=== PATIENT | female | born 1960 | race Caucasian/White ===

== ENCOUNTER → 2020-03-15 12:02 | Outpatient (BNVA) | payer OTHER, SELFPAY | PROVIDERS: PCP Internal Medicine Sports Medicine; Referring Provider Internal Medicine Sports Medicine; Visit Provider Internal Medicine | DX: I48.0 Paroxysmal atrial fibrillation (principal); E11.9 Type 2 diabetes mellitus without complications; I10 Essential (primary) hypertension; E78.5 Hyperlipidemia, unspecified; G47.33 Obstructive sleep apnea (adult) (pediatric); Z79.01 Long term (current) use of anticoagulants; Z79.4 Long term (current) use of insulin; Z79.899 Other long term (current) drug therapy; Z99.89 Dependence on other enabling machines and devices | CPT/HCPCS: 99214 ==

== ENCOUNTER 2020-04-27 08:06 | Outpatient (REF) | payer OTHER, SELFPAY ==
[2020-04-27 09:38] LABS: Alanine Aminotransferase 49 U/L (0-31); Albumin Level 4.2 g/dL (3.5-5.0); Alkaline Phosphatase 124 U/L (39-117); Anion Gap 13 (12-20); Aspartate Amino Transferase 45 U/L (5-31); Bilirubin Total 0.3 mg/dL (0.0-1.0); Blood Urea Nitrogen 20 mg/dL (9-16); Calcium 9.4 mg/dL (8.4-10.2); Carbon Dioxide 29 mmol/L (22-29); Chloride 101 mmol/L (96-108); Estimated Glomerular Filt Rate > 60; Glucose Random 233 mg/dL (60-115); Potassium 4.3 mmol/l (3.3-5.1); Sodium 139 mmol/L (135-145); Total Protein 7.4 g/dL (6.5-8.0)
[2020-04-27 09:41] LABS: Estimated Average Glucose 283 mg/dL; Hemoglobin A1c % 11.5 %
[2020-04-27 09:48] LABS: Vitamin D 25-OH Total 49.6 ng/mL (>30)
[2020-04-30 13:12] LABS: Calcium (PTHI) 10.1 mg/dL (8.6-10.4); PTHI 18 pg/mL (14-64)
== END 2020-04-27 08:07 | disposition home or self-care (01) ==
LOC: HO.LAB 08:06
PROVIDERS: PCP Internal Medicine Sports Medicine; Visit Provider Internal Medicine
DX: E78.5 Hyperlipidemia, unspecified (principal); E11.65 Type 2 diabetes mellitus with hyperglycemia; I10 Essential (primary) hypertension; E04.2 Nontoxic multinodular goiter; M89.9 Disorder of bone, unspecified; E83.52 Hypercalcemia; E55.9 Vitamin D deficiency, unspecified
CPT/HCPCS: 80053; 82306; 83036; 83970

== ENCOUNTER → 2020-05-07 14:46 | Outpatient (BNVA) | payer OTHER, SELFPAY | PROVIDERS: PCP Internal Medicine Sports Medicine; Referring Provider Internal Medicine Sports Medicine; Visit Provider Internal Medicine | DX: E11.65 Type 2 diabetes mellitus with hyperglycemia (principal); Z79.4 Long term (current) use of insulin; E78.5 Hyperlipidemia, unspecified; I10 Essential (primary) hypertension; E04.2 Nontoxic multinodular goiter; M89.9 Disorder of bone, unspecified; E83.52 Hypercalcemia; E55.9 Vitamin D deficiency, unspecified | CPT/HCPCS: 82947; 99212 ==

== ENCOUNTER 2020-06-12 09:15 | Outpatient (REF) | payer OTHER, SELFPAY ==
--- NOTE | 2020-06-12 09:20 | MM_ITS ---
EXAMINATION: BONE DENSITOMETRY CLINICAL INDICATION: Disorder of bone. COMPARISON: Baseline BD dated 04/05/2019. TECHNIQUE: Using a [employer] DXA System (software version: 13.1) manufactured by [employer], dual-energy x-ray absorptiometry was performed of the lumbar spine and left hip. The images are of good technical quality. Summary results are attached. FINDINGS: AP SPINE L1-L4: Current: BMD 1.349 g/cm2, Z-score 1.3, T-score 1.4, normal, 8.7% decrease from baseline (<5% change is not significant). Baseline: BMD 1.477 g/cm2. LEFT FEMUR, NECK: Current: BMD 1.050 g/cm2, Z-score 0.5, T-score 0.1, normal. Baseline: BMD 1.044 g/cm2. LEFT FEMUR, TOTAL: Current: BMD 1.075 g/cm2, Z-score 0.5, T-score 0.5, normal, 6.0% decrease from baseline (<5% change is not significant). Baseline: BMD 1.144 g/cm2. IDENTIFIED RISK FACTORS: Rheumatoid arthritis. Early menopause, secondary osteoporosis. HISTORY OF FRACTURE: None listed. MEDICATIONS: Vitamin D. MM/XR DEXA axial skeleton IMPRESSION: 1. DIAGNOSIS: Normal bone density based on the lowest T-score value of 0.1 in the femoral neck applying World Health Organization criteria. 2. 10-YEAR FRACTURE RISK PREDICTION, FRAX: Major osteoporotic fracture (clinical spine, forearm, hip or shoulder) 3.5%. Hip fracture 0.1%. 3. Treatment Recommendations: NOF guidelines recommend consideration for treatment in postmenopausal women and men age 50 and older presenting with the following: -A hip or vertebral (clinical or morphometric) fracture. -T-score less than or equal to -2.5 at the femoral neck or spine after appropriate evaluation to exclude secondary causes. -Low bone mass at the hip or spine and a 10-year fracture probability by FRAX of greater than or equal to 3% for hip fracture or greater than or equal to 20% for major osteoporotic fracture based on the [place] adapted WHO algorithm. 4. Other Recommendations: All treatment decisions require clinical judgment and consideration of individual patient factors, including patient preferences, comorbidities, previous drug use, risk factors not captured in the FRAX model (e.g. frailty, falls, vitamin D deficiency, increased bone turnover, interval significant decline in bone density) and possible under or overestimation of fracture risk by FRAX. FUTURE SCAN RECOMMENDATION: People with diagnosed cases of osteoporosis or at high risk for fracture should have regular bone mineral density tests. For patients eligible for Medicare, routine testing is allowed once every 2 years. The testing frequency can be increased to one year for patients who have rapidly progressing disease, those who are receiving or discontinuing medical therapy to restore bone mass, or have additional risk factors.
--- NOTE | 2020-06-12 10:01 | US_ITS ---
EXAMINATION: US THYROID CLINICAL INFORMATION: Nontoxic multinodular goiter. COMPARISON: Ultrasound-guided thyroid biopsy 05/19/2019. Thyroid ultrasound 09/02/2018. TECHNIQUE: Linear transducer teague-scale and color Doppler examination with attention to the region of the thyroid. FINDINGS: SIZE: Measurements of the thyroid lobes and nodules are given in sagittal, anteroposterior and transverse dimensions respectively. Right Thyroid Lobe: 6.1 x 2.3 x 2.5 cm, volume 18.3 mL. Previously 5.5 x 2.3 x 2.1 cm, volume 13.9 mL. Parenchyma: The gland echotexture is homogeneous. Thyroid vascularity is normal. Left Thyroid Lobe: 5.9 x 2.2 x 2.2 cm, volume 14.9 mL. Previously 5.6 x 2.1 x 2.2 cm, volume 13.5 mL. Parenchyma: The gland echotexture is homogeneous. Thyroid vascularity is normal. Isthmus: 0.8 cm in maximum AP dimension. Previously 0.6 cm. RIGHT THYROID LOBE: There are 4 nodules seen. 1. Location: Upper pole. Size: 0.8 x 0.9 x 0.7 cm. Previous: 0.4 x 0.2 x 0.4 cm. Nodule characteristics: Hypoechoic, smoothly marginated with intranodular flow. 2. Location: Lower pole. Size: 2.2 x 1.5 x 1.6 cm. Previous: 1.8 x 1.3 x 1.6 cm. Nodule characteristics: Hypoechoic, smoothly marginated with intranodular flow. 3. Location: Lower pole. Size: 1.8 x 1.2 x 1.3 cm. Previous: 1.6 x 1.3 x 1.1 cm. Nodule characteristics: Hypoechoic. 4. Location: Lower pole. Size: 0.9 x 0.6 x 0.7 cm. Previous: Not seen. Nodule characteristics: Hypoechoic, smoothly marginated with intranodular flow. ISTHMUS: There is 1 nodule seen. 1. Location: Isthmus. Size: 1.3 x 0.5 x 1.2 cm. Previous: Not seen. Nodule characteristics: Hypoechoic, smoothly marginated with no intranodular flow. LEFT THYROID LOBE: There are 4 nodules seen. 1. Location: Mid pole. Size: 1.0 x 0.6 x 1.0 cm. Previous: 1.2 x 0.8 x 0.9 cm. Nodule characteristics: Hypoechoic smoothly marginated and no intranodular flow. 2. Location: Mid pole. Size: 1.2 x 0.9 x 1.2 cm. Previous: 2.8 x 2.0 x 2.2 cm. Nodule characteristics: Hypoechoic, smoothly marginated and no intranodular flow. 3. Location: Lower pole. Size: 0.9 x 0.6 x 0.8 cm. Previous: Not seen. Nodule characteristics: Hypoechoic, smoothly marginated with no intranodular flow. 4. Location: Lower pole. Size: 1.1 x 0.8 x 1.0 cm. Previous: Not seen. Nodule characteristics: Hypoechoic, smoothly marginated with no intranodular flow. NODES: No lymphadenopathy is seen in the tissue surrounding the thyroid gland. US/US thyroid IMPRESSION: Multinodular goiter. No major change in most of the large or the small nodules and new nodules seen in the lower pole left lobe and isthmus. Recommend continued followup.
== END 2020-06-12 09:16 | disposition home or self-care (01) ==
LOC: HO.MAMMO 09:15
PROVIDERS: PCP Internal Medicine Sports Medicine; Visit Provider Internal Medicine
DX: Z13.820 Encounter for screening for osteoporosis (principal); M89.9 Disorder of bone, unspecified; Z78.0 Asymptomatic menopausal state; M06.9 Rheumatoid arthritis, unspecified; E04.2 Nontoxic multinodular goiter
CPT/HCPCS: 76536; 77080

== ENCOUNTER → 2020-06-27 10:20 | Outpatient (BNVA) | payer OTHER, SELFPAY | PROVIDERS: PCP Internal Medicine Sports Medicine; Visit Provider Internal Medicine | CPT/HCPCS: Q3014 ==

== ENCOUNTER → 2020-08-06 10:57 | Outpatient (BNV) | payer OTHER, SELFPAY | PROVIDERS: PCP Internal Medicine Sports Medicine; Visit Provider Internal Medicine | DX: D05.11 Intraductal carcinoma in situ of right breast (principal); Z79.811 Long term (current) use of aromatase inhibitors | CPT/HCPCS: 99213; 99214 ==

== ENCOUNTER → 2020-09-06 12:59 | Outpatient (BNVA) | payer OTHER, SELFPAY | PROVIDERS: PCP Internal Medicine Sports Medicine; Visit Provider Internal Medicine | DX: E11.65 Type 2 diabetes mellitus with hyperglycemia (principal); Z79.4 Long term (current) use of insulin; E78.5 Hyperlipidemia, unspecified; E04.2 Nontoxic multinodular goiter; E83.52 Hypercalcemia; E55.9 Vitamin D deficiency, unspecified; I10 Essential (primary) hypertension; M89.9 Disorder of bone, unspecified | CPT/HCPCS: 82947; 99212 ==

== ENCOUNTER 2020-09-13 08:52 | Outpatient (REF) | payer OTHER, SELFPAY | END 2020-09-13 08:53 | disposition home or self-care (01) | LOC: HO.LAB 08:52 | PROVIDERS: PCP Internal Medicine Sports Medicine; Visit Provider Internal Medicine | DX: Z13.89 Encounter for screening for other disorder (principal) ==

== ENCOUNTER 2020-10-12 09:43 | Outpatient (REF) | payer OTHER, SELFPAY ==
--- NOTE | ~2020-10-12 | XR_ITS ---
EXAMINATION: XR LUMBOSACRAL SPINE CLINICAL INFORMATION: Chronic right-sided low back pain COMPARISON: None TECHNIQUE: Three views of the lumbosacral spine. FINDINGS: There is normal lumbar lordosis. The vertebral heights and alignment is normal. There is loss of T12-L1, L1-L2, L2-L3 and L5-S1 disc heights with moderate ventral and lateral spondylosis. No lytic or sclerotic process seen. The SI joints are symmetrical and normal. The paravertebral soft tissues are normal. XR/XR lumbar spine 2-3V IMPRESSION: Degenerative disc changes with moderate ventral spondylosis. No visible acute fracture or lytic process.
== END 2020-10-12 09:44 | disposition home or self-care (01) ==
LOC: HO.XRAY 09:43
PROVIDERS: PCP Internal Medicine Sports Medicine; Visit Provider Internal Medicine Sports Medicine
DX: M54.5 Low back pain (principal); G89.29 Other chronic pain
CPT/HCPCS: 72100

== ENCOUNTER 2020-12-13 10:56 | Outpatient (REF) | payer OTHER, SELFPAY ==
[2020-12-13 11:53] LABS: Estimated Average Glucose 183 mg/dL
[2020-12-13 12:01] LABS: Alanine Aminotransferase 23 U/L (0-31); Albumin Level 4.2 g/dL (3.5-5.0); Alkaline Phosphatase 79 U/L (39-117); Anion Gap 14 (12-20); Aspartate Amino Transferase 21 U/L (5-31); Bilirubin Total 0.4 mg/dL (0.0-1.0); Blood Urea Nitrogen 26 mg/dL (9-16); Calcium 10.1 mg/dL (8.4-10.2); Carbon Dioxide 27 mmol/L (22-29); Chloride 103 mmol/L (96-108); Cholesterol 133 mg/dL; Estimated Glomerular Filt Rate > 60; Glucose Random 259 mg/dL (60-115); HDL Cholesterol 37 mg/dL; LDL Cholesterol Calculated 68 mg/dl; Potassium 4.7 mmol/L (3.3-5.1); Sodium 139 mmol/L (135-145); Total Protein 7.2 g/dL (6.5-8.0); Triglycerides 144 mg/dL
[2020-12-13 12:24] LABS: Vitamin D 25-OH Total 34.5 ng/mL (>30)
[2020-12-13 13:38] LABS: Microalbum/Creatinine Ratio Ur 24.4 ug/mg cr
[2020-12-14 07:32] LABS: LDL Cholesterol Direct 78 mg/dL (<100)
== END 2020-12-13 10:57 | disposition home or self-care (01) ==
LOC: HO.LAB 10:56
PROVIDERS: Visit Provider Internal Medicine
DX: E11.65 Type 2 diabetes mellitus with hyperglycemia (principal); E55.9 Vitamin D deficiency, unspecified; Z79.4 Long term (current) use of insulin
CPT/HCPCS: 36415; 80053; 80061; 82043; 82306; 83036; 83721

== ENCOUNTER 2020-12-20 10:00 | Outpatient (RCR) | payer OTHER, SELFPAY | END 2020-12-20 11:47 | disposition other institution (70) | LOC: HO.OT 10:00 | PROVIDERS: Visit Provider Internal Medicine Sports Medicine | DX: M65.4 Radial styloid tenosynovitis [de Quervain] (principal) | CPT/HCPCS: 29125; 97035; 97110; 97140; 97167; 97760 ==

== ENCOUNTER 2021-01-24 10:37 | Outpatient (REF) | payer OTHER, SELFPAY | END 2021-01-24 10:38 | disposition home or self-care (01) | LOC: HO.US 10:37 | PROVIDERS: Visit Provider Internal Medicine | DX: E04.2 Nontoxic multinodular goiter (principal) | CPT/HCPCS: 76536 ==

== ENCOUNTER 2021-02-04 11:42 | Emergency (ER) | payer OTHER, SELFPAY ==
[2021-02-04 11:50] VITALS: BP 147/65; PULSE 88; RESP 16; TEMP 36.7; O2SAT 96; BMI 42.0
--- NOTE | 2021-02-04 12:56 | ED.BACK ---
HPI - Back Pain/Injury General Chief Complaint: Back Pain/Injury Stated Complaint: back pain Time Seen by Provider: 02/04/21 12:56 Source: patient Mode of arrival: ambulatory Limitations: no limitations History of Present Illness HPI Narrative: 60 y/o female with history of DM2 on insulin, HTN, HLD, BRIAN, afib who presents to the ER with acute on chronic back pain. She reports for the last 3 days she has had lower back pain on the right side as well as in her middle back. Described as spasms that take her breath away and stop her in her tracks when she is walking with her rollator. She denies any known injury. She states pain is worse with any movement and she is having a hard time finding a comfortable position at night. No weakness, numbness, tingling, chest pain, SOB. MD elicited complaint: back pain Pertinent past history: prior back pain Onset (ago): day(s) (3) Timing: constant Severity: moderate Pain scale (0-10): 7 Similar Symptoms Previously: Yes Quality: aching and spasming Location: right lower back and right upper back Radiation: none Exacerbating factors: movement, walking and coughing/sneezing Relieving factors: supine Context: unknown Associated symptoms: denies other symptoms Treatments prior to arrival: acetaminophen Work related injury: No Related Data Home Medications Medication Instructions Recorded Confirmed allopurinol 300 mg tablet 300 mg PO DAILY 03/15/20 09/06/20 diltiazem HCl 120 mg capsule,24 120 mg PO DAILY 03/15/20 09/06/20 hr,extended release fenofibrate nanocrystallized 145 145 mg PO DAILY 03/15/20 09/06/20 mg tablet metoprolol succinate 50 mg 50 mg PO DAILY 03/15/20 09/06/20 tablet,extended release 24 hr olmesartan 40 mg tablet 40 mg PO DAILY 03/15/20 09/06/20 rivaroxaban 20 mg tablet 20 mg PO DAILY 03/15/20 09/06/20 rosuvastatin 20 mg tablet 20 mg PO BEDTIME 03/15/20 09/06/20 blood-glucose meter #1 ea 05/07/20 09/06/20 lancets 30 gauge #100 ea 05/07/20 09/06/20 omeprazole 20 mg capsule,delayed 20 mg PO DAILY PRN 05/07/20 09/06/20 release pen needle, diabetic 32 gauge x #50 ea 05/07/20 09/06/2006/11 pen needle, diabetic 32 gauge x #50 ea 05/07/20 09/06/20 triamcinolone acetonide 0.1 % 1 appl TOPICAL BID-TID 05/07/20 09/06/20 topical cream Previous Rx's Medication Instructions Recorded cholecalciferol (vitamin D3) 50 50 mcg PO DAILY 30 Days #30 cap 04/23/20 mcg (2,000 unit) capsule blood sugar diagnostic (FreeStyle #100 ea 05/07/20 Lite Strips) insulin aspart U-100 100 unit/mL 45 unit SUBCUT TID 30 Days #40.5 ml 05/07/20 (3 mL) subcutaneous pen insulin degludec 200 unit/mL (3 135 unit SUBCUT QAM 30 Days #20.25 05/07/20 mL) subcutaneous pen ml lancets 28 gauge (FreeStyle See Rx Instructions TOPICAL QID 06/18/20 Lancets) #100 cap letrozole 2.5 mg tablet 2.5 mg PO DAILY #90 tab 08/22/20 alendronate 70 mg tablet (Fosamax) 70 mg PO QWEEK 30 Days #5 tab 09/06/20 cyclobenzaprine 10 mg tablet 10 mg PO TID PRN #10 tab 02/04/21 diclofenac sodium 3 % topical gel 1 appl TOPICAL BID #100 g 02/04/21 hydrocodone 5 mg-acetaminophen 325 1 tab PO Q8H PRN #5 tab 02/04/21 mg tablet lidocaine 5 % topical patch 1 patch TOPICAL DAILY #15 ea 02/04/21 (Lidoderm) Allergies Allergy/AdvReac Type Severity Reaction Status Date / Time Penicillins [PENICILLINS] Allergy Unknown RASH Verified 09/06/20 13:21 canagliflozin AdvReac Yeast Verified 09/06/20 13:21 [From Invokamet] infection metformin [From Invokamet] AdvReac Yeast Verified 09/06/20 13:21 infection Review of Systems Review of Systems: Constitutional: No Fever, No Chills ENT/Mouth: No sore throat, No Rhinorrhea, No Swallowing Difficulty Cardiovascular: No Chest Pain, No SOB Respiratory: No Cough, No Sputum Gastrointestinal: No Nausea, No Vomiting, No abdominal Pain Genitourinary: No Dysuria, No Urinary Frequency, No Hematuria Musculoskeletal: No joint pain, + Myalgias Skin: No Skin Lesions, No rash Neuro: No Weakness, No Numbness, No Dizziness, No Headache Psych: No Anxiety/Panic, No Depression Heme/Lymph: No Bruising, No Lymphadenopathy PMFSH Past Medical History Medical History Disorder of bone, unspecified Essential hypertension HLD (hyperlipidemia) HTN (hypertension) Hypercalcemia longterm (current) use of insulin Multinodular thyroid Obstructive sleep apnea (adult) (pediatric) PAF (paroxysmal atrial fibrillation) T2DM (type 2 diabetes mellitus) Type 2 diabetes mellitus without complications Vitamin D deficiency Surgical History Hx of colonoscopy Family History Family History Father Cardiovascular disease Mother Uterine cancer Social History Social History Alcohol intake: former Advance Directives: No Advance Directives Information Provided: No Patient : No Physical Exam Vital Signs: Vital Signs: Last Vital Signs Temp 98.0 F 02/04/21 11:50 Pulse 88 02/04/21 11:50 Resp 16 02/04/21 11:50 BP 147/65 H 02/04/21 11:50 Pulse Ox 96 02/04/21 11:50 Body Mass Index 42.0 Appearance: Alert. Oriented X3. No acute distress. Eyes: Pupils equal, round and reactive to light. ENT: Pharynx normal. Neck: Normal inspection. Neck supple. CVS: Normal heart rate and rhythm. Pulses normal. Respiratory: No respiratory distress. Breath sounds normal. Abdomen: Obese, Soft and nontender. +BS x4 Back: right middle and right lower back with soft tissue tenderness and palpable spasm. pain with bending forward and rotation to the left. no spinal tenderness. Skin: Skin warm and dry. Normal skin color. Normal skin turgor. No rashes. Extremities: No lower extremity edema. Neuro: Oriented X 3. No motor deficit. No sensory deficit. Ambulates with slow but steady gait. Course Course Course Narrative: 60 yo female presenting with acute on chronic back pain, worse with movement and palpation. Spasm on exam with tenderness. No red flag symptoms of LBP. She has an appointment in a couple of weeks with her PCP. Will give trial of muscle relaxer, topical NSAID (on xarelto), and lidoderm. 5 PRN vicoden given as well for severe pain if she cannot sleep. She agrees with plan and will f/u with her PCP CRISTIANO. Discharge Plan Discharge Clinical Impression: Thoracic back pain Qualifiers: Chronicity: acute Back pain laterality: right Qualified Code(s): M54.6 - Pain in thoracic spine Strain of lumbar region Qualifiers: Encounter type: initial encounter Qualified Code(s): S39.012A - Strain of muscle, fascia and tendon of lower back, initial encounter Patient Disposition: Home, Self-Care Instructions: Back Pain (ED), Lower Back Exercises (ED) Additional Instructions: Your pain is most likely muscular in nature. No bending, lifting or twisting. Use ice several times per day for 20 minutes at a time for the next 48 hours and then change to heat. Take medications as prescribed to help with pain and discomfort. Follow up with your Primary Care Doctor this week. If your pain worsens, if you develop new numbness, tingling, weakness, loss of function or incontinence call 911 or come back to the ER right away for evaluation. Prescriptions: New cyclobenzaprine 10 mg tablet 10 mg PO TID PRN (Reason: muscle spasm) Qty: 10 RF: 0 lidocaine [Lidoderm] 5 % adhesive patch,medicated 1 patch topical DAILY Qty: 15 RF: 0 diclofenac sodium 3 % gel 1 appl topical BID Qty: 100 RF: 0 hydrocodone-acetaminophen 5-325 mg tablet 1 tab PO Q8H PRN (Reason: pain) Qty: 5 RF: 0 No Action cholecalciferol (vitamin D3) 50 mcg (2,000 unit) capsule 50 mcg PO DAILY 30 Days Qty: 30 RF: 11 (DME) FreeStyle Lite Strips Strip See Rx Instructions .ROUTE .MEDSUPPLY Qty: 100 RF: 12 lancets [FreeStyle Lancets] 28 gauge misc See Rx Instructions topical QID Qty: 100 RF: 11 letrozole 2.5 mg tablet 2.5 mg PO DAILY Qty: 90 RF: 2 (DME) pen needle, diabetic 32 gauge x /32 needle See Rx Instructions ea subcut QID Qty: 50 RF: 0 (DME) pen needle, diabetic 32 gauge x 1/4 needle See Rx Instructions ea subcut QID Qty: 50 RF: 0 (DME) blood-glucose meter Kit See Rx Instructions ea .ROUTE DIRECTED Qty: 1 RF: 0 triamcinolone acetonide 0.1 % cream 1 appl topical BID-TID RF: 0 (DME) lancets 30 gauge misc See Rx Instructions ea .ROUTE TID Qty: 100 RF: 0 omeprazole 20 mg capsule,delayed release(DR/EC) 20 mg PO DAILY PRN (Reason: heartburn) RF: 0 insulin aspart U-100 100 unit/mL (3 mL) insulin pen 45 unit subcut TID 30 Days Qty: 40.5 RF: 11 insulin degludec 200 unit/mL (3 mL) insulin pen 135 unit subcut QAM 30 Days Qty: 20.25 RF: 11 fenofibrate nanocrystallized 145 mg tablet 145 mg PO DAILY RF: 0 Xarelto 20 mg tablet 20 mg PO DAILY RF: 0 olmesartan 40 mg tablet 40 mg PO DAILY RF: 0 allopurinol 300 mg tablet 300 mg PO DAILY RF: 0 rosuvastatin 20 mg tablet 20 mg PO BEDTIME RF: 0 metoprolol succinate 50 mg tablet extended release 24 hr 50 mg PO DAILY RF: 0 diltiazem HCl 120 mg capsule,extended release 24 hr 120 mg PO DAILY RF: 0 alendronate [Fosamax] 70 mg tablet 70 mg PO QWEEK 30 Days Qty: 5 RF: 6
--- NOTE | 2021-02-04 13:29 | PC.NURSE ---
1ST ENCOUNTER WITH PATIENT FOR DC PURPOSES. PT AWAKE, ALERT AND ORIENTED X 3. PT DRESSED, SITTING IN CHAIR. NO ACUTE DISTRESS NOTED. NEUROS INTACT. AMBULATORY, GAIT STEADY. PLAN IS FOR DC HOME. PT AGREEABLE TO PLAN. STATES NO QUESTIONS.
== END 2021-02-04 13:35 | disposition home or self-care (01) ==
PROVIDERS: Emergency Provider Emergency Medicine
DX: S39.012A Strain of muscle, fascia and tendon of lower back, initial encounter (principal); M54.6 Pain in thoracic spine; E11.9 Type 2 diabetes mellitus without complications; X58.XXXA Exposure to other specified factors, initial encounter; Y93.9 Activity, unspecified; Y92.9 Unspecified place or not applicable; Y99.9 Unspecified external cause status; Z87.891 Personal history of nicotine dependence; Z79.899 Other long term (current) drug therapy; Z79.4 Long term (current) use of insulin
CPT/HCPCS: 99283

== ENCOUNTER 2021-02-19 12:39 | Outpatient (REF) | payer OTHER, SELFPAY ==
--- NOTE | ~2021-02-19 | MM_ITS ---
EXAMINATION: MM DIAGNOSTIC DIGITAL BREAST TOMOSYNTHESIS, BILATERAL CLINICAL INFORMATION: Right breast cancer, DCIS 2018. Due for yearly exam. COMPARISON: Mammography: 02/16/2020, 09/10/2018; and outside imaging from [facility] dated 07/02/2017, 03/06/2017, 02/17/2017, 07/29/2016, 05/21/2016. TECHNIQUE: Digital breast tomosynthesis is performed in both the craniocaudal and mediolateral oblique views along with computer-aided detection (CAD). Synthesized 2D images are generated from the tomosynthesis. Additional views are obtained: Bilateral MLO, magnification right CC x3, magnification right LM. FINDINGS: There are scattered areas of fibroglandular density (ACR BI-RADS breast composition Category b). There are post therapy changes in the right breast again seen with minor scarring and surgical clips. Biopsy clip marker is again noted right inner quadrant. There are low axillary tail nodes which are stable. Neither breast shows interval mass or architectural abnormality or abnormal calcifications. There are no significant changes. Results are provided to the patient at time of visit by the technologist. MM/MM tomosynthesis diagnostic BI IMPRESSION: No mammographic evidence of malignancy. Post therapy changes right breast, stable. ASSESSMENT: BI-RADS 2: Benign RECOMMENDATION: Routine annual mammography screening. This patient's information was entered into a reminder system with a target due date for their next mammogram.
== END 2021-02-19 12:40 | disposition home or self-care (01) ==
LOC: HO.MAMMO 12:39
PROVIDERS: Visit Provider Obstetrics & Gynecology
DX: Z85.3 Personal history of malignant neoplasm of breast (principal); Z86.000 Personal history of in-situ neoplasm of breast
CPT/HCPCS: 77062; 77066

== ENCOUNTER → 2021-03-05 09:42 | Outpatient (BNVA) | payer OTHER, SELFPAY | PROVIDERS: PCP Internal Medicine Sports Medicine; Visit Provider Obstetrics & Gynecology ==

== ENCOUNTER → 2021-04-02 10:12 | Outpatient (BNVA) | payer OTHER, SELFPAY | PROVIDERS: PCP Internal Medicine Sports Medicine; Referring Provider Internal Medicine Sports Medicine; Visit Provider Internal Medicine | DX: I48.0 Paroxysmal atrial fibrillation (principal); I10 Essential (primary) hypertension; G47.33 Obstructive sleep apnea (adult) (pediatric); E11.9 Type 2 diabetes mellitus without complications; Z79.4 Long term (current) use of insulin | CPT/HCPCS: 93005; 99212 ==

== ENCOUNTER 2021-07-29 08:19 | Outpatient (REF) | payer OTHER, SELFPAY ==
[2021-07-29 09:15] LABS: Estimated Average Glucose 226 mg/dL; Hemoglobin A1c % 9.5 %
[2021-07-29 09:31] LABS: Microalbum/Creatinine Ratio Ur 99.4 ug/mg cr
[2021-07-29 09:37] LABS: Alanine Aminotransferase 41 U/L (0-31); Alkaline Phosphatase 68 U/L (39-117); Anion Gap 13 (12-20); Aspartate Amino Transferase 38 U/L (5-31); Bilirubin Total 0.6 mg/dL (0.0-1.0); Blood Urea Nitrogen 17 mg/dL (9-16); Calcium 9.4 mg/dL (8.4-10.2); Carbon Dioxide 28 mmol/L (22-29); Chloride 102 mmol/L (96-108); Cholesterol 194 mg/dL; Estimated Glomerular Filt Rate > 60; Glucose Random 197 mg/dL (60-115); HDL Cholesterol 38 mg/dL; LDL Cholesterol Calculated 103 mg/dl; Phosphorus 4.2 mg/dL (2.7-4.5); Potassium 3.9 mmol/L (3.3-5.1); Sodium 139 mmol/L (135-145); Total Protein 7.1 g/dL (6.5-8.0); Triglycerides 269 mg/dL
[2021-07-29 09:58] LABS: Free T4 (Free Thyroxine) 0.86 ng/dL (0.71-1.85); Thyroid Stimulating Hormone 1.74 uIU/mL (0.32-4.0); Vitamin D 25-OH Total 42.9 ng/mL (>30)
[2021-07-30 08:06] LABS: LDL Cholesterol Direct 120 mg/dL (<100)
[2021-07-30 13:02] LABS: Calcium (PTHI) 9.2 mg/dL (8.6-10.4); PTHI 47 pg/mL (14-64)
== END 2021-07-29 08:20 | disposition home or self-care (01) ==
LOC: HO.LAB 08:19
PROVIDERS: Visit Provider Internal Medicine
DX: E11.65 Type 2 diabetes mellitus with hyperglycemia (principal); E83.52 Hypercalcemia; E04.2 Nontoxic multinodular goiter; Z79.4 Long term (current) use of insulin
CPT/HCPCS: 36415; 80053; 80061; 82043; 82306; 83036; 83721; 83970; 84100; 84439; 84443

== ENCOUNTER → 2021-07-31 13:17 | Outpatient (BNVA) | payer OTHER, SELFPAY | PROVIDERS: PCP Internal Medicine Sports Medicine; Visit Provider Internal Medicine | DX: E11.65 Type 2 diabetes mellitus with hyperglycemia (principal); E78.5 Hyperlipidemia, unspecified; E04.2 Nontoxic multinodular goiter; E83.52 Hypercalcemia; E55.9 Vitamin D deficiency, unspecified; M89.9 Disorder of bone, unspecified; I10 Essential (primary) hypertension; Z79.4 Long term (current) use of insulin | CPT/HCPCS: 82947; 99212 ==

== ENCOUNTER → 2021-08-09 11:22 | Outpatient (BNVA) | payer OTHER, SELFPAY | PROVIDERS: PCP Internal Medicine Sports Medicine; Visit Provider Registered Nurse Diabetes Educator | DX: E11.65 Type 2 diabetes mellitus with hyperglycemia (principal); Z79.4 Long term (current) use of insulin | CPT/HCPCS: 99211 ==

== ENCOUNTER → 2021-08-23 08:48 | Outpatient (BNVA) | payer OTHER, SELFPAY | PROVIDERS: PCP Internal Medicine Sports Medicine; Visit Provider Registered Nurse Diabetes Educator | DX: E11.9 Type 2 diabetes mellitus without complications (principal) | CPT/HCPCS: 99211 ==

== ENCOUNTER → 2021-09-26 08:40 | Outpatient (BNVA) | payer OTHER, SELFPAY | PROVIDERS: PCP Internal Medicine Sports Medicine; Visit Provider Registered Nurse Diabetes Educator | DX: E11.65 Type 2 diabetes mellitus with hyperglycemia (principal); Z79.4 Long term (current) use of insulin | CPT/HCPCS: 99211 ==

== ENCOUNTER → 2021-10-25 10:21 | Outpatient (BNVA) | payer OTHER, SELFPAY | PROVIDERS: PCP Internal Medicine Sports Medicine; Visit Provider Registered Nurse Diabetes Educator | DX: E11.65 Type 2 diabetes mellitus with hyperglycemia (principal); Z79.4 Long term (current) use of insulin | CPT/HCPCS: 99211 ==

== ENCOUNTER 2021-11-11 09:29 | Outpatient (REF) | payer OTHER, SELFPAY ==
[2021-11-11 10:58] LABS: Estimated Average Glucose 194 mg/dL; Hemoglobin A1c % 8.4 %
[2021-11-11 11:04] LABS: Alanine Aminotransferase 32 U/L (0-31); Albumin Level 4.1 g/dL (3.5-5.0); Alkaline Phosphatase 60 U/L (39-117); Anion Gap 16 (12-20); Aspartate Amino Transferase 27 U/L (5-31); Bilirubin Total 0.7 mg/dL (0.0-1.0); Blood Urea Nitrogen 19 mg/dL (9-16); Calcium 9.1 mg/dL (8.4-10.2); Carbon Dioxide 25 mmol/L (22-29); Chloride 104 mmol/L (96-108); Cholesterol 133 mg/dL; Estimated Glomerular Filt Rate > 60; Glucose Random 135 mg/dL (60-115); HDL Cholesterol 35 mg/dL; LDL Cholesterol Calculated 65 mg/dl; Phosphorus 4.7 mg/dL (2.7-4.5); Potassium 4.2 mmol/L (3.3-5.1); Sodium 141 mmol/L (135-145); Triglycerides 169 mg/dL
[2021-11-11 11:05] LABS: Free T4 (Free Thyroxine) 0.89 ng/dL (0.71-1.85); Thyroid Stimulating Hormone 1.27 uIU/mL (0.32-4.0); Vitamin D 25-OH Total 42.1 ng/mL (>30)
[2021-11-11 11:12] LABS: Creatinine Urine 145.68 mg/dL; Microalbum/Creatinine Ratio Ur 43.2 ug/mg cr
[2021-11-12 14:47] LABS: Calcium (PTHI) 9.2 mg/dL (8.6-10.4); PTHI 56 pg/mL (16-77)
[2021-11-15 14:10] LABS: N-Telopeptide 34 (see note); NTXCreaRU 144 mg/dL (20-275)
== END 2021-11-11 09:30 | disposition home or self-care (01) ==
LOC: HO.LAB 09:29
PROVIDERS: Visit Provider Internal Medicine
DX: M89.9 Disorder of bone, unspecified (principal); E11.65 Type 2 diabetes mellitus with hyperglycemia; E55.9 Vitamin D deficiency, unspecified; E04.2 Nontoxic multinodular goiter; Z79.4 Long term (current) use of insulin
CPT/HCPCS: 36415; 80053; 80061; 82043; 82306; 82523; 83036; 83970; 84100; 84439; 84443

== ENCOUNTER → 2021-11-13 08:38 | Outpatient (BNVA) | payer OTHER, SELFPAY | PROVIDERS: PCP Internal Medicine Sports Medicine; Visit Provider Internal Medicine | DX: E11.65 Type 2 diabetes mellitus with hyperglycemia (principal); E78.5 Hyperlipidemia, unspecified; I10 Essential (primary) hypertension; E04.2 Nontoxic multinodular goiter; M89.9 Disorder of bone, unspecified; E83.52 Hypercalcemia; E55.9 Vitamin D deficiency, unspecified | CPT/HCPCS: 95249; Q3014 ==

== ENCOUNTER → 2021-11-28 09:53 | Outpatient (BNVA) | payer OTHER, SELFPAY | PROVIDERS: PCP Internal Medicine Sports Medicine; Visit Provider Registered Nurse Diabetes Educator | DX: E11.65 Type 2 diabetes mellitus with hyperglycemia (principal); Z79.4 Long term (current) use of insulin | CPT/HCPCS: 99211 ==

== ENCOUNTER → 2021-12-11 13:00 | Outpatient (BNVA) | payer OTHER, SELFPAY | PROVIDERS: PCP Internal Medicine Sports Medicine; Visit Provider Nurse Practitioner Family | DX: R06.02 Shortness of breath (principal); I10 Essential (primary) hypertension; E78.5 Hyperlipidemia, unspecified; E11.9 Type 2 diabetes mellitus without complications; I48.0 Paroxysmal atrial fibrillation; Z79.01 Long term (current) use of anticoagulants; Z79.4 Long term (current) use of insulin; Z79.899 Other long term (current) drug therapy | CPT/HCPCS: 93005; 99212 ==

== ENCOUNTER → 2021-12-23 08:56 | Outpatient (REF) | payer OTHER, SELFPAY ==
--- NOTE | 2021-12-23 08:58 | CA_ITS ---
Acquisition Time: 2021-12-23 09:14:47 Total Exercise Time: 00:04:43 Test Indications: Dyspnea HTN Medications: SEE H Protocol: ROJAS Max HR: 148 BPM 91% of Pred: 161 BPM Max BP: 168/070 mmHG Max Work Load: 2.7 METS Exercise stress test with exercise 4 min 43 sec of modified rojas protocol, ( 2 min at 1 MPH 0% incline, then increase to 1.7 MPH, last minute incline up to 2%) achieving over 85% MPHR, 2.7 METs, with mild sob, no chest discomfort, with back discomfort limiting her mobility and requested to stop, without arrythmia, with normotensive response to exercise, without EKG changes meeting criteria for ischemia at achieved workload. Reduced exercise capacity noted making test overall suboptimal. Test reviewed with Dr Cornelius. Referred By: Francoise Lomeli Overread By: FRANCOISE LOMELI
== END ==
LOC: HO.CARD 08:56
PROVIDERS: Visit Provider Internal Medicine
DX: I48.0 Paroxysmal atrial fibrillation (principal); R06.02 Shortness of breath; G47.33 Obstructive sleep apnea (adult) (pediatric)
CPT/HCPCS: 93017

== ENCOUNTER 2022-01-03 08:42 | Outpatient (REF) | payer OTHER, SELFPAY ==
[2022-01-03 09:56] LABS: Albumin Level 4.4 g/dL (3.5-5.0); Calcium 8.6 mg/dL (8.4-10.2); Phosphorus 3.5 mg/dL (2.7-4.5)
[2022-01-03 10:19] LABS: Free T4 (Free Thyroxine) 1.58 ng/dL (0.71-1.85); Thyroid Stimulating Hormone 1.04 uIU/mL (0.32-4.0); Vitamin D 25-OH Total 41.8 ng/mL (>30)
[2022-01-05 13:06] LABS: Calcium (PTHI) 8.7 mg/dL (8.6-10.4); PTHI 48 pg/mL (16-77)
== END 2022-01-03 08:43 | disposition home or self-care (01) ==
LOC: HO.LAB 08:42
PROVIDERS: Visit Provider Internal Medicine
DX: E04.2 Nontoxic multinodular goiter (principal); E55.9 Vitamin D deficiency, unspecified
CPT/HCPCS: 36415; 82040; 82306; 82310; 83970; 84100; 84439; 84443

== ENCOUNTER → 2022-01-08 07:22 | Outpatient (BNVA) | payer OTHER, SELFPAY | PROVIDERS: PCP Internal Medicine Sports Medicine; Visit Provider Internal Medicine | DX: E11.65 Type 2 diabetes mellitus with hyperglycemia (principal); E78.5 Hyperlipidemia, unspecified; E89.0 Postprocedural hypothyroidism; E55.9 Vitamin D deficiency, unspecified; M89.9 Disorder of bone, unspecified; I10 Essential (primary) hypertension; Z79.4 Long term (current) use of insulin | CPT/HCPCS: 82947; 99212 ==

== ENCOUNTER → 2022-02-20 12:55 | Outpatient (BNVA) | payer OTHER, SELFPAY | PROVIDERS: PCP Internal Medicine Sports Medicine; Visit Provider Nurse Practitioner Family | DX: R06.02 Shortness of breath (principal); I10 Essential (primary) hypertension; E78.5 Hyperlipidemia, unspecified; E11.65 Type 2 diabetes mellitus with hyperglycemia; I48.0 Paroxysmal atrial fibrillation; Z79.01 Long term (current) use of anticoagulants; Z79.4 Long term (current) use of insulin; Z79.899 Other long term (current) drug therapy | CPT/HCPCS: 99212 ==

== ENCOUNTER 2022-02-21 09:41 | Outpatient (REF) | payer OTHER, SELFPAY ==
--- NOTE | ~2022-02-21 | MM_ITS ---
EXAMINATION: MM SCREENING DIGITAL BREAST TOMOSYNTHESIS, BILATERAL CLINICAL INFORMATION: Screening. Asymptomatic. Right DCIS status post lumpectomy 2018. COMPARISON: Mammography: 02/19/2021, 02/16/2020, 09/10/2018 TECHNIQUE: Digital breast tomosynthesis is performed in both the craniocaudal and mediolateral oblique views along with computer-aided detection (CAD). Synthesized 2D images are generated from the tomosynthesis. FINDINGS: There are scattered areas of fibroglandular density (ACR BI-RADS breast composition Category b). Parenchymal pattern is similar to prior exams. There is no developing density or interval mass or architectural abnormality or abnormal calcifications. There are minor post therapy changes right breast with scarring and surgical clips similar to prior exams. The axilla are unremarkable. There are no significant changes. MM/MM tomosynthesis screening BI IMPRESSION: No mammographic evidence of malignancy. ASSESSMENT: BI-RADS 2: Benign RECOMMENDATION: Routine annual mammography screening. This patient's information was entered into a reminder system with a target due date for their next mammogram.
== END 2022-02-21 09:42 | disposition home or self-care (01) ==
LOC: HO.MAMMO 09:41
PROVIDERS: Visit Provider Obstetrics & Gynecology
DX: Z12.31 Encounter for screening mammogram for malignant neoplasm of breast (principal)
CPT/HCPCS: 77063; 77067

== ENCOUNTER → 2022-03-18 10:28 | Outpatient (BNVA) | payer OTHER, SELFPAY | PROVIDERS: PCP Internal Medicine Sports Medicine; Visit Provider Registered Nurse Diabetes Educator | DX: E11.9 Type 2 diabetes mellitus without complications (principal) | CPT/HCPCS: 99211 ==

== ENCOUNTER 2022-04-04 10:21 | Outpatient (REF) | payer OTHER, SELFPAY ==
[2022-04-04 11:20] LABS: Estimated Average Glucose 183 mg/dL
== END 2022-04-04 10:22 | disposition home or self-care (01) ==
LOC: HO.LAB 10:21
PROVIDERS: PCP Internal Medicine Sports Medicine; Visit Provider Internal Medicine
DX: E11.65 Type 2 diabetes mellitus with hyperglycemia (principal); Z79.4 Long term (current) use of insulin
CPT/HCPCS: 36415; 83036

== ENCOUNTER → 2022-04-16 10:25 | Outpatient (BNVA) | payer OTHER, SELFPAY | PROVIDERS: PCP Internal Medicine Sports Medicine; Visit Provider Registered Nurse Diabetes Educator | DX: E11.9 Type 2 diabetes mellitus without complications (principal) | CPT/HCPCS: 99211 ==

== ENCOUNTER 2022-06-17 10:21 | Outpatient (REF) | payer OTHER, SELFPAY ==
--- NOTE | ~2022-06-17 | MM_ITS ---
EXAMINATION: BONE DENSITOMETRY CLINICAL INDICATION: Disordered bone, unspecified. COMPARISON: Previous BD dated 06/12/2020 and baseline BD dated 04/05/2019 of the lumbar spine and left hip. This is the baseline BD of the left forearm radius 33%. TECHNIQUE: Using a [employer] DXA System (software version: 13.1) manufactured by [employer], dual-energy x-ray absorptiometry was performed of the lumbar spine, left hip and left forearm radius 33%. The images are of good technical quality. Summary results are attached. FINDINGS: AP SPINE L1-L4: Current: BMD 1.436 g/cm2, Z-score 2.2, T-score 2.1, normal, 6.4% increase from previous, 2.8% decrease from baseline (<5% change is not significant). Prior: BMD 1.349 g/cm2. Baseline: BMD 1.477 g/cm2. LEFT FEMUR, NECK: Current: BMD 0.999 g/cm2, Z-score 0.2, T-score -0.3, normal. Prior: BMD 1.050 g/cm2. Baseline: BMD 1.044 g/cm2. LEFT FEMUR, TOTAL: Current: BMD 1.026 g/cm2, Z-score 0.2, T-score 0.1, normal, 4.6% decrease from previous, 10.3% decrease from baseline (<5% change is not significant). Prior: BMD 1.075 g/cm2. Baseline: BMD 1.144 g/cm2. LEFT FOREARM RADIUS 33%: BMD 0.693 g/cm2, Z-score -1.2, T-score -2.1, osteopenia. Prior: Not previously measured. IDENTIFIED RISK FACTORS: Rheumatoid arthritis. Secondary osteoporosis (early menopause, type 1 diabetes). HISTORY OF FRACTURE: None listed. MEDICATIONS: Calcium supplement or multivitamin. Vitamin D. ERT/SERMS. MM/XR DEXA appendicular skeleton IMPRESSION: 1. DIAGNOSIS: Osteopenia based on the lowest T-score value of -2.1 in the left forearm radius 33% applying World Health Organization criteria. 2. 10-YEAR FRACTURE RISK PREDICTION, FRAX: Major osteoporotic fracture (clinical spine, forearm, hip or shoulder) 3.8%. Hip fracture 0.1%. 3. Treatment Recommendations: NOF guidelines recommend consideration for treatment in postmenopausal women and men age 50 and older presenting with the following: -A hip or vertebral (clinical or morphometric) fracture. -T-score less than or equal to -2.5 at the femoral neck or spine after appropriate evaluation to exclude secondary causes. -Low bone mass at the hip or spine and a 10-year fracture probability by FRAX of greater than or equal to 3% for hip fracture or greater than or equal to 20% for major osteoporotic fracture based on the [place] adapted WHO algorithm. 4. Other Recommendations: All treatment decisions require clinical judgment and consideration of individual patient factors, including patient preferences, comorbidities, previous drug use, risk factors not captured in the FRAX model (e.g. frailty, falls, vitamin D deficiency, increased bone turnover, interval significant decline in bone density) and possible under or overestimation of fracture risk by FRAX. Additional medical evaluation for secondary cause of low bone mineral density may be appropriate. FUTURE SCAN RECOMMENDATION: People with diagnosed cases of osteoporosis or at high risk for fracture should have regular bone mineral density tests. For patients eligible for Medicare, routine testing is allowed once every 2 years. The testing frequency can be increased to one year for patients who have rapidly progressing disease, those who are receiving or discontinuing medical therapy to restore bone mass, or have additional risk factors.
== END 2022-06-17 10:22 | disposition home or self-care (01) ==
LOC: HO.MAMMO 10:21
PROVIDERS: Visit Provider Internal Medicine
DX: Z13.820 Encounter for screening for osteoporosis (principal); M89.9 Disorder of bone, unspecified; Z78.0 Asymptomatic menopausal state
CPT/HCPCS: 77081

== ENCOUNTER 2022-07-04 08:43 | Outpatient (REF) | payer OTHER, SELFPAY ==
[2022-07-04 10:00] LABS: Alanine Aminotransferase 42 U/L (0-31); Albumin Level 4.2 g/dL (3.5-5.0); Alkaline Phosphatase 63 U/L (39-117); Anion Gap 15 (12-20); Aspartate Amino Transferase 43 U/L (5-31); Bilirubin Total 0.5 mg/dL (0.0-1.0); Blood Urea Nitrogen 21 mg/dL (9-16); Calcium 9.3 mg/dL (8.4-10.2); Carbon Dioxide 26 mmol/L (22-29); Chloride 103 mmol/L (96-108); Cholesterol 116 mg/dL; Estimated Glomerular Filt Rate > 60; Glucose Random 171 mg/dL (60-115); HDL Cholesterol 32 mg/dL; LDL Cholesterol Calculated 59 mg/dl; Potassium 4.6 mmol/L (3.3-5.1); Sodium 139 mmol/L (135-145); Total Protein 7.1 g/dL (6.5-8.0); Triglycerides 127 mg/dL
[2022-07-04 10:19] LABS: Free T4 (Free Thyroxine) 1.35 ng/dL (0.71-1.85); Thyroid Stimulating Hormone 1.98 uIU/mL (0.32-4.0); Vitamin D 25-OH Total 43.5 ng/mL (>30)
[2022-07-04 11:41] LABS: Creatinine Urine 152.89 mg/dL; Microalbum/Creatinine Ratio Ur 31.3 ug/mg cr
[2022-07-06 07:54] LABS: LDL Cholesterol Direct 64 mg/dL (<100)
[2022-07-07 10:29] LABS: Calcium (PTHI) 9.3 mg/dL (8.6-10.4); PTHI 23 pg/mL (16-77)
== END 2022-07-04 08:44 | disposition home or self-care (01) ==
LOC: HO.LAB 08:43
PROVIDERS: PCP Internal Medicine Sports Medicine; Visit Provider Internal Medicine
DX: E11.65 Type 2 diabetes mellitus with hyperglycemia (principal); E04.2 Nontoxic multinodular goiter; E89.0 Postprocedural hypothyroidism; E55.9 Vitamin D deficiency, unspecified; M89.9 Disorder of bone, unspecified; Z79.4 Long term (current) use of insulin
CPT/HCPCS: 36415; 80053; 80061; 82043; 82306; 83721; 83970; 84100; 84439; 84443

== ENCOUNTER → 2022-07-07 10:10 | Outpatient (BNVA) | payer OTHER, SELFPAY | PROVIDERS: PCP Internal Medicine Sports Medicine; Visit Provider Internal Medicine | DX: E11.65 Type 2 diabetes mellitus with hyperglycemia (principal); E78.5 Hyperlipidemia, unspecified; I10 Essential (primary) hypertension; E89.0 Postprocedural hypothyroidism; M89.9 Disorder of bone, unspecified; Z79.4 Long term (current) use of insulin; Z79.899 Other long term (current) drug therapy | CPT/HCPCS: 82947; 83036; 99212 ==

== ENCOUNTER → 2022-10-06 09:45 | Outpatient (BNVA) | payer OTHER, SELFPAY | PROVIDERS: PCP Internal Medicine Sports Medicine; Visit Provider Internal Medicine | DX: I48.0 Paroxysmal atrial fibrillation (principal); I10 Essential (primary) hypertension; E11.65 Type 2 diabetes mellitus with hyperglycemia; Z79.4 Long term (current) use of insulin | CPT/HCPCS: 99212 ==

== ENCOUNTER 2022-10-10 08:01 | Outpatient (REF) | payer OTHER, SELFPAY ==
[2022-10-10 08:45] LABS: Estimated Average Glucose 180 mg/dL; Hemoglobin A1c % 7.9 %
[2022-10-10 09:11] LABS: Alanine Aminotransferase 33 U/L (0-31); Albumin Level 4.2 g/dL (3.5-5.0); Alkaline Phosphatase 55 U/L (39-117); Anion Gap 13 (12-20); Aspartate Amino Transferase 29 U/L (5-31); Bilirubin Total 0.4 mg/dL (0.0-1.0); Blood Urea Nitrogen 25 mg/dL (9-16); Calcium 9.2 mg/dL (8.4-10.2); Carbon Dioxide 27 mmol/L (22-29); Chloride 106 mmol/L (96-108); Estimated Glomerular Filt Rate > 60; Glucose Random 175 mg/dL (60-115); Potassium 3.9 mmol/L (3.3-5.1); Sodium 142 mmol/L (135-145); Total Protein 6.9 g/dL (6.5-8.0)
[2022-10-10 09:20] LABS: Free T4 (Free Thyroxine) 1.14 ng/dL (0.71-1.85); Thyroid Stimulating Hormone 1.76 uIU/mL (0.32-4.0)
== END 2022-10-10 08:02 | disposition home or self-care (01) ==
LOC: HO.LAB 08:01
PROVIDERS: PCP Internal Medicine Sports Medicine; Visit Provider Internal Medicine
DX: E11.65 Type 2 diabetes mellitus with hyperglycemia (principal); E04.2 Nontoxic multinodular goiter; Z79.4 Long term (current) use of insulin
CPT/HCPCS: 36415; 80053; 83036; 84439; 84443

== ENCOUNTER → 2022-10-14 10:17 | Outpatient (BNVA) | payer OTHER, SELFPAY | PROVIDERS: PCP Internal Medicine Sports Medicine; Visit Provider Registered Nurse Diabetes Educator | DX: E11.9 Type 2 diabetes mellitus without complications (principal) | CPT/HCPCS: 99211 ==

== ENCOUNTER → 2022-10-15 10:04 | Outpatient (BNVA) | payer OTHER, SELFPAY | PROVIDERS: PCP Internal Medicine Sports Medicine; Visit Provider Internal Medicine | DX: E11.65 Type 2 diabetes mellitus with hyperglycemia (principal); E78.5 Hyperlipidemia, unspecified; E89.0 Postprocedural hypothyroidism; E55.9 Vitamin D deficiency, unspecified; E66.9 Obesity, unspecified; M89.9 Disorder of bone, unspecified; I10 Essential (primary) hypertension; Z79.4 Long term (current) use of insulin; Z68.41 Body mass index [BMI] 40.0-44.9, adult | CPT/HCPCS: 82947; 99212 ==

== ENCOUNTER → 2022-11-27 12:14 | Outpatient (BNVA) | payer OTHER, SELFPAY | PROVIDERS: PCP Internal Medicine Sports Medicine; Visit Provider Registered Nurse Diabetes Educator | DX: E11.9 Type 2 diabetes mellitus without complications (principal); Z79.4 Long term (current) use of insulin | CPT/HCPCS: 99211 ==

== ENCOUNTER 2022-12-18 11:31 | Emergency (ER) | payer OTHER, SELFPAY ==
[2022-12-18 12:11] VITALS: BP 181/74; PULSE 83; RESP 16; TEMP 36.6; O2SAT 97; BMI 43.7
--- NOTE | 2022-12-18 12:11 | ED_ITS ---
HPI - General Adult General Chief complaint: Back Pain/Injury Stated complaint: lower back pain Time Seen by Provider: 12/18/22 14:42 Source: patient, RN notes reviewed and old records reviewed Mode of arrival: ambulatory History of Present Illness HPI narrative: 62 yo female with a PMHx of chronic back pain, DM, HTN, Peripheral neuropathy, BRIAN, Afib controlled on Xarelto presents to the ED for evaluation of atraumatic right upper back pain x1 day. Reports she went to [facility] yesterday evening to get sleep study where she had to lay on a really flat bed when her pain became worse with radiation to her right flank area. Pain is worse with movement, and improves with immobility. She is taking Tylenol without any relief. Denies rece nt trauma or mechanical injury. Denies fever, chills, numbness, paresthesias, abdominal pain, dysuria, urinary or bowel incontinence. Onset (ago): day(s) Related Data Home Medications Medication Instructions Recorded Confirmed allopurinol 300 mg tablet 300 mg PO DAILY 03/15/20 10/15/22 diltiazem HCl 120 mg capsule,24 120 mg PO DAILY 03/15/20 10/15/22 hr,extended release fenofibrate nanocrystallized 145 145 mg PO DAILY 03/15/20 10/15/22 mg tablet metoprolol succinate 50 mg 50 mg PO DAILY 03/15/20 10/15/22 tablet,extended release 24 hr olmesartan 40 mg tablet 40 mg PO DAILY 03/15/20 10/15/22 rivaroxaban 20 mg tablet (Xarelto) 20 mg PO DAILY 03/15/20 10/15/22 blood-glucose meter #1 ea 05/07/20 10/15/22 famotidine 20 mg tablet (Pepcid) 20 mg PO DAILY 12/11/21 10/15/22 omeprazole 20 mg capsule,delayed 20 mg PO DAILY PRN heartburn 12/11/21 10/15/22 release alclometasone 0.05 % topical topical 10/15/22 10/15/22 ointment ammonium lactate 12 % topical cream 1 appl topical BID 10/15/22 10/15/22 triamcinolone acetonide 0.1 % appl topical BID PRN 10/15/22 10/15/22 topical cream Previous Rx's Medication Instructions Recorded lancets 28 gauge (FreeStyle See Rx Instructions topical QID 06/14/21 Lancets) #100 caps flash glucose scanning reader #1 ea 07/31/21 (FreeStyle Elizabeth 2 Donaldson) flash glucose sensor (FreeStyle #2 ea 07/31/21 Elizabeth 2 Sensor kit) alendronate 70 mg tablet (Fosamax) 70 mg PO QWEEK 30 days #12 tabs 01/08/22 calcium 325 mg-vit D3 12.5 1 tab PO DAILY 30 days #30 tabs 01/08/22 mcg-zinc 2.75 [id number]-xnodpnkvc tablet (Citracal-D3 Maximum Plus) levothyroxine 150 mcg tablet 150 mcg PO DAILY 30 days #30 tabs 01/08/22 cholecalciferol (vitamin D3) 50 50 mcg PO DAILY 30 days #30 caps 01/14/22 mcg (2,000 unit) capsule blood sugar diagnostic (FreeStyle #120 ea 03/26/22 Lite Strips) rosuvastatin 40 mg tablet 40 mg PO DAILY 30 days #30 tabs 07/07/22 insulin aspart U-100 100 unit/mL 60 unit (0.6 mL) subcut TID 30 07/17/22 (3 mL) subcutaneous pen (Novolog days #54 mL FlexPen U-100 Insulin aspart) pen needle, diabetic 32 gauge x #150 ea 07/17/22 (BD Ultra-Fine Selena Pen Needle) insulin glargine U-300 conc 300 80 unit (0.2667 mL) subcut BID 30 10/15/22 unit/mL (3 mL) subcutaneous pen days #16.002 mL (Toujeo Max U-300 SoloStar) acetaminophen 500 mg tablet 500 mg PO Q6H PRN fever or pain 12/18/22 (Tylenol Extra Strength) #14 tabs cyclobenzaprine 5 mg tablet 5 mg PO Q8H PRN pain (scale score 12/18/22 7-10) 5 days #14 tabs lidocaine 5 % topical patch 1 patch topical DAILY PRN pain #30 12/18/22 (Lidoderm) ea Allergies Allergy/AdvReac Type Severity Reaction Status Date / Time Penicillins [PENICILLINS] Allergy Unknown RASH Verified 10/15/22 10:17 canagliflozin AdvReac Yeast Verified 10/15/22 10:17 [From Invokamet] infection metformin [From Invokamet] AdvReac Yeast Verified 10/15/22 10:17 infection Review of Systems Review of Systems: Constitutional: No Fever, No Chills ENT/Mouth: No Ear Pain, No Nasal Congestion, No sore throat, No Rhinorrhea, No Swallowing Difficulty Cardiovascular: No Chest Pain, No SOB Respiratory: No Cough, No Sputum, No Wheezing Gastrointestinal: No Nausea, No Vomiting, No Abdominal pain Genitourinary: No Dysuria, No Urinary Frequency, No Hematuria, No Urinary Incontinence/retention, No Urgency, No Flank Pain Musculoskeletal: + RT lower back pain, No joint pain, No Myalgias, No Joint Swelling Skin: No Skin Lesions, No rash Neuro: No Weakness, No Numbness, No Paresthesias Yes all other systems are reviewed and are negative Constitutional: Constitutional: Reports as per HPI Neurologic: Denies Sensory deficit (Neuro) [facility] Past Medical History Attestation statement: The following information was validated with the patient. Source: old records reviewed Medical History Disorder of bone, unspecified Essential hypertension HLD (hyperlipidemia) HTN (hypertension) Hypercalcemia intermediate (current) use of insulin Multinodular thyroid Obesity Obstructive sleep apnea (adult) (pediatric) PAF (paroxysmal atrial fibrillation) Postoperative hypothyroidism T2DM (type 2 diabetes mellitus) Type 2 diabetes mellitus without complications Vitamin D deficiency Surgical History Hx of colonoscopy Hx of partial thyroidectomy S/P lumpectomy, right breast Family History Family History Father Cardiovascular disease Mother Uterine cancer Social History Social History Household Members: None Housing: Apartment Are you a primary childcare aide to a significant other at home: No Do you presently have visiting nurse or other home services: Yes ([employer]) Alcohol intake: former Patient Tobacco Use Status: Never used Tobacco Advance Directives: No service: No Current occupational status: disabled Physical Exam ED Vital Signs: Vital Signs - 24 hr 12/18/22 12:11 Temperature 97.8 F Pulse Rate 83 Respiratory Rate 16 Blood Pressure 181/74 H Pulse Oximetry 97 Oxygen Delivery Method Room Air BMI result Body Mass Index 43.7 Const General: cooperative, no acute distress, alert and awake Nutritional Appearance: obese Orientation/consciousness: patient oriented x3 Limitations: no limitations HENMT Head: Yes normal to inspection Ears: hearing grossly normal bilaterally General nose exam: Normal external nose present Face and sinus: Yes normal facial exam Eyes General: appearance normal, both eyes and all related structures EOM: EOMs intact bilaterally Neck Neck: Yes normal visual inspection and Yes no meningeal signs Resp Effort & Inspection: normal respiratory effort, able to speak in complete sentences and not labored Cardio Rate: regular rate Rhythm: regular rhythm Heart sounds: S1 normal heart sound present and S2 normal heart sound present GI Inspection: Yes normal to inspection Palpation (GI): Soft to palpation, nontender and no guarding Back/Spine/Pelvis Other: No midline cervical/thoracic/lumbar spinous tenderness/step-off or deformity. +right upper thoracic/scapular tenderness to palpation without erythema or edema. No rash. Pain elicited with movement Back: No erythema, No warmth, No ecchymosis and back tenderness Thoracic/Lumbar Spine: pain with thoraco-lumbar ROM Skin General skin exam: no rashes or lesions noted, no ecchymosis and no erythema Rashes: no rashes Wounds: no wounds Neuro Other: Strength intact throughout. No saddle anesthesia. Sensation intact to light touch. Neurovascular intact distally. Ambulating with antalgic gait General: patient oriented x3, tone normal, moves all extremities and no meningeal signs Gait exam (Neuro): Normal gait present Motor exam (neuro): 5/5 motor strength present throughout Sensory Exam: No Sensory deficit (Neuro) Extrem General: Yes no clubbing, cyanosis or edema and Yes no pedal edema Course Course Course Narrative: This is a rapid medical exam: Additional HPI, ROS, PE not included below will be deferred to primary provider. Patient is a 62-year-old female with history of T2DM, afib, HLD, HTN, BRIAN, and chronic back pain presenting to the emergency department with complaint of low back pain after sleeping on a mattress that was too soft during a sleep study the night before last. Has used Tylenol for her pain. States pain radiates to right flank area and up to mid back. + right CVA tenderness, lungs CTA, no midline tenderness. Denies fever or cough. Denies urinary symptoms. Denies saddle anesthesia or bowel or bladder incontinence. Plan: UA, basic labs -labs unremarkable Results discussed with patient including worrisome signs and symptoms and strict return precautions, and when to return to the emergency department. They verbalized understanding and feel safe for discharge at this time. Medications Administered Discontinued Medications Generic Name Dose Route Start Last Admin Trade Name Lucina PRN Reason Stop Dose Admin Cyclobenzaprine HCl 10 mg 12/18/22 16:13 12/18/22 16:18 Cyclobenzaprine Hcl 10 Mg Tablet PO 12/18/22 16:14 10 mg ONCE ONE Administration Medical Decision Making Medical Decision Making [facility] Narrative: 62 yo female with a PMHx of chronic back pain, DM, HTN, Peripheral neuropathy, BRIAN, Afib controlled on Xarelto presents to the ED for evaluation of atraumatic right upper back pain x1 day. On exam mildly hypertensive likely from pain, nontoxic appearing and NAD. No erythema, ecchymosis, or edema visualized. + right upper thoracic MSK/scapular tenderness elicited. No focal neuro deficits or red flag symptoms. No CVAT. Concern for acute on chronic exacerbation of back pain, MSK spasming/strain. Low suspicion for fracture, pneumonia, PE, cauda equina/cord compression, renal stone/pyelo Labs & UA ordered in triage Differential Diagnosis Differential Diagnoses: The differential diagnosis associated with the presentation includes Lumbar radiculopathy Disc herniation Sacroilitis Disc degeneration Chronic back pain Lab Data [facility] Lab Attestation statement: I reviewed the patient's lab results. 12/18/22 12:24 12/18/22 12:24 Labs: Lab Results 12/18/22 12/18/22 Range/Units 12:24 12:24 WBC 10.1 (4.8-10.8) X10*3/uL RBC 4.25 (4.20-5.50) X10*6/uL Hgb 13.3 (12.0-16.0) g/dl Hct 40.4 (37.0-47.0) % MCV 95.1 (80.0-98.0) fL MCH 31.3 (27.0-33.0) pg MCHC 32.9 (31.0-35.0) g/dl RDW 13.2 (11.0-16.0) % Plt Count 223 (160-400) X10*3/uL MPV 10.6 (9.4-12.3) fL Immature Gran % (Auto) 0.3 (0.0-0.4) % Neut % (Auto) 52.8 (45-73) % Lymph % (Auto) 38.0 (20-40) % [place] % (Auto) 7.3 (2-11) % Eos % (Auto) 0.9 (0-4) % Baso % (Auto) 0.7 (0-2) % Lymph # (Auto) 3.9 (1.2-4.9) X10*3/uL [place] # (Auto) 0.7 (0.1-1.2) X10*3/uL Eos # (Auto) 0.1 (0.0-0.4) X10*3/uL Baso # (Auto) 0.1 (0.0-0.2) X10*3/uL Abs Immat Gran (auto) 0.03 (0.00-0.03) X10*3/uL Absolute Neuts (auto) 5.4 (2.0-8.3) x10*3/uL Absolute Nucleated RBC 0.000 (0.0-0.012) X10*3/uL Nucleated RBC % (auto) 0.0 (0.0-0.2) /100WBC Sodium 144 (135-145) mmol/L Potassium 4.3 (3.3-5.1) mmol/L Chloride 106 (96-108) mmol/L Carbon Dioxide 27 (22-29) mmol/L Anion Gap 15 (12-20) BUN 20 H (9-16) mg/dL Creatinine 0.74 (0.5-1.4) mg/dL Estim Creat Clear Calc 97.2 Estimated GFR > 60 Random Glucose 114 (60-115) mg/dL Calcium 9.8 D (8.4-10.2) mg/dL External Record Review External record reviewed: Inpatient record, Office record, Outpatient record, Prior outpatient labs, Prior outpatient radiology, Primary care record and Outside ED record Tests considered The following testing was considered but not selected: As above Prescription Management I considered prescription management with: Pain Medication Chronic Conditions Patient?s care impacted by: Diabetes and Hypertension Discharge Plan Discharge Clinical Impression: Acute exacerbation of chronic low back pain Patient Disposition: Home, Self-Care Instructions: Chronic Pain (ED) Additional Instructions: Your pain is likely musculoskeletal Flexeril is a muscle relaxer, take at night as it makes you drowsy, do not drive, drink alcohol, or operate machinery while taking it Lidoderm patches are numbing patches, apply to painful area In addition take Tylenol at home If symptoms persist or worsen, pain becomes unbearable, you developed urinary retention or incontinence, or weakness return to the ED Prescriptions: New acetaminophen [Tylenol Extra Strength] 500 mg tablet 500 mg PO Q6H PRN (Reason: fever or pain) Qty: 14 0RF lidocaine [Lidoderm] 5 % adhesive patch,medicated 1 patch topical DAILY MDD remove after 12 hours PRN (Reason: pain) Qty: 30 0RF Rx Instructions: leave on most painful area for up to 12 hrs cyclobenzaprine 5 mg tablet 5 mg PO Q8H PRN (Reason: pain (scale score 7-10)) 5 Days Qty: 14 0RF No Action lancets [FreeStyle Lancets] 28 gauge misc See Rx Instructions topical QID Qty: 100 11RF Rx Instructions: One Lancet topical 4 times a day; cholecalciferol (vitamin D3) 50 mcg (2,000 unit) capsule 50 mcg PO DAILY 30 Days Qty: 30 11RF (DME) FreeStyle Lite Strips Strip See Rx Instructions .ROUTE .MEDSUPPLY Qty: 120 12RF Rx Instructions: 4x daily rosuvastatin 40 mg tablet 40 mg PO DAILY 30 Days Qty: 30 11RF (DME) pen needle, diabetic [BD Ultra-Fine Selena Pen Needle] 32 gauge x 5/32 needle See Rx Instructions .Route Qty: 150 11RF Rx Instructions: As directed up to 4 times a day insulin aspart U-100 [Novolog FlexPen U-100 Insulin] 100 unit/mL (3 mL) insulin pen 60 unit subcut TID 30 Days Qty: 54 11RF (DME) blood-glucose meter Kit See Rx Instructions .ROUTE DIRECTED Qty: 1 Rx Instructions: As directed omeprazole 20 mg capsule,delayed release(DR/EC) 20 mg PO DAILY PRN (Reason: heartburn) (DME) FreeStyle Elizabeth 2 Donaldson Misc See Rx Instructions .ROUTE .MEDSUPPLY Qty: 1 0RF Rx Instructions: As directed (DME) FreeStyle Elizabeth 2 Sensor Kit See Rx Instructions .ROUTE .MEDSUPPLY Qty: 2 11RF Rx Instructions: Once every 14 days famotidine [Pepcid] 20 mg tablet 20 mg PO DAILY fenofibrate nanocrystallized 145 mg tablet 145 mg PO DAILY Xarelto 20 mg tablet 20 mg PO DAILY olmesartan 40 mg tablet 40 mg PO DAILY allopurinol 300 mg tablet 300 mg PO DAILY metoprolol succinate 50 mg tablet extended release 24 hr 50 mg PO DAILY diltiazem HCl 120 mg capsule,extended release 24 hr 120 mg PO DAILY alendronate [Fosamax] 70 mg tablet 70 mg PO QWEEK 30 Days Qty: 12 11RF levothyroxine 150 mcg tablet 150 mcg PO DAILY 30 Days Qty: 30 11RF bnuwavg-E1-weng-copper-pauline [Citracal-D3 Maximum Plus] 325 mg-12.5 mcg -2.75 mg tablet 1 tab PO DAILY 30 Days Qty: 30 11RF triamcinolone acetonide 0.1 % cream topical BID PRN alclometasone 0.05 % ointment topical ammonium lactate 12 % cream 1 appl topical BID Toujeo Max U-300 SoloStar 300 unit/mL (3 mL) insulin pen 80 unit subcut BID 30 Days Qty: 16.002 11RF Referrals: Derrick Cain MD [Primary Care Provider] - 5 days
[2022-12-18 12:32] LABS: Basophils Absolute Auto 0.1 X10*3/uL (0.0-0.2); Basophils Percent Auto 0.7 % (0-2); Eosinophils Absolute Auto 0.1 X10*3/uL (0.0-0.4); Eosinophils Percent Auto 0.9 % (0-4); Hematocrit 40.4 % (37.0-47.0); Hemoglobin 13.3 g/dl (12.0-16.0); Imm Gran Abs Auto 0.03 X10*3/uL (0.00-0.03); Imm Gran Pct Auto 0.3 % (0.0-0.4); Lymphocytes Absolute Auto 3.9 X10*3/uL (1.2-4.9); MANUAL DIFF FLAG NO; Mean Corpuscular HGB Conc 32.9 g/dl (31.0-35.0); Mean Corpuscular Hemoglobin 31.3 pg (27.0-33.0); Mean Corpuscular Volume 95.1 fL (80.0-98.0); Mean Platelet Volume 10.6 fL (9.4-12.3); Monocytes Absolute Auto 0.7 X10*3/uL (0.1-1.2); Monocytes Percent Auto 7.3 % (2-11); Neutrophils Absolute Auto 5.4 x10*3/uL (2.0-8.3); Neutrophils Percent Auto 52.8 % (45-73); Platelet Count 223 X10*3/uL (160-400); Red Blood Count 4.25 X10*6/uL (4.20-5.50); Red Cell Distribution Width 13.2 % (11.0-16.0); White Blood Count 10.1 X10*3/uL (4.8-10.8)
[2022-12-18 12:49] LABS: Anion Gap 15 (12-20); Blood Urea Nitrogen 20 mg/dL (9-16); Calcium 9.8 mg/dL (8.4-10.2); Carbon Dioxide 27 mmol/L (22-29); Chloride 106 mmol/L (96-108); Creatinine Clr Calc Pharmacy 97.2; Estimated Glomerular Filt Rate > 60; Glucose Random 114 mg/dL (60-115); Potassium 4.3 mmol/L (3.3-5.1); Sodium 144 mmol/L (135-145)
[2022-12-18] MEDS: Cyclobenzaprine HCl 10 MG TABLET PO (16:18)
== END 2022-12-18 17:14 | disposition home or self-care (01) ==
PROVIDERS: Registered Nurse Emergency; Emergency Provider Emergency Medicine Emergency Medical Services; PCP Internal Medicine Sports Medicine
DX: M54.50 Low back pain, unspecified (principal); E11.9 Type 2 diabetes mellitus without complications; I10 Essential (primary) hypertension; I48.91 Unspecified atrial fibrillation; Z79.01 Long term (current) use of anticoagulants; Z79.899 Other long term (current) drug therapy
CPT/HCPCS: 36415; 80048; 85025; 99283; 99284

== ENCOUNTER 2023-02-27 09:44 | Outpatient (REF) | payer OTHER, SELFPAY ==
--- NOTE | ~2023-02-27 | MM_ITS ---
EXAMINATION: MM SCREENING DIGITAL BREAST TOMOSYNTHESIS, BILATERAL CLINICAL INFORMATION: Screening. Asymptomatic. The patient is status post right breast surgery for DCIS in 2018. COMPARISON: Mammography: This study is compared with prior exams dating back to 2019. TECHNIQUE: Digital breast tomosynthesis is performed in both the craniocaudal and mediolateral oblique views along with computer-aided detection (CAD). Synthesized 2D images are generated from the tomosynthesis. FINDINGS: There are scattered areas of fibroglandular density (ACR BI-RADS breast composition Category b). There are no significant masses, abnormal calcifications, or other abnormalities. There is a tissue biopsy tissue markers in the right breast. MM/MM tomosynthesis screening BI IMPRESSION: No mammographic evidence of malignancy. ASSESSMENT: BI-RADS BI-RADS 1 - Negative RECOMMENDATION: Routine annual mammography screening. 1 year F/U This examination should not preclude the clinical evaluation of a suspicious palpable abnormality. This patient's information was entered into a reminder system with a target due date for their next mammogram.
== END 2023-02-27 09:45 | disposition home or self-care (01) ==
LOC: HO.MAMMO 09:44
PROVIDERS: PCP Internal Medicine Sports Medicine; Visit Provider Obstetrics & Gynecology
DX: Z12.31 Encounter for screening mammogram for malignant neoplasm of breast (principal)
CPT/HCPCS: 77063; 77067

== ENCOUNTER → 2023-02-27 10:00 | Outpatient (BNV) | payer OTHER, SELFPAY | PROVIDERS: PCP Internal Medicine Sports Medicine; Visit Provider Radiology Diagnostic Radiology | DX: Z12.31 Encounter for screening mammogram for malignant neoplasm of breast (principal) | CPT/HCPCS: 77063; 77067 ==

== ENCOUNTER → 2023-03-17 09:43 | Outpatient (BNVA) | payer OTHER, SELFPAY | PROVIDERS: PCP Internal Medicine Sports Medicine; Visit Provider Physician Assistant ==

== ENCOUNTER 2023-03-19 08:04 | Outpatient (AMB) | payer OTHER, SELFPAY ==
--- NOTE | 2023-03-19 09:13 | MHC.OFFVISWM ---
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 44.2 Allergies Penicillins [PENICILLINS] Allergy (Unknown, Verified 03/19/23 09:14) RASH canagliflozin [From Invokamet] Adverse Reaction (Verified 03/19/23 09:14) Yeast infection metformin [From Invokamet] Adverse Reaction (Verified 03/19/23 09:14) Yeast infection Medication List - Last Reconciled 03/19/23 by Chidi Maza MD acetaminophen (Tylenol Extra Strength) 500 mg PO Q6H PRN alclometasone 0.05% topical alendronate (Fosamax) 70 mg PO QWEEK 30 days allopurinol 300 mg PO DAILY ammonium lactate 12% 1 appl topical BID blood sugar diagnostic (FreeStyle Lite Strips) USE DIRECTED 4 TIMES A DAY blood-glucose meter As directed [id number]-copper-pauline 325 mg-12.5 mcg -2.75 mg (Citracal-D3 Maximum Plus) 1 tab PO DAILY 30 days diltiazem HCl ER 120 mg PO DAILY famotidine (Pepcid) 20 mg PO DAILY fenofibrate nanocrystallized 145 mg PO DAILY flash glucose scanning reader (WAFUStyle Elizabeth 2 [place]) As directed flash glucose sensor (FreeStyle Elizabeth 2 Sensor kit) Once every 14 days insulin aspart U-100 (Novolog FlexPen U-100 Insulin aspart) 60 units (0.6 mL) subcut TID 30 days insulin glargine U-300 conc (Toujeo Max U-300 SoloStar) 80 units (0.2667 mL) subcut BID 30 days lancets (FreeStyle Lancets) One Lancet topical 4 times a day; levothyroxine 150 mcg PO DAILY lidocaine 5% (Lidoderm) 1 patch topical DAILY PRN MDD remove after 12 hours metoprolol succinate ER 50 mg PO DAILY olmesartan 40 mg PO DAILY omeprazole 20 mg PO DAILY PRN pen needle, diabetic (BD Ultra-Fine Selena Pen Needle) As directed up to 4 times a day rivaroxaban (Xarelto) 20 mg PO DAILY rosuvastatin 40 mg PO DAILY 30 days triamcinolone acetonide 0.1% appl topical BID PRN HPI 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 BMI 44.2 HPI Details Start time: 9.00am, End time: 10.02am ?I spent 57 minutes speaking with the patient on the phone plus an additional 5 minutes reviewing and updating records for a total of 62 minutes HPI Comments History of Present Illness Details Previous weight loss efforts: self diets Wakes up: 6am, Sleeps: 2am Breakfast: 9am (eggs) Lunch: 1pm (sandwich) Dinner: 6pm (rice and beans) Snacks: 11am (cottage cheese or yogurt), 4pm (cracker and peanut butter), 8pm (cottage cheese) Exercise: none Fluids: Coffee 1cup/day (almond milk), tea: none, soda: none, juice: none, ETOH: none PFSH Medical History (Updated 03/19/23 @ 09:25 by Chidi Maza MD) GERD (gastroesophageal reflux disease) Osteoporosis DJD (degenerative joint disease) Anxiety Depression Insulin dependent type 2 diabetes mellitus Morbid obesity Obesity Postoperative hypothyroidism Disorder of bone, unspecified Vitamin D deficiency Hypercalcemia Multinodular thyroid HLD (hyperlipidemia) HTN (hypertension) T2DM (type 2 diabetes mellitus) Essential hypertension correction (current) use of insulin Type 2 diabetes mellitus without complications Obstructive sleep apnea (adult) (pediatric) PAF (paroxysmal atrial fibrillation) Surgical History Hx of partial thyroidectomy S/P lumpectomy, right breast Hx of colonoscopy Family History Father Cardiovascular disease Mother Uterine cancer Social History Household Members: None Housing: Apartment Are you a primary transitional care manager to a significant other at home: No Do you presently have visiting nurse or other home services: Yes ([employer]) Alcohol intake: former Patient Tobacco Use Status: Never used Tobacco service: No Current occupational status: disabled Female Reproductive History Menstrual Age of Menarche: 15 Assessment & Plan Assessment & Plan (1) Morbid obesity: Code(s): E66.01 - Morbid (severe) obesity due to excess calories Plan: 1.? Plan for lap sleeve gastrectomy. If diaphragmatic or ventral hernias are present at time of surgery, these will be repaired laparoscopically as well. Risks and complications were discussed in detail including possible conversion to an open procedure, anastomotic leak, bleeding requiring transfusion, small bowel obstruction, , DVT and pulmonary embolism, cardiac, or pulmonary complications, as fdc complications such as anastomotic ulcer, insufficient weight loss and vitamin deficiencies. I emphasized the importance of close follow-up, adherence to instructions and good communication. 2. Nutritional counseling. Start with 2 CELEBRATE REBUILD protein (buy at [facility] [employer] shop) shakes (ONE scoop EACH in 8oz low fat unsweetened almond milk each) at 7am-9am and 10am-12pm, 2 protein bars (CELEBRATE protein bars, buy at [facility] [employer] [facility]) at 1pm-3pm and 4pm-6pm, dinner at 7pm (10 forks of protein and 10 forks of salad/vegetables) AND one more protein bar after dinner at 9pm-11pm. So you do 2 protein shakes, 3 protein bars and one meal per day. Meal to include lean meat (beef, fish, pork, turkey, chicken), or canadian yogurt, or egg whites, or beans with a salad with olive oil and fruits (berries, pears, apples, kiwi). Avoid salt, breads, potatoes, rice, pasta, desserts. 3. Each shake would be drunk slowly, like coffee in a period of 2 hours. 4. Cut each bar in 4 pieces and eat each piece in 30min ?to make each bar last 2 hours. 5. I emphasized the importance of measuring accurately the food portion and measure it when serving the food in plate 6. The meal portions include 10 full-size forks of meat and 10 full-size forks of salad. You always eat the meat portion but you can replace up to 5 forks for salad/vegetables with rice, potatoes or pasta, or a fruit ?if you like. The less you do it the better weight loss will be. 7. One full-size fork is what it can be scooped on the fork without falling aside and not what can be bit with the fork. Use regular forks like those you find in a typical restaurant. 8.? Please buy the body composition scale as soon as possible and send me weight measurements as soon as possible and then once a week. Always include your diet and exercise plan. 9. Emphasized the importance of monitoring the blood pressure daily in am when wakes up and two more times throughout the day. If systolic blood pressure is 120 mmHg, or less I explained to the patient that needs to notify us. Also I explained the symptoms of orthostatic hypotension (dizziness and lightheadedness) for which the patient also needs to notify me. 10. Please purchase a stationary bike, elliptical or treadmill at home that can track calories. Let me know if you do so I can give you an exercise plan. 11.?I emphasized the importance of checking his blood glucose levels frequently and daily and to report to our office and blood glucose below 100, so we can adjust his insulin and prevent hypoglycemic episodes 12. Goal is to lose at least 1.5-2lbs per week 13. Goal to lose 10% of your weight before surgery, which is about 25lbs. Ultimate weight goal: 225lbs before surgery 14. Please follow the diet plan exactly without any change. If you don't like something about the plan or you feel hungry you need to communicate with me so I can help you revise the plan. You should not change the plan yourself. (2) Essential hypertension: Code(s): I10 - Essential (primary) hypertension (3) Obstructive sleep apnea (adult) (pediatric): Code(s): G47.33 - Obstructive sleep apnea (adult) (pediatric) (4) PAF (paroxysmal atrial fibrillation): Code(s): I48.0 - Paroxysmal atrial fibrillation (5) correction (current) use of insulin: Code(s): Z79.4 - correction (current) use of insulin (6) Postoperative hypothyroidism: Code(s): E89.0 - Postprocedural hypothyroidism (7) GERD (gastroesophageal reflux disease): Code(s): K21.9 - Gastro-esophageal reflux disease without esophagitis (8) Type 2 diabetes mellitus without complications: Code(s): E11.9 - Type 2 diabetes mellitus without complications (9) Insulin dependent type 2 diabetes mellitus: Code(s): E11.9 - Type 2 diabetes mellitus without complications; Z79.4 - correction (current) use of insulin Orders: Orders Zinc Today E11.9 - Type 2 diabetes mellitus without complications, E66.01 - Morbid (severe) obesity due to excess calories, E89.0 - Postprocedural hypothyroidism, G47.33 - Obstructive sleep apnea (adult) (pediatric), I10 - Essential (primary) hypertension, I48.0 - Paroxysmal atrial fibrillation, K21.9 - Gastro-esophageal reflux disease without esophagitis, Z79.4 - long term care phlebotomist (current) use of insulin Vitamin B1 Today E11.9 - Type 2 diabetes mellitus without complications, E66.01 - Morbid (severe) obesity due to excess calories, E89.0 - Postprocedural hypothyroidism, G47.33 - Obstructive sleep apnea (adult) (pediatric), I10 - Essential (primary) hypertension, I48.0 - Paroxysmal atrial fibrillation, K21.9 - Gastro-esophageal reflux disease without esophagitis, Z79.4 - correction (current) use of insulin C Reactive Protein Today E11.9 - Type 2 diabetes mellitus without complications, E66.01 - Morbid (severe) obesity due to excess calories, E89.0 - Postprocedural hypothyroidism, G47.33 - Obstructive sleep apnea (adult) (pediatric), I10 - Essential (primary) hypertension, I48.0 - Paroxysmal atrial fibrillation, K21.9 - Gastro-esophageal reflux disease without esophagitis, Z79.4 - correction (current) use of insulin PTHI Today E11.9 - Type 2 diabetes mellitus without complications, E66.01 - Morbid (severe) obesity due to excess calories, E89.0 - Postprocedural hypothyroidism, G47.33 - Obstructive sleep apnea (adult) (pediatric), I10 - Essential (primary) hypertension, I48.0 - Paroxysmal atrial fibrillation, K21.9 - Gastro-esophageal reflux disease without esophagitis, Z79.4 - long term care phlebotomist (current) use of insulin Vitamin D 25-OH Total Today E11.9 - Type 2 diabetes mellitus without complications, E66.01 - Morbid (severe) obesity due to excess calories, E89.0 - Postprocedural hypothyroidism, G47.33 - Obstructive sleep apnea (adult) (pediatric), I10 - Essential (primary) hypertension, I48.0 - Paroxysmal atrial fibrillation, K21.9 - Gastro-esophageal reflux disease without esophagitis, Z79.4 - correction (current) use of insulin US abdomen comp w elastography Today E11.9 - Type 2 diabetes mellitus without complications, E66.01 - Morbid (severe) obesity due to excess calories, E89.0 - Postprocedural hypothyroidism, G47.33 - Obstructive sleep apnea (adult) (pediatric), I10 - Essential (primary) hypertension, I48.0 - Paroxysmal atrial fibrillation, K21.9 - Gastro-esophageal reflux disease without esophagitis, Z79.4 - long term care phlebotomist (current) use of insulin XR chest 2V Today E11.9 - Type 2 diabetes mellitus without complications, E66.01 - Morbid (severe) obesity due to excess calories, E89.0 - Postprocedural hypothyroidism, G47.33 - Obstructive sleep apnea (adult) (pediatric), I10 - Essential (primary) hypertension, I48.0 - Paroxysmal atrial fibrillation, K21.9 - Gastro-esophageal reflux disease without esophagitis, Z79.4 - correction (current) use of insulin ECG 12 lead EKG Today E11.9 - Type 2 diabetes mellitus without complications, E66.01 - Morbid (severe) obesity due to excess calories, E89.0 - Postprocedural hypothyroidism, G47.33 - Obstructive sleep apnea (adult) (pediatric), I10 - Essential (primary) hypertension, I48.0 - Paroxysmal atrial fibrillation, K21.9 - Gastro-esophageal reflux disease without esophagitis, Z79.4 - long term care phlebotomist (current) use of insulin FL upper GI w air Today E11.9 - Type 2 diabetes mellitus without complications, E66.01 - Morbid (severe) obesity due to excess calories, E89.0 - Postprocedural hypothyroidism, G47.33 - Obstructive sleep apnea (adult) (pediatric), I10 - Essential (primary) hypertension, I48.0 - Paroxysmal atrial fibrillation, K21.9 - Gastro-esophageal reflux disease without esophagitis, Z79.4 - long term care phlebotomist (current) use of insulin Insulin Today E11.9 - Type 2 diabetes mellitus without complications, E66.01 - Morbid (severe) obesity due to excess calories, E89.0 - Postprocedural hypothyroidism, G47.33 - Obstructive sleep apnea (adult) (pediatric), I10 - Essential (primary) hypertension, I48.0 - Paroxysmal atrial fibrillation, K21.9 - Gastro-esophageal reflux disease without esophagitis, Z79.4 - long term care phlebotomist (current) use of insulin Lipid Panel Today E11.9 - Type 2 diabetes mellitus without complications, E66.01 - Morbid (severe) obesity due to excess calories, E89.0 - Postprocedural hypothyroidism, G47.33 - Obstructive sleep apnea (adult) (pediatric), I10 - Essential (primary) hypertension, I48.0 - Paroxysmal atrial fibrillation, K21.9 - Gastro-esophageal reflux disease without esophagitis, Z79.4 - correction (current) use of insulin IRON PROFILE Today E11.9 - Type 2 diabetes mellitus without complications, E66.01 - Morbid (severe) obesity due to excess calories, E89.0 - Postprocedural hypothyroidism, G47.33 - Obstructive sleep apnea (adult) (pediatric), I10 - Essential (primary) hypertension, I48.0 - Paroxysmal atrial fibrillation, K21.9 - Gastro-esophageal reflux disease without esophagitis, Z79.4 - correction (current) use of insulin Complete Blood Count Auto Diff Today E11.9 - Type 2 diabetes mellitus without complications, E66.01 - Morbid (severe) obesity due to excess calories, E89.0 - Postprocedural hypothyroidism, G47.33 - Obstructive sleep apnea (adult) (pediatric), I10 - Essential (primary) hypertension, I48.0 - Paroxysmal atrial fibrillation, K21.9 - Gastro-esophageal reflux disease without esophagitis, Z79.4 - long term care phlebotomist (current) use of insulin Vitamin B12 and Folate Today E11.9 - Type 2 diabetes mellitus without complications, E66.01 - Morbid (severe) obesity due to excess calories, E89.0 - Postprocedural hypothyroidism, G47.33 - Obstructive sleep apnea (adult) (pediatric), I10 - Essential (primary) hypertension, I48.0 - Paroxysmal atrial fibrillation, K21.9 - Gastro-esophageal reflux disease without esophagitis, Z79.4 - correction (current) use of insulin Comprehensive Met. Panel Today E11.9 - Type 2 diabetes mellitus without complications, E66.01 - Morbid (severe) obesity due to excess calories, E89.0 - Postprocedural hypothyroidism, G47.33 - Obstructive sleep apnea (adult) (pediatric), I10 - Essential (primary) hypertension, I48.0 - Paroxysmal atrial fibrillation, K21.9 - Gastro-esophageal reflux disease without esophagitis, Z79.4 - correction (current) use of insulin Vitamin A Today E11.9 - Type 2 diabetes mellitus without complications, E66.01 - Morbid (severe) obesity due to excess calories, E89.0 - Postprocedural hypothyroidism, G47.33 - Obstructive sleep apnea (adult) (pediatric), I10 - Essential (primary) hypertension, I48.0 - Paroxysmal atrial fibrillation, K21.9 - Gastro-esophageal reflux disease without esophagitis, Z79.4 - long term care phlebotomist (current) use of insulin Ferritin Today E11.9 - Type 2 diabetes mellitus without complications, E66.01 - Morbid (severe) obesity due to excess calories, E89.0 - Postprocedural hypothyroidism, G47.33 - Obstructive sleep apnea (adult) (pediatric), I10 - Essential (primary) hypertension, I48.0 - Paroxysmal atrial fibrillation, K21.9 - Gastro-esophageal reflux disease without esophagitis, Z79.4 - long term care phlebotomist (current) use of insulin TSH reflex Free T4 Today E11.9 - Type 2 diabetes mellitus without complications, E66.01 - Morbid (severe) obesity due to excess calories, E89.0 - Postprocedural hypothyroidism, G47.33 - Obstructive sleep apnea (adult) (pediatric), I10 - Essential (primary) hypertension, I48.0 - Paroxysmal atrial fibrillation, K21.9 - Gastro-esophageal reflux disease without esophagitis, Z79.4 - long term care phlebotomist (current) use of insulin H Pylori Breath Test Today E11.9 - Type 2 diabetes mellitus without complications, E66.01 - Morbid (severe) obesity due to excess calories, E89.0 - Postprocedural hypothyroidism, G47.33 - Obstructive sleep apnea (adult) (pediatric), I10 - Essential (primary) hypertension, I48.0 - Paroxysmal atrial fibrillation, K21.9 - Gastro-esophageal reflux disease without esophagitis, Z79.4 - correction (current) use of insulin Hemoglobin A1c Today E11.9 - Type 2 diabetes mellitus without complications, E66.01 - Morbid (severe) obesity due to excess calories, E89.0 - Postprocedural hypothyroidism, G47.33 - Obstructive sleep apnea (adult) (pediatric), I10 - Essential (primary) hypertension, I48.0 - Paroxysmal atrial fibrillation, K21.9 - Gastro-esophageal reflux disease without esophagitis, Z79.4 - long term care phlebotomist (current) use of insulin Referrals Nutrition/Dietitian Referral E11.9 - Type 2 diabetes mellitus without complications, E66.01 - Morbid (severe) obesity due to excess calories, E89.0 - Postprocedural hypothyroidism, G47.33 - Obstructive sleep apnea (adult) (pediatric), I10 - Essential (primary) hypertension, I48.0 - Paroxysmal atrial fibrillation, K21.9 - Gastro-esophageal reflux disease without esophagitis, Z79.4 - correction (current) use of insulin Behavioral Health Referral E11.9 - Type 2 diabetes mellitus without complications, E66.01 - Morbid (severe) obesity due to excess calories, E89.0 - Postprocedural hypothyroidism, G47.33 - Obstructive sleep apnea (adult) (pediatric), I10 - Essential (primary) hypertension, I48.0 - Paroxysmal atrial fibrillation, K21.9 - Gastro-esophageal reflux disease without esophagitis, Z79.4 - long term care phlebotomist (current) use of insulin Telehealth Telehealth Location of provider rendering services: practice address Location of patient: address on file Patient Identification confirmed using: Name, : Yes Telehealth method: voice only Patient verbally consented to treatment: Yes Patient verbally consented to billing insurance company: Yes Patient informed of any privacy concerns related to visit: Yes Minutes spent on Phone/Video with Pt.: 62 Coding Level of Care Code Tele New Pt Level 5 (63875) Diagnoses Morbid obesity E66.01 Essential hypertension I10 Obstructive sleep apnea (adult) (pediatric) G47.33 PAF (paroxysmal atrial fibrillation) I48.0 long term care phlebotomist (current) use of insulin Z79.4 Postoperative hypothyroidism E89.0 GERD (gastroesophageal reflux disease) K21.9 Type 2 diabetes mellitus without complications E11.9 Insulin dependent type 2 diabetes mellitus E11.9; Z79.4 Time Spent (min) 62
[2023-03-19 09:32] VITALS: BMI 44.2
== END 2023-03-19 10:04 | disposition home or self-care (01) ==
LOC: HO.HBS 08:04
PROVIDERS: PCP Internal Medicine Sports Medicine; Visit Provider Surgery
DX: E66.01 Morbid (severe) obesity due to excess calories (principal); Z68.41 Body mass index [BMI] 40.0-44.9, adult
CPT/HCPCS: 99443

== ENCOUNTER → 2023-03-19 08:04 | Outpatient (BNVA) | payer OTHER, SELFPAY | PROVIDERS: PCP Internal Medicine Sports Medicine; Visit Provider Surgery ==

== ENCOUNTER 2023-03-23 08:44 | Outpatient (REF) | payer OTHER, SELFPAY ==
--- NOTE | ~2023-03-23 | XR_ITS ---
EXAMINATION: XR CHEST CLINICAL INFORMATION: Morbid (severe) obesity due to excess calories COMPARISON: None available. TECHNIQUE: 2 views of the chest were obtained. 9:42 AM FINDINGS: There is mild enlargement of the cardiac silhouette. No significant abnormality is noted involving the lungs are mediastinum. There are mild degenerative changes of the thoracic spine. Calcification of the abdominal aorta is seen consistent with atherosclerotic disease. XR/XR chest 2V IMPRESSION: No acute cardiopulmonary disease. Mild cardiomegaly
[2023-03-23 09:16] LABS: MANUAL DIFF FLAG NO
--- NOTE | 2023-03-23 09:20 | ECG_ITS ---
Test Reason : e66.01 Blood Pressure : / mmHG Vent. Rate : 076 BPM Atrial Rate : 076 BPM P-R Int : 180 ms QRS Dur : 098 ms QT Int : 438 ms P-R-T Axes : 058 -80 024 degrees QTc Int : 492 ms Normal sinus rhythm Left anterior fascicular block RSR' or QR pattern in V1 suggests right ventricular conduction delay Possible Anterior infarct (cited on or before 09-DEC-2014) Abnormal ECG When compared with ECG of 09-DEC-2014 07:29, Significant changes have occurred Referred By: Chidi Maza Electronically Signed By:OCTAVIANO MONTEJO MD
[2023-03-23 10:21] LABS: Basophils Absolute Auto 0.1 X10*3/uL (0.0-0.2); Basophils Percent Auto 0.8 % (0-2); Eosinophils Absolute Auto 0.1 X10*3/uL (0.0-0.4); Eosinophils Percent Auto 1.3 % (0-4); Hematocrit 42.3 % (37.0-47.0); Hemoglobin 13.6 g/dl (12.0-16.0); Imm Gran Abs Auto 0.03 X10*3/uL (0.00-0.03); Imm Gran Pct Auto 0.3 % (0.0-0.4); Lymphocytes Absolute Auto 3.9 X10*3/uL (1.2-4.9); Mean Corpuscular HGB Conc 32.2 g/dl (31.0-35.0); Mean Corpuscular Hemoglobin 30.8 pg (27.0-33.0); Mean Corpuscular Volume 95.7 fL (80.0-98.0); Mean Platelet Volume 11.6 fL (9.4-12.3); Monocytes Absolute Auto 0.5 X10*3/uL (0.1-1.2); Monocytes Percent Auto 5.9 % (2-11); Neutrophils Absolute Auto 4.4 x10*3/uL (2.0-8.3); Neutrophils Percent Auto 48.7 % (45-73); Platelet Count 213 X10*3/uL (160-400); Red Blood Count 4.42 X10*6/uL (4.20-5.50); Red Cell Distribution Width 12.9 % (11.0-16.0)
[2023-03-23 10:31] LABS: Estimated Average Glucose 189 mg/dL; Hemoglobin A1c % 8.2 % (<6.0)
[2023-03-23 12:48] LABS: Folate 8.7 ng/mL (> or = 4.0); Vitamin B12 494 pg/mL (200-900)
[2023-03-23 13:28] LABS: Alanine Aminotransferase 37 U/L (0-31); Albumin Level 4.1 g/dL (3.5-5.0); Alkaline Phosphatase 60 U/L (39-117); Anion Gap 16 (12-20); Aspartate Amino Transferase 39 U/L (5-31); Bilirubin Total 0.4 mg/dL (0.0-1.0); Blood Urea Nitrogen 14 mg/dL (9-16); C Reactive Protein 0.35 mg/dL (< or = 0.50); Calcium 9.6 mg/dL (8.4-10.2); Carbon Dioxide 25 mmol/L (22-29); Chloride 105 mmol/L (96-108); Cholesterol 121 mg/dL (<200); Estimated Glomerular Filt Rate > 60; Ferritin 246 ng/mL (10-250); Glucose Random 108 mg/dL (60-115); HDL Cholesterol 35 mg/dL (>40); Insulin > 600 uU/mL (2-29); Iron 89 mcg/dL (30-160); LDL Cholesterol Calculated 65 mg/dL (<100); Percent Iron Saturation 30 % (15-50); Potassium 3.6 mmol/L (3.3-5.1); Sodium 142 mmol/L (135-145); TSH reflex Free T4 3.61 uIU/mL (0.32-4.0); Total Iron Binding Capacity 299 mcg/dL (228-428); Total Protein 7.4 g/dL (6.5-8.0); Triglycerides 105 mg/dL (<150); Unsaturated Iron Binding 210 ug/dL; Vitamin D 25-OH Total 40.4 ng/mL (>30)
[2023-03-24 15:48] LABS: Calcium (PTHI) 9.2 mg/dL (8.6-10.4); PTHI 24 pg/mL (16-77)
[2023-03-25 16:29] LABS: Zinc 66 mcg/dL (60-130)
[2023-03-26 09:13] LABS: Vitamin A 45 mcg/dL (38-98)
[2023-03-26 23:04] LABS: Vitamin B1 <6 nmol/L (8-30)
== END 2023-03-23 08:45 | disposition home or self-care (01) ==
LOC: HO.XRAY 08:44
PROVIDERS: Visit Provider Surgery
DX: E66.01 Morbid (severe) obesity due to excess calories (principal); E89.0 Postprocedural hypothyroidism; K21.9 Gastro-esophageal reflux disease without esophagitis; G47.33 Obstructive sleep apnea (adult) (pediatric); I48.0 Paroxysmal atrial fibrillation; I10 Essential (primary) hypertension; E11.9 Type 2 diabetes mellitus without complications; Z79.4 Long term (current) use of insulin
CPT/HCPCS: 36415; 71046; 80053; 80061; 82306; 82607; 82728; 82746; 83036; 83525; 83540; 83970; 84425; 84443; 84590; 84630; 85025; 86140; 93005

== ENCOUNTER 2023-04-17 08:21 | Outpatient (AMB) | payer OTHER, SELFPAY ==
--- NOTE | 2023-04-17 09:10 | MHC.OFFVISWM ---
Intake VS Expanded 04/17/23 09:24 Height 5 ft 3 in Weight 243 lb 2 oz BMI 43.1 Body Fat % 61.1 Body Fat Mass 148.5 Fat Free Mass 94.2 Visceral Fat Rating 26 Body Water % 26.7 Body Water Mass 64.9 Basal Metabolic Rate/Score 1,280 Intake Visit Reasons: TV Follow Up SWL - 1ST Allergies Penicillins [PENICILLINS] Allergy (Unknown, Verified 03/19/23 09:14) RASH canagliflozin [From Invokamet] Adverse Reaction (Verified 03/19/23 09:14) Yeast infection metformin [From Invokamet] Adverse Reaction (Verified 03/19/23 09:14) Yeast infection HPI TV Follow Up SWL - 1ST HPI Details Start time: 9.03am, End time: 9.33am ?I spent 25 minutes speaking with the patient on the phone plus an additional 5 minutes reviewing and updating records for a total of 30 minutes HPI Comments History of Present Illness Details Overall weight loss: 6.3lbs, or 2.52% TBWL Is doing 2 Celebrate Rebuild protein shakes (2 scoops in almond milk or water), 1-1.5 Celebrate protein bars and one meal (10 forks of protein and 10 forks of salad or vegetables) Exercise: Just got a stationary bike [facility] Medical History (Updated 04/02/23 @ 23:44 by Chidi Maza MD) GERD (gastroesophageal reflux disease) Osteoporosis DJD (degenerative joint disease) Anxiety Depression Insulin dependent type 2 diabetes mellitus Morbid obesity Obesity Postoperative hypothyroidism Disorder of bone, unspecified Vitamin D deficiency Hypercalcemia Multinodular thyroid HLD (hyperlipidemia) HTN (hypertension) T2DM (type 2 diabetes mellitus) Essential hypertension terminologist (current) use of insulin Type 2 diabetes mellitus without complications Obstructive sleep apnea (adult) (pediatric) PAF (paroxysmal atrial fibrillation) Surgical History Hx of partial thyroidectomy S/P lumpectomy, right breast Hx of colonoscopy Family History Father Cardiovascular disease Mother Uterine cancer Social History Household Members: None Housing: Apartment Are you a primary care program director to a significant other at home: No Do you presently have visiting nurse or other home services: Yes (DIRECTOR SOCIAL) Alcohol intake: former Patient Tobacco Use Status: Never used Tobacco service: No Current occupational status: disabled Female Reproductive History Menstrual Age of Menarche: 15 Assessment & Plan Assessment & Plan (1) Morbid obesity: Code(s): E66.01 - Morbid (severe) obesity due to excess calories Plan: 1. Change nutritional plan to 2 Celebrate Rebuild protein shakes (ONE scoop EACH in 8oz almond milk or water), 1-1.5 Celebrate protein bars and one meal (10 forks of protein and 10 forks of salad or vegetables) 2. Please use the entire second bad if you feel hungrier ar dinner time and you feel that 10 forks each are not enough 3. Exercise: Start using the stationary bike at resistance 1 for 20 minutes only at a time, three times per day, daily. Please let me know how your back feels when you do, this, how difficult it is for you to do it and how many calories you burn for every 20-min session. 4. Continue to send me weight measurements weekly on 5. Continue to monitor your blood sugars daily and update me if they are below 100 Telehealth Telehealth Location of provider rendering services: practice address Location of patient: address on file Patient Identification confirmed using: Name, : Yes Telehealth method: voice only Patient verbally consented to treatment: Yes Patient verbally consented to billing insurance company: Yes Patient informed of any privacy concerns related to visit: Yes Minutes spent on Phone/Video with Pt.: 30 Coding Level of Care Code Tele Est Pt Level 4 (40227) Diagnoses Morbid obesity E66.01 Time Spent (min) 30
[2023-04-17 09:24] VITALS: BMI 43.1
== END 2023-04-17 09:34 | disposition home or self-care (01) ==
LOC: HO.HBS 08:21
PROVIDERS: PCP Internal Medicine Sports Medicine; Visit Provider Surgery
DX: E66.01 Morbid (severe) obesity due to excess calories (principal); Z68.41 Body mass index [BMI] 40.0-44.9, adult
CPT/HCPCS: 99443

== ENCOUNTER → 2023-04-17 08:21 | Outpatient (BNVA) | payer OTHER, SELFPAY | PROVIDERS: PCP Internal Medicine Sports Medicine; Visit Provider Surgery ==

== ENCOUNTER 2023-04-24 08:50 | Outpatient (REF) | payer OTHER, SELFPAY ==
--- NOTE | ~2023-04-24 | US_ITS ---
EXAMINATION: US COMPLETE ABDOMEN WITH LIVER ELASTOGRAPHY CLINICAL INFORMATION: Obesity. COMPARISON: None available. TECHNIQUE: Real-time imaging of the abdominal viscera. Noninvasive ultrasound liver fibrosis assessment is performed using Geraldine ElastPQ point quantification shear wave elastography (2D-SWE) with a C5-2 MHz transducer. Multiple elastography samples are obtained. FINDINGS: PANCREAS: Normal. The visualized pancreatic head and body are normal in appearance. The remainder of the pancreas is obscured from visualization by the overlying bowel gas. ABDOMINAL AORTA: The proximal and mid aortic segments are normal in caliber. The distal segment is obscured by overlapping bowel gas. INFERIOR VENA CAVA: Visualized portions are normal. LIVER: The liver demonstrates normal size, contour and increased echogenicity. No focal lesion or intrahepatic biliary duct dilatation. The right lobe measures 1.84 cm in length. The left lobe measures 0.10 cm in length. Portal flow is towards the liver (hepatopetal). Shear wave liver elastography median stiffness is 16.1 m/s (reference: normal median stiffness is 1.3 m/s or less). IQR/median stiffness to assess sampling precision is 14.0 (reference: good quality data set is IQR/median stiffness of 0.15 or less). GALLBLADDER: Normal. The gallbladder is physiologically distended without evidence of stones, sludge, polyps, wall thickening or pericholecystic fluid. COMMON BILE DUCT: Upper normal in caliber measuring 0.76 cm in diameter. RIGHT KIDNEY: Normal. No hydronephrosis. No renal calculi or focal parenchymal lesions. The kidney measures 11.4 cm in maximum dimension. LEFT KIDNEY: Normal. No hydronephrosis. No renal calculi or focal parenchymal lesions. The kidney measures 13.0 cm in maximum dimension. SPLEEN: Normal. The spleen measures 9.9 cm in maximum dimension. FREE FLUID: None. US/US abdomen comp w elastography IMPRESSION: 1. There is generalized increase in hepatic echotexture, consistent with fatty infiltration or hepatocellular disease. Please correlate clinically. No focal hepatic mass or intrahepatic biliary dilatation is seen. 2. Liver elastography: Measurements are suggestive of compensated advanced chronic liver disease but need further test for confirmation. 3. Common bile duct caliber is top normal. No focal choledocholith is seen. REFERENCE: Society of Radiologists in Ultrasound Liver Stiffness Thresholds (2020): LIVER STIFFNESS THRESHOLDS: *Liver Stiffness equal or less than 1.3 m/s: High probability of being normal. *Liver Stiffness less than 1.7 m/s: In the absence of other known clinical signs, rules out compensated advanced chronic liver disease. *Liver Stiffness 1.7-2.1 m/s: Suggestive of compensated advanced chronic liver disease but need further test for confirmation. *Liver Stiffness over 2.1 m/s: Rules in compensated advanced chronic liver disease. *Liver Stiffness over 2.4 m/s: Suggestive of clinically significant portal hypertension. QUALITY OF DATA SET: *IQR/Median value equal or less than 0.15 implies a quality data set. *IQR/Median value over 0.15 implies a poor quality data set. SIGNIFICANT CHANGE FROM PRIOR EXAM: Significant change if liver stiffness measurement is 10% or greater from prior exam. OTHER CONSIDERATIONS: The stage of liver fibrosis may be overestimated in the setting of acute hepatitis, liver inflammation, elevated liver function tests, hepatic vascular congestion, obstructive cholestasis, non-fasting state, and infiltrative diseases such as amyloidosis and lymphoma. In some patients with NAFLD, the liver stiffness thresholds for compensated advanced chronic liver disease may be lower. In causes other than viral hepatitis and NAFLD, liver stiffness thresholds are not well established.
[2023-04-25 09:08] LABS: H Pylori Breath Test Negative (Negative)
== END 2023-04-24 08:51 | disposition home or self-care (01) ==
LOC: HO.US 08:50
PROVIDERS: PCP Internal Medicine Sports Medicine; Visit Provider Surgery
DX: E66.01 Morbid (severe) obesity due to excess calories (principal); E89.0 Postprocedural hypothyroidism; K21.9 Gastro-esophageal reflux disease without esophagitis; G47.33 Obstructive sleep apnea (adult) (pediatric); I48.0 Paroxysmal atrial fibrillation; I10 Essential (primary) hypertension; E11.9 Type 2 diabetes mellitus without complications; Z79.4 Long term (current) use of insulin
CPT/HCPCS: 76705; 76981; 83013; 99211

== ENCOUNTER → 2023-05-04 10:00 | Outpatient (BNVA) | payer OTHER, SELFPAY | PROVIDERS: PCP Internal Medicine Sports Medicine; Visit Provider Dietitian, Registered | DX: E66.9 Obesity, unspecified (principal) | CPT/HCPCS: 97802 ==

== ENCOUNTER 2023-05-06 10:37 | Outpatient (AMB) | payer OTHER, SELFPAY ==
[2023-05-06 10:39] VITALS: BP 142/80; PULSE 74; BMI 41.5
--- NOTE | 2023-05-06 10:39 | MHC.OFFVIS ---
Intake Vital Signs 05/06/23 10:39 Height 5 ft 3 in Weight 234 lb 5.622 oz BMI 41.5 BP 142/80 H Blood Pressure Location Lt brachial Position Sitting Pulse 74 Pulse Source Pulse Oximeter Intake Visit Reasons: F/U T2DM and Osteo needs 40 min-CONFIRMED Intake Note: Patient presents today to follow up on T2DM and Osteo. Last Diabetic Eye exam:04/22/23 Last Podiatry Visit: 02/2023 Random Glucose: 137 mg/dl HgA1C:8.2% 03/23/23 Cribbing Setter Required: No Accompanied by: Other Relationship Allergies Penicillins [PENICILLINS] Allergy (Unknown, Verified 05/06/23 10:45) RASH canagliflozin [From Invokamet] Adverse Reaction (Verified 05/06/23 10:45) Yeast infection metformin [From Invokamet] Adverse Reaction (Verified 05/06/23 10:45) Yeast infection Medication List - Last Reconciled 05/06/23 by Mikel Mccoy MD acetaminophen (Tylenol Extra Strength) 500 mg PO Q6H PRN alclometasone 0.05% topical alendronate 70 mg PO QWEEK allopurinol 300 mg PO DAILY ammonium lactate 12% 1 appl topical BID blood sugar diagnostic (FreeStyle Lite Strips) USE DIRECTED 4 TIMES A DAY blood-glucose meter As directed calcium carb-D3-mag [id number] 1 tab PO DAILY diltiazem HCl ER 120 mg PO DAILY famotidine (Pepcid) 20 mg PO DAILY fenofibrate nanocrystallized 145 mg PO DAILY flash glucose scanning reader (FreeStyle Elizabeth 2 [place]) As directed flash glucose sensor (FreeStyle Elizabeth 2 Sensor kit) Once every 14 days insulin aspart U-100 (Novolog FlexPen U-100 Insulin aspart) 60 units (0.6 mL) subcut TID 30 days insulin glargine U-300 conc (Toujeo Max U-300 SoloStar) 80 units (0.2667 mL) subcut BID 30 days lancets (FreeStyle Lancets) One Lancet topical 4 times a day; levothyroxine 150 mcg PO DAILY lidocaine 5% (Lidoderm) 1 patch topical DAILY PRN MDD remove after 12 hours metoprolol succinate ER 50 mg PO DAILY olmesartan 40 mg PO DAILY omeprazole 20 mg PO DAILY PRN pen needle, diabetic (BD Ultra-Fine Selena Pen Needle) As directed up to 4 times a day rivaroxaban (Xarelto) 20 mg PO DAILY rosuvastatin 40 mg PO DAILY 30 days thiamine HCl (vitamin B1) 100 mg PO DAILY triamcinolone acetonide 0.1% appl topical BID PRN HPI HPI Comments History of Present Illness Details 62 YO F with PMHx T2DM, NTMNG, breast cancer s/p lumpectomy now on Letrozole who is seen in F/U for T2DM and postsurgical hypothyroidism after a recent total thyroidectomy and Osteopenia. The patient last saw Dr. Garcia. On 10/15/2022 1) T2DM: Initially diagnosed with T2DM in 2005 during a routine physical exam. Was initially started on treatment with Metformin, but was intolerant to this due to GI distress. She also trialed Glyburide and Glipizide in the past but experienced recurrent hypoglycemia. She required insulin beginning in 2013. She also tried Trulicity in the past but was unable to tolerate this due to GI side effects. Current regimen Toujeo 60 units BID, Novolog 60 units ACnot taking . Uses CGM H-care Elizabeth. 14 days of data was downloaded from 04/23/2023 through 05/06/2023. This reveals an average sugar of 89, with CV of 19.1%. Her Sugars are at goal 93% of the time, below goal 7% of the time. Frequent hypoglycemia since her last visit. Has hypoglycemic awareness. Treats according to the rule of 15's. Treats lows with glucose tablets. She does check her sugar after to ensure it is rising. Family history of T2DM in her Mother, Brother, and Sister. Has eyes checked yearly. Last eye exam 2 wks ago . Has retinopathy. Has Neuropathy, sees podiatry regularly. No Nephropathy, on Olmesartan 40 mg PO daily. UAC 31.3 07/04/2022. Has HLD, on Rosuvastatin 40 mg PO daily and Fenofibrate 145 mg PO daily. LDL 59 07/04/2022. Denies CAD. Has AFib on Xarelto. Diet: Does not watch her diet. Eats a carb heavy diet. She admits to frequently snacking on saltines and bread and not using insulin at those times. Weight: Stable. Currently attending CDE. 2) NTMNG with postoperative hypothyroidism. Patient has a longstanding history of NTMNG. She was followed closely by an Online Journalist in [place], [place] Dr. Matty Root. Records were received from his office and reviewed today. Per his reports she had FNA biopsy on 03/16/16 of a L mid pole 2.3 cm nodule. Cytology was benign. No additional FNA was completed per the records received. She underwent FNA biopsy by ri 05/19/19 of a LLP 2.8 cm nodule and a RLP 3.3 cm nodule. Cytology was benign for both of these nodules. Her additional nodules were visualized and felt to be spongiform at that time. None measuring greater than 2.0 cm so no further FNA was indicated. She was complaining of significant compressive symptoms. She underwent a total thyroidectomy with Dr. Quintanilla 11/19/2021. Official surgical path was benign. She was started on levothyroxine 150 mcg PO daily postoperatively and TSH remains at goal. She did have removal of her L inferior parathyroid, but this was subsequently reimplanted. Calcium remains low normal, and she does complain of occasional paresthesias. She denies any symptoms of hyper or hypothyroidism. Denies any history of head or neck irradiation. Denies any family history of thyroid cancer. Does have a history of breast cancer, but did not receive radiation therapy for this. 3) Bone Health: She reports she had a screening BMD completed prior to initiating Letrozole therapy, but this was not received from her prior Online Journalist. She had a repeat BMD completed 04/05/19 which was completely WNL with no evidence of Osteopenia or Osteoporosis. She did have NTX which was elevated to >90. She has never had a fracture. She does continue on Letrozole therapy daily. This is set to continue until 2022. She was started on Fosamax and continues on this once a week. This was started in 2020.Off Letrazole 4) Hypercalcemia: While undergoing a workup for secondary causes of Osteoporosis she was noted to have elevated calcium. Levels checked 01/03/19 revealed Calcium 10.6 with albumin 4.7, iCal 5.4, Vitamin D 39.8. PTH was suppressed to 13. 24 hour urine Calcium was elevated to 458. This was a good collection with a volume of 2.2 L and a Creatinine of 1.2. Labs were repeated 02/01/19 with Calcium of 10.2, Albumin 4.2, Vitamin D 30.4, PTH 13, PTHRP low at 12, Vitamin D 1,25 normal at 42, and ABEBA mildly elevated at 69 (upper limit normal 67). She was asked to stop her Calcium supplement and levels improved to WNL with a Calcium of 9.7. She did undergo a bone scan, which revealed increased activity within the skull. I do suspect this is related to increased bone remodeling from Letrozole therapy. Now calcium is low normal following thyroidectomy. DEXA: 06/17/2022 FINDINGS: AP SPINE L1-L4: Current: BMD 1.436 g/cm2, Z-score 2.2, T-score 2.1, normal, 6.4% increase from previous, 2.8% decrease from baseline (<5% change is not significant). Prior: BMD 1.349 g/cm2. Baseline: BMD 1.477 g/cm2. LEFT FEMUR, NECK: Current: BMD 0.999 g/cm2, Z-score 0.2, T-score -0.3, normal. Prior: BMD 1.050 g/cm2. Baseline: BMD 1.044 g/cm2. LEFT FEMUR, TOTAL: Current: BMD 1.026 g/cm2, Z-score 0.2, T-score 0.1, normal, 4.6% decrease from previous, 10.3% decrease from baseline (<5% change is not significant). Prior: BMD 1.075 g/cm2. Baseline: BMD 1.144 g/cm2. LEFT FOREARM RADIUS 33%: BMD 0.693 g/cm2, Z-score -1.2, T-score -2.1, osteopenia. Prior:? Not previously measured. Labs: Laboratory Tests 07/04/22 07/04/22 10/10/22 08:59 09:00 08:12 Sodium 142 Potassium 3.9 Creatinine 0.83 Estimated GFR > 60 Hemoglobin A1c % LDL Cholesterol, C alc 59 25-OH Vitamin D To keegan 43.5 TSH 1.76 Free T4 1.14 Microalb/Creat Rat io 31.3 10/10/22 08:12 Sodium Potassium Creatinine Estimated GFR Hemoglobin A1c % 7.9 LDL Cholesterol, C alc 25-OH Vitamin D To keegan TSH Free T4 Microalb/Creat Rat io [facility] Medical History (Updated 04/02/23 @ 23:44 by Chidi Maza MD) GERD (gastroesophageal reflux disease) Osteoporosis DJD (degenerative joint disease) Anxiety Depression Insulin dependent type 2 diabetes mellitus Morbid obesity Obesity Postoperative hypothyroidism Disorder of bone, unspecified Vitamin D deficiency Hypercalcemia Multinodular thyroid HLD (hyperlipidemia) HTN (hypertension) T2DM (type 2 diabetes mellitus) Essential hypertension penitentiary (current) use of insulin Type 2 diabetes mellitus without complications Obstructive sleep apnea (adult) (pediatric) PAF (paroxysmal atrial fibrillation) Surgical History Hx of partial thyroidectomy S/P lumpectomy, right breast Hx of colonoscopy Family History Father Cardiovascular disease Mother Uterine cancer Social History Household Members: None Housing: Apartment Are you a primary career consultant to a significant other at home: No Do you presently have visiting nurse or other home services: Yes ([employer]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 Absence of acromegalic features. Neck exam reveals Healed scar S/P thyroidectomy . No carotid bruits present. Lungs CTA. Heart S1 S2, Reg R/R. No M/R/ G. Skin exam reveals absence of vitiligo or acanthosis nigricans. Abdominal exam reveals Soft NT/ND with NA BS. No organomegaly present. Neck Other: . Extrem Other: Visual exam of foot performed. No ulcerations or open lesions. No onchomycosis, no callouses.Pulses 2 + distally Sensation intact to monofilament exam. Vibratory sensation sensed is intact with 128 Hz tuning fork Assessment & Plan Assessment & Plan (1) Type 2 diabetes mellitus without complications: Code(s): E11.9 - Type 2 diabetes mellitus without complications Plan: This 63-year-old female with history of type 2 diabetes being treated with basal-bolus insulin with excellent glycemic control but persistent hypoglycemia and known microvascular complications namely neuropathy. The plan is to start an alternative G LP 1 like Ozempic at not tolerated then Mounjaro . Went over side effects of Ozempic and Mounjaro including but not limited to nausea, vomiting risk of pancreatitis. Patient was instructed if she tolerates the G LP 1 to discontinue the Toujeo. Mounjaro 2,5 mg samples given the patient lot number [id number] expiration date 10/12/2024 (2) Postoperative hypothyroidism: Code(s): E89.0 - Postprocedural hypothyroidism Plan: Currently on levothyroxine 150 mcg. Clinically and biochemically euthyroid (3) Osteoporosis: Code(s): M81.0 - Age-related osteoporosis without current pathological fracture Plan: Currently on alendronate. Was on letrozole breast cancer treatment Medications: New semaglutide (Ozempic) for 4 weeks 0.25 mg (0.368 mL) subcut QWEEK 3 mL 4RF Discontinued alendronate Discontinued Reason: Doctor's Order 70 mg PO QWEEK 12 tabs 11RF Coding Level of Care Code Est Pt Level 4 (29969) Diagnoses Type 2 diabetes mellitus without complications E11.9 Postoperative hypothyroidism E89.0 Osteoporosis M81.0
[2023-05-06 10:52] LABS: Glucose, Whole Blood 137 mg/dL (60-115)
== END 2023-05-06 11:38 | disposition home or self-care (01) ==
PROVIDERS: PCP Internal Medicine Sports Medicine; Visit Provider Internal Medicine Endocrinology, Diabetes & Metabolism
DX: E11.9 Type 2 diabetes mellitus without complications (principal); E89.0 Postprocedural hypothyroidism; M81.0 Age-related osteoporosis without current pathological fracture
CPT/HCPCS: 99214

== ENCOUNTER → 2023-05-06 10:37 | Outpatient (BNVA) | payer OTHER, SELFPAY | PROVIDERS: Visit Provider Internal Medicine Endocrinology, Diabetes & Metabolism | DX: E11.9 Type 2 diabetes mellitus without complications (principal); M81.0 Age-related osteoporosis without current pathological fracture; E89.0 Postprocedural hypothyroidism | CPT/HCPCS: 82947; 99212 ==

== ENCOUNTER 2023-05-07 11:00 | Outpatient (AMB) | payer OTHER, SELFPAY ==
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
== END 2023-05-07 12:00 | disposition home or self-care (01) ==
LOC: HO.HBST 11:09
PROVIDERS: PCP Internal Medicine Sports Medicine; Visit Provider Counselor Mental Health
DX: F41.9 Anxiety disorder, unspecified (principal); F32.A Depression, unspecified
CPT/HCPCS: 90791

== ENCOUNTER → 2023-05-07 11:00 | Outpatient (BNVA) | payer OTHER, SELFPAY | PROVIDERS: PCP Internal Medicine Sports Medicine; Visit Provider Counselor Mental Health ==

== ENCOUNTER 2023-05-08 08:15 | Outpatient (AMB) | payer OTHER, SELFPAY ==
--- NOTE | 2023-05-08 09:05 | MHC.OFFVISWM ---
Intake VS Expanded 05/08/23 09:12 Height 5 ft 3 in Weight 232 lb 8 oz BMI 41.2 Body Fat % 58.4 Body Fat Mass 135.9 Fat Free Mass 96.8 Visceral Fat Rating 24 Body Water % 28.5 Body Water Mass 66.3 Basal Metabolic Rate/Score 1,320 Intake Visit Reasons: TV Follow Up SWL Allergies Penicillins [PENICILLINS] Allergy (Unknown, Verified 05/06/23 10:45) RASH canagliflozin [From Invokamet] Adverse Reaction (Verified 05/06/23 10:45) Yeast infection metformin [From Invokamet] Adverse Reaction (Verified 05/06/23 10:45) Yeast infection HPI TV Follow Up SWL HPI Details Start time: 9.00am, End time: 9.16am ?I spent 11 minutes speaking with the patient on the phone plus an additional 5 minutes reviewing and updating records for a total of 16 minutes HPI Comments History of Present Illness Details Overall weight loss: 16.8lbs, or 6.73% TBWL Is doing 2 Celebrate Rebuild protein shakes (1 scoop each in 8oz almond milk), 2 Celebrate protein bars and one meal (10 forks of meat and 10 forks of salad or vegetables) Exercise: stationary bike daily, 3 times per day for 180 calories PFSH Medical History (Updated 04/02/23 @ 23:44 by Chidi Maza MD) GERD (gastroesophageal reflux disease) Osteoporosis DJD (degenerative joint disease) Anxiety Depression Insulin dependent type 2 diabetes mellitus Morbid obesity Obesity Postoperative hypothyroidism Disorder of bone, unspecified Vitamin D deficiency Hypercalcemia Multinodular thyroid HLD (hyperlipidemia) HTN (hypertension) T2DM (type 2 diabetes mellitus) Essential hypertension pipe buffer (current) use of insulin Type 2 diabetes mellitus without complications Obstructive sleep apnea (adult) (pediatric) PAF (paroxysmal atrial fibrillation) Surgical History Hx of partial thyroidectomy S/P lumpectomy, right breast Hx of colonoscopy Family History Father Cardiovascular disease Mother Uterine cancer Social History Household Members: None Housing: Apartment Are you a primary child caregiver private home to a significant other at home: No Do you presently have visiting nurse or other home services: Yes (TOOL LIAISON) Alcohol intake: former Patient Tobacco Use Status: Never used Tobacco service: No Current occupational status: disabled Female Reproductive History Menstrual Age of Menarche: 15 Assessment & Plan Assessment & Plan (1) Morbid obesity: Code(s): E66.01 - Morbid (severe) obesity due to excess calories Plan: 1. Continue present nutritional plan of 2 Celebrate Rebuild protein shakes (1 scoop each in 8oz almond milk), 2 Celebrate protein bars and one meal (10 forks of meat and 10 forks of salad or vegetables) 2. Exercise: continue stationary bike daily, 3 times per day for 180 calories per work-out for a total of 540 calories per day 3. Continue to send me weight measurements weekly on Telehealth Telehealth Location of provider rendering services: practice address Location of patient: address on file Patient Identification confirmed using: Name, : Yes Telehealth method: voice only Patient verbally consented to treatment: Yes Patient verbally consented to billing insurance company: Yes Patient informed of any privacy concerns related to visit: Yes Minutes spent on Phone/Video with Pt.: 16 Coding Level of Care Code Tele Est Pt Level 2 (47911) Diagnoses Morbid obesity E66.01 Time Spent (min) 16
[2023-05-08 09:12] VITALS: BMI 41.2
== END 2023-05-08 09:16 | disposition home or self-care (01) ==
LOC: HO.HBS 08:15
PROVIDERS: PCP Internal Medicine Sports Medicine; Visit Provider Surgery
DX: E66.01 Morbid (severe) obesity due to excess calories (principal); Z68.42 Body mass index [BMI] 45.0-49.9, adult
CPT/HCPCS: 99442

== ENCOUNTER → 2023-05-08 08:15 | Outpatient (BNVA) | payer OTHER, SELFPAY | PROVIDERS: PCP Internal Medicine Sports Medicine; Visit Provider Surgery ==

== ENCOUNTER 2023-05-11 09:53 | Outpatient (AMB) | payer OTHER, SELFPAY ==
--- NOTE | 2023-05-11 10:16 | A.OFFVIS_ITS ---
Intake Intake Visit Reasons: DM/CONFIRMED Service Bar Cashier Required: No Accompanied by: Self / Same As Patient Allergies Penicillins [PENICILLINS] Allergy (Unknown, Verified 05/06/23 10:45) RASH canagliflozin [From Invokamet] Adverse Reaction (Verified 05/06/23 10:45) Yeast infection metformin [From Invokamet] Adverse Reaction (Verified 05/06/23 10:45) Yeast infection HPI Comprehensive Diabetes Asmnt Most Recent Diabetes Results: No Data to Display [facility] Medical History (Updated 04/02/23 @ 23:44 by Chidi Maza MD) GERD (gastroesophageal reflux disease) Osteoporosis DJD (degenerative joint disease) Anxiety Depression Insulin dependent type 2 diabetes mellitus Morbid obesity Obesity Postoperative hypothyroidism Disorder of bone, unspecified Vitamin D deficiency Hypercalcemia Multinodular thyroid HLD (hyperlipidemia) HTN (hypertension) T2DM (type 2 diabetes mellitus) Essential hypertension watermelon inspector (current) use of insulin Type 2 diabetes mellitus without complications Obstructive sleep apnea (adult) (pediatric) PAF (paroxysmal atrial fibrillation) Surgical History Hx of partial thyroidectomy S/P lumpectomy, right breast Hx of colonoscopy Family History Father Cardiovascular disease Mother Uterine cancer Social History Household Members: None Housing: Apartment Are you a primary small animal caretaker to a significant other at home: No Do you presently have visiting nurse or other home services: 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 0% Time in Range:? 86% Average glucose for the last 2 weeks? 87 mg/dL patient has stopped all diabetes medications the exception Mounjaro 2.5 mg. patient is still experiencing significant percentage of hypoglycemia. she is currently preparing for bariatric surgery, in taking nutrition shake for breakfast and lunch, 2 nutrition bars for snack and sensible dinner. reviewed with patient to treat hypoglycemia with rule of 15s handout given. Patient does carry glucose tabs with her message sent to Dr. Mccoy regarding whether not patient should be taking Mounjaro 2.5 mg on May 14, date patient's next scheduled dose. patient's glucose at time of visit 121 mg/dL Reminded patient that to check finger sticks if symptoms do not match sensor reading. Discussed lag time between finger stick and sensor data.? Patient able to insert sensor independently at home without issue.? Patient Instructions: Pt will wait to take next dose of Mounjaro 2.5mg, until Diabetes Education nurse discusses low glucose with Dr. Mccoy. Follow up with Diabetes Education Nurse Coding Level of Care Code Est Pt Level 1 (20907) Diagnoses Insulin dependent type 2 diabetes mellitus E11.9; Z79.4
== END 2023-05-11 10:29 | disposition home or self-care (01) ==
PROVIDERS: PCP Internal Medicine Sports Medicine; Visit Provider Registered Nurse Diabetes Educator
DX: E11.9 Type 2 diabetes mellitus without complications (principal); Z79.4 Long term (current) use of insulin

== ENCOUNTER → 2023-05-11 09:53 | Outpatient (BNVA) | payer OTHER, SELFPAY | PROVIDERS: PCP Internal Medicine Sports Medicine; Visit Provider Registered Nurse Diabetes Educator | DX: E11.9 Type 2 diabetes mellitus without complications (principal); Z79.4 Long term (current) use of insulin | CPT/HCPCS: 99211 ==

== ENCOUNTER 2023-05-25 08:06 | Outpatient (AMB) | payer OTHER, SELFPAY ==
--- NOTE | 2023-05-25 08:19 | MHC.OFFVIS ---
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: No Allergies Penicillins [PENICILLINS] Allergy (Unknown, Verified 05/25/23 08:23) RASH canagliflozin [From Invokamet] Adverse Reaction (Verified 05/25/23 08:23) Yeast infection metformin [From Invokamet] Adverse Reaction (Verified 05/25/23 08:23) Yeast infection Medication List - Last Reconciled 05/25/23 by GUZMAN Wolf acetaminophen (Tylenol Extra Strength) 500 mg PO Q6H PRN alclometasone 0.05% topical allopurinol 300 mg PO DAILY blood sugar diagnostic (FreeStyle Lite Strips) USE DIRECTED 4 TIMES A DAY blood-glucose meter As directed blood-glucose meter (FreeStyle Lite Meter kit) As directed calcium carb-D3-mag [id number] [phone] mb-[id number]-mg 1 tab PO DAILY diltiazem HCl ER 120 mg PO DAILY famotidine (Pepcid) 20 mg PO DAILY fenofibrate nanocrystallized 145 mg PO DAILY flash glucose scanning reader ([employer] [place] 2 [place]) As directed flash glucose sensor (FreeStyle Elizabeth 2 Sensor kit) Once every 14 days lancets (FreeStyle Lancets) One Lancet topical 4 times a day; lancets (FreeStyle Lancets) As directed checks 4 times a day levothyroxine 150 mcg PO DAILY lidocaine 5% (Lidoderm) 1 patch topical DAILY PRN MDD remove after 12 hours metoprolol succinate ER 50 mg PO DAILY olmesartan 40 mg PO DAILY omeprazole 20 mg PO DAILY PRN pen needle, diabetic (BD Ultra-Fine Selena Pen Needle) As directed up to 4 times a day rivaroxaban (Xarelto) 20 mg PO DAILY rosuvastatin 40 mg PO DAILY 30 days thiamine HCl (vitamin B1) 100 mg PO DAILY tirzepatide (Mounjaro) 2.5 mg (0.5 mL) subcut QWEEK 4 weeks triamcinolone acetonide 0.1% appl topical BID PRN HPI pre op HPI Details Maisha is a 63-year-old female with past medical history of morbid obesity, hypertension, hyperlipidemia, diabetes, paroxysmal atrial fibrillation who presents for preop clearance for bariatric surgery. Today she reports that she has been feeling well since her last visit in October. She has not noticed any heart palpitations or concerns about atrial fibrillation. She is taking her meds as directed. She has no bleeding issues with Xarelto. She denies chest discomfort at rest or with activity. No shortness of breath at rest, dizziness, presyncope, syncope, PND, orthopnea. She does have mild shortness of breath with activity and mild swelling in her ankles at times. She does wear compression stockings intermittently. She has difficulty climbing stairs due to prior Achilles injury. She does use a stationary bike at home for 20 minutes 3 times daily which she tolerates without symptoms. [facility] Medical History GERD (gastroesophageal reflux disease) Osteoporosis DJD (degenerative joint disease) Anxiety Depression Insulin dependent type 2 diabetes mellitus Morbid obesity Obesity Postoperative hypothyroidism Disorder of bone, unspecified Vitamin D deficiency Hypercalcemia Multinodular thyroid HLD (hyperlipidemia) HTN (hypertension) T2DM (type 2 diabetes mellitus) Essential hypertension assisted (current) use of insulin Type 2 diabetes mellitus without complications Obstructive sleep apnea (adult) (pediatric) PAF (paroxysmal atrial fibrillation) Surgical History Hx of partial thyroidectomy S/P lumpectomy, right breast Hx of colonoscopy Family History Father Cardiovascular disease Mother Uterine cancer Social History Household Members: None Housing: Apartment Are you a primary reproductive healthcare assistant to a significant other at home: No Do you presently have visiting nurse or other home services: Yes ([employer] ATT[employer]) Alcohol intake: former Patient Tobacco Use Status: Never used Tobacco service: No Current occupational status: disabled Female Reproductive History Menstrual Age of Menarche: 15 Review of Systems ENT Denies dizziness Card Denies chest pain, Denies chest pain at rest, Denies chest pain with activity, Denies rapid heart rate, Denies pedal edema, Denies edema, Denies leg edema, Denies lightheadedness, Denies palpitations, Denies dyspnea, Denies dyspnea on exertion and Denies orthopnea Resp Denies cough, Denies dyspnea and Denies dyspnea on exertion GI Denies hematochezia and Denies change in stool character Musc Denies abnormal gait, Denies limited range of motion, Denies muscle cramps, Denies muscle weakness, Denies numbness, Denies radiating pain into limb, Denies stiffness and Denies tingling Neuro Denies abnormal gait, Denies dizziness, Denies numbness and Denies tingling Endo Denies palpitations Physical Exam Vital Signs: Last Vital Signs Pulse 82 05/25/23 08:20 BP 130/72 05/25/23 08:20 BMI result Body Mass Index 40.3 Const General: cooperative, healthy appearing, comfortable and no acute distress Orientation/consciousness: patient oriented x3 Neck Neck: Yes normal visual inspection Resp Effort & Inspection: normal respiratory effort Auscultation: clear to auscultation bilaterally, no crackles, no rales, no rhonchi and no wheezes Cardio Jugular venous distension: no JVD Rate: regular rate Rhythm: regular rhythm Heart sounds: S1 normal heart sound present, S2 normal heart sound present, no murmurs and no rubs Neuro General: patient oriented x3 Extrem Other: Venous stasis changes to the skin of her lower legs, positive tenderness to palpation of her ankles. No edema Psych Appearance: grossly normal Mental Status: mental status grossly normal Speech and movement: Normal speech and movement present Office Procedures EKG Details: Today, read by me, normal sinus rhythm, left axis deviation, incomplete right bundle branch block, can not exclude anterior infarct verses poor R-wave progression related to body habitus in lead placement, rate 78, QTC 483, no significant change from prior EKG [id number], Complete Assessment & Plan Assessment & Plan (1) PAF (paroxysmal atrial fibrillation): Code(s): I48.0 - Paroxysmal atrial fibrillation Plan: History of paroxysmal atrial fibrillation. Currently suppressed with use of metoprolol and diltiazem. Pulse is regular on examination today. EKG shows. She is on Xarelto for anticoagulation. No bleeding issues reported. Labs done 03/23/2023 shows creatinine 0.73, hematocrit 42.3. No med changes made. Cardiology follow-up 6 months, sooner if needed (2) Essential hypertension: Code(s): I10 - Essential (primary) hypertension Plan: Well controlled at this time. No medication changes made. (3) HLD (hyperlipidemia): Code(s): E78.5 - Hyperlipidemia, unspecified Qualifiers: Hyperlipidemia type: unspecified Qualified Code(s): E78.5 - Hyperlipidemia, unspecified Plan: [place] LDL goal less than 70 in patient with diabetes. Labs done 03/23/2023 shows LDL 65. She continues on rosuvastatin. (4) Morbid obesity: Code(s): E66.01 - Morbid (severe) obesity due to excess calories Plan: She is undergoing treatment through the bariatric program. She is scheduled to undergo gastric sleeve. She tells me she is not sure if she is going to proceed. (5) Preop cardiovascular exam: Code(s): Z01.810 - Encounter for preprocedural cardiovascular examination Plan: Preop for bariatric surgery, with Dr. Maza. No date yet. No known history of CAD. Does have multiple cardiac risk factors but no anginal symptoms. Exercise stress test 12/23/2021 with exercise 2.7 Mets workload, no angina or EKG changes. Activity limited by old Achilles injury and back discomfort. She declined nuclear testing. At this point she uses stationary bike 20 minutes at a time 3 times daily with no anginal symptoms. EKG done today showing sinus rhythm, incomplete right bundle branch block, no acute ST or T-wave abnormalities, rate 78. Last echocardiogram normal in 2019. Will update echocardiogram then finalize her preop clearance. Xarelto can be held for 48 hours prior to her procedure and restart as soon as cleared by surgeon to do so. Continue metoprolol and diltiazem without change. Plan Time spent with chart review, documentation, interview assessment Orders: Orders CA echo transthoracic complete Today E66.01 - Morbid (severe) obesity due to excess calories, I10 - Essential (primary) hypertension, R06.02 - Shortness of breath Coding Level of Care Code Est Pt Level 4 (42095) Diagnoses PAF (paroxysmal atrial fibrillation) I48.0 Essential hypertension I10 Hyperlipidemia, unspecified hyperlipidemia type E78.5 Hyperlipidemia type: unspecified Morbid obesity E66.01 Preop cardiovascular exam Z01.810 CPT Codes EKG - CPT: 31290-[id number], Complete ([id number]) Time Spent (min) 28
[2023-05-25 08:20] VITALS: BP 130/72; PULSE 82; BMI 40.3
== END 2023-05-25 09:00 | disposition home or self-care (01) ==
PROVIDERS: PCP Internal Medicine Sports Medicine; Visit Provider Nurse Practitioner Family
DX: I48.0 Paroxysmal atrial fibrillation (principal); I10 Essential (primary) hypertension; E78.5 Hyperlipidemia, unspecified; E66.01 Morbid (severe) obesity due to excess calories; Z01.810 Encounter for preprocedural cardiovascular examination
CPT/HCPCS: 93010; 99214

== ENCOUNTER → 2023-05-25 08:06 | Outpatient (BNVA) | payer OTHER, SELFPAY | PROVIDERS: PCP Internal Medicine Sports Medicine; Visit Provider Nurse Practitioner Family | DX: Z01.810 Encounter for preprocedural cardiovascular examination (principal); I48.0 Paroxysmal atrial fibrillation; I10 Essential (primary) hypertension; E78.5 Hyperlipidemia, unspecified; E66.01 Morbid (severe) obesity due to excess calories; Z68.41 Body mass index [BMI] 40.0-44.9, adult | CPT/HCPCS: 93005; 99212 ==

== ENCOUNTER 2023-05-27 09:45 | Outpatient (AMB) | payer OTHER, SELFPAY ==
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
== END 2023-05-27 10:30 | disposition home or self-care (01) ==
LOC: HO.HBST 10:05
PROVIDERS: PCP Internal Medicine Sports Medicine; Visit Provider Counselor Mental Health
DX: F41.9 Anxiety disorder, unspecified (principal); F32.A Depression, unspecified
CPT/HCPCS: 90834

== ENCOUNTER → 2023-05-27 09:45 | Outpatient (BNVA) | payer OTHER, SELFPAY | PROVIDERS: PCP Internal Medicine Sports Medicine; Visit Provider Counselor Mental Health ==

== ENCOUNTER 2023-06-02 09:51 | Outpatient (REF) | payer OTHER, SELFPAY | END 2023-06-02 09:52 | disposition home or self-care (01) | LOC: HO.XRAY 09:51 | PROVIDERS: PCP Internal Medicine Sports Medicine; Visit Provider Surgery | DX: Z13.89 Encounter for screening for other disorder (principal) ==

== ENCOUNTER 2023-06-05 08:09 | Outpatient (AMB) | payer OTHER, SELFPAY ==
[2023-06-05 10:28] VITALS: BMI 39.7
--- NOTE | 2023-06-05 10:28 | MHC.OFFVISWM ---
Intake VS Expanded 06/05/23 10:28 Height 5 ft 3 in Weight 224 lb 4 oz BMI 39.7 Body Fat % 56 Body Fat Mass 125.6 Fat Free Mass 98.8 Visceral Fat Rating 22 Body Water % 30.2 Body Water Mass 67.7 Basal Metabolic Rate/Score 1,320 Intake Visit Reasons: TV Follow Up SWL Allergies Penicillins [PENICILLINS] Allergy (Unknown, Verified 05/25/23 08:23) RASH canagliflozin [From Invokamet] Adverse Reaction (Verified 05/25/23 08:23) Yeast infection metformin [From Invokamet] Adverse Reaction (Verified 05/25/23 08:23) Yeast infection HPI TV Follow Up SWL HPI Details Start time: 10.12am, End time: 10.32am ?I spent 15 minutes speaking with the patient on the phone plus an additional 5 minutes reviewing and updating records for a total of 20 minutes HPI Comments History of Present Illness Details Overall weight loss: 25.2lbs, or 10.1% TBWL Is doing 2 Celebrate Rebuild shakes (1 scoop in almond milk), 2 Celebrate protein bars and one meal (10 forks of protein and 10 forks of salad or vegetables) PFSH Medical History GERD (gastroesophageal reflux disease) Osteoporosis DJD (degenerative joint disease) Anxiety Depression Insulin dependent type 2 diabetes mellitus Morbid obesity Obesity Postoperative hypothyroidism Disorder of bone, unspecified Vitamin D deficiency Hypercalcemia Multinodular thyroid HLD (hyperlipidemia) HTN (hypertension) T2DM (type 2 diabetes mellitus) Essential hypertension [facility] (current) use of insulin Type 2 diabetes mellitus without complications Obstructive sleep apnea (adult) (pediatric) PAF (paroxysmal atrial fibrillation) Surgical History Hx of partial thyroidectomy S/P lumpectomy, right breast Hx of colonoscopy Family History Father Cardiovascular disease Mother Uterine cancer Social History Household Members: None Housing: Apartment Are you a primary intensive care nurse to a significant other at home: No Do you presently have visiting nurse or other home services: Yes ([employer] INTERPRETIVE SPECIALIST) Alcohol intake: former Patient Tobacco Use Status: Never used Tobacco service: No Current occupational status: disabled Female Reproductive History Menstrual Age of Menarche: 15 Assessment & Plan Assessment & Plan (1) Obesity: Code(s): E66.9 - Obesity, unspecified Qualifiers: Obesity type: due to excess calories Obesity classification: adult class 2 (BMI 35 - 39.9) Serious obesity comorbidity presence: with serious comorbidity Body mass index: BMI 39.0-39.9 Qualified Code(s): E66.01 - Morbid (severe) obesity due to excess calories; Z68.39 - Body mass index [BMI] 39.0-39.9, adult Plan: Patient decided to continue with MWL. Will be referred to our MWL program Telehealth Telehealth Location of provider rendering services: practice address Location of patient: address on file Patient Identification confirmed using: Name, : Yes Telehealth method: voice only Patient verbally consented to treatment: Yes Patient verbally consented to billing insurance company: Yes Patient informed of any privacy concerns related to visit: Yes Minutes spent on Phone/Video with Pt.: 20 Coding Level of Care Code Tele Est Pt Level 3 (92995) Diagnoses Class 2 severe obesity due to excess calories with serious comorbidity and body mass index (BMI) of 39.0 to 39.9 in adult E66.01; Z68.39 Obesity type: due to excess calories Obesity classification: adult class 2 (BMI 35 - 39.9) Serious obesity comorbidity presence: with serious comorbidity Body mass index: BMI 39.0-39.9 Time Spent (min) 20
== END 2023-06-05 10:33 | disposition home or self-care (01) ==
LOC: HO.HBS 08:09
PROVIDERS: PCP Internal Medicine Sports Medicine; Visit Provider Surgery
DX: E66.01 Morbid (severe) obesity due to excess calories (principal); Z68.39 Body mass index [BMI] 39.0-39.9, adult
CPT/HCPCS: 99442

== ENCOUNTER → 2023-06-05 08:09 | Outpatient (BNVA) | payer OTHER, SELFPAY | PROVIDERS: PCP Internal Medicine Sports Medicine; Visit Provider Surgery ==

== ENCOUNTER 2023-06-11 08:52 | Outpatient (AMB) | payer OTHER, SELFPAY ==
[2023-06-11 09:02] VITALS: BP 118/70; BMI 39.4
--- NOTE | 2023-06-11 09:02 | MHC.OFFVIS ---
Intake Vital Signs 06/11/23 09:02 Height 5 ft 3 in Weight 222 lb 10.67 oz BMI 39.4 BP 118/70 Intake Visit Reasons: INTAKE COUNSELOR annual exam Food Service Driver Required: No Information Interpreted: non-clinical & clinical 2Nd Pressman: 2Nd Pressman Present (Niki HUMPHRIES) Accompanied by: Self / Same As Patient Allergies Penicillins [PENICILLINS] Allergy (Unknown, Verified 06/11/23 09:10) RASH canagliflozin [From Invokamet] Adverse Reaction (Verified 06/11/23 09:10) Yeast infection metformin [From Invokamet] Adverse Reaction (Verified 06/11/23 09:10) Yeast infection Post menopausal: Yes HPI HPI Comments History of Present Illness Details Presenting for annual exam. No complaints. Last Pap/HPV was negative in 02/25 Last Mammogram was BI-RADS 2 in 02/28 Last Colonoscopy was 11 years ago, the patient is scheduled with GI for an appointment for screening colonoscopy [facility] Medical History (Updated 06/11/23 @ 09:14 by Niki Barraza CMA) Hx of breast cancer GERD (gastroesophageal reflux disease) Osteoporosis DJD (degenerative joint disease) Anxiety Depression Insulin dependent type 2 diabetes mellitus Morbid obesity Obesity Postoperative hypothyroidism Disorder of bone, unspecified Vitamin D deficiency Hypercalcemia Multinodular thyroid HLD (hyperlipidemia) HTN (hypertension) T2DM (type 2 diabetes mellitus) Essential hypertension prison (current) use of insulin Type 2 diabetes mellitus without complications Obstructive sleep apnea (adult) (pediatric) PAF (paroxysmal atrial fibrillation) Surgical History Hx of partial thyroidectomy S/P lumpectomy, right breast Hx of colonoscopy Family History Father Cardiovascular disease Mother Uterine cancer Social History Household Members: None Housing: Apartment Are you a primary lawn care worker to a significant other at home: No Do you presently have visiting nurse or other home services: Yes (CHIMNEY REPAIRER) Alcohol intake: former Patient Tobacco Use Status: Never used Tobacco service: No Current occupational status: disabled Female Reproductive History Menstrual Age of Menarche: 15 Total pregnancies: 2 Full term: 2 Number of Living Children: 2 Date of last pap smear: 03/02/20 Date of Mammogram: 02/27/23 Review of Systems Const All systems reviewed & are unremarkable except as noted in HPI and below Card Reports as per HPI Resp Reports as per HPI GI Reports as per HPI and Reports no additional complaints Reports as per HPI Physical Exam Vital Signs: Last Vital Signs BP 118/70 06/11/23 09:02 BMI result Body Mass Index 39.4 Const General: cooperative, healthy appearing and comfortable Chest Chest palpation & inspection: normal inspection of the chest and normal palpation of entire chest wall Breast/axilla inspection: normal inspection of the breasts and normal inspection of the axillae Breast/axilla palpation: normal palpation of the breasts, normal palpation of the axillae and no axillary lymphadenopathy Resp Effort & Inspection: normal respiratory effort Auscultation: clear to auscultation bilaterally Percussion: percussion normal Cardio Palpation: normal PMI Rate: regular rate Rhythm: regular rhythm Heart sounds: no murmurs and no rubs Peripheral pulses: Peripheral pulses 2+ throughout GI Inspection: Yes normal to inspection Palpation (GI): Soft to palpation, nontender, no guarding, not rigid and No hepatosplenomegaly present Percussion: Yes normal to percussion Auscultation: normal bowel sounds Rectal Exam - Female: deferred General: Yes bladder normal to palpation External Female Exam: No lesion Speculum Exam - Vagina: normal appearance of the vagina, normal palpation, normal vaginal discharge and not erythematous Speculum Exam - Cervix: normal appearance of the cervix and normal palpation Bimanual exam- vagina & uterus: normal bimanual exam, normal palpation, uterine size normal, bladder normal to palpation, consistency normal and normal palpation Bimanual Exam- Adnexa, other: normal adnexae, no masses and no tenderness Assessment & Plan Assessment & Plan (1) Well woman exam: Code(s): Z01.419 - Encounter for gynecological examination (general) (routine) without abnormal findings Plan: Co testing not indicated this. Counseled the patient about the recommended dietary allowance of 1200 mg of Calcium & 600 IU of vitamin D. Instructions given the patient to schedule next screening Mammogram in 03/01. The patient has schedule appointment with GI for screening colonoscopy . The patient was instructed to perform monthly self-breast exams and schedule annual exam in a year. All questions answered and the patient verbalized understanding. Coding Level of Care Code Est Pt Prev Care 40-64y(17320) Diagnoses Well woman exam Z01.419
== END 2023-06-11 09:31 | disposition home or self-care (01) ==
LOC: HO.HWS 08:52
PROVIDERS: PCP Internal Medicine Sports Medicine; Visit Provider Obstetrics & Gynecology
DX: Z01.419 Encounter for gynecological examination (general) (routine) without abnormal findings (principal)
CPT/HCPCS: 99396

== ENCOUNTER → 2023-06-11 08:52 | Outpatient (BNVA) | payer OTHER, SELFPAY | PROVIDERS: PCP Internal Medicine Sports Medicine; Visit Provider Obstetrics & Gynecology ==

== ENCOUNTER 2023-09-03 10:47 | Outpatient (REF) | payer OTHER, SELFPAY ==
[2023-09-03 13:12] LABS: Free T4 (Free Thyroxine) 0.97 ng/dL (0.71-1.85); Thyroid Stimulating Hormone 5.71 uIU/mL (0.32-4.0)
== END 2023-09-03 10:48 | disposition home or self-care (01) ==
LOC: HO.LAB 10:47
PROVIDERS: PCP Internal Medicine Sports Medicine; Visit Provider Internal Medicine Endocrinology, Diabetes & Metabolism
DX: E04.2 Nontoxic multinodular goiter (principal); E11.9 Type 2 diabetes mellitus without complications; E89.0 Postprocedural hypothyroidism; M81.0 Age-related osteoporosis without current pathological fracture
CPT/HCPCS: 36415; 82947; 83036; 84439; 84443; 99212

== ENCOUNTER 2023-09-03 10:47 | Outpatient (AMB) | payer OTHER, SELFPAY ==
--- NOTE | 2023-09-03 11:05 | MHC.OFFVIS ---
Intake Vital Signs 09/03/23 11:08 Height 5 ft 3 in Weight 218 lb 4.122 oz BMI 38.7 BP 120/70 Blood Pressure Location Lt brachial Position Sitting Pulse 86 Pulse Source Pulse Oximeter Intake Visit Reasons: Type2 DM,post-operative hypothyroidism,osteopenia Intake Note: Patient presents today to follow up on D2MT, post operative hypothyroidism and osteopenia. Last Diabetic Eye exam: 02/2023 Last Podiatry Visit: 06/2023 Random Glucose: 187mg/dl HgA1c: 7.7% Clinical Medical Assistant Required: No Accompanied by: INSPECTION MACHINE TENDER Allergies Penicillins [PENICILLINS] Allergy (Unknown, Verified 09/03/23 11:10) RASH canagliflozin [From Invokamet] Adverse Reaction (Verified 09/03/23 11:10) Yeast infection metformin [From Invokamet] Adverse Reaction (Verified 09/03/23 11:10) Yeast infection HPI HPI Comments History of Present Illness Details 63 YO F with PMHx T2DM, NTMNG, breast cancer s/p lumpectomy now on Letrozole who is seen in F/U for T2DM and postsurgical hypothyroidism after a recent total thyroidectomy and Osteopenia. 1) T2DM: Initially diagnosed with T2DM in 2005 during a routine physical exam. Was initially started on treatment with Metformin, but was intolerant to this due to GI distress. She also trialed Glyburide and Glipizide in the past but experienced recurrent hypoglycemia. She required insulin beginning in 2013. She also tried Trulicity in the past but was unable to tolerate this due to GI side effects. Current regimen . Mounjaro 5 mg Qwkly Uses CGM Scaleogyyle Elizabeth. 14 days of data was downloaded from 08/20/23 through 09/02/2023. This reveals an average sugar of 164, with CV of 17.3%. Her Sugars are at goal 763% of the time, below goal 0% of the time. No . Treats lows with glucose tablets. She does check her sugar after to ensure it is rising. Family history of T2DM in her Mother, Brother, and Sister. Has eyes checked yearly. Last eye exam 2 wks ago . Has retinopathy. Has Neuropathy, sees podiatry regularly. No Nephropathy, on Olmesartan 40 mg PO daily. UAC 31.3 07/04/2022. Has HLD, on Rosuvastatin 40 mg PO daily and Fenofibrate 145 mg PO daily. LDL 59 07/04/2022. Denies CAD. Has AFib on Xarelto. Diet: Does not watch her diet. Eats a carb heavy diet. She admits to frequently snacking on saltines and bread and not using insulin at those times. Weight: Stable. Currently attending CDE. 2) NTMNG with postoperative hypothyroidism. Patient has a longstanding history of NTMNG. She was followed closely by an Technical Training Manager in [place], [place] Dr. Matty Root. Records were received from his office and reviewed today. Per his reports she had FNA biopsy on 03/16/16 of a L mid pole 2.3 cm nodule. Cytology was benign. No additional FNA was completed per the records received. She underwent FNA biopsy by ct 05/19/19 of a LLP 2.8 cm nodule and a RLP 3.3 cm nodule. Cytology was benign for both of these nodules. Her additional nodules were visualized and felt to be spongiform at that time. None measuring greater than 2.0 cm so no further FNA was indicated. She was complaining of significant compressive symptoms. She underwent a total thyroidectomy with Dr. Quintanilla 11/19/2021. Official surgical path was benign. She was started on levothyroxine 150 mcg PO daily postoperatively and TSH remains at goal. She did have removal of her L inferior parathyroid, but this was subsequently reimplanted. Calcium remains low normal, and she does complain of occasional paresthesias. She denies any symptoms of hyper or hypothyroidism. Denies any history of head or neck irradiation. Denies any family history of thyroid cancer. Does have a history of breast cancer, but did not receive radiation therapy for this. She underwent a total thyroidectomy and is currently being treated with 150 mcg levothyroxine for post-surgical hypothyroidism 3) Bone Health: She reports she had a screening BMD completed prior to initiating Letrozole therapy, but this was not received from her prior Technical Training Manager. She had a repeat BMD completed 04/05/19 which was completely WNL with no evidence of Osteopenia or Osteoporosis. She did have NTX which was elevated to >90. She has never had a fracture. She does continue on Letrozole therapy daily. This is set to continue until 2022. She was started on Fosamax and continues on this once a week. This was started in 2020.Off Letrazole 4) Hypercalcemia: While undergoing a workup for secondary causes of Osteoporosis she was noted to have elevated calcium. Levels checked 01/03/19 revealed Calcium 10.6 with albumin 4.7, iCal 5.4, Vitamin D 39.8. PTH was suppressed to 13. 24 hour urine Calcium was elevated to 458. This was a good collection with a volume of 2.2 L and a Creatinine of 1.2. Labs were repeated 02/01/19 with Calcium of 10.2, Albumin 4.2, Vitamin D 30.4, PTH 13, PTHRP low at 12, Vitamin D 1,25 normal at 42, and ABEBA mildly elevated at 69 (upper limit normal 67). She was asked to stop her Calcium supplement and levels improved to WNL with a Calcium of 9.7. She did undergo a bone scan, which revealed increased activity within the skull. I do suspect this is related to increased bone remodeling from Letrozole therapy. Now calcium is low normal following thyroidectomy. DEXA: 06/17/2022 FINDINGS: AP SPINE L1-L4: Current: BMD 1.436 g/cm2, Z-score 2.2, T-score 2.1, normal, 6.4% increase from previous, 2.8% decrease from baseline (<5% change is not significant). Prior: BMD 1.349 g/cm2. Baseline: BMD 1.477 g/cm2. LEFT FEMUR, NECK: Current: BMD 0.999 g/cm2, Z-score 0.2, T-score -0.3, normal. Prior: BMD 1.050 g/cm2. Baseline: BMD 1.044 g/cm2. LEFT FEMUR, TOTAL: Current: BMD 1.026 g/cm2, Z-score 0.2, T-score 0.1, normal, 4.6% decrease from previous, 10.3% decrease from baseline (<5% change is not significant). Prior: BMD 1.075 g/cm2. Baseline: BMD 1.144 g/cm2. LEFT FOREARM RADIUS 33%: BMD 0.693 g/cm2, Z-score -1.2, T-score -2.1, osteopenia. Prior:? Not previously measured. Labs: Laboratory Tests 07/04/22 07/04/22 10/10/22 08:59 09:00 08:12 Sodium 142 Potassium 3.9 Creatinine 0.83 Estimated GFR > 60 Hemoglobin A1c % LDL Cholesterol, C alc 59 25-OH Vitamin D To keegan 43.5 TSH 1.76 Free T4 1.14 Microalb/Creat Rat io 31.3 10/10/22 08:12 Sodium Potassium Creatinine Estimated GFR Hemoglobin A1c % 7.9 LDL Cholesterol, C alc 25-OH Vitamin D To keegan TSH Free T4 Microalb/Creat Rat io PFSH Medical History (Updated 08/10/23 @ 11:09 by Mely Gonzalez MD) Hx of breast cancer GERD (gastroesophageal reflux disease) Osteoporosis DJD (degenerative joint disease) Anxiety Depression Insulin dependent type 2 diabetes mellitus Morbid obesity Obesity Postoperative hypothyroidism Disorder of bone, unspecified Vitamin D deficiency Hypercalcemia Multinodular thyroid HLD (hyperlipidemia) HTN (hypertension) T2DM (type 2 diabetes mellitus) Essential hypertension 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 Type 2 diabetes mellitus without complications Obstructive sleep apnea (adult) (pediatric) PAF (paroxysmal atrial fibrillation) Surgical History Hx of partial thyroidectomy S/P lumpectomy, right breast Hx of colonoscopy Family History Father Cardiovascular disease Mother Uterine cancer Social History Household Members: None Housing: Apartment Are you a primary career services director to a significant other at home: No Do you presently have visiting nurse or other home services: Yes (INSPECTION MACHINE TENDER) Alcohol intake: former Patient Tobacco Use Status: Never used Tobacco service: No Current occupational status: disabled Female Reproductive History Menstrual Age of Menarche: 15 Physical Exam Vital Signs: Last Vital Signs Pulse 86 09/03/23 11:08 BP 120/70 09/03/23 11:08 BMI result Body Mass Index 38.7 Absence of Cushingoid features. Absence of acromegalic features. Neck exam reveals Healed scar S/P thyroidectomy . No carotid bruits present. Lungs CTA. Heart S1 S2, Reg R/R. No M/R/ G. Skin exam reveals absence of vitiligo or acanthosis nigricans. Abdominal exam reveals Soft NT/ND with NA BS. No organomegaly present. A small palpable nodule present in the left anterior neck Neck Other: . Extrem Other: Visual exam of foot performed. No ulcerations or open lesions. No onchomycosis, no callouses.Pulses 2 + distally Sensation intact to monofilament exam. Vibratory sensation sensed is intact with 128 Hz tuning fork Results AMB Hemoglobin A1c AMB Hemoglobin A1c 7.7 % Last Edit by YANDEL Lazo on 09/03/23 11:22 Assessment & Plan Assessment & Plan (1) Type 2 diabetes mellitus without complications: Code(s): E11.9 - Type 2 diabetes mellitus without complications Plan: This 63-year-old female with history of type 2 diabetes being treated withMounjaro with good glycemic control but persistent hypoglycemia and known microvascular complications namely neuropathy. The plan is to continue the current regimen. At this point, patient returned to the care of her primary care provider and returned back to endocrinology should HbA1c deteriorate (2) Postoperative hypothyroidism: Code(s): E89.0 - Postprocedural hypothyroidism Plan: Currently on levothyroxine 150 mcg. Clinically euthyroid Would check TSH and free T4 and adjust levothyroxine. Assuming above is normal, patient returned to the care of her primary care provider and returned back to endocrinology as needed. I did suggest to the patient and her daughter that her primary care provider refer her to ENT to evaluate the small palpable area in the left anterior neck which I think is unrelated to thyroid (3) Osteoporosis: Code(s): M81.0 - Age-related osteoporosis without current pathological fracture Plan: Currently off alendronateand letrozole . Would continue calcium and vitamin-D supplementation. She can return back to the care of her primary care provider who could order a bone density 2024. Orders: Orders Thyroid Stimulating Hormone Today E04.2 - Nontoxic multinodular goiter AMB Hemoglobin A1c Today E11.9 - Type 2 diabetes mellitus without complications, Z13.9 - Encounter for screening, unspecified, Z79.4 - custodial (current) use of insulin Free T4 (Free Thyroxine) Today E04.2 - Nontoxic multinodular goiter Coding Level of Care Code Est Pt Level 4 (02198) Diagnoses Type 2 diabetes mellitus without complications E11.9 Postoperative hypothyroidism E89.0 Osteoporosis M81.0
[2023-09-03 11:08] VITALS: BP 120/70; PULSE 86; BMI 38.7
[2023-09-03 11:36] LABS: Glucose, Whole Blood 187 mg/dL (60-115)
== END 2023-09-03 11:36 | disposition home or self-care (01) ==
PROVIDERS: PCP Internal Medicine Sports Medicine; Visit Provider Internal Medicine Endocrinology, Diabetes & Metabolism
DX: E11.9 Type 2 diabetes mellitus without complications (principal); E89.0 Postprocedural hypothyroidism; M81.0 Age-related osteoporosis without current pathological fracture; Z13.9 Encounter for screening, unspecified; Z79.4 Long term (current) use of insulin
CPT/HCPCS: 99214

== ENCOUNTER 2023-10-08 09:52 | Outpatient (AMB) | payer OTHER, SELFPAY ==
--- NOTE | 2023-10-08 10:02 | A.OFFVIS_ITS ---
Intake Intake Visit Reasons: DM/CONFIRMED Insole And Heel Stiffener Required: No Accompanied by: Other Relationship Allergies Penicillins [PENICILLINS] Allergy (Unknown, Verified 09/03/23 11:10) RASH canagliflozin [From Invokamet] Adverse Reaction (Verified 09/03/23 11:10) Yeast infection metformin [From Invokamet] Adverse Reaction (Verified 09/03/23 11:10) Yeast infection HPI Comprehensive Diabetes Asmnt Most Recent Diabetes Results: Microalb/Creat Ratio 31.3 ug/mg cr 07/04/22 Cholesterol 121 mg/dL (<200) 03/23/23 HDL Cholesterol 35 mg/dL (>40) L 03/23/23 Triglycerides 105 mg/dL (<150) 03/23/23 Creatinine 0.73 mg/dL (0.5-1.4) 08/10/23 Blood Urea Nitrogen 20 mg/dL (9-16) H 08/10/23 Sodium 143 mmol/L (135-145) 08/10/23 Potassium 3.8 mmol/L (3.3-5.1) 08/10/23 Chloride 102 mmol/L (96-108) 08/10/23 Carbon Dioxide 31 mmol/L (22-29) H 08/10/23 Calcium 9.9 mg/dL (8.4-10.2) 08/10/23 AST 19 U/L (5-31) 08/10/23 ALT 17 U/L (0-31) 08/10/23 Total Protein 7.7 g/dL (6.5-8.0) 08/10/23 Albumin 4.3 g/dL (3.5-5.0) 08/10/23 [facility] Medical History (Updated 08/10/23 @ 11:09 by Mely Gonzalez MD) Hx of breast cancer GERD (gastroesophageal reflux disease) Osteoporosis DJD (degenerative joint disease) Anxiety Depression Insulin dependent type 2 diabetes mellitus Morbid obesity Obesity Postoperative hypothyroidism Disorder of bone, unspecified Vitamin D deficiency Hypercalcemia Multinodular thyroid HLD (hyperlipidemia) HTN (hypertension) T2DM (type 2 diabetes mellitus) Essential hypertension 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 Type 2 diabetes mellitus without complications Obstructive sleep apnea (adult) (pediatric) PAF (paroxysmal atrial fibrillation) Surgical History Hx of partial thyroidectomy S/P lumpectomy, right breast Hx of colonoscopy Family History Father Cardiovascular disease Mother Uterine cancer Social History Household Members: None Housing: Apartment Are you a primary health care sanitary technician to a significant other at home: No Do you presently have visiting nurse or other home services: Yes (SCRAP KETTLE TENDER) Alcohol intake: former Patient Tobacco Use Status: Never used Tobacco service: No Current occupational status: disabled Female Reproductive History Menstrual Age of Menarche: 15 Assessment & Plan Assessment & Plan (1) Insulin dependent type 2 diabetes mellitus: Code(s): E11.9 - Type 2 diabetes mellitus without complications; Z79.4 - [facility] (current) use of insulin Plan: Personal Continuous Glucose Monitor: Patients CGM information reviewed Reviewed patient's sensor data: Hypoglycemia: ? 0% Hyperglycemia:? 56% Time in Range:? 44% Average glucose for the last 2 weeks? 186 mg/dL Patient's glucose was under better control at features visit because she was on Mounjaro 5 mg weekly, she has been unable to obtain Mounjaro Dr. Mccoy has started her on Ozempic 0.25 mg, instructed patient to take Ozempic 0.25 mg for the next 3 weeks. In them increase Ozempic to 0.5 mg weekly. After 4 weeks of Ozempic 0.5 mg, patient can contact provider for increase in dose. Patient reports after coming up Mounjaro her appetite has increased, discussed with patient Ozempic can also help with increased appetite, once she increases to higher dose Reviewed how to interpret trend arrows Reminded patient that to check finger sticks if symptoms do not match sensor reading. Discussed lag time between finger stick and sensor data.? Encourage patient to stay in contact with pharmacy, if she finds pharmacy with a consistent supply of Mounjaro call to switch Ozempic prescription back to Mounjaro Patient will follow-up with clinical informatics educator in 3 months Patient Instructions: Patient instruction: CGM provides information on blood glucose control throughout the day, including hyperglycemia and hypoglycemia. ? Continue to monitor blood glucose as instructed. Follow nutrition guidelines provided. Report any discomfort promptly to health care provider. ?Stay well-hydrated. You can bathe ,shower, swim and exerce while wearing the glucose sensor. Do not submerge glucose sensor in water for more than 30 minutes. Remove sensor for MRI or CAT scan. Avoid Xray machine in airports - remove sensor or request wand Coding Level of Care Code Est Pt Level 1 (30881) Diagnoses Insulin dependent type 2 diabetes mellitus E11.9; Z79.4
== END 2023-10-08 10:24 | disposition home or self-care (01) ==
PROVIDERS: PCP Internal Medicine Sports Medicine; Visit Provider Registered Nurse Diabetes Educator
DX: E11.9 Type 2 diabetes mellitus without complications (principal); Z79.4 Long term (current) use of insulin

== ENCOUNTER → 2023-10-08 09:52 | Outpatient (BNVA) | payer OTHER, SELFPAY | PROVIDERS: PCP Internal Medicine Sports Medicine; Visit Provider Registered Nurse Diabetes Educator | DX: E11.9 Type 2 diabetes mellitus without complications (principal); Z79.4 Long term (current) use of insulin | CPT/HCPCS: 99211 ==

== ENCOUNTER 2023-10-12 09:54 | Outpatient (AMB) | payer OTHER, SELFPAY ==
[2023-10-12 09:57] VITALS: BP 112/60; PULSE 87; O2SAT 98; BMI 38.3
--- NOTE | 2023-10-12 09:57 | MHC.OFFVIS ---
Vital Signs 10/12/23 09:57 Height 5 ft 3 in Weight 216 lb BMI 38.3 BP 112/60 Blood Pressure Location Lt brachial Position Sitting Pulse 87 Pulse Source Pulse Oximeter Pulse Oximetry (%) 98 Oxygen Delivery Method Room Air Intake Visit Reasons: 1 year follow up Allergies Penicillins [PENICILLINS] Allergy (Unknown, Verified 09/03/23 11:10) RASH canagliflozin [From Invokamet] Adverse Reaction (Verified 09/03/23 11:10) Yeast infection metformin [From Invokamet] Adverse Reaction (Verified 09/03/23 11:10) Yeast infection Medication List - Last Reconciled 10/12/23 by Dakotah Dunlap MD acetaminophen (Tylenol Extra Strength) 500 mg PO Q6H PRN alclometasone 0.05% topical allopurinol 300 mg PO DAILY blood sugar diagnostic (FreeStyle Lite Strips) USE DIRECTED 4 TIMES A DAY blood-glucose meter As directed blood-glucose meter (FreeStyle [place] Lite kit) DIRECTED calcium carb-D3-mag [id number] jz-xwsc-rz-mg 1 tab PO DAILY diltiazem HCl ER 120 mg PO DAILY famotidine (Pepcid) 20 mg PO DAILY fenofibrate nanocrystallized 145 mg PO DAILY flash glucose scanning reader (FreeStyle Elizabeth 2 [place]) As directed flash glucose sensor (FreeStyle Elizabeth 2 Sensor kit) Once every 14 days lancets (FreeStyle Lancets) One Lancet topical 4 times a day; lancets (FreeStyle Lancets) As directed checks 4 times a day levothyroxine 175 mcg PO DAILY lidocaine 5% (Lidoderm) 1 patch topical DAILY PRN MDD remove after 12 hours metoprolol succinate ER 50 mg PO DAILY olmesartan 40 mg PO DAILY omeprazole 20 mg PO DAILY PRN pen needle, diabetic (BD Selena 2nd Gen Pen Needle) USE DIRECTED UP TO 4 TIMES A DAY rivaroxaban (Xarelto) 20 mg PO DAILY rosuvastatin 40 mg PO DAILY semaglutide (Ozempic) 0.25 mg (0.368 mL) subcut QWEEK thiamine HCl (vitamin B1) 100 mg PO DAILY triamcinolone acetonide 0.1% appl topical BID PRN vibegron (Gemtesa) mg PO HPI Comments Details: Maisha returns for follow-up regarding atrial fibrillation. She carries a diagnosis of paroxysmal atrial fibrillation. Overall, she has not having any symptoms and no palpitations or in fact anything cardiac sounding. She remains on metoprolol, diltiazem and Xarelto. No other issues like coronary disease or myocardial infarction or cardiomyopathy. [facility] Medical History (Updated 08/10/23 @ 11:09 by Mely Gonzalez MD) Hx of breast cancer GERD (gastroesophageal reflux disease) Osteoporosis DJD (degenerative joint disease) Anxiety Depression Insulin dependent type 2 diabetes mellitus Morbid obesity Obesity Postoperative hypothyroidism Disorder of bone, unspecified Vitamin D deficiency Hypercalcemia Multinodular thyroid HLD (hyperlipidemia) HTN (hypertension) T2DM (type 2 diabetes mellitus) Essential hypertension rn long term care (current) use of insulin Type 2 diabetes mellitus without complications Obstructive sleep apnea (adult) (pediatric) PAF (paroxysmal atrial fibrillation) Surgical History Hx of partial thyroidectomy S/P lumpectomy, right breast Hx of colonoscopy Family History Father Cardiovascular disease Mother Uterine cancer Social History Household Members: None Housing: Apartment Are you a primary home care manager to a significant other at home: No Do you presently have visiting nurse or other home services: Yes (COAGULATION OPERATOR) Alcohol intake: former Patient Tobacco Use Status: Never used Tobacco service: No Current occupational status: disabled Female Reproductive History Menstrual Age of Menarche: 15 Review of Systems Const Denies weakness ENT Denies dizziness Card Denies chest pain, Denies chest pain with activity, Denies syncope, Denies rapid heart rate, Denies pedal edema, Denies edema, Denies leg edema, Denies lightheadedness, Denies palpitations, Denies dyspnea, Denies dyspnea on exertion and Denies orthopnea Resp Denies cough, Denies dyspnea and Denies dyspnea on exertion GI Denies hematochezia and Denies change in stool character Musc Denies abnormal gait, Denies muscle cramps, Denies muscle weakness, Denies numbness, Denies radiating pain into limb and Denies tingling Neuro Denies abnormal gait, Denies dizziness, Denies syncope, Denies numbness, Denies tingling and Denies weakness Endo Denies palpitations Physical Exam Vital Signs: Last Vital Signs Pulse 87 10/12/23 09:57 BP 112/60 10/12/23 09:57 Pulse Ox 98 10/12/23 09:57 Oxygen Delivery Method Room Air 10/12/23 09:57 BMI result Body Mass Index 38.3 Const General: comfortable and no acute distress Orientation/consciousness: patient oriented x3 HEENT Other: Unremarkable Head: Yes normal to inspection Neck Neck: Yes normal visual inspection Chest Chest palpation & inspection: normal inspection of the chest Resp Auscultation: clear to auscultation bilaterally Cardio Palpation: normal PMI Heart sounds: S1 normal heart sound present, S2 normal heart sound present, no gallops, no murmurs and no rubs GI Palpation (GI): Soft to palpation Back/Spine/Pelvis Other: unremarkable Skin General skin exam: no rashes or lesions noted Neuro General: patient oriented x3 Extrem General: Yes normal to inspection Psych Mental Status: mental status grossly normal Assessment & Plan Assessment & Plan (1) PAF (paroxysmal atrial fibrillation): Code(s): I48.0 - Paroxysmal atrial fibrillation Category: Medical Plan: On diltiazem, metoprolol, Xarelto. Echocardiogram with normal LVEF and otherwise unremarkable. In the stress test, she was able to exercise for only 2.7 Mets. No angina or EKG evidence of ischemia in this workload. Refused pharmacological stress test. If necessary, we will do coronary CTA. Clinically, no angina or any other complaints. (2) Essential hypertension: Code(s): I10 - Essential (primary) hypertension Category: Medical Plan: On Olmesartan. Stable. (3) T2DM (type 2 diabetes mellitus): Code(s): E11.9 - Type 2 diabetes mellitus without complications Category: Medical Qualifiers: Diabetes mellitus complication status: with hyperglycemia Diabetes mellitus [facility] insulin use: with [facility] use Qualified Code(s): E11.65 - Type 2 diabetes mellitus with hyperglycemia; Z79.4 - rn long term care (current) use of insulin Plan: Hemoglobin A1c 7.7%. Less than optimally controlled. Plan Total time spent including review of data, counseling, documentation, coordination of care-31 minutes. Coding Level of Care Code Est Pt Level 4 (55561) Diagnoses PAF (paroxysmal atrial fibrillation) I48.0 Essential hypertension I10 Type 2 diabetes mellitus with hyperglycemia, with long-term current use of insulin E11.65; Z79.4 Diabetes mellitus complication status: with hyperglycemia Diabetes mellitus terminal makeup operator insulin use: with [facility] use
== END 2023-10-12 10:20 | disposition home or self-care (01) ==
PROVIDERS: Visit Provider Internal Medicine
DX: I48.0 Paroxysmal atrial fibrillation (principal); I10 Essential (primary) hypertension; E11.65 Type 2 diabetes mellitus with hyperglycemia; Z79.4 Long term (current) use of insulin
CPT/HCPCS: 99214

== ENCOUNTER → 2023-10-12 09:54 | Outpatient (BNVA) | payer OTHER, SELFPAY | PROVIDERS: Visit Provider Internal Medicine | DX: I48.0 Paroxysmal atrial fibrillation (principal); I10 Essential (primary) hypertension; E11.65 Type 2 diabetes mellitus with hyperglycemia; Z79.4 Long term (current) use of insulin | CPT/HCPCS: 99212 ==

== ENCOUNTER 2023-11-06 09:12 | Outpatient (REF) | payer OTHER, SELFPAY ==
[2023-11-06 11:44] LABS: Free T4 (Free Thyroxine) 1.01 ng/dL (0.71-1.85); Thyroid Stimulating Hormone 1.25 uIU/mL (0.32-4.0)
== END 2023-11-06 09:13 | disposition home or self-care (01) ==
LOC: HO.LAB 09:12
PROVIDERS: PCP Internal Medicine Sports Medicine; Visit Provider Internal Medicine Endocrinology, Diabetes & Metabolism
DX: E89.0 Postprocedural hypothyroidism (principal)
CPT/HCPCS: 36415; 84439; 84443

== ENCOUNTER 2023-11-09 09:54 | Outpatient (AMB) | payer OTHER, SELFPAY ==
--- NOTE | 2023-11-09 09:56 | A.OFFVIS_ITS ---
Vital Signs 11/09/23 10:00 Height 5 ft 3 in Weight 217 lb 6.012 oz BMI 38.5 BP 112/76 Blood Pressure Location Lt brachial Position Sitting Pulse 75 Pulse Source Pulse Oximeter Intake Visit Reasons: DM Intake Note: Patient present today to follow up on Type 2 Diabetes Mellitus. Last seen by Dr. Mccoy on 09/03/2023. Patient receives DME supplies through: [employer] Last Diabetic Eye exam: November 04, 2023 [facility] Last Podiatry Visit: Has an appointment November 10, 2023. Random Glucose: 196 mg/dl HgA1C: 7.7% 09/03/2023 Appliance Adjuster Required: No Accompanied by: BOX ANNEALER Allergies Penicillins [PENICILLINS] Allergy (Unknown, Verified 11/09/23 10:04) RASH canagliflozin [From Invokamet] Adverse Reaction (Verified 11/09/23 10:04) Yeast infection metformin [From Invokamet] Adverse Reaction (Verified 11/09/23 10:04) Yeast infection Medication List - Last Reconciled 11/09/23 by Debby Pringle PA-C acetaminophen (Tylenol Extra Strength) 500 mg PO Q6H PRN alclometasone 0.05% topical allopurinol 300 mg PO DAILY blood sugar diagnostic (FreeStyle Lite Strips) USE DIRECTED 4 TIMES A DAY blood-glucose meter As directed blood-glucose meter (FreeStyle [place] Lite kit) DIRECTED calcium carb-D3-mag [id number] [id number] px-bdhr-gq-mg 1 tab PO DAILY cholecalciferol (vitamin D3) 50 mcg PO DAILY diltiazem HCl ER 120 mg PO DAILY famotidine (Pepcid) 20 mg PO DAILY fenofibrate nanocrystallized 145 mg PO DAILY flash glucose scanning reader (FreeStyle Elizabeth 2 [place]) As directed flash glucose sensor (FreeStyle Elizabeth 2 Sensor kit) Once every 14 days lancets (FreeStyle Lancets) One Lancet topical 4 times a day; lancets (FreeStyle Lancets) DIRECTED CHECKS 4 TIMES A DAY levothyroxine 175 mcg PO DAILY lidocaine 5% (Lidoderm) 1 patch topical DAILY PRN MDD remove after 12 hours metoprolol succinate ER 50 mg PO DAILY olmesartan 40 mg PO DAILY omeprazole 20 mg PO DAILY PRN pen needle, diabetic (BD Selena 2nd Gen Pen Needle) USE DIRECTED UP TO 4 TIMES A DAY rivaroxaban (Xarelto) 20 mg PO DAILY rosuvastatin 40 mg PO DAILY thiamine HCl (vitamin B1) 100 mg PO DAILY tirzepatide (Mounjaro) mg subcut triamcinolone acetonide 0.1% appl topical BID PRN vibegron (Gemtesa) mg PO HPI HPI DM: Details: Patient is a 63-year-old female with a significant past medical history of type 2 diabetes, insulin dependent, BRIAN, paroxysmal AFib, hypertension, hyperlipidemia, postoperative hypothyroidism, osteoporosis, anxiety depression presenting today for a follow-up regarding diabetes. Endo: DM-her last A1c was 7.7. She is currently on mounjaro 5 mg. States that she restarted it this past week. States that her blood sugars. She was off of it for about a month. She states that she could not find this in stock anywhere. She is working hard on her diet and has noticed that while she is on this medication her appetite is suppressed. She has a much easier time controlling her blood sugars. She did bring in her freestyle Elizabeth device today and she is using it 80%. She had 39% very high readings, 46% high readings and 15% that within range. She states that it is elevated like this because she did not have the medication for about a month. Denies any hypoglycemic events. Does not want to go up on the dosage of the medication because she felt that while she was taking this she tolerated it very well and she noticed her weight and numbers coming down. Hypothyroid-last TSH WNL. Continues on levothyroxine [address] Mccoy. Osteoporosis- Managed by Dr. Mccoy. CV: Blood pressure today in the office is 112/76. She is on olmesartan 40 mg, metoprolol 50 mg ER, diltiazem 120 mg a. She has been on long-term anticoagulation and tolerates Xarelto. Her cholesterol is managed with Crestor 40 mg and fenofibrate 145 mg. No chest pain, shortness of breath or palpitations. 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 Type 2 diabetes mellitus without complications Obstructive sleep apnea (adult) (pediatric) PAF (paroxysmal atrial fibrillation) Surgical History Hx of partial thyroidectomy S/P lumpectomy, right breast Hx of colonoscopy Family History Father Cardiovascular disease Mother Uterine cancer Social History Household Members: None Housing: Apartment Are you a primary child caregiver to a significant other at home: No Do you presently have visiting nurse or other home services: Yes (BOX ANNEALER) Alcohol intake: former Patient Tobacco Use Status: Never used Tobacco service: No Current occupational status: disabled Female Reproductive History Menstrual Age of Menarche: 15 Physical Exam Vital Signs: Last Vital Signs Pulse 75 11/09/23 10:00 BP 112/76 11/09/23 10:00 BMI result Body Mass Index 38.5 Const Orientation/consciousness: patient oriented x3 HEENT Ears: hearing grossly normal bilaterally Neck Thyroid: Thyroid normal Lymphatic: no lymphadenopathy noted Resp Auscultation: clear to auscultation bilaterally Cardio Rate: regular rate Rhythm: regular rhythm Heart sounds: S1 normal heart sound present and S2 normal heart sound present Skin General skin exam: no rashes or lesions noted Neuro General: patient oriented x3, gait normal and no focal motor deficits Extrem Other: DP pulses 2+ bilaterally. Monofilament sensation intact bilaterally. Reduced vibratory sensation noted in left foot. Intact in the right foot. Skin intact. Results Reviewed Results Reviewed: Laboratory Last Values Glucose (Clinic) 196 mg/dL (60-115) H 11/09/23 10:13 Laboratory Tests Laboratory Tests 03/23/23 09:15 Triglycerides 105 Cholesterol 121 LDL Cholesterol, Calc 65 HDL Cholesterol 35 L 08/10/23 09/03/23 09/03/23 10:56 11:13 11:16 Sodium 143 Potassium 3.8 Chloride 102 Carbon Dioxide 31 H Anion Gap 14 BUN 20 H Creatinine 0.73 Estimated GFR > 60 Glucose (Clinic) 187 H Hgb A1c (Clinic) 7.7 H AST 19 ALT 17 TSH Free T4 11/06/23 09:26 Sodium Potassium Chloride Carbon Dioxide Anion Gap BUN Creatinine Estimated GFR Glucose (Clinic) Hgb A1c (Clinic) AST ALT TSH 1.25 Free T4 1.01 Assessment & Plan Assessment & Plan (1) Uncontrolled type 2 diabetes mellitus with hyperglycemia: Code(s): E11.65 - Type 2 diabetes mellitus with hyperglycemia Category: Medical Plan: Continue on Mounjaro. Has had recent blood sugars that have been better since restarting this. Advised three-month follow-up. Labs prior to appointment. Follow up sooner if needed. (2) Essential hypertension: Code(s): I10 - Essential (primary) hypertension Category: Medical Plan: Well-controlled. Continue diltiazem 120 mg , metoprolol 50 mg and olmesartan 40 mg. (3) HLD (hyperlipidemia): Code(s): E78.5 - Hyperlipidemia, unspecified Category: Medical Qualifiers: Hyperlipidemia type: unspecified Qualified Code(s): E78.5 - Hyperlipidemia, unspecified Plan: Continue on Crestor 40 mg and fenofibrate 145 mg. Last lipids and LFTs reviewed. No adverse effects reported. Encouraged her to continue with diet as well. Orders: Orders Hemoglobin A1c Today E11.65 - Type 2 diabetes mellitus with hyperglycemia, E78.5 - Hyperlipidemia, unspecified Lipid Panel Today E11.65 - Type 2 diabetes mellitus with hyperglycemia, E78.5 - Hyperlipidemia, unspecified Microalbumin, Random (w Creat) Today E11.65 - Type 2 diabetes mellitus with hyperglycemia, E78.5 - Hyperlipidemia, unspecified Comprehensive [place]. Panel Fast Today E11.65 - Type 2 diabetes mellitus with hyperglycemia, E78.5 - Hyperlipidemia, unspecified Coding Level of Care Code Est Pt Level 4 (41744) Complex EM visit Add On G2211 Diagnoses Uncontrolled type 2 diabetes mellitus with hyperglycemia E11.65 Essential hypertension I10 Hyperlipidemia, unspecified hyperlipidemia type E78.5 Hyperlipidemia type: unspecified
[2023-11-09 10:00] VITALS: BP 112/76; PULSE 75; BMI 38.5
[2023-11-09 10:17] LABS: Glucose, Whole Blood 196 mg/dL (60-115)
== END 2023-11-09 10:41 | disposition home or self-care (01) ==
PROVIDERS: PCP Internal Medicine Sports Medicine; Visit Provider Physician Assistant
DX: E11.65 Type 2 diabetes mellitus with hyperglycemia (principal); I10 Essential (primary) hypertension; E78.5 Hyperlipidemia, unspecified
CPT/HCPCS: 99214; G2211

== ENCOUNTER → 2023-11-09 09:54 | Outpatient (BNVA) | payer OTHER, SELFPAY | PROVIDERS: PCP Internal Medicine Sports Medicine; Visit Provider Physician Assistant | DX: E11.65 Type 2 diabetes mellitus with hyperglycemia (principal); I10 Essential (primary) hypertension; E78.5 Hyperlipidemia, unspecified; Z79.4 Long term (current) use of insulin | CPT/HCPCS: 82947; 99212 ==

== ENCOUNTER 2024-01-07 09:48 | Outpatient (AMB) | payer OTHER, SELFPAY ==
--- NOTE | 2024-01-07 10:19 | MHC.AMDMED ---
Intake Intake Visit Reasons: Elizabeth 2 Allergies Penicillins [PENICILLINS] Allergy (Unknown, Verified 11/09/23 10:04) RASH canagliflozin [From Invokamet] Adverse Reaction (Verified 11/09/23 10:04) Yeast infection metformin [From Invokamet] Adverse Reaction (Verified 11/09/23 10:04) Yeast infection HPI Comprehensive Diabetes Asmnt Most Recent Diabetes Results: Creatinine 0.73 mg/dL (0.5-1.4) 08/10/23 Blood Urea Nitrogen 20 mg/dL (9-16) H 08/10/23 Sodium 143 mmol/L (135-145) 08/10/23 Potassium 3.8 mmol/L (3.3-5.1) 08/10/23 Chloride 102 mmol/L (96-108) 08/10/23 Carbon Dioxide 31 mmol/L (22-29) H 08/10/23 Calcium 9.9 mg/dL (8.4-10.2) 08/10/23 AST 19 U/L (5-31) 08/10/23 ALT 17 U/L (0-31) 08/10/23 Total Protein 7.7 g/dL (6.5-8.0) 08/10/23 Albumin 4.3 g/dL (3.5-5.0) 08/10/23 [facility] Medical History (Updated 11/09/23 @ 10:22 by Debby Pringle PA-C) Uncontrolled type 2 diabetes mellitus with hyperglycemia Hx of breast cancer GERD (gastroesophageal reflux disease) Osteoporosis DJD (degenerative joint disease) Anxiety Depression Insulin dependent type 2 diabetes mellitus Morbid obesity Obesity Postoperative hypothyroidism Disorder of bone, unspecified Vitamin D deficiency Hypercalcemia Multinodular thyroid HLD (hyperlipidemia) HTN (hypertension) T2DM (type 2 diabetes mellitus) Essential hypertension intermediate (current) use of insulin Type 2 diabetes mellitus without complications Obstructive sleep apnea (adult) (pediatric) PAF (paroxysmal atrial fibrillation) Surgical History Hx of partial thyroidectomy S/P lumpectomy, right breast Hx of colonoscopy Family History Father Cardiovascular disease Mother Uterine cancer Social History Household Members: None Housing: Apartment Are you a primary patient care director to a significant other at home: No Do you presently have visiting nurse or other home services: Yes (HEEL LAYER) Alcohol intake: former Patient Tobacco Use Status: Never used Tobacco service: No Current occupational status: disabled Female Reproductive History Menstrual Age of Menarche: 15 Assessment & Plan Assessment & Plan (1) Type 2 diabetes mellitus without complications: Code(s): E11.9 - Type 2 diabetes mellitus without complications Plan: Personal Continuous Glucose Monitor: Patients CGM information reviewed Reviewed patient's sensor data: Hypoglycemia: ? 0% Hyperglycemia:72%? Time in Range:?28% Average glucose for the last 2 weeks? 204 mg/dL Patient is currently taking Mounjaro 7.5 mg, average glucose has increased. Patient denies changes in her meals. Patient had enrolled in the bariatric program, but decided against bariatric surgery She did buy an exercise bike to increase physical activity which she states she is still using Patient has upcoming appointment with Endocrine PA in February 2024, recommended she discuss medication options at that visit with PA Reviewed how to interpret trend arrows Reminded patient that to check finger sticks if symptoms do not match sensor reading. Discussed lag time between finger stick and sensor data.? Patient's HEEL LAYER able to insert sensor independently at home without issue.? Portions of this note were created using voice recognition software, please excuse any words or phrases that may have been misinterpreted. Patient Instructions: Patient will follow-up with educator senior clinical in 3 months Coding Level of Care Code Est Pt Level 1 (02108) Diagnoses Type 2 diabetes mellitus without complications E11.9
== END 2024-01-07 10:33 | disposition home or self-care (01) ==
PROVIDERS: PCP Internal Medicine Sports Medicine; Visit Provider Registered Nurse Diabetes Educator
DX: E11.9 Type 2 diabetes mellitus without complications (principal)

== ENCOUNTER → 2024-01-07 09:48 | Outpatient (BNVA) | payer OTHER, SELFPAY | PROVIDERS: PCP Internal Medicine Sports Medicine; Visit Provider Registered Nurse Diabetes Educator | DX: E11.65 Type 2 diabetes mellitus with hyperglycemia (principal); Z79.4 Long term (current) use of insulin | CPT/HCPCS: 99211 ==

== ENCOUNTER 2024-02-02 08:39 | Outpatient (REF) | payer OTHER, SELFPAY ==
[2024-02-02 10:14] LABS: Free T4 (Free Thyroxine) 1.01 ng/dL (0.71-1.85); Thyroid Stimulating Hormone 0.61 uIU/mL (0.32-4.0)
== END 2024-02-02 08:40 | disposition home or self-care (01) ==
LOC: HO.LAB 08:39
PROVIDERS: PCP Internal Medicine Sports Medicine; Visit Provider Internal Medicine Endocrinology, Diabetes & Metabolism
DX: E89.0 Postprocedural hypothyroidism (principal)
CPT/HCPCS: 36415; 84439; 84443

== ENCOUNTER 2024-02-04 10:05 | Outpatient (AMB) | payer OTHER, SELFPAY ==
--- NOTE | 2024-02-04 10:06 | A.OFFVIS_ITS ---
Vital Signs 02/04/24 10:08 Height 5 ft 3 in Weight 222 lb 10.67 oz BMI 39.4 BP 122/74 Blood Pressure Location Rt brachial Position Sitting Pulse 72 Pulse Source Pulse Oximeter Intake Visit Reasons: hypothyroidism/CONFIRMED Intake Note: Patient present today for Hypothyroidism follow up. Station Baggage Agent Required: No Accompanied by: Other Relationship Allergies Penicillins [PENICILLINS] Allergy (Unknown, Verified 02/04/24 10:10) RASH canagliflozin [From Invokamet] Adverse Reaction (Verified 02/04/24 10:10) Yeast infection metformin [From Invokamet] Adverse Reaction (Verified 02/04/24 10:10) Yeast infection Medication List - Last Reconciled 02/04/24 by Mikel Mccoy MD acetaminophen (Tylenol Extra Strength) 500 mg PO Q6H PRN alclometasone 0.05% topical allopurinol 300 mg PO DAILY blood sugar diagnostic (FreeStyle [place] strips) USE DIRECTED 4 TIMES A DAY blood-glucose meter As directed blood-glucose meter (FreeStyle [place] Lite kit) DIRECTED calcium carb-D3-mag [id number] [phone] nf-pcoc-my-mg 1 tab PO DAILY cholecalciferol (vitamin D3) TAKE 1 SOFTGEL ORALLY DAILY diltiazem HCl ER 120 mg PO DAILY famotidine (Pepcid) 20 mg PO DAILY fenofibrate nanocrystallized 145 mg PO DAILY flash glucose scanning reader (FreeStyle Elizabeth 2 [place]) As directed flash glucose sensor (FreeStyle Elizabeth 2 Sensor kit) Once every 14 days lancets (FreeStyle Lancets) One Lancet topical 4 times a day; lancets (FreeStyle Lancets) DIRECTED CHECKS 4 TIMES A DAY levothyroxine 175 mcg PO DAILY lidocaine 5% (Lidoderm) 1 patch topical DAILY PRN MDD remove after 12 hours metoprolol succinate ER 50 mg PO DAILY olmesartan 40 mg PO DAILY omeprazole 20 mg PO DAILY PRN pen needle, diabetic (BD Selena 2nd Gen Pen Needle) USE DIRECTED UP TO 4 TIMES A DAY rivaroxaban (Xarelto) 20 mg PO DAILY rosuvastatin 40 mg PO DAILY thiamine HCl (vitamin B1) 100 mg PO DAILY tirzepatide (Mounjaro) 7.5 mg (0.5 mL) subcut QWEEK 28 days triamcinolone acetonide 0.1% appl topical BID PRN vibegron (Gemtesa) mg PO HPI Comments Details: 63 YO F with . She underwent a total thyroidectomy and is currently being treated with 150 mcg levothyroxine for post-surgical hypothyroidism. Currently on 175 mcg levothyroxine 07/04/22 07/04/22 10/10/22 08:59 09:00 08:12 Sodium 142 Potassium 3.9 Creatinine 0.83 Estimated GFR > 60 Hemoglobin A1c % LDL Cholesterol, Calc 59 25-OH Vitamin D Total 43.5 TSH 1.76 Free T4 1.14 Microalb/Creat Ratio 31.3 10/10/22 08:12 Sodium Potassium Creatinine Estimated GFR Hemoglobin A1c % 7.9 LDL Cholesterol, Calc 25-OH Vitamin D Total TSH Free T4 Microalb/Creat Ratio PFSH Medical History Uncontrolled type 2 diabetes mellitus with hyperglycemia Hx of breast cancer GERD (gastroesophageal reflux disease) Osteoporosis DJD (degenerative joint disease) Anxiety Depression Insulin dependent type 2 diabetes mellitus Morbid obesity Obesity Postoperative hypothyroidism Disorder of bone, unspecified Vitamin D deficiency Hypercalcemia Multinodular thyroid HLD (hyperlipidemia) HTN (hypertension) T2DM (type 2 diabetes mellitus) 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 Type 2 diabetes mellitus without complications Obstructive sleep apnea (adult) (pediatric) PAF (paroxysmal atrial fibrillation) Surgical History Hx of partial thyroidectomy S/P lumpectomy, right breast Hx of colonoscopy Family History Father Cardiovascular disease Mother Uterine cancer Social History Household Members: None Housing: Apartment Are you a primary post anesthesia care unit nurse to a significant other at home: No Do you presently have visiting nurse or 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 home services: 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) Alcohol intake: former Patient Tobacco Use Status: Never used Tobacco service: No Current occupational status: disabled Female Reproductive History Menstrual Age of Menarche: 15 Physical Exam Vital Signs: Last Vital Signs Pulse 72 02/04/24 10:08 BP 122/74 02/04/24 10:08 BMI result Body Mass Index 39.4 Const Other: Healed scar status post thyroidectomy Assessment & Plan Assessment & Plan (1) Postoperative hypothyroidism: Code(s): E89.0 - Postprocedural hypothyroidism Category: Medical Plan: This is a 63-year-old female with a history of post-operative hypothyroidism currently being treated 175 mcg levothyroxine. She appears to be clinically and biochemically euthyroid Plan is to continue the current therapy. At this point, terms of the hypothyroidism, the patient returned to the care of her primary care provider returned back to endocrinology as needed Coding Level of Care Code Est Pt Level 3 (00052) Diagnoses Postoperative hypothyroidism E89.0
[2024-02-04 10:08] VITALS: BP 122/74; PULSE 72; BMI 39.4
== END 2024-02-04 10:25 | disposition home or self-care (01) ==
PROVIDERS: PCP Internal Medicine Sports Medicine; Visit Provider Internal Medicine Endocrinology, Diabetes & Metabolism
DX: E89.0 Postprocedural hypothyroidism (principal)
CPT/HCPCS: 99213

== ENCOUNTER → 2024-02-04 10:05 | Outpatient (BNVA) | payer OTHER, SELFPAY | PROVIDERS: PCP Internal Medicine Sports Medicine; Visit Provider Internal Medicine Endocrinology, Diabetes & Metabolism | DX: E89.0 Postprocedural hypothyroidism (principal) | CPT/HCPCS: 99212 ==

== ENCOUNTER 2024-02-11 08:46 | Outpatient (REF) | payer OTHER, SELFPAY ==
[2024-02-11 09:40] LABS: Estimated Average Glucose 192 mg/dL; Hemoglobin A1c % 8.3 % (<6.0)
[2024-02-11 10:22] LABS: Alanine Aminotransferase 46 U/L (0-31); Albumin Level 4.4 g/dL (3.5-5.0); Alkaline Phosphatase 75 U/L (39-117); Anion Gap 16 (12-20); Aspartate Amino Transferase 40 U/L (5-31); Bilirubin Total 0.6 mg/dL (0.0-1.0); Blood Urea Nitrogen 19 mg/dL (9-16); Calcium 9.7 mg/dL (8.4-10.2); Carbon Dioxide 26 mmol/L (22-29); Chloride 104 mmol/L (96-108); Cholesterol 118 mg/dL (<200); Estimated Glomerular Filt Rate > 60; Glucose Fasting 196 mg/dL (60-99); HDL Cholesterol 44 mg/dL (>40); LDL Cholesterol Calculated 50 mg/dL (<100); Potassium 3.7 mmol/L (3.3-5.1); Sodium 142 mmol/L (135-145); Total Protein 7.8 g/dL (6.5-8.0); Triglycerides 122 mg/dL (<150)
[2024-02-11 11:07] LABS: Microalbum/Creatinine Ratio Ur 80.9 ug/mg cr (<30)
== END 2024-02-11 08:47 | disposition home or self-care (01) ==
LOC: HO.LAB 08:46
PROVIDERS: PCP Internal Medicine Sports Medicine; Visit Provider Physician Assistant
DX: E11.65 Type 2 diabetes mellitus with hyperglycemia (principal); E78.5 Hyperlipidemia, unspecified
CPT/HCPCS: 36415; 80053; 80061; 82043; 82570; 83036

== ENCOUNTER 2024-02-12 09:54 | Outpatient (AMB) | payer OTHER, SELFPAY ==
[2024-02-12 09:56] VITALS: BP 118/62; PULSE 81; BMI 39.3
--- NOTE | 2024-02-12 09:56 | A.OFFVIS_ITS ---
Vital Signs 02/12/24 09:56 Height 5 ft 3 in Weight 222 lb 0.088 oz BMI 39.3 BP 118/62 Blood Pressure Location Lt brachial Position Sitting Pulse 81 Pulse Source Pulse Oximeter Intake Visit Reasons: DM/CONFIRMED Intake Note: Patient presents today for D2MT follow up visit. Last Diabetic Eye exam: 10/2023 Last Podiatry Visit: 01/2024 Random Glucose: 182 mg/dl HgA1c: 8.3% 02/11/24 Transmission Engineer Required: No Accompanied by: PEELED POTATO INSPECTOR Allergies Penicillins [PENICILLINS] Allergy (Unknown, Verified 02/12/24 10:03) RASH canagliflozin [From Invokamet] Adverse Reaction (Verified 02/12/24 10:03) Yeast infection metformin [From Invokamet] Adverse Reaction (Verified 02/12/24 10:03) Yeast infection Medication List - Last Reconciled 02/12/24 by Debby Pringle PA-C acetaminophen (Tylenol Extra Strength) 500 mg PO Q6H PRN alclometasone 0.05% topical allopurinol 300 mg PO DAILY blood sugar diagnostic (FreeStyle Test strips) USE DIRECTED 4 TIMES A DAY blood-glucose meter As directed blood-glucose meter (FreeStyle [place] Lite kit) DIRECTED calcium carb-D3-mag [id number] [phone] gu-sidp-kx-mg 1 tab PO DAILY cholecalciferol (vitamin D3) TAKE 1 SOFTGEL ORALLY DAILY diltiazem HCl ER 120 mg PO DAILY famotidine (Pepcid) 20 mg PO DAILY fenofibrate nanocrystallized 145 mg PO DAILY flash glucose scanning reader (FreeStyle Elizabeth 2 [place]) As directed flash glucose sensor (FreeStyle Elizabeth 2 Sensor kit) Once every 14 days lancets (FreeStyle Lancets) One Lancet topical 4 times a day; lancets (FreeStyle Lancets) DIRECTED CHECKS 4 TIMES A DAY levothyroxine 175 mcg PO DAILY lidocaine 5% (Lidoderm) 1 patch topical DAILY PRN MDD remove after 12 hours metoprolol succinate ER 50 mg PO DAILY olmesartan 40 mg PO DAILY omeprazole 20 mg PO DAILY PRN pen needle, diabetic (BD Selena 2nd Gen Pen Needle) USE DIRECTED UP TO 4 TIMES A DAY rivaroxaban (Xarelto) 20 mg PO DAILY rosuvastatin 40 mg PO DAILY thiamine HCl (vitamin B1) 100 mg PO DAILY tirzepatide (Mounjaro) 7.5 mg (0.5 mL) subcut QWEEK 28 days triamcinolone acetonide 0.1% appl topical BID PRN vibegron (Gemtesa) mg PO HPI HPI DM/CONFIRMED: Details: Patient is a 63-year-old female who presents today for a follow up regarding her diabetes. DM: dx with t2dm about 5 years ago. Her last A1c was 8.3. She is currently on Mounjaro 7.5 mg weekly. She states that the increased dose of the Mounjaro makes her feel very full but her blood sugars are still elevated. -she states everyone in her family has type 1 diabetes including her mother, maternal grandmother and a sibling. Her son has type 2 diabetes. -has not tolerated Invokana (had 1 yeast infection), metformin (diarrhea), glipizide caused shakiness cgm-usage 64%, average glucose 230, GMI 8.8%. Very high 30%, high 55%, in range 15%, 0% hypoglycemia Last labs showed microalbuminuria Recently followed with Stephani and reviewed how to monitor sensor and diet. CV: Blood pressure today in the office is 118/62. She is currently on metoprolol 50 mg, diltiazem 120 mg. She is on Crestor 40 mg and fenofibrate to control her cholesterol. 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 Type 2 diabetes mellitus without complications Obstructive sleep apnea (adult) (pediatric) PAF (paroxysmal atrial fibrillation) Surgical History Hx of partial thyroidectomy S/P lumpectomy, right breast Hx of colonoscopy Family History Father Cardiovascular disease Mother Uterine cancer Social History Household Members: None Housing: Apartment Are you a primary post anesthesia care unit nurse to a significant other at home: No Do you presently have visiting nurse or other home services: Yes (PEELED POTATO INSPECTOR) Alcohol intake: former Patient Tobacco Use Status: Never used Tobacco service: No Current occupational status: disabled Female Reproductive History Menstrual Age of Menarche: 15 Physical Exam Const Orientation/consciousness: patient oriented x3 HEENT Ears: hearing grossly normal bilaterally Neck Thyroid: Thyroid normal Lymphatic: no lymphadenopathy noted Resp Auscultation: clear to auscultation bilaterally Cardio Rate: regular rate Rhythm: regular rhythm Heart sounds: S1 normal heart sound present and S2 normal heart sound present Skin General skin exam: no rashes or lesions noted Neuro General: patient oriented x3, gait normal and no focal motor deficits Extrem Other: DP pulses 2+ bilaterally. Monofilament sensation intact bilaterally. Reduced vibratory sensation noted in left foot. Intact in the right foot. Skin intact. Results Reviewed Results Reviewed: Laboratory Tests 02/11/24 02/11/24 08:59 09:09 Sodium 142 Potassium 3.7 Chloride 104 Carbon Dioxide 26 Anion Gap 16 Creatinine 0.79 Estimated GFR > 60 Fasting Glucose 196 H Hemoglobin A1c % 8.3 H Triglycerides 122 Cholesterol 118 LDL Cholesterol, Calc 50 HDL Cholesterol 44 Urine Creatinine 275.36 Urine Microalbumin 223.0 Microalb/Creat Ratio 80.9 H Assessment & Plan Assessment & Plan (1) Uncontrolled type 2 diabetes mellitus with hyperglycemia: Code(s): E11.65 - Type 2 diabetes mellitus with hyperglycemia Category: Medical Plan: We will start on Jardiance. Discussed risks and benefits and adverse effects of this medication including yeast infections. She will let me know if she develops this. She is very resistant to starting insulin. She says that she would rather try glipizide if she does not tolerate the Jardiance. Continue with the [place]. Follow up in 1 month. Advised to check labs in a couple weeks or sooner if needed. Patient understands and agrees with this plan. (2) Family history of type 1 diabetes mellitus: Code(s): Z83.3 - Family history of diabetes mellitus Category: Medical Plan: We will check antibodies although suspect that she has type 2 diabetes. Orders: Orders C Peptide Today E11.65 - Type 2 diabetes mellitus with hyperglycemia, Z83.3 - Family history of diabetes mellitus Islet Cell Antibody Scrn/Titer Today E11.65 - Type 2 diabetes mellitus with hyperglycemia, Z83.3 - Family history of diabetes mellitus Glutamic acid decarboxylase Ab Today E11.65 - Type 2 diabetes mellitus with hyperglycemia, Z83.3 - Family history of diabetes mellitus Basic Metabolic Panel 2 Weeks E11.65 - Type 2 diabetes mellitus with hyperglycemia, Z83.3 - Family history of diabetes mellitus Medications: New empagliflozin (Jardiance) 10 mg PO QAM 90 tabs 0RF Coding Level of Care Code Est Pt Level 4 (86723) Complex EM visit Add On G2211 Diagnoses Uncontrolled type 2 diabetes mellitus with hyperglycemia E11.65 Family history of type 1 diabetes mellitus Z83.3
[2024-02-12 10:09] LABS: Glucose, Whole Blood 182 mg/dL (60-115)
== END 2024-02-12 10:40 | disposition home or self-care (01) ==
PROVIDERS: PCP Internal Medicine Sports Medicine; Visit Provider Physician Assistant
DX: E11.65 Type 2 diabetes mellitus with hyperglycemia (principal); Z83.3 Family history of diabetes mellitus
CPT/HCPCS: 99214; G2211

== ENCOUNTER → 2024-02-12 09:54 | Outpatient (BNVA) | payer OTHER, SELFPAY | PROVIDERS: PCP Internal Medicine Sports Medicine; Visit Provider Physician Assistant | DX: E11.65 Type 2 diabetes mellitus with hyperglycemia (principal); Z83.3 Family history of diabetes mellitus | CPT/HCPCS: 82947; 99212 ==

== ENCOUNTER 2024-02-13 08:39 | Outpatient (REF) | payer OTHER, SELFPAY ==
[2024-02-13 09:42] LABS: Anion Gap 13 (12-20); Blood Urea Nitrogen 20 mg/dL (9-16); Carbon Dioxide 25 mmol/L (22-29); Chloride 106 mmol/L (96-108); Estimated Glomerular Filt Rate > 60; Glucose Random 243 mg/dL (60-115); Potassium 3.7 mmol/L (3.3-5.1); Sodium 140 mmol/L (135-145)
[2024-02-15 10:34] LABS: C Peptide 4.47 ng/mL (0.80-3.85)
[2024-02-17 23:28] LABS: Glutamic acid decarboxylase Ab 38 IU/mL (<5)
[2024-02-21 23:39] LABS: Islet Cell Antibody Screen NEGATIVE (NEGATIVE)
== END 2024-02-13 08:40 | disposition home or self-care (01) ==
LOC: HO.LAB 08:39
PROVIDERS: PCP Internal Medicine Sports Medicine; Visit Provider Physician Assistant
DX: E11.65 Type 2 diabetes mellitus with hyperglycemia (principal); Z83.3 Family history of diabetes mellitus
CPT/HCPCS: 36415; 80048; 84681; 86341

== ENCOUNTER 2024-03-11 09:56 | Outpatient (AMB) | payer OTHER, SELFPAY ==
[2024-03-11 10:00] VITALS: BP 140/78; PULSE 77; BMI 39.0
--- NOTE | 2024-03-11 10:00 | MHC.OFFVIS ---
Vital Signs 03/11/24 10:00 Height 5 ft 3 in Weight 220 lb 0.341 oz BMI 39.0 BP 140/78 H Blood Pressure Location Lt brachial Position Sitting Pulse 77 Pulse Source Pulse Oximeter Intake Visit Reasons: DM/CONFIRMED Intake Note: Patient presents today for D2MT follow up visit. Last Diabetic Eye exam: October 2023 Last Podiatry Visit: Doesn't have one Random Glucose: 189 mg/dl HgA1c: 8.3% 02/11/24 Corporate Counselor Required: No Accompanied by: DIRECTOR FOOD AND BEVERAGE Allergies Penicillins [PENICILLINS] Allergy (Unknown, Verified 03/11/24 10:09) RASH canagliflozin [From Invokamet] Adverse Reaction (Verified 03/11/24 10:09) Yeast infection metformin [From Invokamet] Adverse Reaction (Verified 03/11/24 10:09) Yeast infection Medication List - Last Reconciled 03/11/24 by Debby Pringle PA-C acetaminophen (Tylenol Extra Strength) 500 mg PO Q6H PRN alclometasone 0.05% topical allopurinol 300 mg PO DAILY blood sugar diagnostic (FreeStyle Test strips) USE DIRECTED 4 TIMES A DAY blood-glucose meter As directed blood-glucose meter (FreeStyle [place] Lite kit) DIRECTED calcium carb-D3-mag [id number] [phone] ef-[id number]-[id number]-mg 1 tab PO DAILY cholecalciferol (vitamin D3) TAKE 1 SOFTGEL ORALLY DAILY diltiazem HCl ER 120 mg PO DAILY empagliflozin (Jardiance) 10 mg PO QAM famotidine (Pepcid) 20 mg PO DAILY fenofibrate nanocrystallized 145 mg PO DAILY flash glucose scanning reader (FreeStyle Elizabeth 2 [place]) As directed flash glucose sensor (FreeStyle Elizabeth 2 Sensor kit) Once every 14 days lancets (FreeStyle Lancets) One Lancet topical 4 times a day; lancets (FreeStyle Lancets) DIRECTED CHECKS 4 TIMES A DAY levothyroxine 175 mcg PO DAILY lidocaine 5% (Lidoderm) 1 patch topical DAILY PRN MDD remove after 12 hours metoprolol succinate ER 50 mg PO DAILY olmesartan 40 mg PO DAILY omeprazole 20 mg PO DAILY PRN pen needle, diabetic (BD Selena 2nd Gen Pen Needle) USE DIRECTED UP TO 4 TIMES A DAY rivaroxaban (Xarelto) 20 mg PO DAILY rosuvastatin 40 mg PO DAILY thiamine HCl (vitamin B1) 100 mg PO DAILY tirzepatide (Mounjaro) 7.5 mg (0.5 mL) subcut QWEEK 28 days triamcinolone acetonide 0.1% appl topical BID PRN vibegron (Gemtesa) mg PO HPI HPI DM/CONFIRMED: Details: Patient is a 63-year-old female who presents today for a follow up regarding her diabetes. At our last visit we did check antibodies and C-peptide given her strong family history of type 1 diabetes. She does have JESUS antibodies but elevated cpeptide. DM: dx with t2dm about 5 years ago. Her last A1c was 8.3. She is currently on Mounjaro 7.5 mg weekly and Jardiance 10 mg. She states that she is tolerating this regimen very well. She states her blood sugars have significantly improved with the addition of the Jardiance. -she states everyone in her family has type 1 diabetes including her mother, maternal grandmother and a sibling. Her son has type 2 diabetes. -has not tolerated Invokana (had 1 yeast infection), metformin (diarrhea), glipizide caused shakiness cgm-usage 83%, average glucose 158, GMI 7.1%. Very high 3%, high 21%, in range 76%, 0% hypoglycemia Last labs showed microalbuminuria Overdue to see Podiatry. States that she needs a referral. Recently followed with Stephani and reviewed how to monitor sensor and diet. CV: Blood pressure today in the office is 118/62. She is currently on metoprolol 50 mg, diltiazem 120 mg, olmesartan 40 mg. She is on Crestor 40 mg and fenofibrate to control her cholesterol. Her last LDL was 60. [facility] Medical History Uncontrolled type 2 diabetes mellitus with hyperglycemia Hx of breast cancer GERD (gastroesophageal reflux disease) Osteoporosis DJD (degenerative joint disease) Anxiety Depression Insulin dependent type 2 diabetes mellitus Morbid obesity Obesity Postoperative hypothyroidism Disorder of bone, unspecified Vitamin D deficiency Hypercalcemia Multinodular thyroid HLD (hyperlipidemia) HTN (hypertension) T2DM (type 2 diabetes mellitus) Essential hypertension half-way (current) use of insulin Type 2 diabetes mellitus without complications Obstructive sleep apnea (adult) (pediatric) PAF (paroxysmal atrial fibrillation) Surgical History Hx of partial thyroidectomy S/P lumpectomy, right breast Hx of colonoscopy Family History Father Cardiovascular disease Mother Uterine cancer Social History Household Members: None Housing: Apartment Are you a primary care transition mgr to a significant other at home: No Do you presently have visiting nurse or other home services: Yes (DIRECTOR FOOD AND BEVERAGE) Alcohol intake: former Patient Tobacco Use Status: Never used Tobacco service: No Current occupational status: disabled Female Reproductive History Menstrual Age of Menarche: 15 Physical Exam Vital Signs: Last Vital Signs Pulse 77 03/11/24 10:00 BP 140/78 H 03/11/24 10:00 BMI result Body Mass Index 39.0 Const Orientation/consciousness: patient oriented x3 Neck Neck: Yes no lymphadenopathy Thyroid: Thyroid normal Carotids: no bruits Resp Auscultation: clear to auscultation bilaterally Cardio Rate: regular rate Rhythm: regular rhythm Heart sounds: S1 normal heart sound present and S2 normal heart sound present Peripheral pulses: dorsalis pedis present Neuro General: patient oriented x3, gait normal and no focal motor deficits Extrem Other: Monofilament sensation intact bilaterally. Vibratory sensation intact bilaterally. Skin intact. Thickened, yellow toenails noted of the great toenails. General: Yes normal to inspection Results Reviewed Results Reviewed: Laboratory Tests 02/11/24 02/13/24 09:09 08:55 Sodium 140 Potassium 3.7 Chloride 106 Carbon Dioxide 25 Anion Gap 13 BUN 20 H Creatinine 0.73 Estimated GFR > 60 Random Glucose 243 H Hemoglobin A1c % 8.3 H C-Peptide 4.47 H Islet Cell Ab Screen NEGATIVE JESUS Antibody 38 H Laboratory Tests 02/11/24 09:09 Triglycerides 122 Cholesterol 118 LDL Cholesterol, Calc 50 HDL Cholesterol 44 Assessment & Plan Assessment & Plan (1) Type 1.5 diabetes, managed as type 2: Code(s): E13.9 - Other specified diabetes mellitus without complications Category: Medical Plan: We will increase Mounjaro. Continue Jardiance. ? False-positive GERD antibodies. Diagnosed with diabetes around 5 years ago. We will continue to monitor closely. Follow up in a couple of months. Sooner if needed. Patient understands and agrees with this plan. (2) HTN (hypertension): Code(s): I10 - Essential (primary) hypertension Category: Medical Qualifiers: Hypertension type: unspecified Qualified Code(s): I10 - Essential (primary) hypertension Plan: WNL. Continue current regimen (3) HLD (hyperlipidemia): Code(s): E78.5 - Hyperlipidemia, unspecified Category: Medical Qualifiers: Hyperlipidemia type: unspecified Qualified Code(s): E78.5 - Hyperlipidemia, unspecified Plan: WNL. Continue current regimen. Orders: Orders Basic Metabolic Panel Today E13.9 - Other specified diabetes mellitus without complications, I10 - Essential (primary) hypertension Referrals Podiatry Referral B35.1 - Tinea unguium, E13.9 - Other specified diabetes mellitus without complications Medications: New tirzepatide (Mounjaro) 10 mg (0.5 mL) subcut QWEEK 2 mL 5RF Discontinued tirzepatide (Mounjaro) Discontinued Reason: Doctor's Order 7.5 mg (0.5 mL) subcut QWEEK 28 days 2 mL 6RF diabetes E11.65 - Type 2 diabetes mellitus with hyperglycemia Coding Level of Care Code Est Pt Level 4 (33769) Complex EM visit Add On G2211 Diagnoses Type 1.5 diabetes, managed as type 2 E13.9 Hypertension, unspecified type I10 Hypertension type: unspecified Hyperlipidemia, unspecified hyperlipidemia type E78.5 Hyperlipidemia type: unspecified
[2024-03-15 15:48] LABS: Glucose, Whole Blood 189 mg/dL (60-115)
== END 2024-03-11 10:47 | disposition home or self-care (01) ==
PROVIDERS: PCP Internal Medicine Sports Medicine; Visit Provider Physician Assistant
DX: E13.9 Other specified diabetes mellitus without complications (principal); I10 Essential (primary) hypertension; E78.5 Hyperlipidemia, unspecified

== ENCOUNTER → 2024-03-11 09:56 | Outpatient (BNVA) | payer OTHER, SELFPAY | PROVIDERS: PCP Internal Medicine Sports Medicine; Visit Provider Physician Assistant | DX: E13.9 Other specified diabetes mellitus without complications (principal); E78.5 Hyperlipidemia, unspecified; I10 Essential (primary) hypertension; Z79.85 Long-term (current) use of injectable non-insulin antidiabetic drugs; Z71.3 Dietary counseling and surveillance | CPT/HCPCS: 82947; 99212 ==

== ENCOUNTER 2024-03-24 13:48 | Outpatient (REF) | payer OTHER, SELFPAY ==
--- NOTE | ~2024-03-24 | MM_ITS ---
EXAMINATION: MM SCREENING DIGITAL BREAST TOMOSYNTHESIS, BILATERAL CLINICAL INFORMATION: Screening. Asymptomatic. COMPARISON: Mammography: Comparison is made with available priors TECHNIQUE: Digital breast mammography with tomosynthesis is performed in both the craniocaudal and mediolateral oblique views along with computer-aided detection (CAD). FINDINGS: There are scattered areas of fibroglandular density (ACR BI-RADS breast composition Category b). Postsurgical changes to the right breast are stable. There are no significant masses, abnormal calcifications, or other abnormalities. MM/MM tomosynthesis screening BI IMPRESSION: No mammographic evidence of malignancy. ASSESSMENT: BI-RADS BI-RADS 2 - Benign Findings RECOMMENDATION: Routine annual mammography screening. 1 year F/U This examination should not preclude the clinical evaluation of a suspicious palpable abnormality. This patient's information was entered into a reminder system with a target due date for their next mammogram. Electronically signed by: Veronique Lisa DO 04/05/2024 12:27 PM EDT
== END 2024-03-24 13:49 | disposition home or self-care (01) ==
LOC: HO.MAMMO 13:48
PROVIDERS: PCP Physician Assistant; Visit Provider Internal Medicine Sports Medicine
DX: Z12.31 Encounter for screening mammogram for malignant neoplasm of breast (principal)
CPT/HCPCS: 77063; 77067

== ENCOUNTER → 2024-03-24 14:00 | Outpatient (BNV) | payer OTHER, SELFPAY | PROVIDERS: PCP Physician Assistant; Visit Provider Internal Medicine | DX: Z12.31 Encounter for screening mammogram for malignant neoplasm of breast (principal) | CPT/HCPCS: 77063; 77067 ==

== ENCOUNTER 2024-05-03 09:06 | Outpatient (AMB) | payer OTHER, SELFPAY ==
--- NOTE | 2024-05-03 09:11 | A.OFFVIS_ITS ---
Intake Intake Visit Reasons: [id number] Car Rider Required: No Accompanied by: Other Relationship Allergies Penicillins [PENICILLINS] Allergy (Unknown, Verified 03/11/24 10:09) RASH canagliflozin [From Invokamet] Adverse Reaction (Verified 03/11/24 10:09) Yeast infection metformin [From Invokamet] Adverse Reaction (Verified 03/11/24 10:09) Yeast infection HPI Comprehensive Diabetes Asmnt Most Recent Diabetes Results: Microalb/Creat Ratio 80.9 ug/mg cr (<30) H 02/11/24 Cholesterol 118 mg/dL (<200) 02/11/24 HDL Cholesterol 44 mg/dL (>40) 02/11/24 Triglycerides 122 mg/dL (<150) 02/11/24 Creatinine 0.73 mg/dL (0.5-1.4) 02/13/24 Blood Urea Nitrogen 20 mg/dL (9-16) H 02/13/24 Sodium 140 mmol/L (135-145) 02/13/24 Potassium 3.7 mmol/L (3.3-5.1) 02/13/24 Chloride 106 mmol/L (96-108) 02/13/24 Carbon Dioxide 25 mmol/L (22-29) 02/13/24 Calcium 9.0 mg/dL (8.4-10.2) 02/13/24 AST 40 U/L (5-31) H 02/11/24 ALT 46 U/L (0-31) H 02/11/24 Total Protein 7.8 g/dL (6.5-8.0) 02/11/24 Albumin 4.4 g/dL (3.5-5.0) 02/11/24 [facility] Medical History Uncontrolled type 2 diabetes mellitus with hyperglycemia Hx of breast cancer GERD (gastroesophageal reflux disease) Osteoporosis DJD (degenerative joint disease) Anxiety Depression Insulin dependent type 2 diabetes mellitus Morbid obesity Obesity Postoperative hypothyroidism Disorder of bone, unspecified Vitamin D deficiency Hypercalcemia Multinodular thyroid HLD (hyperlipidemia) HTN (hypertension) T2DM (type 2 diabetes mellitus) Essential hypertension FPC (current) use of insulin Type 2 diabetes mellitus without complications Obstructive sleep apnea (adult) (pediatric) PAF (paroxysmal atrial fibrillation) Surgical History Hx of partial thyroidectomy S/P lumpectomy, right breast Hx of colonoscopy Family History Father Cardiovascular disease Mother Uterine cancer Social History Household Members: None Housing: Apartment Are you a primary aged or disabled care worker to a significant other at home: No Do you presently have visiting nurse or other home services: Yes (STRAIN TECHNICIAN) Alcohol intake: former Patient Tobacco Use Status: Never used Tobacco service: No Current occupational status: disabled Female Reproductive History Menstrual Age of Menarche: 15 Assessment & Plan Assessment & Plan (1) Type 2 diabetes mellitus without complications: Code(s): E11.9 - Type 2 diabetes mellitus without complications Plan: Personal Continuous Glucose Monitor: Patients CGM information reviewed, Pt uses [employer] Elizabeth 2, with reader Sensor data: Hypoglycemia: ? 0% Hyperglycemia:? 45% Time in Range:? 55 % Average glucose for the last 2 weeks?when 181 mg/dL Patient's last A1c 03/01 8.3% At last visit with physician's visual merchandising assistant patient's Mounjaro was increased from 7.5 mg to 10 mg Patient's glucose running slightly above target, patient expressed frustration with fasting glucoses being higher in the morning than at bedtime Reviewed with patient, the function of the liver and how it relates to glucose control, suggested to patient instead of skipping meals try complex carb snack or meal replacement shake to see if that helps stabilize glucose level Patient's STRAIN TECHNICIAN able to insert sensor independently at home without issue.? Learning objectives: Topics covered in today?s session included: Medications (If applicable) * Name of medication? * Dosing/administration instructions? * Mechanism of action? * Potential side effects? * Potential adverse reaction and appropriate treatment? * Review onset, peak, duration Assess for concerns re: insurance coverage, cost, barriers to compliance Insulin/Injectables (If applicable) * Storage/care of insulin?? * Injection sites? * Site rotation? * Onset, peak, duration * Drawing up insulin? * Injecting insulin/other injectables? * Sharps disposal Continuous blood glucose monitoring (if applicable) Hypoglycemia and Hyperglycemia * Signs and symptoms? * Causes?? * Treatment? * Preventing hypoglycemia? * When to seek medical attention Target Goals: * Blood glucose targets and how you feel when your blood glucose is in and out of your target ranges. * Monitoring and knowing your A1C. * What can make blood glucose go up and down and preventing high and low blood glucose. * Review of blood sugar targets in expected goal range and outside of expected goal range. * Problem solving and preventing hyper/hypoglycemia. * Using blood sugar results in decision making process in managing diabetes. ?Patient was receptive to information provided and participated in the discussion. Asked?appropriate questions and demonstrated good understanding of the topics discussed.? ? Portions of this note were created using voice recognition software, please e xcuse any words or phrases that may have been misinterpreted.. Patient Instructions: Patient will contact prosthodontist/educator with questions or concerns Patient will discuss at next provider visit increasing Mounjaro from 10 mg to 12.5 mg if appropriate Patient will follow-up with prosthodontist/educator in 3 months Coding Level of Care Code Est Pt Level 1 (95690) Diagnoses Type 2 diabetes mellitus without complications E11.9
== END 2024-05-03 09:48 | disposition home or self-care (01) ==
PROVIDERS: PCP Internal Medicine Sports Medicine; Visit Provider Registered Nurse Diabetes Educator
DX: E11.9 Type 2 diabetes mellitus without complications (principal)

== ENCOUNTER → 2024-05-03 09:06 | Outpatient (BNVA) | payer OTHER, SELFPAY | PROVIDERS: PCP Internal Medicine Sports Medicine; Visit Provider Registered Nurse Diabetes Educator | DX: E11.65 Type 2 diabetes mellitus with hyperglycemia (principal); Z79.4 Long term (current) use of insulin | CPT/HCPCS: 99211 ==

== ENCOUNTER 2024-05-13 10:16 | Outpatient (AMB) | payer OTHER, SELFPAY ==
[2024-05-13 10:18] VITALS: BP 118/76; PULSE 96; BMI 38.3
--- NOTE | 2024-05-13 10:18 | A.OFFVIS_ITS ---
Vital Signs 05/13/24 10:18 Height 5 ft 3 in Weight 216 lb 0.848 oz BMI 38.3 BP 118/76 Blood Pressure Location Rt brachial Position Sitting Pulse 96 Pulse Source Pulse Oximeter Intake Visit Reasons: DM/Confirmed Intake Note: Patient presents today for a follow-up on Type 2 Diabetes Mellitus: Last Diabetic eye exam was on: 10/07/2023 Last Podiatry exam was on: Does not see a Retail Training Manager Most recent HbA1c: 7.8%, 05/13/2024 Random Glucose- 195 mg/dL, Today Double End Chucking Machine Operator Required: No Accompanied by: Self / Same As Patient Allergies Penicillins [PENICILLINS] Allergy (Unknown, Verified 05/13/24 10:19) RASH canagliflozin [From Invokamet] Adverse Reaction (Verified 05/13/24 10:19) Yeast infection metformin [From Invokamet] Adverse Reaction (Verified 05/13/24 10:19) Yeast infection Medication List - Last Reconciled 05/13/24 by Debby Pringle PA-C acetaminophen (Tylenol Extra Strength) 500 mg PO Q6H PRN alclometasone 0.05% topical allopurinol 300 mg PO DAILY blood sugar diagnostic (FreeStyle Test strips) USE DIRECTED 4 TIMES A DAY blood-glucose meter As directed blood-glucose meter (FreeStyle Prentice Lite kit) DIRECTED calcium carb-D3-mag [id number] 333 mg-200 unit -133 mg-5 mg 1 tab PO DAILY cholecalciferol (vitamin D3) TAKE 1 SOFTGEL ORALLY DAILY diltiazem HCl ER 120 mg PO DAILY famotidine (Pepcid) 20 mg PO DAILY fenofibrate nanocrystallized 145 mg PO DAILY flash glucose scanning reader (FreeStyle Elizabeth 2 Elon) As directed flash glucose sensor (FreeStyle Elizabeth 2 Sensor kit) Once every 14 days lancets (FreeStyle Lancets) One Lancet topical 4 times a day; lancets (FreeStyle Lancets) DIRECTED CHECKS 4 TIMES A DAY levothyroxine 175 mcg PO DAILY lidocaine 5% (Lidoderm) 1 patch topical DAILY PRN MDD remove after 12 hours metoprolol succinate ER 50 mg PO DAILY olmesartan 40 mg PO DAILY omeprazole 20 mg PO DAILY PRN pen needle, diabetic (BD Selena 2nd Gen Pen Needle) USE DIRECTED UP TO 4 TIMES A DAY rivaroxaban (Xarelto) 20 mg PO DAILY rosuvastatin 40 mg PO DAILY thiamine HCl (vitamin B1) 100 mg PO DAILY triamcinolone acetonide 0.1% appl topical BID PRN vibegron (Gemtesa) mg PO HPI HPI DM/Confirmed: Details: Patient is a 64-year-old female who presents today for a follow up regarding her diabetes. At our last visit we did check antibodies and C-peptide given her strong family history of type 1 diabetes. She does have JESUS antibodies but elevated cpeptide. DM: dx with t2dm about 5 years ago. Her last A1c was 7.8. She is currently on Mounjaro 10 mg weekly and Jardiance 10 mg. She does not like the jardiance. -she states everyone in her family has type 1 diabetes including her mother, maternal grandmother and a sibling. Her son has type 2 diabetes. -has not tolerated Invokana (had 1 yeast infection), metformin (diarrhea), glipizide caused shakiness, jardiance is causing vaginal irritation and polyuria. cgm-usage 70%, average glucose 178, GMI 7.6%. Very high 3%, high 42%, in range 55%, 0% hypoglycemia Last labs showed microalbuminuria Overdue to see Podiatry. Was referred at last visit Recently followed with Stephani and reviewed how to monitor sensor and diet. CV: Blood pressure today in the office is 118/76. She is currently on metoprolol 50 mg, diltiazem 120 mg, olmesartan 40 mg. She is on Crestor 40 mg and fenofibrate to control her cholesterol. Her last LDL was 60. 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 Type 2 diabetes mellitus without complications Obstructive sleep apnea (adult) (pediatric) PAF (paroxysmal atrial fibrillation) Surgical History Hx of partial thyroidectomy S/P lumpectomy, right breast Hx of colonoscopy Family History Father Cardiovascular disease Mother Uterine cancer Social History Household Members: None Housing: Apartment Are you a primary customer care professional to a significant other at home: No Do you presently have visiting nurse or other home services: Yes (GENERAL LABOR) Alcohol intake: former Patient Tobacco Use Status: Never used Tobacco service: No Current occupational status: disabled Female Reproductive History Menstrual Age of Menarche: 15 Physical Exam Vital Signs: Last Vital Signs Pulse 96 05/13/24 10:18 BP 118/76 05/13/24 10:18 BMI result Body Mass Index 38.3 Const Orientation/consciousness: patient oriented x3 Neck Neck: Yes no lymphadenopathy Thyroid: Thyroid normal Carotids: no bruits Resp Auscultation: clear to auscultation bilaterally Cardio Rate: regular rate Rhythm: regular rhythm Heart sounds: S1 normal heart sound present and S2 normal heart sound present Peripheral pulses: dorsalis pedis present Neuro General: patient oriented x3, gait normal and no focal motor deficits Results AMB Hemoglobin A1c AMB Hemoglobin A1c 7.8 % Last Edit by YANDEL Javier on 05/13/24 10:39 Results Reviewed Results Reviewed: Laboratory Last Values Glucose (Clinic) 195 mg/dL (60-115) H 05/13/24 10:29 Laboratory Tests 02/13/24 05/13/24 08:55 10:20 Sodium 140 Potassium 3.7 Chloride 106 Carbon Dioxide 25 Anion Gap 13 BUN 20 H Creatinine 0.73 Estimated GFR > 60 Hgb A1c (Clinic) 7.8 H C-Peptide 4.47 H Assessment & Plan Assessment & Plan (1) Uncontrolled type 2 diabetes mellitus with hyperglycemia: Code(s): E11.65 - Type 2 diabetes mellitus with hyperglycemia Category: Medical Plan: increase mounjaro to 12.5 mg weekly start lantus 10 units nightly d/c jardiance (2) Essential hypertension: Code(s): I10 - Essential (primary) hypertension Category: Medical Plan: wnl continue current plan (3) HLD (hyperlipidemia): Code(s): E78.5 - Hyperlipidemia, unspecified Category: Medical Qualifiers: Hyperlipidemia type: unspecified Qualified Code(s): E78.5 - Hyperlipidemia, unspecified Plan: continue crestor 40 mg. Orders: Orders AMB Hemoglobin A1c Today E11.9 - Type 2 diabetes mellitus without complications Medications: New insulin glargine (Lantus Solostar U-100 Insulin) 10 units (0.1 mL) subcut QPM 15 mL 2RF tirzepatide (Mounjaro) 12.5 mg (0.5 mL) subcut QWEEK 2 mL 5RF Changed From pen needle, diabetic (BD Selena 2nd Gen Pen Needle) USE DIRECTED UP TO 4 TIMES A DAY 100 ea 12RF E11.9 - Type 2 diabetes mellitus without complications To pen needle, diabetic (BD Selena 2nd Gen Pen Needle) USE DIRECTED daily 100 ea 1RF E11.9 - Type 2 diabetes mellitus without complications Coding Level of Care Code Est Pt Level 4 (43801) Complex EM visit Add On G2211 Diagnoses Uncontrolled type 2 diabetes mellitus with hyperglycemia E11.65 Essential hypertension I10 Hyperlipidemia, unspecified hyperlipidemia type E78.5 Hyperlipidemia type: unspecified
[2024-05-13 10:33] LABS: Glucose, Whole Blood 195 mg/dL (60-115)
== END 2024-05-13 11:10 | disposition home or self-care (01) ==
PROVIDERS: PCP Internal Medicine Sports Medicine; Visit Provider Physician Assistant
DX: E11.65 Type 2 diabetes mellitus with hyperglycemia (principal); I10 Essential (primary) hypertension; E78.5 Hyperlipidemia, unspecified; E11.9 Type 2 diabetes mellitus without complications

== ENCOUNTER → 2024-05-13 10:16 | Outpatient (BNVA) | payer OTHER, SELFPAY | PROVIDERS: PCP Internal Medicine Sports Medicine; Visit Provider Physician Assistant | DX: E11.65 Type 2 diabetes mellitus with hyperglycemia (principal); E78.5 Hyperlipidemia, unspecified; I10 Essential (primary) hypertension | CPT/HCPCS: 82947; 83036; 99212 ==

== ENCOUNTER 2024-05-18 10:50 | Outpatient (RCR) | payer OTHER, SELFPAY | END 2024-06-02 12:11 | disposition home or self-care (01) | LOC: HO.PT 10:50 | PROVIDERS: PCP Internal Medicine Sports Medicine; Visit Provider Internal Medicine Sports Medicine | DX: M54.6 Pain in thoracic spine (principal); M54.50 Low back pain, unspecified | CPT/HCPCS: 97110; 97162; 97535 ==

== ENCOUNTER 2024-07-19 10:09 | Outpatient (REF) | payer OTHER, SELFPAY ==
--- OUTSIDE RECORDS SUMMARY | 2024-07-19 11:17 | XMS_ITS | Encounter Summary ---
Author Organization [facility] Address [address] [place] [address] Care Team Providers Care Renewable Energy Project Manager Name Role Phone Derrick Cain MD Primary Care Provider [phone] Reason for Visit * Reason Comments Consult [place] unguium, diab etic foot care DM Foot Care Encounter Details Date Type Department Care Team ([facility] Contact Info) Description 06/21/2024 1:15 PM EST Consult Orthopedic Surgery - [place] [address] [phone] Faisal Burch, DPM [address] [address] Tendonitis, Achilles, left (Primary Dx); Dermatophytosis of nail; Pain in toe of right foot; Pain in toe of left foot; Corns and callosities; Metatarsalgia of both feet; Diabetic mononeuropathy simplex (CMS/HCC); Type II diabetes mellitus with peripheral circulatory disorder (CMS/HCC) Social History Tobacco Use Types Packs/Day Years Used Date Smoking Tobacco: Never Smokeless Tobacco: Never Alcohol Use Standard Drinks/Week Comments Not Currently 0 (1 standard drink = 0.6 oz pur e alcohol) Comments Unknown Sex and Gender Information Value Date Recorded Sex Assigned at Not on file Legal Sex Female 5:04 AM EST Gender Identity Not on file Sexual Orientation Not on file documented as of this encounter Ordered Prescriptions Prescription Sig Dispense Quantity Refills Last Filled Start Date End Date diclofenac (Voltaren Arthritis Pain) 1 % topical gel Apply 4 g topically 2 (two) times a day. 240 g 1 06/21/2024 documented in this encounter Progress Notes * Faisal Burch, KAMIM - 06/21/2024 1:15 PM EST Last PCP visit:Referring MD: Mikel Mccoy MD 03/11/2024 IDENTIFIER: Jason is a 64 y.o. year old female who presents for consultation. CC: Foot pain HPI: Patient presents here for evaluation of her feet she is type II diabetic expresses numbness burningto anterior feet states she has sharp pain on the back of her left heel is chronic achy throbbing is been going for years states she is wonder if it is related to her gout she states that she has been on medication for gout which has helped she does note that her nails are very painful she has thick skin that she is difficult taking care of she is to see a booking agent who recently passed does not that her left foot pain is a chronic achy 7 out of 10 denies trauma to the area and worse with activity has not fully resolved ROS: GENERAL: Pt denies nausea, fever, vomiting, chills, or shortness of breath. Pt in NAD. CARDIOLOGY: pt denies chest pain, palpitations LUNGS: pt denies shortness of breath MUSCULOSKELETAL: See HPI, otherwise no joint pain or swelling, back pain, or muscle pain. SKIN: see HPI, otherwise no lesions, rash or itching NEURO: No persistent headache, weakness or numbness The remainder of the review of systems is noncontributory PAST MEDICAL HISTORY: Patient Active Problem List Diagnosis Essential hypertension, benign Dyslipidemia Paroxysmal atrial fibrillation (CMS/HCC) Type 2 diabetes mellitus with peripheral neuropathy (CMS/HCC) GERD (gastroesophageal reflux disease) Gout Generalized anxiety disorder Depression Multinodular goiter Morbid obesity (CMS/HCC) Breast cancer (CMS/HCC) Diabetic peripheral neuropathy (CMS/HCC) De Quervain's tenosynovitis, right DM (diabetes mellitus), type 2 with renal complications (CMS/HCC) Osteoarthritis of first carpometacarpal (CMC) joint of one hand Obstructive sleep apnea Venous insufficiency of both lower extremities Swallowing impaired Atrial fibrillation, transient (CMS/HCC) Esophagitis SOCIAL HISTORY: Social History Tobacco Use Smoking status: Never Smokeless tobacco: Never Substance Use Topics Alcohol use: Not Currently ACTIVE MEDICATIONS: Outpatient Medications Marked as Taking for the 06/21/24 encounter (Consult) with Faisal Burch DPM Medication Sig Dispense Refill cholecalciferol (VITAMIN D-3) 50 mcg (2,000 unit) capsule TAKE 1 SOFTGEL ORALLY DAILY FreeStyle Lancets 28 gauge lancets TEST 4 TIMES A DAY DIRECTED FreeStyle Test test strip 1 each 4 (four) times a day. Lantus Solostar U-100 Insulin 100 unit/mL (3 mL) injection pen INJECT 10 UNIT (0.1 ML) SUBCUTANEOUSLY EVERY EVENING Mounjaro 12.5 mg/0.5 mL injection rosuvastatin (CRESTOR) 40 mg tablet ALLERGIES: Allergies Allergen Reactions Other Other Invokamet [canagliflozin-metformin Hcl] Causes Yeast Infections Penicillins No reaction documented. PHYSICAL EXAM: Visit Vitals Smoking Status Never PODIATRIC EXAMINATION: GENERAL: Patient appears well nourished, with NAD. VASCULAR: Dorsalis pedis pulses are 0-4 right 1 out of 4 left and Posterior tibial pulses are 1 outof 4 right 1 out of 4 left capillary filling time within normal limits the digits. No pallor on elevation or rubor on dependency. Positive hair growth. No varicosities. Denies rest pain or claudication pain. NEUROLOGICAL: Sharp/dull sensation , protective sensation intact 10/10 with 5.07 semmes cristian bilaterally, vibratory sensation with tuning fork intact to the tibial tuberosity. ORTHOPEDIC: Good muscle strength 5/5 of all flexors and extensors. Dorsi flexion of ankle ,10 degrees, plantar flexion WNL. No muscle atrophy. Insertional Achilles tendinitis left lower extremity with Natty's palpable X ptosis without acutemuscle or tendon deficits DERMATOLOGICAL: Hyperkeratotic tissue subfifth metatarsal bilaterally Toenails: Left Toenail(s) 1-5: Crumbling upon debridement, subungual debris, discoloration, dystrophy, elongation, mycotic appearance, onychomycosis, pain and thickening. Right Toenail(s) 1-5: Crumbling upon debridement, subungual debris, discoloration, dystrophy, elongation, mycotic appearance, onychomycosis, pain and thickening. Annular scaling bilateral feet moccasin distribution Skin thinning texture shiny appearance diffuse hyperpigmentation bilaterally pedal hair decreased BIOMECHANICS: Ankle ROM WNL, STJ ROM wnl, MTJ ROM wnl, 1st MPJ ROM wnl. IMAGING: IMPRESSION: 1. Tendonitis, Achilles, left 2. Dermatophytosis of nail 3. Pain in toe of right foot 4. Pain in toe of left foot 5. Corns and callosities 6. Metatarsalgia of both feet 7. Diabetic mononeuropathy simplex (CMS/HCC) 8. Type II diabetes mellitus with peripheral circulatory disorder (CMS/HCC) PLAN: Pt was seen and examined, history reviewed. Achilles tendinitis to the left discussed and reviewed with Natty's deformity x-ray order left foot 3 views Voltaren gel prescribed Discussed with patient regarding proper glucose control, exercise, and diet. Explained to patient proper shoe gear, and importance of daily foot checks. I reviewed neuropathy and why it occurs in diabetics. I educated the patient on proper blood sugar control and the importance of an HgBA1c of less than 7.0%. I reviewed the signs and symptoms of neuropathy with the patient Pt to return for another evaluation in 1- 3 months. Debridement of mycotic toenails 6-10: Verbal informed consent was obtained from the patient. Greater than 6 nails were aseptically debrided in thickness and length with nail nippers Hyperkeratotic tissue debrided pared with a number #15 scalpel blade x2 Faisal Burch DPM documented in this encounter Plan of Treatment Upcoming Encounters Date Type Department Care Team (Late st Contact Info) Description 09/06/2024 10:00 AM EDT Office Visit Orthopedic Surgery - [place] [address] [facility] [address] [facility] [address] [place] [phone] Faisal Burch DPM [address] [facility] [address] [place] [address] 03/30/2025 9:50 AM EDT Office Visit Pulmonolgy [facility] [address] [facility] [address] [place] [phone] Mery Ferris NP [address] [facility] [address] [place] [address] documented as of this encounter Visit Diagnoses Diagnosis Tendonitis, Achilles, left- Primary Dermatophytosis of nail Pain in toe of right foot Pain in soft tissues of limb Pain in toe of left foot Pain in soft tissues of limb Corns and callosities Metatarsalgia of both feet Diabetic mononeuropathy simplex (CMS/HCC) Type II or unspecified type diabetes mellitus with neurological manifestations, not stated as uncontrolled Type II diabetes mellitus with peripheral circulatory disorder (CMS/HCC) Type II or unspecified type diabetes mellitus with peripheral circulatory disorders, not stated as uncontrolled documented in this encounter Discontinued Medications Medication Sig Discontinue Reason Start Date End Da te rosuvastatin (CRESTOR) 20 mg tablet Take 1 Tab by mouth every evening. 06/26/2020 06/21/2024 documented as of this encounter Historical Medications * This list may reflect changes made after this encounter. FreeStyle Test test strip 1 each 4 (four) times a day. 03/31/2024 cholecalciferol (VITAMIN D-3) 50 mcg (2,000 unit) capsule TAKE 1 SOFTGEL ORALLY DAILY 04/07/2024 Lantus Solostar U-100 Insulin 100 unit/mL (3 mL) injection pen INJECT 10 UNIT (0.1 ML) SUBCUTANEOUSLY EVERY EVENING 05/13/2024 FreeStyle Lancets 28 gauge lancets TEST 4 TIMES A DAY DIRECTED 06/15/2024 Mounjaro 12.5 mg/0.5 mL injection 06/20/2024 rosuvastatin (CRESTOR) 40 mg tablet 06/20/2024 added in this encounter Care Teams Renewable Energy Project Manager Relationship Specialty Start Date End Date Derrick Cain MD [address] [address] PCP - General 10/21/18 documented as of this encounter
--- OUTSIDE RECORDS SUMMARY | 2024-07-19 11:17 | XMS_ITS | Clinical Summary ---
Author Organization [address] [facility] Address [address] [place] [address] Phone Care Team Providers Care Body Design Checker Name Role Phone Derrick Cain MD Primary Care Provider Allergies Active Allergy Reactions Criticality Noted Date Comments Other Other 04/29/2019 Invokamet [canagliflozin-metformin Hcl] Causes Yeast Infections Penicillins 07/21/2012 No reaction documented. Medications famotidine (PEPCID) 20 mg tablet TAKE 1 TABLET BY MOUTH TWICE A DAY NEEDED FOR HEARTBURN TAKE AT LEAST ONE DOSE AT BEDTIME 08/27/19 24 Active omeprazole (PriLOSEC) [address] capsule TAKE 2 CAPSULES DAILY IN MORNING ON EMPTY STOMACH WAIT 30 MINUTES THEN EAT TO ACTIVATE MEDICATION 08/13/19 24 Active vibegron (Gemtesa) 75 mg tablet tablet Take by mouth. Activ e allopurinoL (ZYLOPRIM) 300 mg tablet Take 1 tablet by mouth daily. 12/07/19 21 Active olmesartan (BENICAR) 40 mg tablet Take 1 tablet by mouth daily. 12/07/19 21 Active dilTIAZem (TIAZAC) 120 mg 24 hr capsule Take 1 capsule by mouth daily. 12/07/19 21 Active fenofibrate (TRICOR) 145 mg tablet Take 145 mg by mouth daily. 10/05/19 21 Active metoprolol succinate (TOPROL-XL) 50 mg 24 hr tablet Take 1 Tab by mouth daily. 09/07/19 21 Active triamcinolone (KENALOG) 0.1 % cream Apply thin coat of cream to affected area 2-3 times a day as needed for maximum 2 weeks. Do not use on face 09/07/19 Active rivaroxaban (XARELTO) 20 mg tablet Take 20 mg by mouth daily. 09/05/19 Active alcohol swabs (Alcohol Prep Pads) pads, medicated 1 Each by Does not apply route 3 times daily. 08/21/19 Active diclofenac (VOLTAREN) 1 % topical gel Apply 1 g topically 4 times daily as needed for Other (wrist pain). With food 08/17/19 Active pen needle, diabetic 32 gauge x 5/32 needle Use to inject insulin four times daily 10/14/19 Active rosuvastatin (CRESTOR) 40 mg tablet 06/20/19 Active Mounjaro 12.5 mg/0.5 mL injection 06/20/19 Active FreeStyle Lancets 28 gauge lancets TEST 4 TIMES A DAY DIRECTED 06/15/19 Active Lantus Solostar U-100 Insulin 100 unit/mL (3 mL) injection pen INJECT 10 UNIT (0.1 ML) SUBCUTANEOUSLY EVERY EVENING 05/13/20 Active cholecalcifer ol (VITAMIN D-3) 50 mcg (2,000 unit) capsule TAKE 1 SOFTGEL ORALLY DAILY 04/07/20 Active FreeStyle Test test strip 1 each 4 (four) times a day. 03/31/20 Active diclofenac (Voltaren Arthritis Pain) 1 % topical gel Apply 4 g topically 2 (two) times a day. 240 g 1 06/21/19 25 2024 Active rosuvastatin (CRESTOR) 20 mg tablet Take 1 Tab by mouth every evening. 06/26/19 21 2024 Discontinued Active Problems Problem Noted Date Diagnosed Date Swallowing impaired 04/29/2024 Atrial fibrillation, transient 04/29/2024 Esophagitis 04/29/2024 Venous insufficiency of both lower extremities 0 10/20/2019 Obstructive sleep apnea 08/30/2019 Overview (04/29/2024): [facility] diagnostic polysomnogram done 08/11/2016; weight 234 pounds; BMI 42; sleep efficiency 67%; REM 14%; AHI 8 overall; 23 hypopneas; PLM's 2; oxygen saturation 93% average and lowest at 78%. [facility] treatment polysomnogram 09/02/2016; sleep efficiency 80%; CPAP at 10 with AHI 0 and average oxygen saturation 93%. Last Assessment & Plan: Mrs. Gomez had a CPAP machine prescribed within the main for more than 5 years. According to the patient the machine was broken. I ordered a new diagnostic and then a titration study that corroborate that she needs a CPAP machine to be used with an auto CPAP between 5 and 14 cm of water. I have ordered and made a new prescription for a CPAP machine. She will need follow-up in 3 to 4 months with compliance report. Osteoarthritis of first carp ometacarpal (CMC) joint of one hand 07/18/2019 DM (diabetes mellitus), type 2 with renal compli cations 06/12/2019 De Quervain's tenosynovitis, right 06/03/2019 Diabetic peripheral neuropathy 05/04/2019 Type 2 diabetes mellitus with peripheral neuropa thy 04/29/2019 GERD (gastroesophageal reflux disease) 9 Gout 04/29/2019 Generalized anxiety disorder 04/29/2019 Depression 04/29/2019 Multinodular goiter 04/29/2019 Overview (04/29/2024): FNA 05/2019: LLP and RLP, cytology benign for both nodules, needs repeat thyroid u/s 05/2020. Also obtaining barium swallow dur to dysphagia Morbid obesity 04/29/2019 Breast cancer 04/29/2019 Overview (04/29/2024): Surgery x2 Essential hypertension, benign 07/21/2012 Dyslipidemia 07/21/2012 Paroxysmal atrial fibrillation 07/21/2012 Encounters Date Type Department Care Team Description 06/21/2024 1:15 PM EST Consult Orthopedic Surgery - [place] [address] [facility] [address] [place] [id number] Faisal Burch, DPM Tendonitis, Achilles, left (Primary Dx); Dermatophytosis of nail; Pain in toe of right foot; Pain in toe of left foot; Corns and callosities; Metatarsalgia of both feet; Diabetic mononeuropathy simplex (CMS/HCC); Type II diabetes mellitus with peripheral circulatory disorder (CMS/HCC) from Last 3 Months Immunizations Name Administration Dates Next Due Influenza trivalent, 0.5mL, preservative free (Fluarix; FluLaval; Fluzone) ages 6mo and older (Afluria) 3 years and older 04/16/2020,03/31/2019,03/19/2018,03/08 Pneumococcal conjugate 13 va lent (Prevnar 13, PCV13) 2mo and older 03/03/2018 Pneumococcal polysaccharide 23 valent (Pneumovax 23) 2yo and older 03/30/2018 Tdap Tetanus diptheria acell ular pertussis (Boostrix; Adacel) 7yo and older 05/02/2014 Surgical History Surgery Date Site/Laterality Comments BREAST LUMPECTOMY 07/02/2017 Right PROCEDURE: HISTORICAL BREAST LUMPECTOMY; COMMENT: breast cancer. DCIS; 09/17/2017 re-excision inferior margin-no residual neoplasm OTHER SURGICAL HISTORY 03/26/2016 PROCEDURE: DE BIOPSY THYROID PERCUTANEOUS CORE NEEDLE; COMMENT: nodule; no report ESOPHAGOGASTRODUODENOSCOPY 10/09/2020 PROCEDURE: DE EGD TRANSORAL BIOPSY SINGLE/MULTIPLE; COMMENT: gastropathy, biopsy pending Medical History Medical History Date Comments Essential hypertension, benign 07/21/2012 D X:Essential hypertension, benign Dyslipidemia 07/21/2012 DX:Dyslipidemia Paroxysmal atrial fibrillati on ([facility]/HCC) 07/21/2012 DX:Paroxysmal atrial fibrill ation (HCC) Breast cancer ([facility]/HCC) 04/29/2019 DX:Breas t cancer (HCC); COMMENT: Surgery x2 Depression 04/29/2019 DX:Depression Generalized anxiety disorder 04/29/2019 DX: Generalized anxiety disorder GERD (gastroesophageal reflu x disease) 04/29/2019 DX:GERD (gastroesophageal re flux disease) Gout 04/29/2019 DX:Gout Morbid obesity ([facility]/HCC) 04/29/2019 DX:Morb id obesity ([facility]) Multinodular goiter 04/29/2019 DX:Multinodu lar goiter Patient is Congregation 04/29/2019 DX: Patient is Congregation 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 ([facility]) 04/29/2019 DX:Type 2 diabetes gregory litus with peripheral neuropathy (HCC) Diabetic peripheral neuropat hy ([facility]) 05/04/2019 DX:Diabetic peripheral neuro zabrina ([facility]) Swallowing impaired DX:Swallowin g impaired Atrial fibrillation, transie nt (CMS/HCC) DX:Atrial fibrillation, young sient (HCC) Esophagitis DX:Esophagitis Family History Medical History Relation Name Comments Coronary artery disease Brother 1 Coronary artery disease Brother 2 Coronary artery disease Brother 3 Coronary artery disease Brother 4 Coronary artery disease Brother 5 ADD / ADHD Daughter Other: anxiety Daughter panic attacks Coronary artery disease Father s/p [place] Diabetes Mother Uterine cancer Mother Depression Son Hyperlipidemia Son Hypertension Son Other: gout Son Relation Name Status Comments Brother 1 Brother 2 Brother 3 Brother 4 Brother 5 Daughter Alive Father Mother Son Alive Social History Tobacco Use Types Packs/Day Years Used Date Smoking Tobacco: Never Smokeless Tobacco: Never Alcohol Use Standard Drinks/Week Comments Not Currently 0 (1 standard drink = 0.6 oz pur e alcohol) Comments Unknown Sex and Gender Information Value Date Recorded Sex Assigned at Not on file Legal Sex Female 5:04 AM EST Gender Identity Not on file Sexual Orientation Not on file Obstetrics History Last Filed Vital Signs Vital Sign Reading Time Taken Comments Blood Pressure 134/80 03/30/2024 10:00 AM EDT Pulse 81 03/30/2024 10:00 AM EDT Temperature - - Respiratory Rate - - Oxygen Saturation - - Inhaled Oxygen Concentration - - Weight 98.8 kg (217 lb 12.8 oz) 024 10:00 AM EDT Height 160 cm (5' 3 ) 03/30/2024 10:00 AM EDT Body Mass Index 38.58 03/30/2024 10:00 AM EDT Plan of Treatment Upcoming Encounters Date Type Department Care Team (Late st Contact Info) Description 09/06/2024 10:00 AM EDT Office Visit Orthopedic Surgery - [place] [address] [facility] [address] [place] [phone] Faisal Burch DPM [address] [facility] [address] [place] [address] 03/30/2025 9:50 AM EDT Office Visit Pulmonolgy [facility] [address] [place] [phone] Mery Ferris NP [address] [place] [address] [address] [place] [address] Health Maintenance Due Date Last Done Comments Breast Cancer Screening 1962 Diabetes: Annual Foot Exam 1972 Diabetes: Annual Retina Eye Exam 1972 Cervical Cancer Screening: Pap Smear 1983 Diabetes: Annual GFR (Glomerular Filtration Rate) 07/12/2020 07/12/2019 RSV Immunization Patients 60+ Years Old (1 - Risk 60-74 years 1-dose series) 2022 Cholesterol Screening (Lipid Panel) 05/17/2022 Colorectal Cancer Screening: Colonoscopy 05/17/2022 Depression Screening 05/17/2022 HIV Screening 05/17/2022 Hepatitis C Screening 05/17/2022 Medicare Annual Wellness Visit 05/17/2022 Social Influencers of Health Screening 05/17/2022 Diabetes: Annual Urine Albumin-Creatinine Ratio (uACR) 05/23/2022 07/12/2019 Diabetes: Blood Sugar Control Test (HGBA1C) 05/23/2022 07/12/2019 Hypertension/CHF/CAD Annual BMP Blood Test 05/23/2022 07/12/2019 Pneumococcal Vaccine: 50+ Years (3 of 3 - PPSV23, PCV20 or PCV21) 03/30/2023 03/30/2018, 03/03/2018 Pneumococcal Vaccine: Pediatrics (0 to 5 Years) and At-Risk Patients (6 to 64 Years) (3 of 3 - PPSV23, PCV20 or PCV21) 03/30/2023 03/30/2018, 03/03/2018 DTaP,Tdap,and Td Vaccines (3 - Td or Tdap) 12/15/2024 06/17/2024, 05/02/2014 Zoster Vaccines Completed 12/26/2022, 09/24/2022 Influenza Vaccine Completed 03/18/2024, , 03/26/2022, Additional history exists COVID-19 Vaccine Completed 03/28/2024, 07/2021, 05/23/2021, Additional history exists HIB Vaccines Aged Out No longer eligi ble based on patient's age to complete this topic HPV Vaccines Aged Out No longer eligi ble based on patient's age to complete this topic Hepatitis A Vaccines Aged Out No long er eligible based on patient's age to complete this topic Hepatitis B Vaccines Aged Out No long er eligible based on patient's age to complete this topic IPV Vaccines Aged Out No longer eligi ble based on patient's age to complete this topic MMR Vaccines Aged Out No longer eligi ble based on patient's age to complete this topic Meningococcal ACWY Vaccine Aged Out N o longer eligible based on patient's age to complete this topic Meningococcal B Vacine Aged Out No lo nger eligible based on patient's age to complete this topic RSV Immunization Patients Under 20 months Aged Out No longer eligible based on patient's age to complete this topic Varicella Vaccines Aged Out No longer eligible based on patient's age to complete this topic Procedures Procedure Name Priority Date/Time Associated Diagnosis Comments URINE ALBUMIN CREATININE RATIO Routine 07/12/2019 ANNUAL BMP BLOOD TEST Routine 07/12/2019 HEMOGLOBIN A1C Routine 07/12/2019 from Last 3 Months or Most Recently Relevant to Health Maintenance Results * Urine Albumin Creatinine Ratio (07/12/2019) Pathologist [facility] Urine Albumin Creatinine Ratio Abstracted Historical Provider HEALTH MAINTENANCE Final Result * Annual BMP Blood Test (07/12/2019) Pathologist [facility] Annual BMP Blood Test Abstracted [facility] Provider HEALTH MAINTENANCE Final Result * (ABNORMAL) Hemoglobin A1c (07/12/2019) Pathologist [facility] Hemoglobin A1C 10.2(A) <=6.5 % Blood Venous blood specimen / Unknown Historical Provider LAB BLOOD ORDERABLES Sharmaine l Result from Last 3 Months or Most Recently Relevant to Health Maintenance Insurance [facility] MEDICARE Member Subscriber Plan / Payer (Ef fective 2019-Present) Name:Maisha Gomez Relation to Subscriber:Self Name:Maisha Gomez Payer ID:[id number] Group ID:[id number] Type:Not on file Address: [facility] [address] [id number] Advance Directives Documents on File Type Date Recorded 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 Health Care Decision (hx) 10/09/2020 AD NIRMALA DIRECTIVE Care Teams Body Design Checker Relationship Specialty Start Date End Date Derrick Cain MD [address] [place] [address] PCP - General 10/21/18
[2024-07-19 12:38] LABS: Anion Gap 10 (12-20); Blood Urea Nitrogen 23 mg/dL (9-16); Carbon Dioxide 29 mmol/L (22-29); Chloride 104 mmol/L (96-108); Estimated Glomerular Filt Rate > 60; Glucose Random 224 mg/dL (60-115); Potassium 4.1 mmol/L (3.3-5.1); Sodium 139 mmol/L (135-145)
== END 2024-07-19 10:10 | disposition home or self-care (01) ==
LOC: HO.LAB 10:09
PROVIDERS: Physician Assistant; PCP Internal Medicine Sports Medicine
DX: E13.9 Other specified diabetes mellitus without complications (principal); I10 Essential (primary) hypertension
CPT/HCPCS: 36415; 80048

== ENCOUNTER 2024-07-22 08:55 | Outpatient (AMB) | payer OTHER, SELFPAY ==
--- NOTE | 2024-07-22 08:59 | A.OFFVIS_ITS ---
Vital Signs 07/22/24 09:00 Height 5 ft 3 in Weight 226 lb 10.163 oz BMI 40.1 BP 140/62 H Blood Pressure Location Lt brachial Position Sitting Pulse 83 Pulse Source Pulse Oximeter Pulse Oximetry (%) 93 Oxygen Delivery Method Room Air Intake Visit Reasons: DM Intake Note: Patient present today for Type 2 Diabetes Mellitus Last Diabetic eye exam: October 2023 Last Podiatry Visit: 06/2024 Random Glucose: 219 mg/dl HgA1C: 7.8% 05/13/24 Electronic Service Technician Required: No Accompanied by: RUGBY LEAGUE FOOTBALLER Allergies Penicillins [PENICILLINS] Allergy (Unknown, Verified 07/22/24 09:11) RASH canagliflozin [From Invokamet] Adverse Reaction (Verified 07/22/24 09:11) Yeast infection metformin [From Invokamet] Adverse Reaction (Verified 07/22/24 09:11) Yeast infection Medication List - Last Reconciled 07/22/24 by Debby Pringle PA-C acetaminophen (Tylenol Extra Strength) 500 mg PO Q6H PRN alclometasone 0.05% topical allopurinol 300 mg PO DAILY blood sugar diagnostic (FreeStyle Test strips) USE DIRECTED 4 TIMES A DAY blood-glucose meter As directed blood-glucose meter (FreeStyle Irving Lite kit) DIRECTED calcium carb-D3-mag [id number] 333 mg-200 unit -133 mg-5 mg 1 tab PO DAILY cholecalciferol (vitamin D3) TAKE 1 SOFTGEL ORALLY DAILY diltiazem HCl ER 120 mg PO DAILY famotidine (Pepcid) 20 mg PO DAILY fenofibrate nanocrystallized 145 mg PO DAILY flash glucose scanning reader (FreeStyle Elizabeth 2 Wentworth) As directed flash glucose sensor (FreeStyle Elizabeth 2 Sensor kit) Once every 14 days insulin degludec (Tresiba FlexTouch U-200 insulin) 20 units (0.1 mL) subcut BEDTIME lancets (FreeStyle Lancets) One Lancet topical 4 times a day; lancets (FreeStyle Lancets) DIRECTED CHECKS 4 TIMES A DAY levothyroxine 175 mcg PO DAILY lidocaine 5% (Lidoderm) 1 patch topical DAILY PRN MDD remove after 12 hours metoprolol succinate ER 50 mg PO DAILY olmesartan 40 mg PO DAILY omeprazole 20 mg PO DAILY PRN pen needle, diabetic (BD Selena 2nd Gen Pen Needle) Use once a day as directed rivaroxaban (Xarelto) 20 mg PO DAILY rosuvastatin 40 mg PO DAILY thiamine HCl (vitamin B1) 100 mg PO DAILY tirzepatide (Mounjaro) 15 mg (0.5 mL) subcut QWEEK triamcinolone acetonide 0.1% appl topical BID PRN vibegron (Gemtesa) mg PO HPI HPI DM: Details: Patient is a 64-year-old female who presents today for a follow up regarding her diabetes. DM: dx with t2dm around 2019. Her last A1c was 7.8. She is currently on Mounjaro 12.5 mg weekly and lantus 10 units nightly -She has not tolerated the lantus. It is causing joint pains and some swelling. She d/c'd the lantus and sx resolved. She has not been on any insulin for the last few days. In the past on up to 170 units daily of toujeo without any improvement of blood sugars. She cannot recall any side effects but it was not effective. She also believes she was on Tresiba but found this ineffective as well. She states that no insulin has ever really seem to work for her. -we did review her diet and she states that even if she eats just vegetables her blood sugar goes up significantly. She tries to avoid carbohydrates and states for the most part she only eats meat and vegetables. She did recently go to weight management and had a liver ultrasound which showed fatty liver/hepatocellular disease with moderate to advanced compensation. She has not seen GI. She also does not want to follow back up with weight management. cgm-usage 70%, average glucose 215, GMI 8.5%. Very high 19%, high 60%, in range 21%, 0% hypoglycemia -she states everyone in her family has type 1 diabetes including her mother, maternal grandmother and a sibling. Her son has type 2 diabetes. -She does have JESUS antibodies but elevated cpeptide. -has not tolerated Invokana (had 1 yeast infection), metformin (diarrhea), glipizide caused shakiness, jardiance is causing vaginal irritation and polyuria. Last labs showed microalbuminuria Overdue to see Podiatry. Was referred at last visit Had DM education CV: Blood pressure today in the office is 140/62. She is currently on metoprolol 50 mg, diltiazem 120 mg, olmesartan 40 mg. She is on Crestor 40 mg and fenofibrate to control her cholesterol. Her last LDL was 60. [facility] Medical History (Updated 07/22/24 @ 09:36 by Debby Pringle PA-C) Uncontrolled type 2 diabetes mellitus with hyperglycemia Hx of breast cancer GERD (gastroesophageal reflux disease) Osteoporosis DJD (degenerative joint disease) Anxiety Depression Insulin dependent type 2 diabetes mellitus Morbid obesity Obesity Postoperative hypothyroidism Disorder of bone, unspecified Vitamin D deficiency Hypercalcemia Multinodular thyroid HLD (hyperlipidemia) HTN (hypertension) T2DM (type 2 diabetes mellitus) Essential hypertension custodial (current) use of insulin Type 2 diabetes mellitus without complications Obstructive sleep apnea (adult) (pediatric) PAF (paroxysmal atrial fibrillation) Surgical History Hx of partial thyroidectomy S/P lumpectomy, right breast Hx of colonoscopy Family History Father Cardiovascular disease Mother Uterine cancer Social History Household Members: None Housing: Apartment Are you a primary health care facility administrator to a significant other at home: No Do you presently have visiting nurse or other home services: Yes ([employer]) Alcohol intake: former Patient Tobacco Use Status: Never used Tobacco service: No Current occupational status: disabled Female Reproductive History Menstrual Age of Menarche: 15 Physical Exam Vital Signs: Last Vital Signs Pulse 83 07/22/24 09:00 BP 140/62 H 07/22/24 09:00 Pulse Ox 93 07/22/24 09:00 Oxygen Delivery Method Room Air 07/22/24 09:00 BMI result Body Mass Index 40.1 Const Orientation/consciousness: patient oriented x3 HEENT Ears: hearing grossly normal bilaterally Neck Thyroid: Thyroid normal Lymphatic: no lymphadenopathy noted Resp Auscultation: clear to auscultation bilaterally Cardio Rate: regular rate Rhythm: regular rhythm Heart sounds: S1 normal heart sound present and S2 normal heart sound present Skin General skin exam: no rashes or lesions noted Neuro General: patient oriented x3, gait normal and no focal motor deficits Results Reviewed Results Reviewed: Laboratory Last Values Glucose (Clinic) 219 mg/dL (60-115) H 07/22/24 09:14 Laboratory Tests 02/11/24 02/11/24 02/13/24 08:59 09:09 08:55 Sodium Potassium Chloride Carbon Dioxide Anion Gap BUN Creatinine Estimated GFR Random Glucose Hgb A1c (Clinic) C-Peptide 4.47 H AST 40 H ALT 46 H Alkaline Phosphatase 75 Triglycerides 122 Cholesterol 118 LDL Cholesterol, Calc 50 HDL Cholesterol 44 Urine Creatinine 275.36 Urine Microalbumin 223.0 Microalb/Creat Ratio 80.9 H Islet Cell Ab Screen NEGATIVE JESUS Antibody 38 H 05/13/24 07/19/24 10:20 10:23 Sodium 139 Potassium 4.1 Chloride 104 Carbon Dioxide 29 Anion Gap 10 L BUN 23 H Creatinine 0.78 Estimated GFR > 60 Random Glucose 224 H Hgb A1c (Clinic) 7.8 H C-Peptide AST ALT Alkaline Phosphatase Triglycerides Cholesterol LDL Cholesterol, Calc HDL Cholesterol Urine Creatinine Urine Microalbumin Microalb/Creat Ratio Islet Cell Ab Screen JESUS Antibody US/US abdomen comp w elastography IMPRESSION: 1. There is generalized increase in hepatic echotexture, consistent with fatty infiltration or hepatocellular disease. Please correlate clinically. No focal hepatic mass or intrahepatic biliary dilatation is seen. 2. Liver elastography: Measurements are suggestive of compensated advanced chronic liver disease but need further test for confirmation. 3. Common bile duct caliber is top normal. No focal choledocholith is seen. Assessment & Plan Assessment & Plan (1) Type 1.5 diabetes, managed as type 2: Code(s): E13.9 - Other specified diabetes mellitus without complications Category: Medical Plan: I will trial her on Tresiba U 200 at 20 units. I have increased Mounjaro to 15 mg weekly. Reports compliance with all medications. I will have her do a short term follow up. We spent extensive time today discussing diet and exercise. (2) Morbid obesity: Code(s): E66.01 - Morbid (severe) obesity due to excess calories Category: Medical Plan: We did review that she has gained 10 lb since the holidays. She does report some inactivity but states her diet is relatively healthy and she does not eat anything that would cause her to gain weight. There is no lower leg edema. We did discuss reducing the caloric intake with her reduced activity. (3) Essential hypertension: Code(s): I10 - Essential (primary) hypertension Category: Medical Plan: Continue current regimen (4) Fatty liver: Code(s): K76.0 - Fatty (change of) liver, not elsewhere classified Category: Medical Plan: Referral to GI. Did discuss the importance of managing her blood sugars and her diet and weight. Orders: Referrals Gastroenterology Referral K76.0 - Fatty (change of) liver, not elsewhere classified Medications: New insulin degludec (Tresiba FlexTouch U-200 insulin) 20 units (0.1 mL) subcut BEDTIME 9 mL 3RF tirzepatide (Mounjaro) 15 mg (0.5 mL) subcut QWEEK 2 mL 11RF Discontinued insulin glargine (Lantus Solostar U-100 Insulin) Discontinued Reason: Doctor's Order 10 units (0.1 mL) subcut QPM 15 mL 2RF tirzepatide (Mounjaro) Discontinued Reason: Doctor's Order 12.5 mg (0.5 mL) subcut QWEEK 2 mL 5RF Coding Level of Care Code Est Pt Level 4 (29882) Complex EM visit Add On G2211 Diagnoses Type 1.5 diabetes, managed as type 2 E13.9 Morbid obesity E66.01 Essential hypertension I10 Fatty liver K76.0
[2024-07-22 09:00] VITALS: BP 140/62; PULSE 83; O2SAT 93; BMI 40.1
[2024-07-22 09:19] LABS: Glucose, Whole Blood 219 mg/dL (60-115)
--- OUTSIDE RECORDS SUMMARY | 2024-07-22 09:20 | XMS_ITS | Clinical Summary ---
Author Organization 175 [facility] Address 175 [place] [address] Phone Care Team Providers Care Dietary Supervisor Name Role Phone Derrick Cain MD Primary Care Provider Allergies Active Allergy Reactions Criticality Noted Date Comments Other Other 04/29/2019 Invokamet [canagliflozin-metformin Hcl] Causes Yeast Infections Penicillins 07/21/2012 No reaction documented. Medications famotidine (PEPCID) 20 mg tablet TAKE 1 TABLET BY MOUTH TWICE A DAY NEEDED FOR HEARTBURN TAKE AT LEAST ONE DOSE AT BEDTIME 4 Active omeprazole (PriLOSEC) [address] capsule TAKE 2 CAPSULES DAILY IN MORNING ON EMPTY STOMACH WAIT 30 MINUTES THEN EAT TO ACTIVATE MEDICATION 4 Active vibegron (Gemtesa) 75 mg tablet tablet Take by mouth. Activ e allopurinoL (ZYLOPRIM) 300 mg tablet Take 1 tablet by mouth daily. 1 Active olmesartan (BENICAR) 40 mg tablet Take 1 tablet by mouth daily. 1 Active dilTIAZem (TIAZAC) 120 mg 24 hr capsule Take 1 capsule by mouth daily. 1 Active fenofibrate (TRICOR) 145 mg tablet Take 145 mg by mouth daily. 1 Active metoprolol succinate (TOPROL-XL) 50 mg 24 hr tablet Take 1 Tab by mouth daily. 1 Active triamcinolone (KENALOG) 0.1 % cream Apply thin coat of cream to affected area 2-3 times a day as needed for maximum 2 weeks. Do not use on face 1 Active rivaroxaban (XARELTO) 20 mg tablet Take 20 mg by mouth daily. 1 Active alcohol swabs (Alcohol Prep Pads) pads, medicated 1 Each by Does not apply route 3 times daily. 1 Active diclofenac (VOLTAREN) 1 % topical gel Apply 1 g topically 4 times daily as needed for Other (wrist pain). With food 1 Active pen needle, diabetic 32 gauge x 5/32 needle Use to inject insulin four times daily 0 Active rosuvastatin (CRESTOR) 40 mg tablet 5 Active Mounjaro 12.5 mg/0.5 mL injection 5 Active FreeStyle Lancets 28 gauge lancets TEST 4 TIMES A DAY DIRECTED 5 Active Lantus Solostar U-100 Insulin 100 unit/mL (3 mL) injection pen INJECT 10 UNIT (0.1 ML) SUBCUTANEOUSLY EVERY EVENING 4 Active cholecalcifero l (VITAMIN D-3) 50 mcg (2,000 unit) capsule TAKE 1 SOFTGEL ORALLY DAILY 4 Active FreeStyle Test test strip 1 each 4 (four) times a day. 4 Active diclofenac (Voltaren Arthritis Pain) 1 % topical gel Apply 4 g topically 2 (two) times a day. 240 g 1 5 025 Active Active Problems Problem Noted Date Diagnosed Date Swallowing impaired 04/29/2024 Atrial fibrillation, transient 04/29/2024 Esophagitis 04/29/2024 Venous insufficiency of both lower extremities 0 10/20/2019 Obstructive sleep apnea 08/30/2019 Overview (04/29/2024): [facility] diagnostic polysomnogram done 08/11/2016; weight 234 pounds; BMI 42; sleep efficiency 67%; REM 14%; AHI 8 overall; 23 hypopneas; PLM's 2; oxygen saturation 93% average and lowest at 78%. [facility] treatment polysomnogram 09/02/2016; sleep efficiency 80%; CPAP [...] 1:15 PM EST Consult Orthopedic Surgery - [place] [address] [place] [phone] Faisal Burch, DPM Tendonitis, Achilles, left (Primary [...] residual neoplasm OTHER SURGICAL HISTORY 03/26/2016 PROCEDURE: [place] BIOPSY THYROID PERCUTANEOUS CORE NEEDLE; COMMENT: nodule; no report ESOPHAGOGASTRODUODENOSCOPY 10/09/2020 PROCEDURE: [place] EGD TRANSORAL BIOPSY SINGLE/MULTIPLE; COMMENT: gastropathy, biopsy pending Medical History Medical History Date Comments Essential hypertension, benign 07/21/2012 D X:Essential hypertension, benign Dyslipidemia 07/21/2012 DX:Dyslipidemia Paroxysmal atrial fibrillati on (CMS/HCC) 07/21/2012 DX:Paroxysmal atrial fibrill ation (HCC) Breast cancer ([facility]/HCC) 04/29/2019 DX:Breas t cancer (HCC); COMMENT: Surgery x2 Depression 04/29/2019 DX:Depression Generalized anxiety disorder 04/29/2019 DX: Generalized anxiety disorder GERD (gastroesophageal reflu x disease) 04/29/2019 DX:GERD (gastroesophageal re flux disease) Gout 04/29/2019 DX:Gout Morbid obesity ([facility]/HCC) 04/29/2019 DX:Morb id obesity ([facility]) Multinodular goiter 04/29/2019 DX:Multinodu lar goiter Patient is Bahai 04/29/2019 DX: Patient is Bahai 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 ([facility]/HCC) 04/29/2019 DX:Type 2 diabetes gregory litus with peripheral neuropathy ([facility]) Diabetic peripheral neuropat hy ([facility]/HCC) 05/04/2019 DX:Diabetic peripheral neuro zabrina (HCC) Swallowing impaired DX:Swallowin g impaired Atrial fibrillation, transie nt ([facility]/HCC) DX:Atrial fibrillation, young sient (HCC) Esophagitis DX:Esophagitis Family History Medical History Relation Name Comments Coronary artery disease Brother 1 Coronary artery disease Brother 2 Coronary artery disease Brother 3 Coronary artery disease Brother 4 Coronary artery disease Brother 5 ADD / ADHD Daughter Other: anxiety Daughter panic attacks Coronary artery disease Father s/p [place] Diabetes Mother Uterine cancer Mother Depression Son [...] AM EDT Office Visit Orthopedic Surgery - [place] 250 175 [facility] 250 [place] [phone] Faisal Burch DPM 175 [facility] [address] [place] [address] 03/30/2025 9:50 AM EDT Office Visit Pulmonolgy [facility] 175 [facility] [address] [place] [phone] Mery Ferris NP 175 [facility] 200 [place] [address] Health Maintenance Due Date Last Done Comments [...] Results * Urine Albumin Creatinine Ratio (07/12/2019) Urine Albumin Creatinine Ratio Abstracted Historical Provider MD HEALTH MAINTENANCE Final Result * Annual BMP Blood Test (07/12/2019) Annual BMP Blood Test Abstracted Historical Provider MD HEALTH MAINTENANCE Final Result * (ABNORMAL) Hemoglobin A1c (07/12/2019) Pathologist [facility] Hemoglobin A1C 10.2(A) <=6.5 % Blood Venous blood specimen / Unknown Historical Provider MD LAB BLOOD ORDERABLES Sharmaine l Result from Last 3 Months or Most Recently Relevant to Health Maintenance Insurance [facility] MEDICARE Member Subscriber Plan / Payer (Ef fective 2019-Present) Name:Maisha Gomez Relation to Subscriber:Self Name:Maisha Gomez Payer ID:[id number] Group ID:[id number] Type:Not on file Address: [address] [place] [id number] Advance Directives Documents on File Type Date Recorded Patient Document Management Consultant Expl [facility] Care Decision (hx) 10/09/2020 AD SILVESTRE DIRECTIVE Care Teams Dietary Supervisor Relationship Specialty Start Date End Date Derrick Cain MD [address] [address] PCP - General 10/21/18
== END 2024-07-22 09:42 | disposition home or self-care (01) ==
PROVIDERS: PCP Internal Medicine Sports Medicine; Visit Provider Physician Assistant
DX: E13.9 Other specified diabetes mellitus without complications (principal); E66.01 Morbid (severe) obesity due to excess calories; I10 Essential (primary) hypertension; K76.0 Fatty (change of) liver, not elsewhere classified

== ENCOUNTER → 2024-07-22 08:55 | Outpatient (BNVA) | payer OTHER, SELFPAY | PROVIDERS: PCP Internal Medicine Sports Medicine; Visit Provider Physician Assistant | DX: E13.9 Other specified diabetes mellitus without complications (principal); I10 Essential (primary) hypertension; K76.0 Fatty (change of) liver, not elsewhere classified; E66.01 Morbid (severe) obesity due to excess calories; Z68.41 Body mass index [BMI] 40.0-44.9, adult; Z71.3 Dietary counseling and surveillance | CPT/HCPCS: 82947; 99212 ==

== ENCOUNTER 2024-08-03 09:23 | Outpatient (AMB) | payer OTHER, SELFPAY ==
--- NOTE | 2024-08-03 10:04 | MHC.AMDMED ---
Intake Intake Visit Reasons: 60 min Watch Inspector Final Movement Required: No Accompanied by: Other Relationship Allergies Penicillins [PENICILLINS] Allergy (Unknown, Verified 07/22/24 09:11) RASH canagliflozin [From Invokamet] Adverse Reaction (Verified 07/22/24 09:11) Yeast infection metformin [From Invokamet] Adverse Reaction (Verified 07/22/24 09:11) Yeast infection HPI Comprehensive Diabetes Asmnt Most Recent Diabetes Results: Microalb/Creat Ratio 80.9 ug/mg cr (<30) H 02/11/24 Cholesterol 118 mg/dL (<200) 02/11/24 HDL Cholesterol 44 mg/dL (>40) 02/11/24 Triglycerides 122 mg/dL (<150) 02/11/24 Creatinine 0.78 mg/dL (0.5-1.4) 07/19/24 Blood Urea Nitrogen 23 mg/dL (9-16) H 07/19/24 Sodium 139 mmol/L (135-145) 07/19/24 Potassium 4.1 mmol/L (3.3-5.1) 07/19/24 Chloride 104 mmol/L (96-108) 07/19/24 Carbon Dioxide 29 mmol/L (22-29) 07/19/24 Calcium 9.0 mg/dL (8.4-10.2) 07/19/24 AST 40 U/L (5-31) H 02/11/24 ALT 46 U/L (0-31) H 02/11/24 Total Protein 7.8 g/dL (6.5-8.0) 02/11/24 Albumin 4.4 g/dL (3.5-5.0) 02/11/24 [facility] Medical History (Updated 07/22/24 @ 09:36 by Debby Pringle PA-C) Uncontrolled type 2 diabetes mellitus with hyperglycemia Hx of breast cancer GERD (gastroesophageal reflux disease) Osteoporosis DJD (degenerative joint disease) Anxiety Depression Insulin dependent type 2 diabetes mellitus Morbid obesity Obesity Postoperative hypothyroidism Disorder of bone, unspecified Vitamin D deficiency Hypercalcemia Multinodular thyroid HLD (hyperlipidemia) HTN (hypertension) T2DM (type 2 diabetes mellitus) Essential hypertension alf (current) use of insulin Type 2 diabetes mellitus without complications Obstructive sleep apnea (adult) (pediatric) PAF (paroxysmal atrial fibrillation) Surgical History Hx of partial thyroidectomy S/P lumpectomy, right breast Hx of colonoscopy Family History Father Cardiovascular disease Mother Uterine cancer Social History Household Members: None Housing: Apartment Are you a primary acute care nurse practitioner to a significant other at home: No Do you presently have visiting nurse or other home services: Yes (SEARCH ENGINE OPTIMIZATION ANALYST) Alcohol intake: former Patient Tobacco Use Status: Never used Tobacco service: No Current occupational status: disabled Female Reproductive History Menstrual Age of Menarche: 15 Assessment & Plan Assessment & Plan (1) Type 1.5 diabetes, managed as type 2: Code(s): E13.9 - Other specified diabetes mellitus without complications Plan: Personal Continuous Glucose Monitor: Patients CGM information reviewed, Pt uses 2 sensor with reader Sensor data: Hypoglycemia: ? 0% Hyperglycemia:? 57% Time in Range:? 43% Average glucose for the last 2 weeks? 187 mg/dL Patient has only 53% of active sensor time. Suggested to patient we switch to Elizabeth 3+ sensors, to alleviate need for scanning. Prescription request sent to PA to prescribed Elizabeth 3+ sensors and reader. At last visit with PA patient was prescribed Tresiba U200 20 units daily. Contacted [facility] pharmacy and confirmed they had Tresiba U 200 pens in stock, request sent to PA to have prescription sent to [facility] pharmacy. Patient will be following up with endocrine ACOUSTICAL CARPENTER in August 2024, to be determined when will follow-up with nurse educator Patient able to insert sensor with assistance from SEARCH ENGINE OPTIMIZATION ANALYST at home without issue.? Portions of this note were created using voice recognition software, please excuse any words or phrases that may have been misinterpreted. Coding Level of Care Code Est Pt Level 1 (76618) Diagnoses Type 1.5 diabetes, managed as type 2 E13.9
--- OUTSIDE RECORDS SUMMARY | 2024-08-03 10:37 | XMS_ITS | Clinical Summary ---
Author Organization 175 [facility] Address [address] [place] [address] Phone Care Team Providers Care Dip Painter Name Role Phone Derrick Cain MD Primary Care Provider [phone] Allergies Active Allergy Reactions Criticality Noted Date [...] 10/20/2019 Obstructive sleep apnea 08/30/2019 Overview (04/29/2024): [facility] diagnostic polysomnogram done 08/11/2016; weight 234 pounds; BMI 42; sleep efficiency 67%; REM 14%; AHI 8 overall; 23 hypopneas; PLM's 2; oxygen saturation 93% average and lowest at 78%. [facility] treatment polysomnogram 09/02/2016; sleep efficiency 80%; [...] 1:15 PM EST Consult Orthopedic Surgery - [place] [address] [place] [phone] Faisal Burch, DPM Tendonitis, Achilles, left (Primary [...] residual neoplasm OTHER SURGICAL HISTORY 03/26/2016 PROCEDURE: [place] BIOPSY THYROID PERCUTANEOUS CORE NEEDLE; COMMENT: nodule; no report ESOPHAGOGASTRODUODENOSCOPY 10/09/2020 PROCEDURE: [place] EGD TRANSORAL BIOPSY SINGLE/MULTIPLE; COMMENT: gastropathy, biopsy pending Medical History Medical History Date Comments Essential hypertension, benign 07/21/2012 D X:Essential hypertension, benign Dyslipidemia 07/21/2012 DX:Dyslipidemia Paroxysmal atrial fibrillati on (CMS/HCC) 07/21/2012 DX:Paroxysmal atrial fibrill ation (HCC) Breast cancer ([facility]/HCC) 04/29/2019 DX:Breas t cancer (HCC); COMMENT: Surgery x2 Depression 04/29/2019 DX:Depression Generalized anxiety disorder 04/29/2019 DX: Generalized anxiety disorder GERD (gastroesophageal reflu x disease) 04/29/2019 DX:GERD (gastroesophageal re flux disease) Gout 04/29/2019 DX:Gout Morbid obesity ([facility]/HCC) 04/29/2019 DX:Morb id obesity ([facility]) Multinodular goiter 04/29/2019 DX:Multinodu lar goiter Patient is Baptist 04/29/2019 DX: Patient is Baptist 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 ([facility]/HCC) 04/29/2019 DX:Type 2 diabetes gregory litus with peripheral neuropathy ([facility]) Diabetic peripheral neuropat hy ([facility]/HCC) 05/04/2019 DX:Diabetic peripheral neuro zabrina (HCC) Swallowing impaired DX:Swallowin g impaired Atrial fibrillation, transie nt ([facility]/HCC) DX:Atrial fibrillation, young sient (HCC) Esophagitis DX:Esophagitis Family History Medical History Relation Name Comments Coronary artery disease Brother 1 Coronary artery disease Brother 2 Coronary artery disease Brother 3 Coronary artery disease Brother 4 Coronary artery disease Brother 5 ADD / ADHD Daughter Other: anxiety Daughter panic attacks Coronary artery disease Father s/p [place] Diabetes Mother Uterine cancer Mother Depression Son [...] AM EDT Office Visit Orthopedic Surgery - [place] 250 175 [facility] 250 [place] [phone] Faisal Burch DPM 175 [facility] [address] [place] [address] 03/30/2025 9:50 AM EDT Office Visit Pulmonolgy [facility] 175 [facility] [address] [place] [phone] Mery Ferris NP 175 [facility] 200 [place] [address] Health Maintenance Due Date Last Done Comments [...] Td Vaccines (3 - Td or Tdap) 06/17/2034 06/17/2024, 05/02/2014 Zoster Vaccines Completed 12/26/2022, 09/24/2022 [...] Result * (ABNORMAL) Hemoglobin A1c (07/12/2019) Pathologist [facility] Hemoglobin A1C 10.2(A) <=6.5 % Blood Venous blood specimen / Unknown Historical Provider MD LAB BLOOD ORDERABLES Sharmaine l Result from Last 3 Months or Most Recently Relevant to Health Maintenance Insurance [facility] MEDICARE Member Subscriber Plan / Payer (Ef fective 2019-Present) Name:Maisha Gomez Relation to Subscriber:Self Name:Maisha Gomez Payer ID:[id number] Group ID:[id number] Type:Not on file Address: [address] [place] [address] Advance Directives Documents on File Type Date Recorded Patient Studio Potter Expl [facility] Care Decision (hx) 10/09/2020 AD SILVESTRE DIRECTIVE Care Teams Dip Painter Relationship Specialty Start Date End Date Derrick Cain MD [address] [address] PCP - General 10/21/18
== END 2024-08-03 10:06 | disposition home or self-care (01) ==
PROVIDERS: PCP Internal Medicine Sports Medicine; Visit Provider Registered Nurse Diabetes Educator
DX: E13.9 Other specified diabetes mellitus without complications (principal)

== ENCOUNTER → 2024-08-03 09:23 | Outpatient (BNVA) | payer OTHER, SELFPAY | PROVIDERS: PCP Internal Medicine Sports Medicine; Visit Provider Registered Nurse Diabetes Educator | DX: E13.9 Other specified diabetes mellitus without complications (principal) | CPT/HCPCS: 99211 ==

== ENCOUNTER 2024-08-18 11:24 | Outpatient (AMB) | payer OTHER, SELFPAY ==
--- NOTE | 2024-08-17 15:07 | A.OFFVIS_ITS ---
Vital Signs 08/18/24 11:29 Height 5 ft 3 in Weight 222 lb 10.67 oz BMI 39.4 BP 124/78 Blood Pressure Location Rt brachial Position Sitting Pulse 86 Pulse Source Pulse Oximeter Pulse Oximetry (%) 98 Oxygen Delivery Method Room Air Intake Visit Reasons: 1.5 DM - per andrea Intake Note: Patient presents today for a follow-up on Type 1.5 Diabetes Mellitus: Last Diabetic eye exam was on: 10/07/2023 Last Podiatry exam was on: Patient does not see a Sawmill Or Timber Yard Worker Most recent HbA1c: 8.4%, 08/18/2024 Random Glucose- 193 mg/dL, Today Piano And Organ Refinisher Required: No Accompanied by: Other Relationship Allergies Penicillins [PENICILLINS] Allergy (Unknown, Verified 08/18/24 11:31) RASH canagliflozin [From Invokamet] Adverse Reaction (Verified 08/18/24 11:31) Yeast infection metformin [From Invokamet] Adverse Reaction (Verified 08/18/24 11:31) Yeast infection HPI Comments Details: Patient is a 64-year-old female who presents for follow up for type 2 diabetes. She was last seen by Ashley wilburn in [place] 07/22/2024. At her prior visit she was switched from Lantus to Tresiba because she was having joint pains on Lantus which resolved with stopping. Hemoglobin A1c 08/17/2024 8.4 %, previous 7.8% 05/13/2024. She was diagnosed with type 2 diabetes approximately 2023: Cpeptide 4.47 JESUS + 38 islet cell antibodies negative Previous medications tried: has not tolerated Invokana (had 1 yeast infection), metformin xr (diarrhea), glipizide caused shakiness, jardiance caused vaginal irritation and polyuria. Lantus caused joint aches Current medications: Mounjaro 15.0 mg weekly Tresiba 20 units daily DM: dx with t2dm around 2019. Denies retinopathy last eye exam: 10/07/2023 Has neuropathy: some numbness and tingling. Last podiatry exam: Recently with Dr. Burch has difficulty trimming nails and multiple calluses No nephropathy 07/19/2024 eGFR>60 02/2024 microalbumin 223 Diet: Tries to balanced but has issues with the appetite despite higher dose Mounjaro. She has been to the weight management center here but had difficulty adhering to diet. Exercise: Limited secondary to back pain but does some light walking -she states everyone in her family has type 1 diabetes including her mother, m brittni grandmother and a sibling. Her son has type 2 diabetes. Has had DM education Has fatty liver: Slightly by a specialist at [facility], notes and labs requested Ultrasound with liverelastography 2022 1. There is generalized increase in hepatic echotexture, consistent with fatty infiltration or hepatocellular disease. Please correlate clinically. No focal hepatic mass or intrahepatic biliary dilatation is seen. 2. Liver elastography: Measurements are suggestive of compensated advanced chronic liver disease but need further test for confirmation. 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 Type 2 diabetes mellitus without complications Obstructive sleep apnea (adult) (pediatric) PAF (paroxysmal atrial fibrillation) Surgical History Hx of partial thyroidectomy S/P lumpectomy, right breast Hx of colonoscopy Family History Father Cardiovascular disease Mother Uterine cancer Social History Household Members: None Housing: Apartment Are you a primary intensive care unit registered nurse to a significant other at home: No Do you presently have visiting nurse or other home services: Yes (BIOMETRIC FINGERPRINTING TECHNICIAN) Alcohol intake: former Patient Tobacco Use Status: Never used Tobacco service: No Current occupational status: disabled Female Reproductive History Menstrual Age of Menarche: 15 Physical Exam Vital Signs: BMI result Body Mass Index 39.4 Office Procedures Glucose Monitoring Details Details: see [facility] [address] - Glucose monitoring, continuous-physician I&R Procedure code (CPT) selection complete Results AMB Hemoglobin A1c AMB Hemoglobin A1c 8.4 % Last Edit by YANDEL Javier on 08/18/24 11:48 Results Reviewed Results Reviewed: Laboratory Last Values Glucose (Clinic) 194 mg/dL (60-115) H 08/18/24 11:37 Hgb A1c (Clinic) 8.4 % (4.0-6.0) H 08/18/24 11:47 Assessment & Plan Assessment & Plan (1) Uncontrolled type 2 diabetes mellitus with hyperglycemia: Code(s): E11.65 - Type 2 diabetes mellitus with hyperglycemia Category: Medical Plan: 64-year-old type 2 diabetic with neuropathy and fatty liver with the an A1c of 8.4%. She is intolerant to multiple diabetes medications. We will continue Mounjaro at 12.5 weekly. Increase Tresiba to 30 units. Today I recommend that she start a bolus insulin before the largest meal of the day today which she declined. She will do 1 meal replacement with the shake and vegetable and try to increase her activity by adding 2-10 minutes of walking/biking in the evening. She is seeing podiatry and I will order a pair of diabetic shoes with custom insoles due to multiple callus formation. The patient had an opportunity to ask questions regarding treatment plan. The patient expressed understanding and agreement with the above treatment plan. The patient is aware they should contact our office by phone for worsening glucose readings or for any low blood sugars which may warrant a change in diabetes medication. Compliance is encouraged with medications and any followup testing/consults which may have been ordered. (2) Fatty liver: Code(s): K76.0 - Fatty (change of) liver, not elsewhere classified Category: Medical Plan: Saw GI at [facility]. Records requested. Orders: Orders AMB Glucose Monitoring Today E11.65 - Type 2 diabetes mellitus with hyperglycemia AMB Hemoglobin A1c Today E11.65 - Type 2 diabetes mellitus with hyperglycemia Medications: New [diabetic shoes] As directed 1 ea 0RF E11.65 - Type 2 diabetes mellitus with hyperglycemia Changed From insulin degludec (Tresiba FlexTouch U-200 insulin) 20 units (0.1 mL) subcut BEDTIME 9 mL 3RF To insulin degludec (Tresiba FlexTouch U-200 insulin) 30 units (0.15 mL) subcut BEDTIME 90 days 15 mL 3RF Coding Level of Care Code Est Pt Level 4 (21894) Complex EM visit Add On G2211 Diagnoses Uncontrolled type 2 diabetes mellitus with hyperglycemia E11.65 Fatty liver K76.0 CPT Codes Details - CPT: 11297 - Glucose monitoring, continuous-physician I&R ([id number]) Time Spent (min) 35 Comment Time spent reviewing labs/provider notes, glucose,sensor reports, face to face, chart doc
[2024-08-18 11:29] VITALS: BP 124/78; PULSE 86; O2SAT 98; BMI 39.4
[2024-08-18 11:43] LABS: Glucose, Whole Blood 194 mg/dL (60-115)
--- OUTSIDE RECORDS SUMMARY | 2024-08-18 14:44 | XMS_ITS | Data Portability ---
Author Organization [facility], [facility] Address [address] [place] [address] Care Team Providers Care Ergonomics Engineer Name Role Phone MCCORMACKFABIO ALVA Primary Care Provider [phone] Assessment Encounter Date Assessment Date Assessment LastModified by Organization Details LastModified Time 03/31/2024 03/31/2024 64-year-old qzkjk-mpls-rvqkds nt female presents today with a 1 month history of a slowly enlarging mass in the palm of her right hand that is mildly painful. She does seem to positively transilluminate on exam today, and does have some tenderness of this area. I reviewed conservative and surgical treatment options, and patient wished to pursue evaluation with Dr. Hoover for possible excision mass right hand [email or web address] Not available 03/31/2024 10:38:47 04/15/2024 04/15/2024 A/ R hand STM P/we discussed the findings on her exam. 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 She understands her treatment options including observation, aspiration, surgical excision. She has elected to proceed with scheduling for right hand soft tissue mass excision. Understands that surgical excision minimizes the risk of mass or cyst recurrence but does not fully eliminate that risk. We have discussed the postoperative recovery course for the recommended surgery. Risks of surgery include but are not limited to: Infection, bleeding, damage normal tissues, need for future surgeries, and recurrent or recalcitrant symptoms after surgery. Questions asked and answered to the patient's satisfaction; surgery to be scheduled with my litigation legal secretary. mike Not available 04/15/2024 11:11:25 Plan of Treatment Reminders Order Date Submit Date Provider Last Modified By Organization Details Last Modified Time Details Appointments None record ed. Lab None record ed. Referral None record ed. Procedures None record ed. Surgeries None record ed. Imaging XR, hand, 3 or more view - rm 114 3v hand 024 03/31/20 [email or web address] [facility], [address], [facility] [[email or web address] [address], [place], [address], 18:28:43 Medication Orders None record ed. Patient TargetsNo targets recorded. Patient InstructionsNo instructions recorded. Reason for Referral None Reported. Results Created Date Observation Date Name Description Value Unit Range Abnormal Flag Note LastModifiedBy Organization Detail LastModifiedTime 05/02/2005/03/2024 GLUCO SE, PLASM A glucose, plasma 187 mg/dL 70-99 above high normal Pleas e Note: Predi abete s 100 - 125 Diabe dipti >125 Not Available [facility] [address] [facility], [place], [address], 05/03/2024 06:05:24 03/31/20 24 03/31/2024 XR, hand, 3 or more view http:/ [email or web address] ?Encry pted=s hAaTro YD8dLq bEUv6g %2BXZw aYqtaq 0bqfl% 2Fg9IQ a4ajBk vP9nXo QUaueC m3YtLR FvZlgJ JJ8mAn HZtai3 6k5660 AC0Kqa H2DU6C vKiQtr MwF INTERFACE [facility] Office [address], [place], [address], 03/31/2024 09:28:49 03/31/2003/31/2024 XR, hand, 3 or more view http:/ [email or web address] ?Encry pted=s hAaTro YD8dLq bEUv6g %2BXZw aYqtaq 0bqfl% 2Fg9IQ a4ajBk vP9nXo QUaueC m3YtLR FvZlgJ JJ8mAn HZtai3 6g5476 AC0Kqa H2DU6C vKiQtr MwF INTERFACE [facility] [address], [place], [address], 03/31/2024 09:28:51 Result Notes None recorded. Problems Name Problem SNOMED Code Status Onset Date Resolution Date Notes Provider Name and Address Organization Details Recorded Time Mass of hand 148309612 Active 024 Jhonny Elmore PA-C [address], [place], [address] , [facility] 03/31/2024 08:20:51 Problem Notes None recorded. Procedures Surgical History None recorded. Imaging Results Imaging Date Name Status LastModified by Organiz ation Details LastModified Time 03/31/2024 XR, hand, 3 or more view completed [facility] [address], [place], [address], 03/31/2024 09:28:49 03/31/2024 XR, hand, 3 or more view completed INTERFACE [facility] [address], [place], [address], 03/31/2024 09:28:51 Procedure Notes None recorded. Medical Equipment None Reported. Allergies Allergen ID Allergen Name Allergen Category Reaction Reaction Severity Criticality Documentation Date Start Date Code Code System Note Provider Name and Address Organization Details Recorded Time 776706 Product containin g penicilli n (product) medicatio n Not available Not available Not available 04/15/2024 77257 8001 SNOMED ALMITA robertson [facility] 4 09:36:00 930169 Invokamet medicatio n Not available Not available Not available 04/15/2024 62873 51 RxNorm ALMITA FLEMING [facility] 4 09:36:11 Medications Name Sig Start Date Stop Date Status Note LastModified by Organization Details LastModified Time levothyroxin e 175 mcg tablet TAKE 1 TABLET BY MOUTH EVERY DAY active Not Available Not Available No t Available metoprolol succinate ER 50 mg tablet,exten ded release 24 hr TAKE 1 TABLET BY MOUTH EVERY DAY active Not Available Not Available No t Available FreeStyle Test strips USE DIRECTED 4 TIMES A DAY active Not Available Not Available Not Available FreeStyle Lancets 28 gauge TEST 4 TIMES A DAY DIRECTED active Not Available Not Available Not Available thiamine HCl (vitamin B1) 100 mg tablet TAKE 1 TABLET BY MOUTH EVERY DAY active Not Available Not Available No t Available triamcinolon e acetonide 0.1 % topical cream APPLY TO ITCHY AREAS ON BACK AND ARMS TWICE A DAY NEEDED FOR FLARES active Not Available Not Available No t Available famotidine 20 mg tablet TAKE 1 TABLET BY MOUTH TWICE A DAY NEEDED FOR HEARTBURN TAKE AT LEAST ONE DOSE AT BEDTIME active Not Available Not Available No t Available levothyroxin e 150 mcg tablet TAKE 1 TABLET BY MOUTH EVERY DAY active Not Available Not Available No t Available omeprazole 20 mg capsule,tomás yed release TAKE 2 CAPSULES DAILY IN MORNING ON EMPTY STOMACH WAIT 30 MINUTES THEN EAT TO ACTIVATE MEDICATION active Not Available Not Available N ot Available allopurinol 300 mg tablet TAKE 1 TABLET BY MOUTH EVERY DAY active Not Available Not Available No t Available alclometason e 0.05 % topical ointment PLEASE SEE ATTACHED FOR DETAILED DIRECTIONS active Not Available Not Available N ot Available olmesartan 40 mg tablet TAKE 1 TABLET BY MOUTH EVERY DAY active Not Available Not Available No t Available Novolog FlexPen U-100 Insulin aspart 100 unit/mL (3 mL) subcutaneous INJECT 60 UNIT (0.6 ML) SUBCUTANEOU SLY 3 TIMES A DAY active Not Available Not Available No t Available rosuvastatin 40 mg tablet TAKE 1 TABLET BY MOUTH EVERY DAY active Not Available Not Available No t Available FreeStyle Mchenry Lite kit DIRECTED active Not Available Not Available Not Available cholecalcife rol (vitamin D3) 50 mcg (2,000 unit) capsule TAKE 1 SOFTGEL ORALLY DAILY active Not Available Not Available No t Available Xarelto 20 mg tablet TAKE 1 TABLET BY MOUTH EVERY DAY BEFORE DINNER active Not Available Not Available No t Available Jardiance 10 mg tablet TAKE 1 TABLET BY MOUTH EVERY DAY IN THE MORNING active Not Available Not Available No t Available Toujeo Max U-300 SoloStar 300 unit/mL (3 mL) subcutaneous insulin pen INJECT 80 UNIT (0.2667 ML) SUBCUTANEOU SLY 2 TIMES A DAY FOR 30 DAYS active Not Available Not Available No t Available BD Selena 2nd Gen Pen Needle 32 gauge x 5/32 USE DIRECTED UP TO 4 TIMES A DAY active Not Available Not Available No t Available Tiadylt ER 120 mg capsule,exte nded release TAKE 1 CAPSULE BY MOUTH EVERY DAY active Not Available Not Available No t Available Gemtesa 75 mg tablet TAKE 1 TABLET BY MOUTH EVERY DAY active Not Available Not Available No t Available Mounjaro 7.5 mg/0.5 mL subcutaneous pen injector INJECT 7.5 MG (0.5 ML) SUBCUTANEOU SLY EVERY WEEK FOR DIABETES FOR 28 DAYS active Not Available Not Available Not Available Mounjaro 5 mg/0.5 mL subcutaneous pen injector INJECT 0.5 ML (5 MG) SUBCUTANEOU SLY WEEKLY active Not Available Not Available N ot Available Mounjaro 10 mg/0.5 mL subcutaneous pen injector INJECT 10 MG (0.5 ML) SUBCUTANEOU SLY EVERY WEEK active Not Available Not Available No t Available Mounjaro 2.5 mg/0.5 mL subcutaneous pen injector INJECT 2.5 MG (0.5 ML) SUBCUTANEOU SLY EVERY WEEK active Not Available Not Available No t Available Ozempic 0.25 mg or 0.5 mg (2 mg/3 mL) subcutaneous pen injector INJECT 0.25 MG (0.368 ML) SUBCUTANEOU SLY EVERY WEEK FOR 4 WEEKS active Not Available Not Available No t Available Vitals Date Recorded Body height Body mass index (BMI) Body weight Provider Name and Address Organization Details Last Updated DateTime 03/31/2024 160.02 cm 38.4 kg/m2 61769.54 g ANAYELI LOUIS [facility] 03/31/2024 09:21:16 Date Recorded Body height Body mass index (BMI) Body weight Provider Name and Address Organization Details Last Updated DateTime 04/15/2024 160.02 cm 38.3 kg/m2 83997.95 g ALMITA FLEMNIG [facility] 04/15/2024 09:35:49 Social History None recorded. Functional Status None recorded. Mental Status None recorded. Family History Nothing Reported. Medical History No medical history recorded. Gynecological HistoryNo gynecological history recorded. Obstetrics History GPAL:G 0 P 0 0 0 0 Past Encounters Encounter ID Performer Location Encounter Start Date Encounter Closed Date Diagnosis/Indication Diagnosis SNOMED-CT Code Diagnosis ICD10 Code Diagnosis Note [id number] AVI Nguyen [address] [place] [address] 03/31/2024 09:13:14 04/22/2024 18:28:43 Mass of hand 576814297 R22.31 [id number] MD Christopher Marin [address] [place] [address] 04/15/2024 09:10:38 05/04/2024 08:54:35 Mass of hand 918244100 R22.31 Health Concerns Section Related Observation LastModified by Organization Detai ls LastModified Time None Recorded Concern Status LastModified by Organization Details LastModified Time None Recorded Advance Directives Directive None Recorded Payers Encounter Date Sequence Insurance Name Policy Number Policy Chow Covered Member ID Chow Member ID Guarantor Name 03/31/2024 1 [facility] - DOS ON OR AFTER 2022 - ONE CARE (MEDICARE REPLACEMENT/ADV ANTAGE - HMO) Maishacecy Gomez [id number] [facility] Jason 04/15/2024 1 [facility] - DOS ON OR AFTER 2022 - ONE CARE (MEDICARE REPLACEMENT/ADV ANTAGE - HMO) Maishacecy Gomez [id number] [facility] Notes Date Note Type Note Provider Name and Address Organization Details Recorded Time 03/31/2024 text/html I am seeing this patient under the supervision of Dr. Kearney who was available but who did not see the patient Chief Complaint: New evaluation for right hand pain HPI: 64-year-old nfxif-gxgk-hzhcbl nt female presents today with a 1 month history atraumatic onset of a mass located in the palm of her right hand that is mildly painful and slowly enlarging. She has not had any treatment of this yet. No numbness or tingling associated with this. No overlying skin changes noted. Jhonny [place] PA-C [address], [place], [address], [facility] [place] [facility] 03/31/2024 10:39:03 04/15/2024 text/html R hand STM HPI: 64-year-old wtamn-avjn-avpjza nt female presents today for follow up of 1 month history atraumatic onset of a mass located in the palm of her right hand that is mildly painful and slowly enlarging. She has not had any treatment of this yet. No numbness or tingling associated with this. No overlying skin changes noted. Francine Hoover MD [address] [place], [place] [address] [address], [place], [address], [facility] [place] [facility] 04/15/2024 11:11:37 OBGyn Episode No OBEpisode recorded.
--- OUTSIDE RECORDS SUMMARY | 2024-08-18 14:44 | XMS_ITS | Clinical Summary ---
Author Organization [address] [facility] Address [address] [place] [address] Phone Care Team Providers Care Ice Skating Instructor Name Role Phone Derrick Cain MD Primary Care Provider [phone] Allergies Active Allergy Reactions Criticality Noted Date [...] 1:15 PM EST Consult [facility] [place] [address] [place] [phone] Faisal Burch, DPM Tendonitis, Achilles, left (Primary [...] residual neoplasm OTHER SURGICAL HISTORY 03/26/2016 PROCEDURE: CT BIOPSY THYROID PERCUTANEOUS CORE NEEDLE; COMMENT: nodule; no report ESOPHAGOGASTRODUODENOSCOPY 10/09/2020 PROCEDURE: CT EGD TRANSORAL BIOPSY SINGLE/MULTIPLE; COMMENT: gastropathy, biopsy pending Medical History Medical History Date Comments Essential hypertension, benign 07/21/2012 D X:Essential hypertension, benign Dyslipidemia 07/21/2012 DX:Dyslipidemia Paroxysmal atrial fibrillati on (CMS/HCC) 07/21/2012 DX:Paroxysmal atrial fibrill ation (HCC) Breast cancer ([facility]/HCC) 04/29/2019 DX:Breas t cancer (HCC); COMMENT: Surgery x2 Depression 04/29/2019 DX:Depression Generalized anxiety disorder 04/29/2019 DX: Generalized anxiety disorder GERD (gastroesophageal reflu x disease) 04/29/2019 DX:GERD (gastroesophageal re flux disease) Gout 04/29/2019 DX:Gout Morbid obesity ([facility]/HCC) 04/29/2019 DX:Morb id obesity ([facility]) Multinodular goiter 04/29/2019 DX:Multinodu lar goiter Patient is Mormonism 04/29/2019 DX: Patient is [employer]ism 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 ([facility]/HCC) 04/29/2019 DX:Type 2 diabetes gregory litus with peripheral neuropathy ([facility]) Diabetic peripheral neuropat hy ([facility]/HCC) 05/04/2019 DX:Diabetic peripheral neuro zabrina (HCC) Swallowing impaired DX:Swallowin g impaired Atrial fibrillation, transie nt ([facility]/HCC) DX:Atrial fibrillation, young sient (HCC) Esophagitis DX:Esophagitis Family History Medical History Relation Name Comments Coronary artery disease Brother 1 Coronary artery disease Brother 2 Coronary artery disease Brother 3 Coronary artery disease Brother 4 Coronary artery disease Brother 5 ADD / ADHD Daughter Other: anxiety Daughter panic attacks Coronary artery disease Father s/p OK Diabetes Mother Uterine cancer Mother Depression Son [...] AM EDT Office Visit Orth[facility] [place] [address] [facility] [address] [place] [phone] Faisal Burch DPM [address] [facility] [address] [place] [address] 03/30/2025 9:50 AM EDT Office Visit Pulmon[facility]gy [facility] [address] [facility] [address] [place] [phone] Mery Ferris NP [address] [facility] [address] [place] [address] Health Maintenance Due Date Last Done Comments [...] * (ABNORMAL) Hemoglobin A1c (07/12/2019) Pathologist [facility] Hemoglobin A1C 10.2(A) <=6.5 % Blood Venous blood specimen / Unknown Historical Provider MD LAB BLOOD ORDERABLES Sharmaine l Result from Last 3 Months or Most Recently Relevant to Health Maintenance Insurance [facility] MEDICARE Member Subscriber Plan / Payer (Ef fective 2019-Present) Name:Maisha Gomez Relation to Subscriber:Self Name:Maisha Gomez Payer ID:[id number] Group ID:[id number] Type:Not on file Address: [address] [place] [address] Advance Directives Documents on File Type Date Recorded 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
== END 2024-08-18 12:06 | disposition home or self-care (01) ==
LOC: HO.ENCR 11:25
PROVIDERS: PCP Internal Medicine Sports Medicine; Visit Provider Nurse Practitioner Adult Health
DX: E11.65 Type 2 diabetes mellitus with hyperglycemia (principal); K76.0 Fatty (change of) liver, not elsewhere classified
CPT/HCPCS: 95251; 99214; G2211

== ENCOUNTER → 2024-08-18 11:24 | Outpatient (BNVA) | payer OTHER, SELFPAY | PROVIDERS: PCP Internal Medicine Sports Medicine; Visit Provider Nurse Practitioner Adult Health | DX: E11.65 Type 2 diabetes mellitus with hyperglycemia (principal); K76.0 Fatty (change of) liver, not elsewhere classified; Z79.4 Long term (current) use of insulin | CPT/HCPCS: 82947; 83036; 99212 ==

== ENCOUNTER 2024-09-01 09:02 | Outpatient (AMB) | payer OTHER, SELFPAY ==
[2024-09-01 09:07] VITALS: BP 126/76; BMI 39.3
--- NOTE | 2024-09-01 09:07 | A.OFFVIS_ITS ---
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 No complaints. Last Pap/HPV was negative in 02/25 Last Mammogram was BI-RADS 2 in 03/31 Last Colonoscopy was 12 years ago, the patient met with GI is in the process of scheduling next screening colonoscopy [facility] Medical History Fatty liver Uncontrolled type 2 diabetes mellitus with hyperglycemia Hx of breast cancer GERD (gastroesophageal reflux disease) Osteoporosis DJD (degenerative joint disease) Anxiety Depression Insulin dependent type 2 diabetes mellitus Morbid obesity Obesity Postoperative hypothyroidism Disorder of bone, unspecified Vitamin D deficiency Hypercalcemia Multinodular thyroid HLD (hyperlipidemia) HTN (hypertension) T2DM (type 2 diabetes mellitus) Essential hypertension terminal 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) use of insulin Type 2 diabetes mellitus without complications Obstructive sleep apnea (adult) (pediatric) PAF (paroxysmal atrial fibrillation) Surgical History Hx of partial thyroidectomy S/P lumpectomy, right breast Hx of colonoscopy Family History Father Cardiovascular disease Mother Uterine cancer Social History Household Members: None Housing: Apartment Are you a primary health and social care teacher to a significant other at home: No Do you presently have visiting nurse or other home services: Yes ([employer]) Alcohol intake: former Patient Tobacco Use Status: Never used Tobacco service: No Current occupational status: disabled Female Reproductive History Menstrual Age of Menarche: 15 Total pregnancies: 2 Full term: 2 Date of last pap smear: 03/01/20 (negative pap smear, negative hpv ) Date of Mammogram: 03/24/24 (bi rad 2) Date of last Bone Density Screenin06/17/22 Review of Systems Const All systems reviewed & are unremarkable except as noted in HPI and below Card Reports as per HPI Resp Reports as per HPI GI Reports as per HPI and Reports no additional complaints Reports as per HPI Physical Exam Vital Signs: Last Vital Signs BP 126/76 09/01/24 09:07 BMI result Body Mass Index 39.3 Const General: cooperative, healthy appearing and comfortable Chest Chest palpation & inspection: normal inspection of the chest and normal palpation of entire chest wall Breast/axilla inspection: normal inspection of the breasts and normal inspection of the axillae Breast/axilla palpation: normal palpation of the breasts, normal palpation of the axillae and no axillary lymphadenopathy Resp Effort & Inspection: normal respiratory effort Auscultation: clear to auscultation bilaterally Percussion: percussion normal Cardio Palpation: normal PMI Rate: regular rate Rhythm: regular rhythm Heart sounds: no murmurs and no rubs Peripheral pulses: Peripheral pulses 2+ throughout GI Inspection: Yes normal to inspection Palpation (GI): Soft to palpation, nontender, no guarding, not rigid and No hepatosplenomegaly present Percussion: Yes normal to percussion Auscultation: normal bowel sounds Rectal Exam - Female: deferred General: Yes bladder normal to palpation External Female Exam: No lesion Speculum Exam - Vagina: normal appearance of the vagina, normal palpation, normal vaginal discharge and not erythematous Speculum Exam - Cervix: normal appearance of the cervix and normal palpation Bimanual exam- vagina & uterus: normal bimanual exam, normal palpation, uterine size normal, bladder normal to palpation, consistency normal and normal palpation Bimanual Exam- Adnexa, other: normal adnexae, no masses and no tenderness Assessment & Plan Assessment & Plan (1) Well woman exam: Code(s): Z01.419 - Encounter for gynecological examination (general) (routine) without abnormal findings Category: Medical Plan: Co testing done. Counseled the patient about the recommended dietary allowance of 1200 mg of Calcium & 600 IU of vitamin D. Instructions given the patient to schedule next screening Mammogram in 04/01. The patient is in the process of scheduling her next screening colonoscopy . The patient was instructed to perform monthly self-breast exams and schedule annual exam in a year. All questions answered and the patient verbalized understanding. Coding Level of Care Code Est Pt Prev Care 40-64y(15604) Diagnoses Well woman exam Z01.419
--- OUTSIDE RECORDS SUMMARY | 2024-09-01 10:17 | XMS_ITS | Data Portability ---
Author Organization [facility], [facility] Address [address] [place] [address] Care Team Providers Care Planer Hand Name Role Phone MCCORMACKFABIO ALVA Primary Care Provider [phone] Assessment Encounter Date Assessment Date Assessment LastModified by Organization Details LastModified Time 03/31/2024 03/31/2024 64-year-old wcpay-ofox-nnyzvn nt female presents today with a 1 [...] satisfaction; surgery to be scheduled with my membership secretary. mike Not available 04/15/2024 11:11:25 Plan of Treatment Reminders Order Date Submit Date Provider Last Modified By Organization Details Last Modified Time Details Appointments None record ed. Lab None record ed. Referral None record ed. Procedures None record ed. Surgeries None record ed. Imaging XR, hand, 3 or more view - rm 114 3v hand 024 03/31/20 cstamand [facility], [address], [facility] [address], [place], [address], 18:28:43 Medication Orders None record ed. Patient [...] 125 Diabe dipti >125 Not Available [facility] ([facility][1] Lab) [address] [facility], [place], [address], 05/03/2024 06:05:24 03/31/20 24 03/31/2024 XR, hand, 3 or more view [email or web address]:/ [email or web address] ?Encry pted=s hAaTro YD8dLq bEUv6g %2BXZw aYqtaq 0bqfl% 2Fg9IQ a4ajBk vP9nXo QUaueC m3YtLR FvZlgJ JJ8mAn HZtai3 2s2831 AC0Kqa H2DU6C vKiQtr MwF INTERFACE [facility] Office [address], [place], [address], 03/31/2024 09:28:49 03/31/2003/31/2024 XR, hand, 3 or more view [email or web address]:/ [email or web address] ?Encry pted=s hAaTro YD8dLq bEUv6g %2BXZw aYqtaq 0bqfl% 2Fg9IQ a4ajBk vP9nXo QUaueC m3YtLR FvZlgJ JJ8mAn HZtai3 9e6689 AC0Kqa H2DU6C vKiQtr MwF INTERFACE [facility] [address], [place], [address], 03/31/2024 09:28:51 Result Notes None recorded. Problems Name Problem SNOMED Code Status Onset Date Resolution Date Notes Provider Name and Address Organization Details Recorded Time Mass of hand 270548346 Active 024 Jhonny Elmore PA-C [address], [place], [address] , [facility] 03/31/2024 08:20:51 Problem Notes None recorded. Procedures Surgical History None recorded. Imaging Results Imaging Date Name Status LastModified by Organiz ation Details LastModified Time 03/31/2024 XR, hand, 3 or more view completed INTERFACE [facility] [address], [place], [address], 03/31/2024 09:28:49 03/31/2024 XR, hand, 3 or more view completed INTERFACE [facility] [address], [place], [address], 03/31/2024 09:28:51 Procedure Notes None recorded. Medical Equipment None Reported. Allergies Allergen ID Allergen Name Allergen Category Reaction Reaction Severity Criticality Documentation Date Start Date Code Code System Note Provider Name and Address Organization Details Recorded Time 366592 Product containin g penicilli n (product) medicatio n Not available Not available Not available 04/15/2024 35097 8001 SNOMED ALMITA robertson [facility] 4 09:36:00 339146 Invokamet medicatio n Not available Not available Not available 04/15/2024 28887 51 RxNorm ALMITA FLEMING [facility] 4 09:36:11 Medications Name Sig Start [...] Available Not Available No t Available FreeStyle Andrews Lite kit DIRECTED active Not Available Not [...] Updated DateTime 03/31/2024 160.02 cm 38.4 kg/m2 16242.54 g ANAYELI LOUIS [facility] 03/31/2024 09:21:16 Date Recorded Body height Body mass index (BMI) Body weight Provider Name and Address Organization Details Last Updated DateTime 04/15/2024 160.02 cm 38.3 kg/m2 35718.95 g ALMITA FLEMING [facility] 04/15/2024 09:35:49 Social History None recorded. Functional Status None recorded. Mental Status None recorded. Family History Nothing Reported. Medical History No medical history recorded. Gynecological HistoryNo gynecological history recorded. Obstetrics History GPAL:G 0 P 0 0 0 0 Past Encounters Encounter ID Performer Location Encounter Start Date Encounter Closed Date Diagnosis/Indication Diagnosis SNOMED-CT Code Diagnosis ICD10 Code Diagnosis Note [id number] AVI Nguyen [address] [place] [address] 03/31/2024 09:13:14 04/22/2024 18:28:43 Mass of hand 375502935 R22.31 [id number] MD Christopher Marin [address] [place] [address] 04/15/2024 09:10:38 05/04/2024 08:54:35 Mass of hand 337542431 R22.31 Health Concerns Section Related Observation LastModified by Organization Detai ls LastModified Time None Recorded Concern Status LastModified by Organization Details LastModified Time None Recorded Advance Directives Directive None Recorded Payers Encounter Date Sequence Insurance Name Policy Number Policy Chow Covered Member ID Chow Member ID Guarantor Name 03/31/2024 1 [facility] - DOS ON OR AFTER 2022 - ONE CARE (MEDICARE REPLACEMENT/ADV ANTAGE - HMO) Maishacecy Gomez [id number] [facility] Jason 04/15/2024 1 [employer] [facility] [employer] - DOS ON OR AFTER 2022 - ONE CARE (MEDICARE REPLACEMENT/ADV ANTAGE - HMO) Maishacecy Gomez [id number] [facility] Notes Date Note Type Note Provider Name and Address Organization Details Recorded Time 03/31/2024 text/html I am seeing this patient under the supervision of Dr. Kearney who was available but who did not see the patient Chief Complaint: New evaluation for right hand pain HPI: 64-year-old nylqr-eren-llwyhu nt female presents today with a 1 month history atraumatic onset of a mass located in the palm of her right hand that is mildly painful and slowly enlarging. She has not had any treatment of this yet. No numbness or tingling associated with this. No overlying skin changes noted. Jhonny Elmore PA-C [address], [place], [address], [facility] 03/31/2024 10:39:03 04/15/2024 text/html R hand STM HPI: 64-year-old znpew-mshq-wzlgah nt female presents today for follow up of 1 month history atraumatic onset of a mass located in the palm of her right hand that is mildly painful and slowly enlarging. She has not had any treatment of this yet. No numbness or tingling associated with this. No overlying skin changes noted. Francine Hoover MD [address] [place], [place] [address] [address], [place], [address], [facility] 04/15/2024 11:11:37 OBGyn Episode No OBEpisode recorded.
--- OUTSIDE RECORDS SUMMARY | 2024-09-01 10:17 | XMS_ITS | Clinical Summary ---
Author Organization 175 [facility] Address [address] [place] [address] Phone Care Team Providers Care Radio Repair Teacher Name Role Phone Derrick Cain MD Primary [...] Active rosuvastatin (CRESTOR) 40 mg tablet 06/20/19 25 Active Mounjaro 12.5 mg/0.5 mL injection 06/20/19 25 Active FreeStyle Lancets 28 gauge lancets TEST 4 TIMES A DAY DIRECTED 06/15/19 Active Lantus Solostar U-100 Insulin 100 unit/mL (3 mL) injection pen INJECT 10 UNIT (0.1 ML) SUBCUTANEOUSLY EVERY EVENING 05/13/20 24 Active cholecalcifero l (VITAMIN D-3) 50 mcg (2,000 unit) capsule TAKE 1 SOFTGEL ORALLY DAILY 04/07/20 24 Active FreeStyle Test test strip 1 each 4 (four) times a day. 03/31/20 24 Active diclofenac (Voltaren Arthritis Pain) 1 % topical gel Apply 4 g topically 2 (two) times a day. 240 g 1 06/21/19 25 025 Active Problems Problem Noted Date Diagnosed Date Swallowing impaired 04/29/2024 Atrial fibrillation, transient 04/29/2024 Esophagitis 04/29/2024 Venous insufficiency of both lower extremities 0 10/20/2019 Obstructive sleep apnea 08/30/2019 Overview (04/29/2024): [facility] diagnostic polysomnogram done 08/11/2016; weight 234 pounds; BMI 42; sleep efficiency 67%; REM 14%; AHI 8 overall; 23 hypopneas; PLM's 2; oxygen saturation 93% average and lowest at 78%. [facility] treatment polysomnogram 09/02/2016; sleep efficiency 80%; [...] 1:15 PM EST Consult Orthopedic Surgery - [place] [address] [place] [phone] Faisal Burch, DPM Tendonitis, Achilles, left (Primary [...] Dyslipidemia 07/21/2012 DX:Dyslipidemia Paroxysmal atrial fibrillati on ([facility]/HCC) 07/21/2012 DX:Paroxysmal atrial fibrill ation (HCC) Breast cancer 04/29/2019 DX:Breast cancer (HCC); COMMENT: Surgery x2 Depression 04/29/2019 DX:Depression Generalized anxiety disorder 04/29/2019 DX: Generalized anxiety disorder GERD (gastroesophageal reflu x disease) 04/29/2019 DX:GERD (gastroesophageal re flux disease) Gout 04/29/2019 DX:Gout Morbid obesity ([facility]/HCC) 04/29/2019 DX:Morb id obesity ([facility]) Multinodular goiter 04/29/2019 DX:Multinodu lar goiter Patient is Amish 04/29/2019 DX: Patient is Amish 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 ([facility]/HCC) 04/29/2019 DX:Type 2 diabetes gregory litus with peripheral neuropathy ([facility]) Diabetic peripheral neuropat hy ([facility]/HCC) 05/04/2019 DX:Diabetic peripheral neuro zabrina (HCC) Swallowing impaired DX:Swallowin g impaired Atrial fibrillation, transie nt ([facility]/HCC) DX:Atrial fibrillation, young sient ([facility]) Esophagitis DX:Esophagitis Family History Medical History Relation Name Comments Coronary artery disease Brother 1 Coronary artery disease Brother 2 Coronary artery disease Brother 3 Coronary artery disease Brother 4 Coronary artery disease Brother 5 ADD / ADHD Daughter Other: anxiety Daughter panic attacks Coronary artery disease Father s/p [place] Diabetes Mother Uterine cancer Mother Depression Son [...] AM EDT Office Visit Orthopedic Surgery - [place] [address] [facility] [address] [place] [phone] Faisal Burch DPM [address] [facility] [address] [place] [address] 03/30/2025 9:50 AM EDT Office Visit Pulmonolgy - [place] [address] [facility] [address] [place] [phone] Mery Ferris NP [address] [facility] [address] [place] [address] Health Maintenance Due Date Last Done Comments [...] Ratio (07/12/2019) Urine Albumin Creatinine Ratio Abstracted [facility] Provider MD HEALTH MAINTENANCE Final Result * Annual BMP Blood Test (07/12/2019) Annual BMP Blood Test Abstracted [facility] Provider HEALTH MAINTENANCE Final Result * (ABNORMAL) Hemoglobin A1c (07/12/2019) Hemoglobin A1C 10.2(A) <=6.5 % Blood Venous blood specimen / Unknown [facility] Provider LAB BLOOD ORDERABLES Sharmaine l Result from Last 3 Months or Most Recently Relevant to Health Maintenance Insurance [employer] Member Subscriber Plan / Payer (Ef fective 2019-Present) Name:Maisha Gomez Relation to Subscriber:Self Name:Maisha Gomez Payer ID:[id number] Group ID:[id number] Type:Not on file Address: [address] [address] Advance Directives Documents on File Type Date Recorded Patient Pre Coder Expl anation Health Care Decision (hx) 10/09/2020 AD SILVESTRE DIRECTIVE Care Teams Radio Repair Teacher Relationship Specialty Start Date End Date Derrick Cain MD [address] [place] [address] JAMAL GAINES [address] PCP - General 10/21/18
== END 2024-09-01 09:44 | disposition home or self-care (01) ==
LOC: HO.HWS 09:02
PROVIDERS: PCP Internal Medicine Sports Medicine; Visit Provider Obstetrics & Gynecology
DX: Z01.419 Encounter for gynecological examination (general) (routine) without abnormal findings (principal)
CPT/HCPCS: 99396; 99459

== ENCOUNTER 2024-09-01 09:02 | Outpatient (REF) | payer OTHER, SELFPAY ==
[2024-09-07 12:36] LABS: HPV Genotype 16 Negative (Negative); HPV Genotype 18 Negative (Negative); HPV High Risk Positive (Negative)
== END 2024-09-01 09:03 | disposition home or self-care (01) ==
LOC: HO.LNP 09:02
PROVIDERS: PCP Internal Medicine Sports Medicine; Visit Provider Obstetrics & Gynecology
DX: Z01.419 Encounter for gynecological examination (general) (routine) without abnormal findings (principal); Z11.51 Encounter for screening for human papillomavirus (HPV)
CPT/HCPCS: 87626; 88175; 99396; 99459

== ENCOUNTER 2024-09-09 14:02 | Outpatient (REF) | payer OTHER, SELFPAY ==
--- OUTSIDE RECORDS SUMMARY | 2024-09-09 16:20 | XMS_ITS | Encounter Summary ---
Author Organization [facility] Address [address] [place] [address] Care Team Providers Care Paver Name Role Phone Monica Martini DO Unavailable Janis vaDerrick Nguyễn MD Primary Care Provider Unava ilable Partha, Pcp Primary Care Provider UnavailDerrick Ramirez MD Primary Care Provider Unava ilable Derrick Cain MD Primary Care Provider Unava ilable Encounter Details Date Type Department Care Team Description 01/30/2020 Bedspread Inspector Report Medical Records [address] [place] [address] [facility] Social History Tobacco Use Types Packs/Day Years Used Date Smoking Tobacco: Never Smokeless Tobacco: Never Alcohol Use Standard Drinks/Week Comments Yes 0 (1 standard drink = 0.6 oz pur e alcohol) in her 30s social, not now Sex Assigned at Date Recorded Female 09/24/2020 2:11 PM E DT Job Start Date Occupation Industry Not on file Not on file Not on file documented as of this encounter Plan of Treatment Not on file documented as of this encounter Visit Diagnoses Not on filedocumented in this encounter Care Teams Paver Relationship Specialty Start Date End Date Derrick Cain MD PCP - General Internal Medicine 10/21/18 10/03/20 [facility], Pcp PCP - General 10/04/20 08/24/22 Derrick Cain MD PCP - General Internal Medicine 08/25/22 03/13/24 Derrick Cain MD PCP - General Internal Medicine 03/14/24 Monica Martini DO 06/08/11 documented as of this encounter
--- OUTSIDE RECORDS SUMMARY | 2024-09-09 16:20 | XMS_ITS | Encounter Summary ---
Author Organization [facility] Address [address] [place] [address] Care Team Providers Care Hotel Attendant Name Role Phone Monica Martini Unavailable Janis vailable Derrick Cain MD Primary Care Provider Unava ilable [facility], Pcp Primary Care Provider Unavailkaley e Derrick Cain MD Primary Care Provider Unava ilable Derrick Cain MD Primary Care Provider Unava ilable Reason for Visit * Reason Onset Date Comments Faxed Refill 08/30/2020 Encounter Details Date Type Department Care Team Description 08/30/2020 Refill Medicine/Pediatrics - [address] [phone] Derrick Cain MD Faxed Refill Social History Tobacco Use Types Packs/Day Years Used Date Smoking Tobacco: Never Smokeless Tobacco: Never Alcohol Use Standard Drinks/Week Comments Yes 0 (1 standard drink = 0.6 oz pur e alcohol) in her 30s social, not now Sex Assigned at Date Recorded Female 09/24/2020 2:11 PM E DT Job Start Date Occupation Industry Not on file Not on file Not on file COVID-19 Exposure Response Date Recorded In the last month, have you been in contact with someone who was confirmed or suspected to have Coronavirus / COVID-19? No / Unsure 08/16/2020 12:57 PM EST documented as of this encounter Miscellaneous Notes * Telephone Encounter - Carline Padron M.A. - 08/30/2020 10:54 AM EDT Last seen 08/16/20, next appt 10/03/20. Lab Results Component Value Date NA 139 07/12/2019 K 4.4 07/12/2019 CO2 26 07/12/2019 CL 103 07/12/2019 BUN 27 07/12/2019 CREAT 1.46 07/12/2019 GLU 309 07/12/2019 CA 9.8 07/12/2019 GFR 37 07/12/2019 * Telephone Encounter - Geetha Martinez - 08/30/2020 9:38 AM EDT Patient would like script to be: E-PRESCRIBED/FAXED TO PHARMACY WHEN WAS THE PATIENT'S LAST APPOINTMENT IN ADULT MEDICINE? 08/16/20 WHEN WAS THE LAST TIME THE PATIENT SAW THEIR PCP? Same as above Does patient have an upcoming appointment? Yes 10/03/20 (THE MEDICATION REQUESTED IS ON THE MED LIST ABOVE) All of the medications requested were on the CURRENT MEDS list Did you check the Pharmacy information above?: YES Patient wants: 30 -day supply Is this a mail order prescription request ? NO If the refill is from a FAXED refill request what is the RX # listed on the fax? N/A Patients current insurance carrier is: Payor: [employer] [facility] / Plan: [facility] / Product Type: HMO Lap-iig-Ocwmlkn documented in this encounter Plan of Treatment Not on file documented as of this encounter Visit Diagnoses Diagnosis Essential hypertension, benign documented in this encounter Care Teams Hotel Attendant Relationship Specialty Start Date End Date Derrick Cain MD PCP - General Internal Medicine 10/21/18 10/03/20 [facility], Pcp PCP - General 10/04/20 08/24/22 Derrick Cain MD PCP - General Internal Medicine 08/25/22 03/13/24 Derrick Cain MD PCP - General Internal Medicine 03/14/24 Monica Martini DO 06/08/11 documented as of this encounter
--- OUTSIDE RECORDS SUMMARY | 2024-09-09 16:20 | XMS_ITS | Clinical Summary ---
Author Organization 175 [facility] Address [address] [place] [address] Phone Care Team Providers Care Nurse Intern Name Role Phone Derrick Cain MD Primary [...] 10:00 AM EDT Office Visit Orthopedic Surgery [facility] [address] [phone] Faisal Burch, DPM Tendonitis, Achilles, left (Primary Dx); Follow-up exam; Dermatophytosis of nail; Pain in toe of left foot; Pain in toe of right foot; Corns and callosities; Type II diabetes mellitus with peripheral circulatory disorder (CMS/HCC); Diabetic mononeuropathy simplex (CMS/HCC); Metatarsalgia of both feet 06/21/2024 1:15 PM EST Consult Orthopedic Surgery [facility] [address] [address] Faisal Burch, DPM Tendonitis, Achilles, left (Primary [...] residual neoplasm OTHER SURGICAL HISTORY 03/26/2016 PROCEDURE: [place] BIOPSY THYROID PERCUTANEOUS CORE NEEDLE; COMMENT: nodule; no report ESOPHAGOGASTRODUODENOSCOPY 10/09/2020 PROCEDURE: MO EGD TRANSORAL BIOPSY SINGLE/MULTIPLE; COMMENT: gastropathy, biopsy [...] goiter 04/29/2019 DX:Multinodu lar goiter Patient is Taoism 04/29/2019 DX: Patient is Taoism 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 ([facility]) 04/29/2019 DX:Type 2 diabetes gregory litus with peripheral neuropathy ([facility]) Diabetic peripheral neuropat hy ([facility]) 05/04/2019 DX:Diabetic peripheral neuro zabrina ([facility]) Swallowing impaired DX:Swallowin g impaired Atrial fibrillation, transie nt ([facility]) DX:Atrial fibrillation, young sient ([facility]) Esophagitis DX:Esophagitis Family History Medical History Relation Name Comments Coronary artery disease Brother 1 Coronary artery disease Brother 2 Coronary artery disease Brother 3 Coronary artery disease Brother 4 Coronary artery disease Brother 5 ADD / ADHD Daughter Other: anxiety Daughter panic attacks Coronary artery disease Father s/p [place] Diabetes Mother Uterine cancer Mother Depression Son [...] 10:15 AM EDT Office Visit Orthopedic Surgery [address] [place] [phone] Faisal Burch, DPM 175 [facility] [address] [place] [address] 03/30/2025 9:50 AM EDT Office Visit Pulmonolgy - [place] 175 [facility] [address] [place] [address] Mery Ferris, HÉCTOR 175 [facility] [address] [place] [address] Health Maintenance Due Date Last Done Comments [...] Result * (ABNORMAL) Hemoglobin A1c (07/12/2019) Pathologist [facility] Hemoglobin A1C 10.2(A) <=6.5 % Blood Venous blood specimen / Unknown Historical Provider MD LAB BLOOD ORDERABLES Sharmaine l Result from Last 3 Months or Most Recently Relevant to Health Maintenance Insurance [facility] MEDICARE Member Subscriber Plan / Payer (Ef fective 2019-Present) Name:Maisha Gomez Relation to Subscriber:Self Name:Maisha Gomez Payer ID:[id number] Group ID:[id number] Type:Not on file Address: [place] [address] [address] [phone] Advance Directives Documents on File Type Date Recorded Patient Director Of Analytics Expl anation Health Care Decision (hx) 10/09/2020 HONG SILVESTRE DIRECTIVE Care Teams Nurse Intern Relationship Specialty Start Date End Date Derrick Cain MD [address] [place] [address] [place] [address] PCP - General 10/21/18
--- OUTSIDE RECORDS SUMMARY | 2024-09-09 16:20 | XMS_ITS | Encounter Summary ---
Author Organization [facility] Address [address] [place] [address] Care Team Providers Care Human Service Coordinator Name Role Phone Monica Martini Unavailable Janis vaDerrick Nguyễn MD Primary Care Provider Unava ilable [facility], Pcp Primary Care Provider UnavailDerrick Ramirez MD Primary Care Provider Unava ilable Derrick Cain MD Primary Care Provider Unava ilable Reason for Visit * Reason Onset Date Comments Anticoagulation 09/04/2020 EGD 10/09/2020 Dr Conner @ [facility] Encounter Details Date Type Department Care Team Description 09/04/2020 Telephone Gastroenterology - [place] 175 [facility] [address] [place] [address] Nicole Conner MD Anticoagulation (EGD 10/09/2020 Dr Conner @ [facility]) Social History Tobacco Use Types Packs/Day Years [...] have Coronavirus / COVID-19? No / Unsure 09/03/2020 9:17 AM EDT documented as of this encounter Miscellaneous Notes * Telephone Encounter - Pauline Blair L.P.N. - 09/04/2020 2:05 PM EDT 09/04/2020 Called patient went over her Xarelto instructions with her & letter mailed./dg * Telephone Encounter - Derrick Cain MD - 09/04/2020 1:55 PM EDT Ok to stop xarelto for 2 days prior to procedure (I am not aware of recent CVA or AL in past 3 months), should restart med as soon as able to afterwards per discretion of provider performing procedure. Thanks! * Telephone Encounter - Pauline Blair L.P.N. - 09/04/2020 8:43 AM EDT Patient is scheduled for EGD Thursday10/09/[address] Conner @ [facility]. Patient is on Xarelto. Dr Derrick Cain, Please determine if this patient can hold her Xarelto for 2 days prior to her procedure. Please advise. Thanks./dg documented in this encounter Plan of Treatment Not on file documented as of this encounter Visit Diagnoses Not on filedocumented in this encounter Care Teams Human Service Coordinator Relationship Specialty Start Date End Date Derrick Cain MD PCP - General Internal Medicine 10/21/18 10/03/20 [facility], Pcp PCP - General 10/04/20 08/24/22 Derrick Cain MD PCP - General Internal Medicine 08/25/22 03/13/24 Derrick Cain MD PCP - General Internal Medicine 03/14/24 Monica Martini DO 06/08/11 documented as of this encounter
--- OUTSIDE RECORDS SUMMARY | 2024-09-09 16:21 | XMS_ITS | Encounter Summary ---
Author Organization [facility] Address [address] [place] [address] Care Team Providers Care Specialties Operator Name Role Phone Monica Martini DO Unavailable Janis vaDerrick Nguyễn MD Primary Care Provider Unava ilable Partha, Pcp Primary Care Provider UnavailDerrick Ramirez MD Primary Care Provider Unava ilable Derrick Cain MD Primary Care Provider Unava ilable Encounter Details Date Type Department Care Team Description 07/21/2019 Restoration Technician Report Medical Records [address] [place] [address] [facility] Social History Tobacco Use Types Packs/Day Years [...] on filedocumented in this encounter Care Teams Specialties Operator Relationship Specialty Start Date End Date Derrick Cain MD PCP - General Internal Medicine 10/21/18 10/03/20 [facility], Pcp PCP - General 10/04/20 08/24/22 Derrick Cain MD PCP - General Internal Medicine 08/25/22 03/13/24 Derrick Cain MD PCP - General Internal Medicine 03/14/24 Monica Martini DO 06/08/11 documented as of this encounter
--- OUTSIDE RECORDS SUMMARY | 2024-09-09 16:21 | XMS_ITS | Encounter Summary ---
Author Organization [facility] Address [address] [place] [address] Care Team Providers Care Licensed Clinical Social Worker Name Role Phone Monica Martini DO Unavailable Janis vaDerrick Nguyễn MD Primary Care Provider Unava ilable Partha, Pcp Primary Care Provider UnavailDerrick Ramirez MD Primary Care Provider Unava ilable Derrick Cain MD Primary Care Provider Unava ilable Encounter Details Date Type Department Care Team Description 12/08/2019 Director Of Procurement Report Medical Records [address] [place] [address] [facility] Social History Tobacco Use Types Packs/Day [...] on filedocumented in this encounter Care Teams Licensed Clinical Social Worker Relationship Specialty Start Date End Date Derrick Cain MD PCP - General Internal Medicine 10/21/18 10/03/20 [facility], Pcp PCP - General 10/04/20 08/24/22 Derrick Cain MD PCP - General Internal Medicine 08/25/22 03/13/24 Derrick Cain MD PCP - General Internal Medicine 03/14/24 Monica Martini DO 06/08/11 documented as of this encounter
--- OUTSIDE RECORDS SUMMARY | 2024-09-09 16:21 | XMS_ITS | Encounter Summary ---
Author Organization [facility] Address [address] [place] [address] Care Team Providers Care Correctional Agency Director Name Role Phone Monica Martini Unavailable Janis vailable Derrick Cain MD Primary Care Provider Unava ilable [facility], [facility], Pcp Primary Care Provider UnavailDerrick Ramirez MD Primary Care Provider Unava ilable Derrick Cain MD Primary Care Provider Unava ilable Encounter Details Date Type Department Care Team Description 04/18/2019 Release of Information Medical Records [address] [place] [address] Abstract, Provider Social History Tobacco Use Types Packs/Day Years Used Date Smoking Tobacco: Never Assessed Sex Assigned at Date Recorded Female 09/24/2020 2:11 PM E DT Job Start Date Occupation Industry Not on file Not on file Not on file documented as of this encounter Nursing Notes * Rosita Skaggs - 04/18/2019 9:59 AM EST AUTHORIZATION TO OBTAIN RECORDS FAXED TO [facility]. documented in this encounter Plan of Treatment Not on file documented as of this encounter Visit Diagnoses Not on filedocumented in this encounter Care Teams Correctional Agency Director Relationship Specialty Start Date End Date Derrick Cain MD PCP - General Internal Medicine 10/21/18 10/03/20 [facility], [facility], Pcp PCP - General 10/04/20 08/24/22 Derrick Cain MD PCP - General Internal Medicine 08/25/22 03/13/24 Derrick Cain MD PCP - General Internal Medicine 03/14/24 Monica Martini DO 06/08/11 documented as of this encounter
--- OUTSIDE RECORDS SUMMARY | 2024-09-09 16:21 | XMS_ITS | Encounter Summary ---
Author Organization [facility] Address [address] [place] [address] Care Team Providers Care Wirer Maintenance Name Role Phone Derrick Cain MD Primary Care Provider [phone] Reason for Visit * Reason Comments Follow-up Tineau unguium DM Foot Care Encounter Details Date Type Department Care Team ([facility] st Contact Info) Description 09/06/2024 10:00 AM EDT Office Visit Orthopedic Surgery - [place] [address] [phone] Faisal Burch DPM [address] [place] [address] Tendonitis, Achilles, left (Primary Dx); Follow-up exam; [...] care of 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 who 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 passed does not that her [...] AM EDT Office Visit Orthopedic Surgery - [place] [address] [facility] [address] [place] [phone] Faisal Burch DPM 175 [facility] [address] [place] [address] 03/30/2025 9:50 AM EDT Office Visit Pulmonolgy - [place] [address] [facility] [address] [place] [address] Mery Ferris NP 175 [facility] [address] [place] [address] documented as of this encounter Visit Diagnoses [...] feet documented in this encounter Care Teams Wirer Maintenance Relationship Specialty Start Date End Date Derrick Cain MD [address] [place] [address] PCP - General 10/21/18 documented as of this encounter
--- OUTSIDE RECORDS SUMMARY | 2024-09-09 16:21 | XMS_ITS | Encounter Summary ---
Author Organization [facility] Address [address] [place] [address] Care Team Providers Care Director Mobile Media Solutions Name Role Phone Derrick Cain MD Primary Care Provider Unava ilable Derrick Cain MD Primary Care Provider Unava ilable Reason for Visit * Reason Onset Date Comments DME Request 10/16/2022 Encounter Details Date Type Department Care Team Description 10/16/2022 Telephone Pulmonology - [place] 175 [facility] [address] [place] [address] Yuriy Tsang MD DME Request Social History Tobacco Use Types Packs/Day Years [...] on file documented as of this encounter Miscellaneous Notes * Telephone Encounter - Sera Kunz - 11/05/2022 9:20 AM EDT I tried calling patient to let her know an order for sleep study was placed no answer left voicemail * Telephone Encounter - Jaqueline Valencia - 10/16/2022 10:59 AM EDT Received a fax from [facility]: We have an order for a replacement Cpap through [facility]. We received a message from Tamar from [facility] stating that this patient does not meet criteria for a replacement since the recent notes sent over state the patient hasn't been using PAP. In order to try for prior auth for a new CPAP trial, the patient will need a new in lab baseline sleep study to qualify. We will need a new CPAP Rx dated after the new in lab baseline sleep study. I made a request to [facility] to withdraw the auth request for now. Please let me know when the new study is scheduoed for so I know when to follow up. documented in this encounter Plan of Treatment Scheduled Orders Name Type Priority Associated Diagnoses Orde r Schedule SLEEP STUDY-FULL NEURO 16 CHANNEL SLEEP STUDY Routine Obstructive sleep apnea mild AHI 8 Expected: 10/31/2022, Expires: 11/01/2023 documented as of this encounter Visit Diagnoses Diagnosis Obstructive sleep apnea mild AHI 8- Primary Obstructive sleep apnea (adult) (pediatric) documented in this encounter Care Teams Director Mobile Media Solutions Relationship Specialty Start Date End Date Derrick Cain MD PCP - General Internal Medicine 08/25/22 03/13/24 Derrick Cain MD PCP - General Internal Medicine 03/14/24 documented as of this encounter
--- OUTSIDE RECORDS SUMMARY | 2024-09-09 16:21 | XMS_ITS | Encounter Summary ---
Author Organization [facility] Address [address] [place] [address] Care Team Providers Care Senior Environmental Technician Name Role Phone Nasir Mireles Primary Care Provider Unavaila Monica Villela DO Unavailable Janis Derrick Augustin MD Primary Care Provider Unava ilsheila Chavis, Pcp Primary Care Provider Derrick More MD Primary Care Provider Unava ilable Derrick Cain MD Primary Care Provider Unava ilable Encounter Details Date Type Department Care Team Description 09/17/2017 [facility] Medical Records [address] [place] [address] Abstract, Provider Social History Tobacco Use Types [...] on filedocumented in this encounter Care Teams Senior Environmental Technician Relationship Specialty Start Date End Date Nasir Mireles PCP - General Internal Medicine 06/08/11 10/20/18 Derrick Cain MD PCP - General Internal Medicine 10/21/18 10/03/20 [facility], Pcp PCP - General 10/04/20 08/24/22 Derrick Cain MD PCP - General Internal Medicine 08/25/22 03/13/24 Derrick Cain MD PCP - General Internal Medicine 03/14/24 Monica Martini DO 06/08/11 documented as of this encounter
--- OUTSIDE RECORDS SUMMARY | 2024-09-09 16:21 | XMS_ITS | Encounter Summary ---
Author Organization [facility] Address [address] [place] [address] Care Team Providers Care Flare Stitcher Name Role Phone Vini Monica GALLEGOS Unavailable Janis vajayble Derrick Cain MD Primary Care Provider Unava ilable [facility], Pcp Primary Care Provider UnavailDerrick Ramirez MD Primary Care Provider Unava ilable Derrick Cain MD Primary Care Provider Unava ilable Encounter Details Date Type Department Care Team Description 05/11/2019 Refill Medicine/Pediatrics - [address] [phone] Derrick Cain MD Social History Tobacco Use Types Packs/Day Years [...] on filedocumented in this encounter Care Teams Flare Stitcher Relationship Specialty Start Date End Date Derrick Cain MD PCP - General Internal Medicine 10/21/18 10/03/20 [facility], Pcp PCP - General 10/04/20 08/24/22 Derrick Cain MD PCP - General Internal Medicine 08/25/22 03/13/24 Derrick Cain MD PCP - General Internal Medicine 03/14/24 Monica Martini DO 06/08/11 documented as of this encounter
--- OUTSIDE RECORDS SUMMARY | 2024-09-09 16:21 | XMS_ITS | Encounter Summary ---
Author Organization [facility] Address [address] [place] [address] Care Team Providers Care Distribution Technician Name Role Phone Derrick Cain MD Primary Care Provider Unava ilable Derrick Cain MD Primary Care Provider Unava ilable Encounter Details Date Type Department Care Team Description 07/22/2023 Orders Only Pulmonology - [place] 175 [facility] [address] [place] [address] Yuriy Tsang MD Obstructive sleep apnea mild AHI 8 Social History Tobacco Use Types Packs/Day Years [...] on file documented as of this encounter Procedures Procedure Name Priority Date/Time Associated Diagnosis Comments SLEEP STUDY-FULL NEURO 16 CHANNEL Routine 07/05/2023 Obstructive sleep apnea mild AHI 8 documented in this encounter Results * SLEEP STUDY-FULL NEURO 16 CHANNEL (07/05/2023) Yuriy Tsang MD PULMONOLOGY documented in this encounter Visit Diagnoses Diagnosis Obstructive sleep apnea mild AHI 8 Obstructive sleep apnea (adult) (pediatric) documented in this encounter Care Teams Distribution Technician Relationship Specialty Start Date End Date Derrick Cain MD PCP - General Internal Medicine 08/25/22 03/13/24 Derrick Cain MD PCP - General Internal Medicine 03/14/24 documented as of this encounter
--- OUTSIDE RECORDS SUMMARY | 2024-09-09 16:21 | XMS_ITS | Encounter Summary ---
Author Organization [facility] Address [address] [place] [address] Care Team Providers Care Subsystems Engineer Name Role Phone Nasir Mireles Primary Care Provider Unavaila Monica Villela DO Unavailable Janis Derrick Augustin MD Primary Care Provider Unava ilsheila Chavis, Pcp Primary Care Provider Derrick More MD Primary Care Provider Unava ilable Derrick Cain MD Primary Care Provider Unava ilable Encounter Details Date Type Department Care Team Description 07/02/2017 [facility] Medical Records [address] [place] [address] Abstract, Provider Social History Tobacco Use Types [...] on filedocumented in this encounter Care Teams Subsystems Engineer Relationship Specialty Start Date End Date Nasir Mireles PCP - General Internal Medicine 06/08/11 10/20/18 Derrick Cain MD PCP - General Internal Medicine 10/21/18 10/03/20 [facility], Pcp PCP - General 10/04/20 08/24/22 Derrick Cain MD PCP - General Internal Medicine 08/25/22 03/13/24 Derrick Cain MD PCP - General Internal Medicine 03/14/24 Monica Martini DO 06/08/11 documented as of this encounter
--- OUTSIDE RECORDS SUMMARY | 2024-09-09 16:21 | XMS_ITS | Encounter Summary ---
Author Organization [facility] [employer] [facility] Address [address] [place] [address] Care Team Providers Care Supervisor Mold Shop Name Role Phone Partha, Pcp Primary Care Provider Derrick More MD Primary Care Provider UnaDerrick Calix MD Primary Care Provider Unashi toussaint Encounter Details Date Type Department Care Team Description 10/12/2020 Orders Only Medical Records [address] [place] [address] Nicole Conner MD Social History Tobacco Use Types Packs/Day [...] have Coronavirus / COVID-19? No / Unsure 10/03/2020 9:47 AM EDT documented as of this encounter Plan of Treatment Not on file documented as of this encounter Procedures Procedure Name Priority Date/Time Associated Diagnosis Comments OUTSIDE PATHOLOGY Routine 10/09/2020 documented in this encounter Results * OUTSIDE PATHOLOGY (10/09/2020) Nicole Conner MD OUTSIDE LAB documented in this encounter Visit Diagnoses Not on filedocumented in this encounter Care Teams Supervisor Mold Shop Relationship Specialty Start Date End Date Community, Pcp PCP - General 10/04/20 08/24/22 Derrick Cain MD PCP - General Internal Medicine 08/25/22 03/13/24 Derrick Cain MD PCP - General Internal Medicine 03/14/24 documented as of this encounter
--- OUTSIDE RECORDS SUMMARY | 2024-09-09 16:21 | XMS_ITS | Encounter Summary ---
Author Organization [facility] Address [address] [place] [address] Care Team Providers Care Utilities Operator Name Role Phone Derrick Cain MD Primary Care Provider Unava ilable Derrick Cain MD Primary Care Provider Unava ilable Reason for Visit * Reason Onset Date Comments Follow-up 07/15/2023 Encounter Details Date Type Department Care Team Description 07/15/2023 Telephone Pulmonology - [place] 175 [facility] [address] [place] [phone] Yuriy Tsang MD Follow-up Social History Tobacco Use Types Packs/Day Years [...] encounter Miscellaneous Notes * Telephone Encounter - Jacqueline Zaldivar - 07/17/2023 9:21 AM EST Patient got sleep study done last Thursday and was rescheduled. Confirmed her correct phone number and updated patients chart. * Telephone Encounter - Jane Bahena M.A. - 07/16/2023 2:08 PM EST Called pt, phone number on chart is incorrect. LVM for alternate contact to call back as we have been attempting to get in touch with pt to reschedule appt due to sleep study not being done * Telephone Encounter - Sera Kunz CMA - 07/15/2023 4:48 PM EST Left vm to reschedule, pt havent done sleep study documented in this encounter Plan of Treatment Not on file documented as of this encounter Visit Diagnoses Not on filedocumented in this encounter Care Teams Utilities Operator Relationship Specialty Start Date End Date Derrick Cain MD PCP - General Internal Medicine 08/25/22 03/13/24 Derrick Cain MD PCP - General Internal Medicine 03/14/24 documented as of this encounter
--- OUTSIDE RECORDS SUMMARY | 2024-09-09 16:21 | XMS_ITS | Encounter Summary ---
Author Organization [facility] Address [address] [place] [address] Care Team Providers Care Dub Room Engineer Name Role Phone Derrick Cain MD Primary Care Provider Unava ilable Derrick Cain MD Primary Care Provider Unava ilable Encounter Details Date Type Department Care Team Description 03/11/2023 Orders Only Medical Records [address] [place] [address] Abstract, Provider Social History Tobacco Use Types [...] Name Priority Date/Time Associated Diagnosis Comments OUTSIDE MAMMO Routine 02/27/2023 documented in this encounter Results * OUTSIDE MAMMO (02/27/2023) Provider Abstract RADIOLOGY documented in this encounter Visit Diagnoses Not on filedocumented in this encounter Care Teams Dub Room Engineer Relationship Specialty Start Date End Date Derrick Cain MD PCP - General Internal Medicine 08/25/22 03/13/24 Derrick Cain MD PCP - General Internal Medicine 03/14/24 documented as of this encounter
--- OUTSIDE RECORDS SUMMARY | 2024-09-09 16:21 | XMS_ITS | Encounter Summary ---
Author Organization [facility] Address [address] [place] [address] Care Team Providers Care Paint Roller Covers Supervisor Name Role Phone Derrick Cain MD Primary Care Provider Unava ilable Derrick Cain MD Primary Care Provider Unava ilable Reason for Visit * Reason Comments E-prescribe Rx Request Encounter Details Date Type Department Care Team Description 09/10/2022 Refill Gastroenterology - [place] 175 [facility] [address] [place] [address] Prasanth Borges PA-C 175 [facility] [address] [place] [address] E-prescribe Rx Request Social History Tobacco Use Types Packs/Day [...] Exposure Response Date Recorded In the last 10 days, have yo u been in contact with someone who was confirmed or suspected to have Coronavirus/COVID-19? No / Unsure 08/25/2022 10:51 AM EDT documented as of this encounter Plan of Treatment Not on file documented as of this encounter Visit Diagnoses Not on filedocumented in this encounter Care Teams Paint Roller Covers Supervisor Relationship Specialty Start Date End Date Derrick Cain MD PCP - General Internal Medicine 08/25/22 03/13/24 Derrick Cain MD PCP - General Internal Medicine 03/14/24 documented as of this encounter
--- OUTSIDE RECORDS SUMMARY | 2024-09-09 16:21 | XMS_ITS | Encounter Summary ---
Author Organization [facility] Address [address] [place] [address] Care Team Providers Care Child Development Professor Name Role Phone Derrick Cain MD Primary Care Provider Unava ilable Derrick Cain MD Primary Care Provider Unava ilable Reason for Visit * Reason Comments E-prescribe Rx Request Encounter Details Date Type Department Care Team Description 08/27/2023 Refill Gastroenterology - [place] [address] [facility] [address] [place] [address] Prasanth Borges PA-C [address] [facility] [address] [place] [address] E-prescribe Rx Request Social History Tobacco Use [...] encounter Miscellaneous Notes * Telephone Encounter - Marissa Velasquez M.A. - 08/27/2023 9:17 AM EDT [place] 10/24/20 No GI f/up documented in this encounter Plan of Treatment Not on file documented as of this encounter Visit Diagnoses Not on filedocumented in this encounter Care Teams Child Development Professor Relationship Specialty Start Date End Date Derrick aCin MD PCP - General Internal Medicine 08/25/22 03/13/24 Derrick Cain MD PCP - General Internal Medicine 03/14/24 documented as of this encounter
--- OUTSIDE RECORDS SUMMARY | 2024-09-09 16:21 | XMS_ITS | Encounter Summary ---
Author Organization [facility] Address [address] [place] [address] Care Team Providers Care International Account Representative Name Role Phone Derrick Cain MD Primary Care Provider Unava ilable Derrick Cain MD Primary Care Provider Unava ilable Encounter Details Date Type Department Care Team Description 05/04/2023 Orders Only Medical Records [address] [place] [address] Yuriy Tsang MD Social History Tobacco Use Types Packs/Day [...] Recorded In the last 10 days, have radhika resendez been in contact with someone who was confirmed or suspected to have Coronavirus/COVID-19? No / Unsure 04/16/2023 9:35 AM EST documented as of this encounter Plan of Treatment Not on file documented as of this encounter Procedures Procedure Name Priority Date/Time Associated Diagnosis Comments OUTSIDE SLEEP STUDY Routine 12/16/2022 documented in this encounter Results * OUTSIDE SLEEP STUDY (12/16/2022) Yuriy Tsang MD PULMONOLOGY documented in this encounter Visit Diagnoses Not on filedocumented in this encounter Care Teams International Account Representative Relationship Specialty Start Date End Date Derrick Cain MD PCP - General Internal Medicine 08/25/22 03/13/24 Derrick Cain MD PCP - General Internal Medicine 03/14/24 documented as of this encounter
--- OUTSIDE RECORDS SUMMARY | 2024-09-09 16:21 | XMS_ITS | Encounter Summary ---
Author Organization [facility] Address [address] [place] [address] Care Team Providers Care Sports Photographer Name Role Phone Derrick Cain MD Primary Care Provider Unava ilable Derrick Cain MD Primary Care Provider Unava ilable Reason for Visit * Reason Onset Date Comments DME Request 08/27/2022 Encounter Details Date Type Department Care Team Description 08/27/2022 Telephone Pulmonology - [place] 175 [facility] [address] [place] [address] Yuriy Tsang MD DME Request Social History [...] In the last 10 days, have radhika u been in contact with someone who was confirmed or suspected to have Coronavirus/COVID-19? No / Unsure 08/25/2022 10:51 AM EDT documented as of this encounter Miscellaneous Notes * Telephone Encounter - Sera Kunz - 08/27/2022 9:42 AM EDT Supply order sent to [facility], confirmation received documented in this encounter Plan of Treatment Not on file documented as of this encounter Visit Diagnoses Not on filedocumented in this encounter Care Teams Sports Photographer Relationship Specialty Start Date End Date Derrick Cain MD PCP - General Internal Medicine 08/25/22 03/13/24 Derrick Cain MD PCP - General Internal Medicine 03/14/24 documented as of this encounter
--- OUTSIDE RECORDS SUMMARY | 2024-09-09 16:21 | XMS_ITS | Encounter Summary ---
Author Organization [facility] Address [address] [place] [address] Care Team Providers Care Radiographic Technologist Name Role Phone Monica Martini DO Unavailable Janis vaDerrick Nguyễn MD Primary Care Provider Unava ilable Pratha, Pcp Primary Care Provider UnavailDerrick Ramirez MD Primary Care Provider Unava ilable Derrick Cain MD Primary Care Provider Unava ilable Encounter Details Date Type Department Care Team Description 06/22/2019 Head Of Housekeeping Report Medical Records [address] [place] [address] [facility] Social History Tobacco Use Types Packs/Day Years [...] on filedocumented in this encounter Care Teams Radiographic Technologist Relationship Specialty Start Date End Date Derrick Cain MD PCP - General Internal Medicine 10/21/18 10/03/20 [facility], Pcp PCP - General 10/04/20 08/24/22 Derrick Cain MD PCP - General Internal Medicine 08/25/22 03/13/24 Derrick Cain MD PCP - General Internal Medicine 03/14/24 Monica Martini DO 06/08/11 documented as of this encounter
== END 2024-09-09 14:03 | disposition home or self-care (01) ==
LOC: HO.LNP 14:02
PROVIDERS: PCP Internal Medicine Sports Medicine; Visit Provider Obstetrics & Gynecology
DX: R87.610 Atypical squamous cells of undetermined significance on cytologic smear of cervix (ASC-US) (principal); R87.810 Cervical high risk human papillomavirus (HPV) DNA test positive
CPT/HCPCS: 57454; 88305; 88341; 88342

== ENCOUNTER 2024-09-09 14:02 | Outpatient (AMB) | payer OTHER, SELFPAY ==
--- NOTE | 2024-09-09 14:07 | MHC.OFFVIS ---
Vital Signs 09/09/24 14:26 Height 5 ft 3 in Weight 222 lb BMI 39.3 Intake Visit Reasons: Colposcopy Tool And Gauge Inspector Required: No Information Interpreted: non-clinical & clinical Automatic Outsole Cutter: Automatic Outsole Cutter Present (Niki Barraza YANDEL) Accompanied by: Self / Same As Patient Allergies Penicillins [PENICILLINS] Allergy (Unknown, Verified 09/09/24 14:36) RASH canagliflozin [From Invokamet] Adverse Reaction (Verified 09/09/24 14:36) Yeast infection metformin [From Invokamet] Adverse Reaction (Verified 09/09/24 14:36) Yeast infection Post menopausal: Yes HPI Comments Details: Presenting for abnormal Pap smear showing ascus/HPV high-risk positive, HPV 16/18 negative [facility] Medical History Fatty liver Uncontrolled type 2 diabetes mellitus with hyperglycemia Hx of breast cancer GERD (gastroesophageal reflux disease) Osteoporosis DJD (degenerative joint disease) Anxiety Depression Insulin dependent type 2 diabetes mellitus Morbid obesity Obesity Postoperative hypothyroidism Disorder of bone, unspecified Vitamin D deficiency Hypercalcemia Multinodular thyroid HLD (hyperlipidemia) HTN (hypertension) T2DM (type 2 diabetes mellitus) Essential hypertension FPC (current) use of insulin Type 2 diabetes mellitus without complications Obstructive sleep apnea (adult) (pediatric) PAF (paroxysmal atrial fibrillation) Surgical History Hx of partial thyroidectomy S/P lumpectomy, right breast Hx of colonoscopy Family History Father Cardiovascular disease Mother Uterine cancer Social History Household Members: None Housing: Apartment Are you a primary child care associate to a significant other at home: No Do you presently have visiting nurse or other home services: Yes (ZIPPER SLIDE ATTACHER) Alcohol intake: former Patient Tobacco Use Status: Never used Tobacco service: No Current occupational status: disabled Female Reproductive History Menstrual Age of Menarche: 15 Review of Systems Const All systems reviewed & are unremarkable except as noted in HPI and below Reports as per HPI and Reports no additional complaints GI Reports no additional complaints Reports no additional complaints Physical Exam Vital Signs: BMI result Body Mass Index 39.3 Office Procedures Colposcopy Colposcopy: Pre-Procedure Counseling: Before beginning the procedure, I conducted comprehensive counseling with the patient. We thoroughly discussed the procedure itself, including its details, alternatives, and all associated risks. This included but not limited to the following complications such as bleeding, infection, and injury to the vagina, bladder, and vessels, as well as the potential need for transfusion with all its associated risks. Subsequently, the patient sign the consent. Pap smear result: ASCUS HPV high-risk positive, HPV 16/18 negative Procedure: During the procedure, the following steps were performed: A speculum was inserted, and acetic acid was applied. Colposcopy was conducted, allowing visualization of the transformation zone. Acetowhite lesions were identified at the 11 o'clock position. Cervical biopsies were obtained from the 11 o'clock position, followed by an endocervical curettage (ECC). Vaginoscopy of the upper vagina revealed no evidence of aceto-white lesions. Hemostasis was achieved using Monsel solution, and the patient tolerated the procedure well. Post-Procedure Instructions: The patient was advised to promptly contact the office or the after hours answering service or go to the emergency room if experiencing a temperature exceeding 100.4?F, abdominal pain, nausea/vomiting, or bleeding. Additionally, the patient was instructed to abstain from vaginal intercourse and bathtub use. The patient confirmed understanding of these instructions. Discharge Instructions: The patient was instructed to schedule a follow-up appointment in 2 weeks for further evaluation and management. Please note that this note was generated using a voice recognition program, and errors may have occurred during structural steel trades worker. 21666-Ejxeiyiof of cervix including upper vagina with biopsy and ECC Procedure code (CPT) selection complete Assessment & Plan Assessment & Plan (1) ASCUS with positive high risk HPV cervical: Code(s): R87.610 - Atypical squamous cells of undetermined significance on cytologic smear of cervix (ASC-US); R87.810 - Cervical high risk human papillomavirus (HPV) DNA test positive Category: Medical Plan: Discussed with the patient the result of her abnormal pap, its significance, risk of progression, persistence, and regression. the false positive/negative rate of a Pap smear as a screening test in detecting cervical cancer and the indication for a diagnostic test -colposcopy, biopsy, endocervical curettage. The patient verbalized understanding and agreed with the plan, all questions answered. Colpo biopsy ECC done, see procedure Orders: Orders AMB Colposcopy Today R87.610 - Atypical squamous cells of undetermined significance on cytologic smear of cervix (ASC-US), R87.810 - Cervical high risk human papillomavirus (HPV) DNA test positive Coding Level of Care Code Procedure Only Diagnoses ASCUS with positive high risk HPV cervical R87.610; R87.810 CPT Codes Colposcopy - CPT: 08888-Pdloiuecm of cervix including upper vagina with biopsy and ECC ([id number])
[2024-09-09 14:26] VITALS: BMI 39.3
--- OUTSIDE RECORDS SUMMARY | 2024-09-09 15:48 | XMS_ITS | Encounter Summary ---
Author Organization [facility] Address [address] [place] [address] Care Team Providers Care Advisor To Command In Combat Name Role Phone Derrick Cain MD Primary Care Provider [phone] Reason for Visit * Reason Comments Follow-up [place] unguium DM Foot Care Encounter Details Date Type Department Care Team ([facility] st Contact Info) Description 09/06/2024 10:00 AM EDT Office Visit Orthopedic Surgery - [place] [address] [phone] Faisal Burch DPM 175 [place] [address] Tendonitis, Achilles, left (Primary Dx); Follow-up exam; Dermatophytosis of nail; Pain in toe of left foot; Pain in toe of right foot; Corns and callosities; Type II diabetes mellitus with peripheral circulatory disorder (CMS/HCC); Diabetic mononeuropathy simplex (CMS/HCC); Metatarsalgia of both feet Social History Tobacco Use Types Packs/Day Years [...] on file documented as of this encounter Progress Notes * Faisal Burch DPM - 09/06/2024 10:00 AM EDT Last PCP visit:Referring MD: Mikel Mccoy MD 03/11/2024 S Patient presents here for evaluation of her [...] care of she is to see a pipe fitter supervisor maintenance who recently passed does not that her left foot pain is a chronic achy 7 out of 10 denies trauma to the area and worse with activity has not fully resolved patient to get x-rays prior to his appointment no she still getting sharpshooting pain in the back of her left heel is been chronically painful she has been topical anti-inflammatories with some improvement ROS: GENERAL: Pt denies nausea, fever, vomiting, [...] Multinodular goiter Morbid obesity (CMS/HCC) Breast cancer Diabetic peripheral neuropathy (CMS/HCC) De Quervain's tenosynovitis, right DM (diabetes mellitus), type 2 with renal complications (CMS/HCC) Osteoarthritis of first carpometacarpal (CMC) joint of one hand Obstructive sleep apnea Venous insufficiency of both lower extremities Swallowing impaired Atrial fibrillation, transient (CMS/HCC) Esophagitis SOCIAL HISTORY: Social History Tobacco Use Smoking status: Never Smokeless tobacco: Never Substance Use Topics Alcohol use: Not Currently ACTIVE MEDICATIONS: No outpatient medications have been marked as taking for the 09/06/24 encounter (Office Visit) with Faisal Burch DPM. ALLERGIES: Allergies Allergen Reactions Other Other Invokamet [...] ROM wnl, 1st MPJ ROM wnl. IMAGING: Extensive heterotrophic bone formation calcaneus IMPRESSION: 1. Tendonitis, Achilles, left 2. Follow-up exam 3. Dermatophytosis of nail 4. Pain in toe of left foot 5. Pain in toe of right foot 6. Corns and callosities 7. Type II diabetes mellitus with peripheral circulatory disorder (CMS/HCC) 8. Diabetic mononeuropathy simplex (CMS/HCC) 9. Metatarsalgia of both feet PLAN: Pt was seen and examined, history reviewed. Achilles tendinitis to the left discussed and reviewed with Natty's deformity Radiographs of the left foot discussed and reviewed patient in detail continue with Voltaren gel topically I do not recommend surgery at this time discussed with patient surgical options would include excision and resection of bone spur with reattachment Achilles tendon which is a major surgery would recommend holding off on if possible patient states she is willing to wait and has been doing well with topical medication Discussed with patient regarding proper glucose control, [...] Care Team (Late st Contact Info) Description 11/21/2024 10:15 AM EDT Office Visit Orthopedic Surgery - [place] [address] [facility] [address] [place] [phone] Faisal Burch DPM 175 [facility] [address] [place] [address] 03/30/2025 9:50 AM EDT Office Visit Pulmonolgy - [place] [address] [facility] [address] [place] [address] Mery Ferris NP 175 [facility] [address] [place] [address] documented as of this encounter Visit Diagnoses Diagnosis Tendonitis, Achilles, left- Primary Follow-up exam Unspecified follow-up examination Dermatophytosis of nail Pain in toe of left foot Pain in soft tissues of limb Pain in toe of right foot Pain in soft tissues of limb Corns and callosities Type II diabetes mellitus with peripheral circulatory disorder (CMS/HCC) Type II or unspecified type diabetes mellitus with peripheral circulatory disorders, not stated as uncontrolled Diabetic mononeuropathy simplex (CMS/HCC) Type II or unspecified type diabetes mellitus with neurological manifestations, not stated as uncontrolled Metatarsalgia of both feet documented in this encounter Care Teams Advisor To Command In Combat Relationship Specialty Start Date End Date Derrick Cain MD [address] [place] [address] PCP - General 10/21/18 documented as of this encounter
--- OUTSIDE RECORDS SUMMARY | 2024-09-09 15:48 | XMS_ITS | Clinical Summary ---
Author Organization [facility] Address 175 [place] [address] Phone Care Team Providers Care Grain Cleaner Name Role Phone Derrick Cain MD Primary [...] 10/20/2019 Obstructive sleep apnea 08/30/2019 Overview (04/29/2024): [facility] diagnostic polysomnogram done 08/11/2016; weight 234 pounds; BMI 42; sleep efficiency 67%; REM 14%; AHI 8 overall; 23 hypopneas; PLM's 2; oxygen saturation 93% average and lowest at 78%. [facility] treatment polysomnogram 09/02/2016; sleep efficiency 80%; CPAP [...] Encounters Date Type Department Care Team Description 09/06/2024 10:00 AM EDT Office Visit Orthopedic Surgery [facility] [address] [phone] Faisal Burch, DPM Tendonitis, Achilles, left (Primary Dx); Follow-up exam; Dermatophytosis of nail; Pain in toe of left foot; Pain in toe of right foot; Corns and callosities; Type II diabetes mellitus with peripheral circulatory disorder (CMS/HCC); Diabetic mononeuropathy simplex (CMS/HCC); Metatarsalgia of both feet 06/21/2024 1:15 PM EST Consult Orthopedic Surgery [facility] [address] [phone] Faisal Burch, DPM Tendonitis, Achilles, left (Primary [...] residual neoplasm OTHER SURGICAL HISTORY 03/26/2016 PROCEDURE: [place] BIOPSY THYROID PERCUTANEOUS CORE NEEDLE; COMMENT: nodule; no report ESOPHAGOGASTRODUODENOSCOPY 10/09/2020 PROCEDURE: TN EGD TRANSORAL BIOPSY SINGLE/MULTIPLE; COMMENT: gastropathy, biopsy [...] flux disease) Gout 04/29/2019 DX:Gout Morbid obesity (CMS/HCC) 04/29/2019 DX:Morb id obesity (HCC) Multinodular goiter 04/29/2019 DX:Multinodu lar goiter Patient is Religion 04/29/2019 DX: Patient is Religion 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 ([facility]) 04/29/2019 DX:Type 2 diabetes gregory litus with peripheral neuropathy ([facility]) Diabetic peripheral neuropat hy ([facility]) 05/04/2019 DX:Diabetic peripheral neuro zabrina ([facility]) Swallowing impaired DX:Swallowin g impaired Atrial fibrillation, transie nt ([facility]) DX:Atrial fibrillation, young sient ([facility]) Esophagitis DX:Esophagitis Family History Medical History Relation Name Comments Coronary artery disease Brother 1 Coronary artery disease Brother 2 Coronary artery disease Brother 3 Coronary artery disease Brother 4 Coronary artery disease Brother 5 ADD / ADHD Daughter Other: anxiety Daughter panic attacks Coronary artery disease Father s/p [place] Diabetes Mother Uterine cancer Mother Depression Son [...] 10:15 AM EDT Office Visit Orthopedic Surgery [address] [place] [phone] Faisal Burch, DPM 175 [facility] 250 [place] [address] 03/30/2025 9:50 AM EDT Office Visit Pulmonolgy - [place] 175 [facility] [address] [place] [address] Mery Ferris, HÉCTOR 175 [facility] 200 [place] [address] Health Maintenance Due Date Last Done Comments Breast Cancer Screening 1962 Diabetes: Annual Foot Exam 1972 Diabetes: Annual Retina Eye Exam 1972 Cervical Cancer Screening: Pap Smear 1983 Diabetes: Annual GFR (Glomerular Filtration Rate) 07/12/2020 07/12/2019 Cholesterol Screening (Lipid Panel) 05/17/2022 Colorectal Cancer [...] Completed 03/28/2024, 07/2021, 05/23/2021, Additional history exists RSV Immunization Adult Patients Completed 07/07/2024 HIB Vaccines Aged Out No longer eligi [...] Procedure Name Priority Date/Time Associated Diagnosis Comments XR FOOT 3+ VIEWS LEFT Routine 09/06/2024 10:45 AM EDT Follow-up exam URINE ALBUMIN CREATININE RATIO Routine 07/12/2019 ANNUAL BMP BLOOD TEST Routine 07/12/2019 HEMOGLOBIN A1C Routine 07/12/2019 from Last 3 Months or Most Recently Relevant to Health Maintenance Results * XR Foot 3+ Views Left (09/06/2024 10:45 AM EDT) Anatomical Region Laterality Modality Lower Extremities, Foot Left Computed Radiography Narrative 09/06/2024 12:04 PM EDT Left foot 3 views Mild arthritis of the midfoot hindfoot Moderate to severe retrocalcaneal spur and calcaneal spur infra consistent with fasciitis and Achilles tendinitis us Faisal Burch DPElias IMG XR PROCEDURES Final R esult * Urine Albumin Creatinine Ratio (07/12/2019) Urine Albumin Creatinine Ratio Abstracted Historical Provider HEALTH MAINTENANCE Final Result * Annual BMP Blood Test (07/12/2019) Annual BMP Blood Test Abstracted Historical Provider HEALTH MAINTENANCE Final Result * (ABNORMAL) Hemoglobin A1c (07/12/2019) Pathologist [facility] Hemoglobin A1C 10.2(A) <=6.5 % Blood Venous blood specimen / Unknown Historical Provider MD LAB BLOOD ORDERABLES Sharmaine l Result from Last 3 Months or Most Recently Relevant to Health Maintenance Insurance [facility] MEDICARE Member Subscriber Plan / Payer (Ef fective 2019-Present) Name:Maisha Gomze Relation to Subscriber:Self Name:Maisha Gomez Payer ID:[id number] Group ID:[id number] Type:Not on file Address: [place] [address] [address] [phone] Advance Directives Documents on File Type Date Recorded Patient Funeral Home Makeup Artist Expl anation Health Care Decision (hx) 10/09/2020 HONG SILVESTRE DIRECTIVE Care Teams Grain Cleaner Relationship Specialty Start Date End Date Derrick Cain MD [address] [place] [address] [place] [address] PCP - General 10/21/18
--- OUTSIDE RECORDS SUMMARY | 2024-09-09 15:48 | XMS_ITS | Data Portability ---
Author Organization [facility], [facility] Address [address] [place] [address] Care Team Providers Care Scout Sniper Name Role Phone MCCORMACKFABIO ALVA Primary Care Provider Assessment Encounter Date Assessment Date Assessment LastModified by Organization Details LastModified Time 03/31/2024 03/31/2024 64-year-old mepia-lmqp-mwhhph nt female presents today with a 1 [...] satisfaction; surgery to be scheduled with my dental secretary. mike Not available 04/15/2024 11:11:25 Plan of Treatment Reminders Order Date Submit Date Provider Last Modified By Organization Details Last Modified Time Details Appointments None record ed. Lab None record ed. Referral None record ed. Procedures None record ed. Surgeries None record ed. Imaging XR, hand, 3 or more view - rm 114 3v hand 024 03/31/20 cstamand [facility], [address], [facility] [address], [place], [address], 18:28:43 Medication Orders None record ed. Patient [...] 125 Diabe dipti >125 Not Available [facility] ([facility]) [address] [facility], [place], [address], 05/03/2024 06:05:24 03/31/20 24 03/31/2024 XR, hand, 3 or more view http:/ [email or web address] ?Encry pted=s hAaTro YD8dLq bEUv6g %2BXZw aYqtaq 0bqfl% 2Fg9IQ a4ajBk vP9nXo QUaueC m3YtLR FvZlgJ JJ8mAn HZtai3 2l8899 AC0Kqa H2DU6C vKiQtr MwF INTERFACE [facility] Office [address], [place], [address], 03/31/2024 09:28:49 03/31/2003/31/2024 XR, hand, 3 or more view http:/ [email or web address] ?Encry pted=s hAaTro YD8dLq bEUv6g %2BXZw aYqtaq 0bqfl% 2Fg9IQ a4ajBk vP9nXo QUaueC m3YtLR FvZlgJ JJ8mAn HZtai3 5b2597 AC0Kqa H2DU6C vKiQtr MwF INTERFACE [facility] [address], [place], [address], 03/31/2024 09:28:51 Result Notes None recorded. Problems Name Problem SNOMED Code Status Onset Date Resolution Date Notes Provider Name and Address Organization Details Recorded Time Mass of hand 366952617 Active 024 Johnny Elmore PA-C [address], [place], [address] , [facility] 03/31/2024 08:20:51 Problem Notes None recorded. Procedures Surgical History None recorded. Imaging Results Imaging Date Name Status LastModified by Organiz ation Details LastModified Time 03/31/2024 XR, hand, 3 or more view completed INTERFACE [facility] [address], [place], [address], 03/31/2024 09:28:49 03/31/2024 XR, hand, 3 or more view completed INTERFACE [facility] [address], [place], [address], 03/31/2024 09:28:51 Procedure Notes None recorded. Medical Equipment None Reported. Allergies Allergen ID Allergen Name Allergen Category Reaction Reaction Severity Criticality Documentation Date Start Date Code Code System Note Provider Name and Address Organization Details Recorded Time 522658 Product containin g penicilli n (product) medicatio n Not available Not available Not available 04/15/2024 35479 8001 SNOMED ALMITA robertson [facility] 4 09:36:00 656747 Invokamet medicatio n Not available Not available Not available 04/15/2024 30625 51 RxNorm ALMITA FLEMING [facility] 4 09:36:11 Medications Name Sig Start [...] Available Not Available No t Available FreeStyle [place] Lite kit DIRECTED active Not Available Not [...] Updated DateTime 03/31/2024 160.02 cm 38.4 kg/m2 03993.54 g ANAYELI LOUIS [facility] 03/31/2024 09:21:16 Date Recorded Body height Body mass index (BMI) Body weight Provider Name and Address Organization Details Last Updated DateTime 04/15/2024 160.02 cm 38.3 kg/m2 04076.95 g ALMITA FLEMING [facility] 04/15/2024 09:35:49 Social History None recorded. Functional Status None recorded. Mental Status None recorded. Family History Nothing Reported. Medical History No medical history recorded. Gynecological HistoryNo gynecological history recorded. Obstetrics History GPAL:G 0 P 0 0 0 0 Past Encounters Encounter ID Performer Location Encounter Start Date Encounter Closed Date Diagnosis/Indication Diagnosis SNOMED-CT Code Diagnosis ICD10 Code Diagnosis Note [id number] AVI Nguyen [address] [place] [address] 03/31/2024 09:13:14 04/22/2024 18:28:43 Mass of hand 221826439 R22.31 [id number] MD Christopher Marin [address] [place] [address] 04/15/2024 09:10:38 05/04/2024 08:54:35 Mass of hand 819339293 R22.31 Health Concerns Section Related Observation LastModified by Organization Detai ls LastModified Time None Recorded Concern Status LastModified by Organization Details LastModified Time None Recorded Advance Directives Directive None Recorded Payers Encounter Date Sequence Insurance Name Policy Number Policy Chow Covered Member ID Chow Member ID Guarantor Name 03/31/2024 1 [facility] - DOS ON OR AFTER 2022 - ONE CARE (MEDICARE REPLACEMENT/ADV ANTAGE - HMO) Maishacecy Gomez [id number] [facility] Jason 04/15/2024 1 [facility] - DOS ON OR AFTER 2022 - ONE CARE (MEDICARE REPLACEMENT/ADV ANTAGE - HMO) [facility]acecy [facility] [id number] [facility] Notes Date Note Type Note Provider Name and Address Organization Details Recorded Time 03/31/2024 text/html I am seeing this patient under the supervision of Dr. Kearney who was available but who did not see the patient Chief Complaint: New evaluation for right hand pain HPI: 64-year-old qkxkx-qgui-okikcw nt female presents today with a 1 month history atraumatic onset of a mass located in the palm of her right hand that is mildly painful and slowly enlarging. She has not had any treatment of this yet. No numbness or tingling associated with this. No overlying skin changes noted. Jhonny Elmore PA-C [address], [place], [address], [facility] 03/31/2024 10:39:03 04/15/2024 text/html R hand STM HPI: 64-year-old ecysa-kjxs-afdthy nt female presents today for follow up of 1 month history atraumatic onset of a mass located in the palm of her right hand that is mildly painful and slowly enlarging. She has not had any treatment of this yet. No numbness or tingling associated with this. No overlying skin changes noted. Francine Hoover MD [address] [place], [place] [address] [address], [place], [address], [facility] 04/15/2024 11:11:37 OBGyn Episode No OBEpisode recorded.
== END 2024-09-09 14:54 | disposition home or self-care (01) ==
LOC: HO.HWS 14:02
PROVIDERS: PCP Internal Medicine Sports Medicine; Visit Provider Obstetrics & Gynecology
DX: R87.610 Atypical squamous cells of undetermined significance on cytologic smear of cervix (ASC-US) (principal); R87.810 Cervical high risk human papillomavirus (HPV) DNA test positive
CPT/HCPCS: 57454

== ENCOUNTER 2024-09-20 14:57 | Outpatient (AMB) | payer OTHER, SELFPAY ==
--- NOTE | 2024-09-20 14:58 | A.OFFVIS_ITS ---
Intake Visit Reasons: colpo results Allergies Penicillins [PENICILLINS] Allergy (Unknown, Verified 09/09/24 14:36) RASH canagliflozin [From Invokamet] Adverse Reaction (Verified 09/09/24 14:36) Yeast infection metformin [From Invokamet] Adverse Reaction (Verified 09/09/24 14:36) Yeast infection HPI Comments Details: The patient is scheduled a telehealth visit post colpo for follow-up. The patient is doing well with no complaints. The pathology showed the following: A. Endocervix, curettage: Endocervical glandular and squamous epithelium; negative for dysplasia B. Cervix, 11:00, biopsy: Squamous epithelium with atrophic and reactive changes, and scant endocervical glandular epithelium; negative for dysplasia [facility] Medical History Fatty liver Uncontrolled type 2 diabetes mellitus with hyperglycemia Hx of breast cancer GERD (gastroesophageal reflux disease) Osteoporosis DJD (degenerative joint disease) Anxiety Depression Insulin dependent type 2 diabetes mellitus Morbid obesity Obesity Postoperative hypothyroidism Disorder of bone, unspecified Vitamin D deficiency Hypercalcemia Multinodular thyroid HLD (hyperlipidemia) HTN (hypertension) T2DM (type 2 diabetes mellitus) Essential hypertension 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 of insulin Type 2 diabetes mellitus without complications Obstructive sleep apnea (adult) (pediatric) PAF (paroxysmal atrial fibrillation) Surgical History Hx of partial thyroidectomy S/P lumpectomy, right breast Hx of colonoscopy Family History Father Cardiovascular disease Mother Uterine cancer Social History Household Members: None Housing: Apartment Are you a primary physician assistant primary care to a significant other at home: No Do you presently have visiting nurse or other home services: Yes (ROUGH ROUNDER MACHINE) Alcohol intake: former Patient Tobacco Use Status: Never used Tobacco service: No Current occupational status: disabled Female Reproductive History Menstrual Age of Menarche: 15 Review of Systems Const All systems reviewed & are unremarkable except as noted in HPI and below Reports as per HPI and Reports no additional complaints GI Reports no additional complaints Reports no additional complaints Telehealth Telehealth Telehealth Platform: Telephone Location of provider rendering services: practice address Location of patient: address on file Patient Identification confirmed using: Name, : Yes Telehealth method: video Patient verbally consented to treatment: Yes Patient verbally consented to billing insurance company: Yes Patient informed of any privacy concerns related to visit: Yes Minutes spent on Phone/Video with Pt.: 3 Assessment & Plan Assessment & Plan (1) ASCUS with positive high risk HPV cervical: Code(s): R87.610 - Atypical squamous cells of undetermined significance on cytologic smear of cervix (ASC-US); R87.810 - Cervical high risk human papillomavirus (HPV) DNA test positive Category: Medical Plan: Discussed with the patient the pathology results of the colposcopy biopsies & endocervical curettage . Discussed with the patient the sensitivity specificity, positive and negative predictive value in detecting cervical cancer in addition discussed the regression, persistence and progression rates. Recommended co-testing in 12 months, if cytology and or HPV are abnormal will proceed was colposcopy biopsy and endocervical curettage. Instructions given to the patient to schedule a co test appointment in 1 year. All questions answered the patient verbalized understanding. I spent a total of 20 minutes reviewing the chart, talking to the patient via video and documenting in the medical record. Coding Level of Care Code Tele Est Pt Level 3 (28772) Diagnoses ASCUS with positive high risk HPV cervical R87.610; R87.810
--- OUTSIDE RECORDS SUMMARY | 2024-09-20 18:13 | XMS_ITS | Encounter Summary ---
Author Organization [facility] Address [address] [place] [address] Care Team Providers Care Chemical Recovery Operator Name Role Phone Monica Martini Unavailable Janis vaDerrick Nguyễn MD Primary Care Provider Unava ilable [facility], Pcp Primary Care Provider UnavailDerrick Ramirez MD Primary Care Provider Unava ilable Derrick Cain MD Primary Care Provider Unava ilable Encounter Details Date Type Department Care Team Description 09/03/2020 Telephone Gastroenterology - [place] [address] [facility] [address] [place] [address] Prasanth Borges PA-C 175 [facility] [address] [place] [address] Social History Tobacco Use Types Packs/Day Years [...] encounter Miscellaneous Notes * Telephone Encounter - Nadine Odell - 09/03/2020 4:31 PM EDT Printed and given to Prasanth. * Telephone Encounter - Prasanth Borges PA-C - 09/03/2020 10:08 AM EDT Patient states that she underwent a swallowing test at [facility] last year that was ordered by her investigator welfare. Please obtain those records so we may incorporate them into her chart. documented in this encounter Plan of Treatment Not on file documented as of this encounter Visit Diagnoses Not on filedocumented in this encounter Care Teams Chemical Recovery Operator Relationship Specialty Start Date End Date Derrick Cain MD PCP - General Internal Medicine 10/21/18 10/03/20 [facility], Pcp PCP - General 10/04/20 08/24/22 Derrick Cain MD PCP - General Internal Medicine 08/25/22 03/13/24 Derrick Cain MD PCP - General Internal Medicine 03/14/24 Monica Martini DO 06/08/11 documented as of this encounter
--- OUTSIDE RECORDS SUMMARY | 2024-09-20 18:13 | XMS_ITS | Clinical Summary ---
Author Organization [facility] Address [address] [place] [address] Phone Care Team Providers Care Biomass Power Plant Superintendent Name Role Phone Derrick Cain MD Primary [...] 4 (four) times a day. 4 Active Active Problems Problem Noted Date Diagnosed Date Swallowing impaired 04/29/2024 Atrial fibrillation, transient (CMS/HCC V24, CMS /HCC V28) 04/29/2024 Esophagitis 04/29/2024 Venous insufficiency of both [...] (diabetes mellitus), type 2 with renal complications ([facility] V24, [facility] V28) 06/12/2019 De Quervain's tenosynovitis, right 06/03/2019 Diabetic peripheral neuropathy ([facility] V24, [facility] V28) 05/04/2019 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 ([facility] V24, [facility] V28) 04/29/2019 GERD (gastroesophageal reflux disease) 9 Gout 04/29/2019 Generalized anxiety disorder 04/29/2019 Depression 04/29/2019 Multinodular goiter 04/29/2019 Overview (04/29/2024): FNA 05/2019: LLP and RLP, cytology benign for both nodules, needs repeat thyroid u/s 05/2020. Also obtaining barium swallow dur to dysphagia Morbid obesity ([facility] V24, [facility] V28) 2018 Breast cancer ([facility] V24, [facility] V28) 019 Overview (04/29/2024): Surgery x2 Essential hypertension, benign 07/21/2012 Dyslipidemia 07/21/2012 Paroxysmal atrial fibrillation ([facility] V24, [facility] V28) 07/21/2012 Encounters Date Type Department Care Team Description 09/06/2024 10:00 AM EDT Office Visit Orthopedic Surgery - [place] [address] [address] Faisal Burch, DPM Tendonitis, Achilles, left (Primary Dx); Follow-up exam; Dermatophytosis of nail; Pain in toe of left foot; Pain in toe of right foot; Corns and callosities; Type II diabetes mellitus with peripheral circulatory disorder ([facility] V24, [facility] V28); Diabetic mononeuropathy simplex ([facility] V24, [facility] V28); Metatarsalgia of both feet from Last 3 Months Immunizations Name Administration [...] residual neoplasm OTHER SURGICAL HISTORY 03/26/2016 PROCEDURE: [place] BIOPSY THYROID PERCUTANEOUS CORE NEEDLE; COMMENT: nodule; no report ESOPHAGOGASTRODUODENOSCOPY 10/09/2020 PROCEDURE: [place] EGD TRANSORAL BIOPSY SINGLE/MULTIPLE; COMMENT: gastropathy, biopsy pending Medical History Medical History Date Comments Essential hypertension, benign 07/21/2012 D X:Essential hypertension, benign Dyslipidemia 07/21/2012 DX:Dyslipidemia Paroxysmal atrial fibrillati on ([facility] V24, [facility] V28) 07/21/2012 DX:Paroxysmal atrial fibril lation (HCC) Breast cancer ([facility] V24, [facility] V28) 04/29/2019 DX:Breast cancer (HCC); COMM ENT: Surgery x2 Depression 04/29/2019 DX:Depression Generalized anxiety disorder 04/29/2019 DX: Generalized anxiety disorder GERD (gastroesophageal reflu x disease) 04/29/2019 DX:GERD (gastroesophageal re flux disease) Gout 04/29/2019 DX:Gout Morbid obesity ([facility] V24, [facility] V28) 04/29/2019 DX:Morbid obesity (HCC) Multinodular goiter 04/29/2019 DX:Multinodu lar goiter Patient is Yazdanism 04/29/2019 DX: Patient is Yazdanism 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 ([facility] V24, [facility] V28) 04/29/2019 DX:Type 2 diabetes mellitus with peripheral neuropathy ([facility]) Diabetic peripheral neuropat hy ([facility] V24, [facility] V28) 05/04/2019 DX:Diabetic peripheral neur opathy ([facility]) Swallowing impaired DX:Swallowin g impaired Atrial fibrillation, transie nt ([facility] V24, [facility] V28) DX:Atrial fibrillation, tra nsient ([facility]) Esophagitis DX:Esophagitis Family History Medical History Relation Name Comments Coronary artery disease Brother 1 Coronary artery disease Brother 2 Coronary artery disease Brother 3 Coronary artery disease Brother 4 Coronary artery disease Brother 5 ADD / ADHD Daughter Other: anxiety Daughter panic attacks Coronary artery disease Father s/p [place] Diabetes Mother Uterine cancer Mother Depression Son [...] Upcoming Encounters Date Type Department Care Team ([facility] st Contact Info) Description 11/21/2024 10:15 AM EDT Office Visit Orthopedic Surgery - [place] [address] [address] Faisal Burch, DPM [address] [place] [address] 03/30/2025 9:50 AM EDT Office Visit Pulmonolgy - [place] [facility] [address] [place] [id number] Mery Ferris, HÉCTOR 175 [facility] [address] [place] [address] Health Maintenance Due Date Last Done Comments [...] age to complete this topic Meningococcal B Vaccine Aged Out No l onger eligible based on patient's age to complete [...] * Annual BMP Blood Test (07/12/2019) Pathologist [facility] Annual BMP Blood Test Abstracted Historical Provider HEALTH MAINTENANCE Final Result * (ABNORMAL) Hemoglobin A1c (07/12/2019) Pathologist [facility] Hemoglobin A1C 10.2(A) <=6.5 % Blood Venous blood specimen / Unknown Historical Provider MD LAB BLOOD ORDERABLES Sharmaine l Result from Last 3 Months or Most Recently Relevant to Health Maintenance Insurance [employer] MEDICARE Member Subscriber Plan / Payer (Ef fective 2019-Present) Name:Maisha Gomez Relation to Subscriber:Self Name:Maisha Gomez Payer ID:[id number] Group ID:[id number] Type:Not on file Address: [place] [address] [id number] Advance Directives Documents on File Type Date Recorded Patient Retail Representative Expl anation Health Care Decision (hx) 10/09/2020 HONG SILVESTRE DIRECTIVE Care Teams Biomass Power Plant Superintendent Relationship Specialty Start Date End Date Derrick Cain MD [address] [place] [address] PCP - General 10/21/18
--- OUTSIDE RECORDS SUMMARY | 2024-09-20 18:13 | XMS_ITS | Encounter Summary ---
Author Organization [facility] Address [address] [place] [address] Care Team Providers Care Quality Controller Name Role Phone Monica Martini DO Unavailable Janis vaDerrick Nguyễn MD Primary Care Provider Unava ilable [facility], Pcp Primary Care Provider UnavailDerrick Ramirez MD Primary Care Provider Unava ilable Derrick Cain MD Primary Care Provider Unava ilable Encounter Details Date Type Department Care Team Description 06/22/2019 Daily Release And Dupe Printer Report Medical Records [address] [place] [address] [facility] Social History Tobacco Use Types Packs/Day [...] on filedocumented in this encounter Care Teams Quality Controller Relationship Specialty Start Date End Date Derrick Cain MD PCP - General Internal Medicine 10/21/18 10/03/20 [facility], Pcp PCP - General 10/04/20 08/24/22 Derrick Cain MD PCP - General Internal Medicine 08/25/22 03/13/24 Derrick Cain MD PCP - General Internal Medicine 03/14/24 Monica Martini DO 06/08/11 documented as of this encounter
--- OUTSIDE RECORDS SUMMARY | 2024-09-20 18:13 | XMS_ITS | Encounter Summary ---
Author Organization [facility] Address [address] [place] [address] Care Team Providers Care Cocktail Server Name Role Phone Nasir Mireles Primary Care Provider Unavaila Monica Villela DO Unavailable Janis Derrick Augustin MD Primary Care Provider Unava ilsheila Chavis, Pcp Primary Care Provider Derrick Mroe MD Primary Care Provider Unava ilable Derrick Cain MD Primary Care Provider Unava ilable Encounter Details Date Type Department Care Team Description 09/17/2017 [facility] Medical Records [address] [place] [address] Abstract, Provider Social History Tobacco Use Types [...] on filedocumented in this encounter Care Teams Cocktail Server Relationship Specialty Start Date End Date Nasir Mireles PCP - General Internal Medicine 06/08/11 10/20/18 Derrick Cain MD PCP - General Internal Medicine 10/21/18 10/03/20 [facility], Pcp PCP - General 10/04/20 08/24/22 Derrick Cain MD PCP - General Internal Medicine 08/25/22 03/13/24 Derrick Cain MD PCP - General Internal Medicine 03/14/24 Monica Martini DO 06/08/11 documented as of this encounter
--- OUTSIDE RECORDS SUMMARY | 2024-09-20 18:13 | XMS_ITS | Encounter Summary ---
Author Organization [facility] Address [address] [place] [address] Care Team Providers Care Primer Inserting Machine Operator Name Role Phone Monica Martini DO Unavailable Janis vailaDerrick Carvalho MD Primary Care Provider Unava ilable Partha, Pcp Primary Care Provider Unavailkaley e Derrick Cain MD Primary Care Provider Unava ilable Derrick Cain MD Primary Care Provider Unava ilable Encounter Details Date Type Department Care Team Description 10/26/2019 Webmaster Report Medical Records [address] [place] [address] Arben Yang Social History Tobacco Use Types Packs/Day Years [...] on filedocumented in this encounter Care Teams Primer Inserting Machine Operator Relationship Specialty Start Date End Date Derrick Cain MD PCP - General Internal Medicine 10/21/18 10/03/20 [facility], Pcp PCP - General 10/04/20 08/24/22 Derrick Cain MD PCP - General Internal Medicine 08/25/22 03/13/24 Derrick Cain MD PCP - General Internal Medicine 03/14/24 Monica Martini DO 06/08/11 documented as of this encounter
--- OUTSIDE RECORDS SUMMARY | 2024-09-20 18:13 | XMS_ITS | Encounter Summary ---
Author Organization [facility] Address [address] [place] [address] Care Team Providers Care Night Stocker Name Role Phone Vini Monica GALLEGOS Unavailable Janis vajayble Derrick Cain MD Primary Care Provider Unava ilable [facility], Pcp Primary Care Provider UnavailDerrick Ramirez MD Primary Care Provider Unava ilable Derrick Cain MD Primary Care Provider Unava ilable Encounter Details Date Type Department Care Team Description 05/11/2019 Refill Medicine/Pediatrics - [address] [phone] Derrick Cain MD Social History Tobacco Use [...] on filedocumented in this encounter Care Teams Night Stocker Relationship Specialty Start Date End Date Derrick Cain MD PCP - General Internal Medicine 10/21/18 10/03/20 [facility], Pcp PCP - General 10/04/20 08/24/22 Derrcik Cain MD PCP - General Internal Medicine 08/25/22 03/13/24 Derrick Cain MD PCP - General Internal Medicine 03/14/24 Monica Martini DO 06/08/11 documented as of this encounter
--- OUTSIDE RECORDS SUMMARY | 2024-09-20 18:13 | XMS_ITS | Encounter Summary ---
Author Organization [facility] [place] [facility] Address [address] [place] [address] Care Team Providers Care [employer] [place] [employer]ling [employer] Manager Name Role Phone Vini Monica GALLEGOS Unavailable Janis vajayble Derrick Cain MD Primary Care Provider Unava ilable Partha, Pcp Primary Care Provider UnavailDerrick Ramirez MD Primary Care Provider Unava ilable Derrick Cain MD Primary Care Provider Unava ilable Encounter Details Date Type Department Care Team Description 12/15/2019 Orders Only Medicine/Pediatrics - [address] [phone] Derrick Cain MD Social History Tobacco Use [...] on filedocumented in this encounter Care Teams [place] Manager Relationship Specialty Start Date End Date Derrick Cain MD PCP - General Internal Medicine 10/21/18 10/03/20 [facility], Pcp PCP - General 10/04/20 08/24/22 Derrick Cain MD PCP - General Internal Medicine 08/25/22 03/13/24 Derrick Cain MD PCP - General Internal Medicine 03/14/24 Monica Martini DO 06/08/11 documented as of this encounter
--- OUTSIDE RECORDS SUMMARY | 2024-09-20 18:13 | XMS_ITS | Clinical Summary ---
Author Organization [facility] Address [address] [place] [address] Care Team Providers Care Manager Dish Name Role Phone Derrick Cain MD Primary Care Provider Unava ilable Allergies Active Allergy Reactions Severity Noted Date Comments Canagliflozin-Metformin Hcl OTHER 04/29/20 19 Causes Yeast Infections Penicillins 07/21/2012 No reaction documented. Medications Medication Sig Dispensed Refills Start Date End Date Status Blood Glucose Monitoring Suppl (ONE TOUCH ULTRA 2) w/Device Kit by Does not apply route. 0 Active ONETOUCH DELICA LANCETS FINE MiscIndications:Typ e 2 diabetes mellitus with peripheral neuropathy (HCC) Apply 1 Stick topically 3 times daily. 300 Each 1 09/01/2019 Active Insulin Pen Needle (BD PEN NEEDLE ELI U/F) 32G X 4 MM Misc Use to inject insulin four times daily 200 Each 1 10/14/2019 Active rosuvastatin (CRESTOR) 20 MG tabletIndications:D yslipidemia,Type 2 diabetes mellitus with peripheral neuropathy (HCC) Take 1 Tab by mouth every evening. 90 Tab 1 06/26/2020 Active Diclofenac Sodium 1 % Gel Apply 1 g topically 4 times daily as needed for Other (wrist pain). With food 100 g 1 08/16/2020 Active Incontinence Supply Disposable (POISE ULTIMATE ABSORBENCY) PadsIndications:Uri nary incontinence, unspecified type 1 Product by Does not apply route 2 times daily. 27 Each 08/20/2020 Active Alcohol Swabs (ALCOHOL PREP) 70 % PadsIndications:Typ e 2 diabetes mellitus with peripheral neuropathy (HCC) 1 Each by Does not apply route 3 times daily. 100 Each 08/20/2020 Active Incontinence Supply Disposable (FEMININE WIPES) MiscIndications:Uri nary incontinence, unspecified type 1 Each by Does not apply route 3 times daily. Dispense aloetouch, fragrance free. Use as directed 100 Each 11 08/20/2020 Active Rivaroxaban 20 MG TabIndications:Paro xysmal atrial fibrillation (HCC) Take 20 mg by mouth daily. 30 Tab 5 09/04/2020 Active metoprolol (TOPROL XL) 50 MG 24 hr tablet Take 1 Tab by mouth daily. 90 Tab 1 09/06/2020 Active triamcinolone (KENALOG) 0.1 % cream Apply thin coat of cream to affected area 2-3 times a day as needed for maximum 2 weeks. Do not use on face 30 g 0 09/06/2020 Active Fenofibrate 145 MG Tab Take 145 mg by mouth daily. 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 90 tablet 0 12/06/2020 Active olmesartan (BENICAR) 40 MG tabletIndications:E ssential hypertension, benign Take 1 tablet by mouth daily. 90 tablet 0 12/06/2020 Active diltiazem (TIAZAC) 120 MG 24 hr capsuleIndications: Paroxysmal atrial fibrillation (HCC) Take 1 capsule by mouth daily. 90 capsule 0 12/06/2020 Active Vibegron 75 MG Tab Take by mouth. 0 Ac tive Calcium Carbonate-Vit D-Min (QC Bnfpqdc-Unnycklnp-S inc-D3) 333.4-133 MG-UNIT Tab Take by mouth. 0 Active omeprazole (PRILOSEC) 20 MG capsule TAKE 2 CAPSULES DAILY IN MORNING ON EMPTY STOMACH WAIT 30 MINUTES THEN EAT TO ACTIVATE MEDICATION 180 Capsule 3 08/13/2023 Active famotidine (PEPCID) 20 MG tablet TAKE 1 TABLET BY MOUTH TWICE A DAY NEEDED FOR HEARTBURN TAKE AT LEAST ONE DOSE AT BEDTIME 180 Tablet 3 08/27/2023 Active Active Problems Problem Noted Date Venous insufficiency of both lower extre mities 10/20/2019 Obstructive sleep apnea mild AHI 8 08/29 Overview: [facility] diagnostic polysomnogram done 08/11/2016; weight 234 pounds; BMI 42; sleep efficiency 67%; REM 14%; AHI 8 overall; 23 hypopneas; PLM's 2; oxygen saturation 93% average and lowest at 78%. [facility] treatment polysomnogram 09/02/2016; sleep efficiency 80%; [...] months with compliance report. Osteoarthritis of first carpometacarpal (CMC) joint of one hand 07/18/2019 DM (diabetes mellitus), type 2 with nancy l complications 06/12/2019 De Quervain's tenosynovitis, right 06/03 Diabetic peripheral neuropathy 9 Type 2 diabetes mellitus with peripheral neuropathy 04/29/2019 GERD (gastroesophageal reflux disease) 1 06/29/2018 Gout 04/29/2019 Generalized anxiety disorder 04/29/2019 Depression 04/29/2019 Multinodular goiter 04/29/2019 Overview: FNA 05/2019: LLP and RLP, cytology benign for both nodules, needs repeat thyroid u/s 05/2020. Also obtaining barium swallow dur to dysphagia Patient is Presybeterian 04/29/2019 Morbid obesity 04/29/2019 Breast cancer 04/29/2019 Overview: Surgery x2 Essential hypertension, benign 3 Dyslipidemia 07/21/2012 Paroxysmal atrial fibrillation 3 Swallowing impaired Atrial fibrillation, transient Esophagitis Immunizations Name Administration Dates Next Due Influenza (> 6 Months) 04/16/2020,2018,03/19/2018,03/08 Pneumoccoccal(Adult) Polysac charide PPSV23 03/30/2018 Pneumococcal Conjugate PCV-13 03/03/2018 Tdap 05/02/2014 Family History Medical History Relation Name Comments CAD Brother 1 CAD Brother 2 CAD Brother 3 CAD Brother 4 CAD Brother 5 ADHD Daughter anxiety Daughter panic attacks CAD Father s/p RI Diabetes Mother Uterine Cancer Mother Depression Son Hypercholesterolemia Son Hypertension Son gout Son Relation Name Status Comments Brother 1 Brother 2 Brother 3 Brother 4 Brother 5 Daughter Alive Father Mother Son Alive Social History Tobacco Use Types Packs/Day Years Used Date Smoking Tobacco: Never Smokeless Tobacco: Never Tobacco Cessation:Counseling Given: Not Answered Alcohol Use Standard Drinks/Week Comments Not Currently 0 (1 standard drink = 0.6 oz pur e alcohol) in her 30s social, not now Sex Assigned at Date Recorded Female 09/24/2020 2:11 PM E DT Job Start Date Occupation Industry Not on file Not on file Not on file Last Filed Vital Signs Vital Sign Reading Time Taken Comments Blood Pressure 134/80 03/30/2024 10:00 AM EDT Pulse 81 03/30/2024 10:00 AM EDT Temperature 36.1 ??C (96.9 ??F) 03/30/2024 1 0:00 AM EDT Respiratory Rate 16 03/30/2024 10:0 0 AM EDT Oxygen Saturation 98% 03/30/2024 10: 00 AM EDT Inhaled Oxygen Concentration - - Weight 98.8 kg (217 lb 12.8 oz) 024 10:00 AM EDT Height 160 cm (5' 3 ) 03/30/2024 10:00 AM EDT Body Mass Index 38.58 03/30/2024 10:00 AM EDT Plan of Treatment Health Maintenance Due Date Last Done Comments Covid-19 Vaccine (#1) 1962 DEPRESSION SCREEN 1974 DIABETES/HEART DISEASE: [place] CHOLESTEROL (LDL) 1980 DIABETES: ANNUAL FOOT EXAM 1980 HEPATITIS C SCREENING 1980 CERVICAL CANCER SCREENING 1983 BASELINE HEALTH EXAM 40-64 2002 COLON CANCER SCREENING 2012 SHINGLES VACCINE (1 of 2) 2012 DIABETES: BLOOD SUGAR CONTRO L TEST (HGBA1C) 10/10/2019 07/12/2019, 06/09/2019 DIABETES: ANNUAL URINE PROTE IN TEST (MICROALBUMIN) 07/12/2020 07/12/2019, 06/09/2019 DIABETES: ANNUAL EYE EXAM 04/16/20212019, 04/16/2020 (External Completion) MAMMOGRAM 02/28/2024 02/27/2023, 02/16/2020 DTAP/TDAP/TD (2 - Td or Tdap) 05/02/2024 05/02/2014 BMI CHECK/ADVISE 06/08/2024 03/30/2024, , 08/21/2023, Additional history exists INFLUENZA (Season Ended) 2025 020, 03/31/2019, 03/19/2018, Additional history exists PNEUMOCOCCAL VACCINE FOR HIG H RISK PATIENTS (#2) 2027 03/30/2018, 03/03/2018 Care Teams Manager Dish Relationship Specialty Start Date End Date Derrick Cain MD PCP - General Internal Medicine 03/14/24
--- OUTSIDE RECORDS SUMMARY | 2024-09-20 18:13 | XMS_ITS | Encounter Summary ---
Author Organization [facility] Address [address] [place] [address] Care Team Providers Care Customs Agent Name Role Phone Monica Martini DO Unavailable Janis vailaFabio Carvalho MD Primary Care Provider Unava ilable [facility], Pcp Primary Care Provider UnavailFabio Ramirez MD Primary Care Provider Unava ilable Fabio Velazquez MD Primary Care Provider Unava ilable Reason for Visit * Reason Onset Date Comments medication problems 06/07/2020 Encounter Details Date Type Department Care Team Description 06/07/2020 Telephone Medicine/Pediatrics - [address] [phone] Fabio Velazquez MD medication problems Social History Tobacco Use Types Packs/Day Years [...] encounter Miscellaneous Notes * Telephone Encounter - Fabio Velazquez MD - 06/07/2020 5:42 PM EST Script sent * Telephone Encounter - Esther Curiel M.A. - 06/07/2020 2:48 PM EST rx is changed to capsules due to insurance request * Telephone Encounter - Diya Curtis - 06/07/2020 10:01 AM EST What is the name of the medication patient is having a problem with?: Omeprazole 20 MG Tab EC What is the problem?: needs to be resent to pharm as Capsules / was sent in as tablet please resendto pharm selected in med doc. Is the patient calling about the problem? YES If the patient is not the caller who is? Is this a NEW medication?: NO How long has the patient been taking this medication? ongoing Who prescribed this medication for the patient? FABIO VELAZQUEZ Who is patients PCP?: FABIO VELAZQUEZ [facility]: [employer] [facility] [employer] / Plan: [facility] / Product Type: HMO [id number] documented in this encounter Plan of Treatment Not on file documented as of this encounter Visit Diagnoses Not on filedocumented in this encounter Care Teams Customs Agent Relationship Specialty Start Date End Date Fabio Velazquez MD PCP - General Internal Medicine 10/21/18 10/03/20 [facility], Pcp PCP - General 10/04/20 08/24/22 Fabio Velazquez MD PCP - General Internal Medicine 08/25/22 03/13/24 Fabio Velazquez MD PCP - General Internal Medicine 03/14/24 Monica Martini DO 06/08/11 documented as of this encounter
--- OUTSIDE RECORDS SUMMARY | 2024-09-20 18:13 | XMS_ITS | Encounter Summary ---
Author Organization [facility] Address [address] [place] [address] Care Team Providers Care Electronic Court Recorder Name Role Phone Monica Martini Unavailable Janis vaDerrick Nguyễn MD Primary Care Provider Unava ilable [facility], Pcp Primary Care Provider UnavailDerrick Ramirez MD Primary Care Provider Unava ilable Derrick Cain MD Primary Care Provider Unava ilable Encounter Details Date Type Department Care Team Description 08/22/2020 Pt. Non Urgent Medic al Question Adult Medicine [address] [address] Derrick Cain MD Social History Tobacco Use [...] PM EST documented as of this encounter Progress Notes * Sho Fatima R.N. - 08/22/2020 4:05 PM EDT Left vm for pt to return my call and speak with a nurse Sent my chart message documented in this encounter Miscellaneous Notes * Telephone Encounter - Sho Fatima R.N. - 08/22/2020 4:03 PM EDTFrom: Maisha Gomez To: Derrick Cain MD Sent: 08/22/2020 11:38 AM EDT Subject: referral I am waiting to be called for an appointment from the ball machine operator that the doctor referred me to andstill haven't received anything. documented in this encounter Plan of Treatment Not on file documented as of this encounter Visit Diagnoses Not on filedocumented in this encounter Care Teams Electronic Court Recorder Relationship Specialty Start Date End Date Derrick Cain MD PCP - General Internal Medicine 10/21/18 10/03/20 [facility], Pcp PCP - General 10/04/20 08/24/22 Derrick Cain MD PCP - General Internal Medicine 08/25/22 03/13/24 Derrick Cain MD PCP - General Internal Medicine 03/14/24 Monica Martini DO 06/08/11 documented as of this encounter
--- OUTSIDE RECORDS SUMMARY | 2024-09-20 18:13 | XMS_ITS | Encounter Summary ---
Author Organization [facility] Address [address] [place] [address] Care Team Providers Care Windows Server Engineer Name Role Phone Derrick Cain MD Primary Care Provider Unava ilable Derrick Cain MD Primary Care Provider Unava ilable Reason for Visit * Reason Onset Date Comments Follow-up 07/15/2023 Encounter Details Date Type Department Care Team Description 07/15/2023 Telephone Pulmonology - [place] [address] [facility] [address] [place] [phone] Yuriy Tsang MD Follow-up Social History Tobacco [...] on filedocumented in this encounter Care Teams Windows Server Engineer Relationship Specialty Start Date End Date Derrick Cain MD PCP - General Internal Medicine 08/25/22 03/13/24 Derrick Cain MD PCP - General Internal Medicine 03/14/24 documented as of this encounter
--- OUTSIDE RECORDS SUMMARY | 2024-09-20 18:13 | XMS_ITS | Encounter Summary ---
Author Organization [facility] Address [address] [place] [address] Care Team Providers Care Gate Agent Name Role Phone Derrick Cain MD Primary Care Provider Unava ilable Derrick Cain MD Primary Care Provider Unava ilable Reason for Visit * Reason Onset Date Comments DME Request 10/16/2022 Encounter Details Date Type Department Care Team Description 10/16/2022 Telephone Pulmonology - [place] [address] [facility] [address] [place] [phone] Yuriy Tsang MD DME Request Social History [...] 10:59 AM EDT Received a fax from [facility]: We have an order for a replacement Cpap through [facility]. We received a message from Tamar from [facility] stating that this patient does not meet [...] sleep study. I made a request to [facility] to withdraw the auth request for now. [...] (pediatric) documented in this encounter Care Teams Gate Agent Relationship Specialty Start Date End Date Derrick Cain MD PCP - General Internal Medicine 08/25/22 03/13/24 Derrick Cain MD PCP - General Internal Medicine 03/14/24 documented as of this encounter
--- OUTSIDE RECORDS SUMMARY | 2024-09-20 18:13 | XMS_ITS | Encounter Summary ---
Author Organization [facility] Address [address] [place] [address] Care Team Providers Care Financial Service Rep Name Role Phone Monica Martini Unavailable Janis vaDerrick Nguyễn MD Primary Care Provider Unava ilable [facility], Pcp Primary Care Provider UnavailDerrick Ramirez MD Primary Care Provider Unava ilable Derrick Cain MD Primary Care Provider Unava ilable Reason for Visit * Reason Onset Date Comments Anticoagulation 09/04/2020 EGD 10/09/2020 Dr Conner @ [facility] Encounter Details Date Type Department Care Team Description 09/04/2020 Telephone Gastroenterology - [place] [address] [facility] [address] [place] [address] Nicole Conner MD Anticoagulation (EGD 10/09/2020 Dr Conner @ [facility]) Social History Tobacco Use Types Packs/Day Years [...] am not aware of recent CVA or OH in past 3 months), should restart med as soon as able to afterwards per discretion of provider performing procedure. Thanks! * Telephone Encounter - Pauline Blair L.P.N. - 09/04/2020 8:43 AM EDT Patient is scheduled for EGD Thursday10/09/[address] Conner @ [facility]. Patient is on Xarelto. Dr Derrick Cain, Please determine if this patient can hold her Xarelto for 2 days prior to her procedure. Please advise. Thanks./dg documented in this encounter Plan of Treatment Not on file documented as of this encounter Visit Diagnoses Not on filedocumented in this encounter Care Teams Financial Service Rep Relationship Specialty Start Date End Date Derrick Cain MD PCP - General Internal Medicine 10/21/18 10/03/20 [facility], Pcp PCP - General 10/04/20 08/24/22 Derrick Cain MD PCP - General Internal Medicine 08/25/22 03/13/24 Derrick Cain MD PCP - General Internal Medicine 03/14/24 Monica Martini DO 06/08/11 documented as of this encounter
--- OUTSIDE RECORDS SUMMARY | 2024-09-20 18:13 | XMS_ITS | Encounter Summary ---
Author Organization [facility] Address [address] [place] [address] Care Team Providers Care Side Framer Name Role Phone Monica Martini DO Unavailable Janis vailable Derrick Cain MD Primary Care Provider Unava ilable [facility], [facility]cp Primary Care Provider Unavailabl e Derrick Cain MD Primary Care Provider Unava ilable Derrick Cain MD Primary Care Provider Unava ilable Encounter Details Date Type Department Care Team Description 04/07/2019 Release of Information Medical Records [address] [place] [address] Abstract, Provider Social History Tobacco Use Types [...] on filedocumented in this encounter Care Teams Side Framer Relationship Specialty Start Date End Date Derrick Cain MD PCP - General Internal Medicine 10/21/18 10/03/20 [facility], Pcp PCP - General 10/04/20 08/24/22 Derrick Cain MD PCP - General Internal Medicine 08/25/22 03/13/24 Derrick Cain MD PCP - General Internal Medicine 03/14/24 Monica Martini DO 06/08/11 documented as of this encounter
--- OUTSIDE RECORDS SUMMARY | 2024-09-20 18:13 | XMS_ITS | Encounter Summary ---
Author Organization [facility] Address [address] [place] [address] Care Team Providers Care Supervisor Fabrication Department Name Role Phone Derrick Cain MD Primary Care Provider Unava ilable Derrick Cain MD Primary Care Provider Unava ilable Reason for Visit * Reason Onset Date Comments Sleep Study 04/17/2023 Encounter Details Date Type Department Care Team Description 04/17/2023 Telephone Pulmonology - [place] [address] [facility] [address] [place] [address] Yuriy Tsang MD Sleep Study Social History Tobacco Use Types Packs/Day Years [...] AM EST documented as of this encounter Miscellaneous Notes * Telephone Encounter - Sera Kunz CMA - 04/17/2023 4:31 PM EST 12/16/2022 sleep study results sent to [facility] documented in this encounter Plan of Treatment Not on file documented as of this encounter Visit Diagnoses Not on filedocumented in this encounter Care Teams Supervisor Fabrication Department Relationship Specialty Start Date End Date Derrick Cain MD PCP - General Internal Medicine 08/25/22 03/13/24 Derrick Cain MD PCP - General Internal Medicine 03/14/24 documented as of this encounter
--- OUTSIDE RECORDS SUMMARY | 2024-09-20 18:13 | XMS_ITS | Encounter Summary ---
Author Organization [facility] Address [address] [place] [address] Care Team Providers Care Microarray Analyst Name Role Phone Derrick Cain MD Primary Care Provider Unava ilable Derrick Cain MD Primary Care Provider Unava ilable Reason for Visit * Reason Comments E-prescribe Rx Request Encounter Details Date Type Department Care Team Description 09/10/2022 Refill Gastroenterology - [place] [address] [facility] [address] [place] [phone] Prasanth Borges PA-C [address] [facility] [address] [place] [address] E-prescribe Rx Request Social History Tobacco Use [...] on filedocumented in this encounter Care Teams Microarray Analyst Relationship Specialty Start Date End Date Derrick Cain MD PCP - General Internal Medicine 08/25/22 03/13/24 Derrick Cain MD PCP - General Internal Medicine 03/14/24 documented as of this encounter
--- OUTSIDE RECORDS SUMMARY | 2024-09-20 18:13 | XMS_ITS | Encounter Summary ---
Author Organization [facility] Address [address] [place] [address] Care Team Providers Care Network Systems Operator Name Role Phone Derrick Cain MD Primary Care Provider Unava ilable Derrick Cain MD Primary Care Provider Unava ilable Reason for Visit * Reason Comments E-prescribe Rx Request Encounter Details Date Type Department Care Team Description 08/13/2023 Refill Gastroenterology - [place] [address] [facility] [address] [place] [address] Prasanth Borges PA-C [address] [facility] [address] [place] [address] E-prescribe Rx Request Social History Tobacco Use [...] encounter Miscellaneous Notes * Telephone Encounter - Griselda Davenport - 08/13/2023 9:30 AM EST Patient's last visit was telehealth on 10/24/20 Last refill was 09/04/22 #180 3refills Please advise. documented in this encounter Plan of Treatment Not on file documented as of this encounter Visit Diagnoses Not on filedocumented in this encounter Care Teams Network Systems Operator Relationship Specialty Start Date End Date Derrick Cain MD PCP - General Internal Medicine 08/25/22 03/13/24 Derrick Cain MD PCP - General Internal Medicine 03/14/24 documented as of this encounter
--- OUTSIDE RECORDS SUMMARY | 2024-09-20 18:13 | XMS_ITS | Encounter Summary ---
Author Organization [facility] Address [address] [facility] [place] [address] Care Team Providers Care Environmental Education Specialist Name Role Phone Monica Martini Unavailable Janis vailable Derrick Cain MD Primary Care Provider Unava ilable [facility], Pcp Primary Care Provider UnavailDerrick Ramirez MD Primary Care Provider Unava ilable Derrick Cain MD Primary Care Provider Unava ilable Encounter Details Date Type Department Care Team Description 04/18/2019 Release of Information Medical Records [address] [place] [address] Abstract, Provider Social History Tobacco Use Types Packs/Day Years Used Date Smoking Tobacco: Never Assessed Sex Assigned at Date Recorded Female 09/24/2020 2:11 PM E DT Job Start Date Occupation Industry Not on file Not on file Not on file documented as of this encounter Nursing Notes * Rosita Skaggs - 04/18/2019 9:59 AM EST AUTHORIZATION TO OBTAIN RECORDS FAXED TO [facility]. documented in this encounter Plan of Treatment Not on file documented as of this encounter Visit Diagnoses Not on filedocumented in this encounter Care Teams Environmental Education Specialist Relationship Specialty Start Date End Date Derrick Cain MD PCP - General Internal Medicine 10/21/18 10/03/20 [facility], Pcp PCP - General 10/04/20 08/24/22 Derrick Cain MD PCP - General Internal Medicine 08/25/22 03/13/24 Derrick Cain MD PCP - General Internal Medicine 03/14/24 Monica Martini DO 06/08/11 documented as of this encounter
--- OUTSIDE RECORDS SUMMARY | 2024-09-20 18:13 | XMS_ITS | Encounter Summary ---
Author Organization [facility] Address [address] [place] [address] Care Team Providers Care Mold Runner Name Role Phone Derrick Cain MD Primary Care Provider Unava ilable Derrick Cain MD Primary Care Provider Unava ilable Reason for Visit * Reason Comments E-prescribe Rx Request Encounter Details Date Type Department Care Team Description 09/04/2022 Refill Gastroenterology - [place] [address] [facility] [address] [place] [address] Prasanth Borges PA-C [address] [facility] [address] [place] [address] E-prescribe Rx Request Social History Tobacco Use [...] encounter Miscellaneous Notes * Telephone Encounter - Francoise Bose M.A. - 09/04/2022 9:29 AM EDT Fredi 10/24/2020 Nov - unknown documented in this encounter Plan of Treatment Not on file documented as of this encounter Visit Diagnoses Not on filedocumented in this encounter Care Teams Mold Runner Relationship Specialty Start Date End Date Derrick Cain MD PCP - General Internal Medicine 08/25/22 03/13/24 Derrick Cain MD PCP - General Internal Medicine 03/14/24 documented as of this encounter
--- OUTSIDE RECORDS SUMMARY | 2024-09-20 18:13 | XMS_ITS | Encounter Summary ---
Author Organization [facility] Address [address] [place] [address] Care Team Providers Care Application Architect Name Role Phone Nasir Mireles Primary Care Provider Unavaila Monica Villela DO Unavailable Janis Derrick Augustin MD Primary Care Provider Unava ilsheila [facility], Pcp Primary Care Provider Derrick More MD Primary Care Provider Unava ilable Derrick Cain MD Primary Care Provider Unava ilable Encounter Details Date Type Department Care Team Description 09/17/2017 [facility] Medical Records [address] [place] [address] Abstract, Provider Social History Tobacco Use Types [...] on filedocumented in this encounter Care Teams Application Architect Relationship Specialty Start Date End Date Nasir Mireles PCP - General Internal Medicine 06/08/11 10/20/18 Derrick Cain MD PCP - General Internal Medicine 10/21/18 10/03/20 [facility], Pcp PCP - General 10/04/20 08/24/22 Derrick Cain MD PCP - General Internal Medicine 08/25/22 03/13/24 Derrick Cain MD PCP - General Internal Medicine 03/14/24 Monica Martini DO 06/08/11 documented as of this encounter
--- OUTSIDE RECORDS SUMMARY | 2024-09-20 18:13 | XMS_ITS | Data Portability ---
Author Organization [facility], [facility] Address [address] [place] [address] Care Team Providers Care Husbandry Person Name Role Phone MCCORMACKFABIO ALVA Primary Care Provider Assessment Encounter Date Assessment Date Assessment LastModified by Organization Details LastModified Time 03/31/2024 03/31/2024 64-year-old ufsfd-oxoy-qweesi nt female presents today with a 1 [...] satisfaction; surgery to be scheduled with my corporate secretary. mike Not available 04/15/2024 11:11:25 Plan of Treatment Reminders Order Date Submit Date Provider Last Modified By Organization Details Last Modified Time Details Appointments None record ed. Lab None record ed. Referral None record ed. Procedures None record ed. Surgeries None record ed. Imaging XR, hand, 3 or more view - rm 114 3v hand 024 03/31/20 [facility], [address], [facility] [address], [place], [address], 18:28:43 Medication Orders None record ed. Patient [...] Not Available [facility] ([facility]) [address] [facility], [place], [address], 05/03/2024 06:05:24 03/31/20 24 03/31/2024 XR, hand, 3 or more view [email or web address] ?Encry pted=s hAaTro YD8dLq bEUv6g %2BXZw aYqtaq 0bqfl% 2Fg9IQ a4ajBk vP9nXo QUaueC m3YtLR FvZlgJ JJ8mAn HZtai3 2s2623 AC0Kqa H2DU6C vKiQtr MwF INTERFACE [facility] [address], [place], [address], 03/31/2024 09:28:49 03/31/2003/31/2024 XR, hand, 3 or more view [email or web address] ?Encry pted=s hAaTro YD8dLq bEUv6g %2BXZw aYqtaq 0bqfl% 2Fg9IQ a4ajBk vP9nXo QUaueC m3YtLR FvZlgJ JJ8mAn HZtai3 9f0200 AC0Kqa H2DU6C vKiQtr MwF INTERFACE [facility] [address], [place], [address], 03/31/2024 09:28:51 Result Notes None recorded. Problems Name Problem SNOMED Code Status Onset Date Resolution Date Notes Provider Name and Address Organization Details Recorded Time Mass of hand 216045244 Active 024 Jhonny Elmore PA-C [address], [place], [address] , [facility] 03/31/2024 08:20:51 Problem Notes None recorded. Procedures Surgical History None recorded. Imaging Results Imaging Date Name Status LastModified by Organiz ation Details LastModified Time 03/31/2024 XR, hand, 3 or more view completed INTERFACE [facility] [address], [place], [address], 03/31/2024 09:28:49 03/31/2024 XR, hand, 3 or more view completed INTERFACE [facility] [address], [place], [address], 03/31/2024 09:28:51 Procedure Notes None recorded. Medical Equipment None Reported. Allergies Allergen ID Allergen Name Allergen Category Reaction Reaction Severity Criticality Documentation Date Start Date Code Code System Note Provider Name and Address Organization Details Recorded Time 931146 Product containin g penicilli n (product) medicatio n Not available Not available Not available 04/15/2024 70092 8001 SNOMED ALMITA robertson [facility] 4 09:36:00 498352 Invokamet medicatio n Not available Not available Not available 04/15/2024 02128 51 RxNorm ALMITA FLEMING [facility] 4 [...] Available Not Available No t Available FreeStyle [place] Lite kit DIRECTED active Not Available Not [...] Updated DateTime 03/31/2024 160.02 cm 38.4 kg/m2 84295.54 g ANAYELI LOUIS [facility] 03/31/2024 09:21:16 Date Recorded Body height Body mass index (BMI) Body weight Provider Name and Address Organization Details Last Updated DateTime 04/15/2024 160.02 cm 38.3 kg/m2 26625.95 g ALMITA FLEMING [facility] 04/15/2024 [...] SNOMED-CT Code Diagnosis ICD10 Code Diagnosis Note [id number] AVI Nguyen [address] [place] [address] 03/31/2024 09:13:14 04/22/2024 18:28:43 Mass of hand 887223263 R22.31 [id number] MD Christopher Marin [address] [place] [address] 04/15/2024 09:10:38 05/04/2024 08:54:35 Mass of hand 129211831 R22.31 Health Concerns Section Related Observation LastModified by Organization Detai ls LastModified Time None Recorded Concern Status LastModified by Organization Details LastModified Time None Recorded Advance Directives Directive None Recorded Payers Encounter Date Sequence Insurance Name Policy Number Policy Chow Covered Member ID Chow Member ID Guarantor Name 03/31/2024 1 [facility] - DOS ON OR AFTER 2022 - ONE CARE (MEDICARE REPLACEMENT/ADV ANTAGE - HMO) Maishacecy Gomez [id number] [facility] Jason 04/15/2024 1 [facility] - DOS ON OR AFTER 2022 - ONE CARE (MEDICARE REPLACEMENT/ADV ANTAGE - HMO) Maishacecy Gomez [id number] [facility] Notes Date Note Type Note Provider Name and Address Organization Details Recorded Time 03/31/2024 text/html I am seeing this patient under the supervision of Dr. Kearney who was available but who did not see the patient Chief Complaint: New evaluation for right hand pain HPI: 64-year-old yqlpu-pxpl-qnqpfc nt female presents today with a 1 month history atraumatic onset of a mass located in the palm of her right hand that is mildly painful and slowly enlarging. She has not had any treatment of this yet. No numbness or tingling associated with this. No overlying skin changes noted. Jhonny Elmore PA-C [address], [place], [address], [facility] 03/31/2024 10:39:03 04/15/2024 text/html R hand STM HPI: 64-year-old lmolf-souw-eewpbh nt female presents today for follow up of 1 month history atraumatic onset of a mass located in the palm of her right hand that is mildly painful and slowly enlarging. She has not had any treatment of this yet. No numbness or tingling associated with this. No overlying skin changes noted. Francine Hoover MD [address] [place], [place] [address] [address], [place], [address], [facility] [place] [facility] 04/15/2024 11:11:37 OBGyn Episode No OBEpisode recorded.
--- OUTSIDE RECORDS SUMMARY | 2024-09-20 18:13 | XMS_ITS | Encounter Summary ---
Author Organization [facility] Address [address] [place] [address] Care Team Providers Care Hand Bookbinder Name Role Phone Vini Monica GALLEGOS Unavailable Janis vailable Derrick Cain MD Primary Care Provider Unava ilable [facility], Pcp Primary Care Provider UnavailDerrick Ramirez MD Primary Care Provider Unava ilable Derrick Cain MD Primary Care Provider Unava ilable Encounter Details Date Type Department Care Team Description 11/03/2019 Orders Only Medicine/Pediatrics - [address] [address] Derrick Cain MD Social History Tobacco Use [...] on filedocumented in this encounter Care Teams Hand Bookbinder Relationship Specialty Start Date End Date Derrick Cain MD PCP - General Internal Medicine 10/21/18 10/03/20 [facility], Pcp PCP - General 10/04/20 08/24/22 Derrick Cain MD PCP - General Internal Medicine 08/25/22 03/13/24 Derrick Cain MD PCP - General Internal Medicine 03/14/24 Monica Martini DO 06/08/11 documented as of this encounter
--- OUTSIDE RECORDS SUMMARY | 2024-09-20 18:13 | XMS_ITS | Encounter Summary ---
Author Organization [facility] Address [address] [place] [address] Care Team Providers Care Carroting Machine Offbearer Name Role Phone Derrick Cain MD Primary Care Provider Unava ilable Derrick Cain MD Primary Care Provider Unava ilable Reason for Visit * Reason Comments E-prescribe Rx Request Encounter Details Date Type Department Care Team Description 08/27/2023 Refill Gastroenterology - [place] [address] [facility] [address] [place] [address] Prasanth Borges PA-C [address] [facility] [address] [place] [address] E-prescribe Rx Request Social History Tobacco Use [...] on filedocumented in this encounter Care Teams Carroting Machine Offbearer Relationship Specialty Start Date End Date Derrick Cain MD PCP - General Internal Medicine 08/25/22 03/13/24 Derrick Cain MD PCP - General Internal Medicine 03/14/24 documented as of this encounter
== END 2024-09-20 15:46 | disposition home or self-care (01) ==
LOC: HO.HWS 14:57
PROVIDERS: PCP Internal Medicine Sports Medicine; Visit Provider Obstetrics & Gynecology
DX: R87.610 Atypical squamous cells of undetermined significance on cytologic smear of cervix (ASC-US) (principal); R87.810 Cervical high risk human papillomavirus (HPV) DNA test positive
CPT/HCPCS: 99213

== ENCOUNTER → 2024-09-20 14:57 | Outpatient (BNVA) | payer OTHER, SELFPAY | PROVIDERS: PCP Internal Medicine Sports Medicine; Visit Provider Obstetrics & Gynecology ==

== ENCOUNTER 2024-10-18 10:30 | Outpatient (AMB) | payer OTHER, SELFPAY ==
[2024-10-18 10:37] VITALS: BP 124/68; PULSE 80; BMI 38.7
--- NOTE | 2024-10-18 10:37 | MHC.OFFVIS ---
Vital Signs 10/18/24 10:37 Height 5 ft 3 in Weight 218 lb 4.122 oz BMI 38.7 BP 124/68 Blood Pressure Location Lt brachial Position Sitting Pulse 80 Pulse Source Monitor Intake Visit Reasons: 1 yr follow up Allergies Penicillins [PENICILLINS] Allergy (Unknown, Verified 09/09/24 14:36) RASH canagliflozin [From Invokamet] Adverse Reaction (Verified 09/09/24 14:36) Yeast infection metformin [From Invokamet] Adverse Reaction (Verified 09/09/24 14:36) Yeast infection Medication List - Last Reconciled 10/18/24 by Dakotah Dunlap MD acetaminophen (Tylenol Extra Strength) 500 mg PO Q6H PRN alclometasone 0.05% topical allopurinol 300 mg PO DAILY blood sugar diagnostic (FreeStyle Test strips) USE DIRECTED 3 TIMES A DAY blood-glucose meter As directed blood-glucose meter (Rezorayle Delta Lite kit) DIRECTED blood-glucose,car manager,cont (FreeStyle Elizabeth 3 [place]) Use daily As directed to monitor blood glucose blood-glucose sensor (Home Inventory S[pecialistsStyle Elizabeth 3 Plus Sensor device) Use daily As directed to monitor glucose calcium carb-D3-mag [id number] 333 mg-200 unit -133 mg-5 mg 1 tab PO DAILY cholecalciferol (vitamin D3) TAKE 1 SOFTGEL ORALLY DAILY [diabetic shoes As directed] diltiazem HCl ER 120 mg PO DAILY famotidine (Pepcid) 20 mg PO DAILY fenofibrate nanocrystallized 145 mg PO DAILY flash glucose scanning reader (FreeStyle [place] 2 [place]) As directed flash glucose sensor (FreeStyle Elizabeth 2 Sensor kit) Once every 14 days insulin degludec (Tresiba FlexTouch U-200 insulin) 30 units (0.15 mL) subcut BEDTIME 90 days lancets (FreeStyle Lancets) One Lancet topical 4 times a day; lancets (FreeStyle Lancets) TEST 3 TIMES A DAY DIRECTED levothyroxine 175 mcg PO DAILY lidocaine 5% (Lidoderm) 1 patch topical DAILY PRN MDD remove after 12 hours metoprolol succinate ER 50 mg PO DAILY olmesartan 40 mg PO DAILY omeprazole 20 mg PO DAILY PRN pen needle, diabetic (BD Selena 2nd Gen Pen Needle) Use once a day as directed rivaroxaban (Xarelto) 20 mg PO DAILY rosuvastatin 40 mg PO DAILY thiamine HCl (vitamin B1) 100 mg PO DAILY tirzepatide (Mounjaro) 15 mg (0.5 mL) subcut QWEEK triamcinolone acetonide 0.1% appl topical BID PRN HPI Comments Details: Maisha returns for follow-up regarding atrial fibrillation. She carries a diagnosis of paroxysmal atrial fibrillation. She remains on metoprolol, diltiazem, Xarelto. Overall, she states that she feels okay. She has not had any clear-cut symptoms like angina. No known coronary disease but she states there is a lot of coronary disease in her family. Brother apparently recently from suspected cardiac issues but he did have a lot of other medical problems according to her. 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 Type 2 diabetes mellitus without complications Obstructive sleep apnea (adult) (pediatric) PAF (paroxysmal atrial fibrillation) Surgical History Hx of partial thyroidectomy S/P lumpectomy, right breast Hx of colonoscopy Family History Father Cardiovascular disease Mother Uterine cancer Social History (Updated 10/18/24 @ 10:47 by Shanita Garcia) Household Members: None Housing: Apartment Are you a primary manager progressive care to a significant other at home: No Do you presently have visiting nurse or other home services: Yes (CERTIFIED COATINGS INSPECTOR) Alcohol intake: never Patient Tobacco Use Status: Never used Tobacco service: No Current occupational status: disabled Female Reproductive History Menstrual Age of Menarche: 15 Review of Systems Const Denies weakness ENT Denies dizziness Card Denies chest pain, Denies chest pain with activity, Denies syncope, Denies rapid heart rate, Denies pedal edema, Denies edema, Denies leg edema, Denies lightheadedness, Denies palpitations, Denies dyspnea, Denies dyspnea on exertion and Denies orthopnea Resp Denies cough, Denies dyspnea and Denies dyspnea on exertion GI Denies hematochezia and Denies change in stool character Musc Denies abnormal gait, Denies muscle cramps, Denies muscle weakness, Denies numbness, Denies radiating pain into limb and Denies tingling Neuro Denies abnormal gait, Denies dizziness, Denies syncope, Denies numbness, Denies tingling and Denies weakness Endo Denies palpitations Physical Exam Vital Signs: Last Vital Signs Pulse 80 10/18/24 10:37 BP 124/68 10/18/24 10:37 BMI result Body Mass Index 38.7 Const General: comfortable and no acute distress Orientation/consciousness: patient oriented x3 HEENT Other: Unremarkable Head: Yes normal to inspection Neck Neck: Yes normal visual inspection Chest Chest palpation & inspection: normal inspection of the chest Resp Auscultation: clear to auscultation bilaterally Cardio Palpation: normal PMI Heart sounds: S1 normal heart sound present, S2 normal heart sound present, no gallops, no murmurs and no rubs GI Palpation (GI): Soft to palpation Back/Spine/Pelvis Other: unremarkable Skin General skin exam: no rashes or lesions noted Neuro General: patient oriented x3 Extrem General: Yes normal to inspection Psych Mental Status: mental status grossly normal Office Procedures EKG Details: EKG with underlying sinus rhythm at 80/Min; right superior axis; no clear ischemic changes; [place]. [address]-Iepgyprykgarivjwq, Complete Assessment & Plan Assessment & Plan (1) PAF (paroxysmal atrial fibrillation): Code(s): I48.0 - Paroxysmal atrial fibrillation Category: Medical Plan: On diltiazem, metoprolol, Xarelto. Echocardiogram with normal LVEF and otherwise unremarkable. In the stress test, she was able to exercise for only 2.7 Mets. No angina or EKG evidence of ischemia in this workload. Refused pharmacological stress test. Considering the strong family history of coronary disease as well as risk factors and poor performance on stress test, recommend coronary CTA. She is willing. (2) Essential hypertension: Code(s): I10 - Essential (primary) hypertension Category: Medical Plan: On Olmesartan. Stable. 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 Less than optimally controlled. On insulin, [place]. Plan Total time spent including review of data, counseling, documentation, coordination of care-32 minutes. 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
--- OUTSIDE RECORDS SUMMARY | 2024-10-18 11:39 | XMS_ITS | Data Portability ---
Author Organization [facility], [facility] Address [address] [place] [address] Care Team Providers Care Sash Sticker Name Role Phone MCCORMACKFABIO ALVA Primary Care Provider Assessment Encounter Date Assessment Date Assessment LastModified by Organization Details LastModified Time 03/31/2024 03/31/2024 64-year-old rkrnq-oviu-ulwqys nt female presents today with a 1 [...] satisfaction; surgery to be scheduled with my physician office secretary. mike Not available 04/15/2024 11:11:25 Plan of Treatment Reminders Order Date Submit Date Provider Last Modified By Organization Details Last Modified Time Details Appointments None record ed. Lab None record ed. Referral None record ed. Procedures None record ed. Surgeries None record ed. Imaging XR, hand, 3 or more view - rm 114 3v hand 024 03/31/20 [facility], [address], [facility] [address], [place], [address], 18:28:43 Medication Orders None record ed. Patient [...] 125 Diabe dipti >125 Not Available [facility] ([facility]) [address] [facility], [place], [address], 05/03/2024 06:05:24 03/31/20 24 03/31/2024 XR, hand, 3 or more view [email or web address] ?Encry pted=s hAaTro YD8dLq bEUv6g %2BXZw aYqtaq 0bqfl% 2Fg9IQ a4ajBk vP9nXo QUaueC m3YtLR FvZlgJ JJ8mAn HZtai3 5o3949 AC0Kqa H2DU6C vKiQtr MwF INTERFACE [facility] [address], [place], [address], 03/31/2024 09:28:49 03/31/2003/31/2024 XR, hand, 3 or more view [email or web address] ?Encry pted=s hAaTro YD8dLq bEUv6g %2BXZw aYqtaq 0bqfl% 2Fg9IQ a4ajBk vP9nXo QUaueC m3YtLR FvZlgJ JJ8mAn HZtai3 2x8661 AC0Kqa H2DU6C vKiQtr MwF INTERFACE [facility] [address], [place], [address], 03/31/2024 09:28:51 Result Notes None recorded. Problems Name Problem SNOMED Code Status Onset Date Resolution Date Notes Provider Name and Address Organization Details Recorded Time Mass of hand 634181581 Active 024 Jhonny Elmore PA-C [address], [place], [address] , [facility] 03/31/2024 08:20:51 Problem Notes None recorded. Procedures Surgical History None recorded. Imaging Results Imaging Date Name Status LastModified by Organiz ation Details LastModified Time 03/31/2024 XR, hand, 3 or more view completed INTERFACE [facility] [address], [place], [address], 03/31/2024 09:28:49 03/31/2024 XR, hand, 3 or more view completed INTERFACE [facility] [address], [place], [address], 03/31/2024 09:28:51 Procedure Notes None recorded. Medical Equipment None Reported. Allergies Allergen ID Allergen Name Allergen Category Reaction Reaction Severity Criticality Documentation Date Start Date Code Code System Note Provider Name and Address Organization Details Recorded Time 888738 Product containin g penicilli n (product) medicatio n Not available Not available Not available 04/15/2024 50423 8001 SNOMED ALMITA robertson [facility] 4 09:36:00 244210 Invokamet medicatio n Not available Not available Not available 04/15/2024 48283 51 RxNorm [facility] 4 09:36:11 Medications Name Sig Start Date [...] Available Not Available No t Available FreeStyle [place] Lite kit DIRECTED active Not Available Not [...] Updated DateTime 03/31/2024 160.02 cm 38.4 kg/m2 18231.54 g ANAYELI LOUIS [facility] 03/31/2024 09:21:16 Date Recorded Body height Body mass index (BMI) Body weight Provider Name and Address Organization Details Last Updated DateTime 04/15/2024 160.02 cm 38.3 kg/m2 10934.95 g ALMITA FLEMING [facility] 04/15/2024 09:35:49 Social History None recorded. Functional Status None recorded. Mental Status None recorded. Family History Nothing Reported. Medical History No medical history recorded. Gynecological HistoryNo gynecological history recorded. Obstetrics History GPAL:G 0 P 0 0 0 0 Past Encounters Encounter ID Performer Location Encounter Start Date Encounter Closed Date Diagnosis/Indication Diagnosis SNOMED-CT Code Diagnosis ICD10 Code Diagnosis Note [id number] AVI Nguyen [address] [place] [address] 03/31/2024 09:13:14 04/22/2024 18:28:43 Mass of hand 578652467 R22.31 [id number] MD Christopher Marin [address] [place] [address] 04/15/2024 09:10:38 05/04/2024 08:54:35 Mass of hand 119482716 R22.31 Health Concerns Section Related Observation LastModified by Organization Detai ls LastModified Time None Recorded Concern Status LastModified by Organization Details LastModified Time None Recorded Advance Directives Directive None Recorded Payers Encounter Date Sequence Insurance Name Policy Number Policy Chow Covered Member ID Chow Member ID Guarantor Name 03/31/2024 1 [facility] - DOS ON OR AFTER 2022 - ONE CARE (MEDICARE REPLACEMENT/ADV ANTAGE - HMO) Maishacecy Gomez [id number] [facility] Jason 04/15/2024 1 [facility] - DOS ON OR AFTER 2022 - ONE CARE (MEDICARE REPLACEMENT/ADV ANTAGE - HMO) Maishacecy Gomez [id number] [facility] Notes Date Note Type Note Provider Name and Address Organization Details Recorded Time 03/31/2024 text/html I am seeing this patient under the supervision of Dr. Kearney who was available but who did not see the patient Chief Complaint: New evaluation for right hand pain HPI: 64-year-old ifusa-ynqd-taombd nt female presents today with a 1 month history atraumatic onset of a mass located in the palm of her right hand that is mildly painful and slowly enlarging. She has not had any treatment of this yet. No numbness or tingling associated with this. No overlying skin changes noted. Jhonny Elmore PA-C [address], [place], [address], [facility] [place] [facility] 03/31/2024 10:39:03 04/15/2024 text/html R hand STM HPI: 64-year-old mixqw-kfkr-wthkbp nt female presents today for follow up of 1 month history atraumatic onset of a mass located in the palm of her right hand that is mildly painful and slowly enlarging. She has not had any treatment of this yet. No numbness or tingling associated with this. No overlying skin changes noted. Francine Hoover MD [address] [place], [place] [address] [address], [place], [address], [facility] [place] [facility] 04/15/2024 11:11:37 OBGyn Episode No OBEpisode recorded.
--- OUTSIDE RECORDS SUMMARY | 2024-10-18 11:40 | XMS_ITS | Clinical Summary ---
Author Organization 175 [facility] Address [address] [place] [address] Phone Care Team Providers Care Industrial Gas Servicer Helper Name Role Phone Derrick Cain MD Primary Care Provider [phone] Allergies Active Allergy Reactions Criticality Noted Date [...] sleep apnea 08/30/2019 Overview (04/29/2024): [facility] diagnostic polysomnogram done 08/11/2016; weight 234 pounds; BMI 42; sleep efficiency 67%; REM 14%; AHI 8 overall; 23 hypopneas; PLM's 2; oxygen saturation 93% average and lowest at 78%. [facility] treatment polysomnogram 09/02/2016; sleep efficiency 80%; [...] (diabetes mellitus), type 2 with renal complications ([facility] V24, [facility] V28) 06/12/2019 De Quervain's tenosynovitis, right 06/03/2019 Diabetic peripheral neuropathy ([facility] V24, [facility] V28) 05/04/2019 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 ([facility] V24, [facility] V28) 04/29/2019 GERD (gastroesophageal reflux disease) 9 Gout 04/29/2019 Generalized anxiety disorder 04/29/2019 Depression 04/29/2019 Multinodular goiter 04/29/2019 Overview (04/29/2024): FNA 05/2019: LLP and RLP, cytology benign for both nodules, needs repeat thyroid u/s 05/2020. Also obtaining barium swallow dur to dysphagia Morbid obesity ([facility] V24, [facility] V28) 2018 Breast cancer ([facility] V24, [facility] V28) 019 Overview (04/29/2024): Surgery x2 Essential hypertension, benign 07/21/2012 Dyslipidemia 07/21/2012 Paroxysmal atrial fibrillation ([facility] V24, [facility] V28) 07/21/2012 Encounters Date Type Department Care Team Description 09/06/2024 10:00 AM EDT Office Visit Orthopedic Surgery - [place] [address] [address] Faisal Burch, DPM Tendonitis, Achilles, left (Primary Dx); Follow-up exam; Dermatophytosis of nail; Pain in toe of left foot; Pain in toe of right foot; Corns and callosities; Type II diabetes mellitus with peripheral circulatory disorder ([facility] V24, [facility] V28); Diabetic mononeuropathy simplex ([facility] V24, [facility] V28); Metatarsalgia of both feet from Last [...] residual neoplasm OTHER SURGICAL HISTORY 03/26/2016 PROCEDURE: PA BIOPSY THYROID PERCUTANEOUS CORE NEEDLE; COMMENT: nodule; no report ESOPHAGOGASTRODUODENOSCOPY 10/09/2020 PROCEDURE: PA EGD TRANSORAL BIOPSY SINGLE/MULTIPLE; COMMENT: gastropathy, biopsy pending Medical History Medical History Date Comments Essential hypertension, benign 07/21/2012 D X:Essential hypertension, benign Dyslipidemia 07/21/2012 DX:Dyslipidemia Paroxysmal atrial fibrillati on ([facility] V24, [facility] V28) 07/21/2012 DX:Paroxysmal atrial fibril lation (HCC) Breast cancer ([facility] V24, [facility] V28) 04/29/2019 DX:Breast cancer (HCC); COMM ENT: Surgery x2 Depression 04/29/2019 DX:Depression Generalized anxiety disorder 04/29/2019 DX: Generalized anxiety disorder GERD (gastroesophageal reflu x disease) 04/29/2019 DX:GERD (gastroesophageal re flux disease) Gout 04/29/2019 DX:Gout Morbid obesity ([facility] V24, [facility] V28) 04/29/2019 DX:Morbid obesity (HCC) Multinodular goiter 04/29/2019 DX:Multinodu lar goiter Patient is Restoration 04/29/2019 DX: Patient is Restoration 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 ([facility] V24, [facility] V28) 04/29/2019 DX:Type 2 diabetes mellitus with peripheral neuropathy ([facility]) Diabetic peripheral neuropat hy ([facility] V24, [facility] V28) 05/04/2019 DX:Diabetic peripheral neur opathy ([facility]) Swallowing impaired DX:Swallowin g impaired Atrial fibrillation, transie nt ([facility] V24, [facility] V28) DX:Atrial fibrillation, tra nsient ([facility]) Esophagitis DX:Esophagitis Family History Medical History Relation Name Comments Coronary artery disease Brother 1 Coronary artery disease Brother 2 Coronary artery disease Brother 3 Coronary artery disease Brother 4 Coronary artery disease Brother 5 ADD / ADHD Daughter Other: anxiety Daughter panic attacks Coronary artery disease Father s/p [place] Diabetes Mother Uterine cancer Mother Depression Son [...] Upcoming Encounters Date Type Department Care Team ([facility] st Contact Info) Description 11/21/2024 10:15 AM EDT Office Visit Orthopedic Surgery - [place] [address] [address] Faisal Burch, DPM [address] [place] [address] 03/30/2025 9:45 AM EDT Office Visit Pulmonolgy - [place] 175 [facility] [address] [place] [phone] Mery Ferris, HÉCTOR 175 [facility] 200 [place] [address] Health Maintenance Due Date Last Done Comments [...] PPSV23, PCV20 or PCV21) 03/30/2023 03/30/2018, 03/03/2018 COVID-19 Vaccine (6 - Pfizer risk season) 2024 03/28/2024, 11/07/2021, 05/23/2021, Additional history exists DTaP,Tdap,and Td Vaccines (3 - Td or Tdap) 06/17/2034 06/17/2024, 05/02/2014 Zoster Vaccines Completed 12/26/2022, 09/24/2022 Influenza Vaccine Completed 03/18/2024, , 03/26/2022, Additional history exists RSV Immunization Adult Patients [...] infra consistent with fasciitis and Achilles tendinitis Faisal Burch DPM IMG XR PROCEDURES Final R esult * Urine Albumin Creatinine Ratio (07/12/2019) Urine Albumin Creatinine Ratio Abstracted Historical Provider HEALTH MAINTENANCE Final Result * Hm Annual BMP Blood Test (07/12/2019) Annual BMP Blood Test Abstracted Historical Provider HEALTH MAINTENANCE Final Result * (ABNORMAL) Hemoglobin A1c (07/12/2019) Pathologist [facility] Hemoglobin A1C 10.2(A) <=6.5 % Blood Venous blood specimen / Unknown Historical Provider LAB BLOOD ORDERABLES Sharmaine l Result from Last 3 Months or Most Recently Relevant to Health Maintenance Insurance [facility] Member Subscriber Plan / Payer (Ef fective 2019-Present) Name:Maisha Gomez Relation to Subscriber:Self Name:Maisha Gomez Payer ID:[id number] Group ID:[id number] Type:Not on file Address: [place] [address] [id number] Advance Directives Documents on File Type Date Recorded Patient Qa Analyst Expl anation Health Care Decision (hx) 10/09/2020 HONG SILVESTRE DIRECTIVE Care Teams Industrial Gas Servicer Helper Relationship Specialty Start Date End Date Derrick Cain MD [address] [place] [id number] PCP - General 10/21/18
--- OUTSIDE RECORDS SUMMARY | 2024-10-18 11:40 | XMS_ITS | Encounter Summary ---
Author Organization [facility] Address [address] [place] [address] Care Team Providers Care Ball Mill Operator Name Role Phone Derrick Cain MD Primary Care Provider Unava ilable Derrick Cain MD Primary Care Provider Unava ilable Reason for Visit * Reason Comments E-prescribe Rx Request Encounter Details Date Type Department Care Team Description 09/04/2022 Refill Gastroenterology - [place] 175 [facility] [address] [place] [address] Prasanth Borges PA-C 175 [facility] 200 [place] [address] E-prescribe Rx Request Social History Tobacco Use [...] on filedocumented in this encounter Care Teams Ball Mill Operator Relationship Specialty Start Date End Date Derrick Cain MD PCP - General Internal Medicine 08/25/22 03/13/24 Derrick Cain MD PCP - General Internal Medicine 03/14/24 documented as of this encounter
--- OUTSIDE RECORDS SUMMARY | 2024-10-18 11:40 | XMS_ITS | Encounter Summary ---
Author Organization [facility] Address [address] [place] [address] Care Team Providers Care Film Developing Machine Operator Name Role Phone Derrick Cain MD Primary Care Provider Unava ilable Derrick Cain MD Primary Care Provider Unava ilable Encounter Details Date Type Department Care Team Description 07/22/2023 Orders Only Pulmonology - [place] [address] [facility] [address] [place] [address] Yuriy Tsang MD Obstructive sleep apnea mild [...] (pediatric) documented in this encounter Care Teams Film Developing Machine Operator Relationship Specialty Start Date End Date Derrick Cain MD PCP - General Internal Medicine 08/25/22 03/13/24 Derrick Cain MD PCP - General Internal Medicine 03/14/24 documented as of this encounter
--- OUTSIDE RECORDS SUMMARY | 2024-10-18 11:40 | XMS_ITS | Encounter Summary ---
Author Organization [facility] Address [address] [facility] [place] [address] Care Team Providers Care Call Manager Name Role Phone Partha, Pcp Primary Care Provider Derrick More MD Primary Care Provider Unava ilable Derrick Cain MD Primary Care Provider Unava ilable Encounter Details Date Type Department Care Team Description 10/09/2020 [facility] Medical Records [address] [place] [address] Nicole Conner MD Social History Tobacco Use [...] on filedocumented in this encounter Care Teams Call Manager Relationship Specialty Start Date End Date Community, Pcp PCP - General 10/04/20 08/24/22 Derrick Cain MD PCP - General Internal Medicine 08/25/22 03/13/24 Derrick Cain MD PCP - General Internal Medicine 03/14/24 documented as of this encounter
--- OUTSIDE RECORDS SUMMARY | 2024-10-18 11:40 | XMS_ITS | Encounter Summary ---
Author Organization [facility] Address [address] [place] [address] Care Team Providers Care Steel Floor Pan Placing Supervisor Name Role Phone Community, Pcp Primary Care Provider Derrick More MD Primary Care Provider Unava ilable Derrick Cain MD Primary Care Provider Unava ilable Encounter Details Date Type Department Care Team Description 11/28/2020 Refill Adult Medicine [address] [address] Community, Pcp Social History Tobacco Use Types Packs/Day Years [...] on filedocumented in this encounter Care Teams Steel Floor Pan Placing Supervisor Relationship Specialty Start Date End Date Community, Pcp PCP - General 10/04/20 08/24/22 Derrick Cain MD PCP - General Internal Medicine 08/25/22 03/13/24 Derrick Cain MD PCP - General Internal Medicine 03/14/24 documented as of this encounter
--- OUTSIDE RECORDS SUMMARY | 2024-10-18 11:40 | XMS_ITS | Encounter Summary ---
Author Organization [facility] [employer] [facility] Address [address] [place] [address] Care Team Providers Care Paper Plate Machine Tender Name Role Phone Community, Pcp Primary Care Provider Derrick More MD Primary Care Provider Unava ilable Derrick Cain MD Primary Care Provider Unava ilable Reason for Visit * Reason Comments E-prescribe Rx Request Encounter Details Date Type Department Care Team Description 08/14/2021 Refill Gastroenterology - [place] 175 [place] [address] [place] [address] Prasanth Borges PA-C [address] [address] E-prescribe Rx Request Social History Tobacco Use [...] on filedocumented in this encounter Care Teams Paper Plate Machine Tender Relationship Specialty Start Date End Date Community, Pcp PCP - General 10/04/20 08/24/22 Derrick Cain MD PCP - General Internal Medicine 08/25/22 03/13/24 Derrick Cain MD PCP - General Internal Medicine 03/14/24 documented as of this encounter
--- OUTSIDE RECORDS SUMMARY | 2024-10-18 11:40 | XMS_ITS | Encounter Summary ---
Author Organization [facility] Address [address] [place] [address] Care Team Providers Care Watershed Engineer Name Role Phone Derrick Cain MD Primary Care Provider Unava ilable Derrick Cain MD Primary Care Provider Unava ilable Reason for Visit * Reason Onset Date Comments DME Request 08/27/2022 Encounter Details Date Type Department Care Team Description 08/27/2022 Telephone Pulmonology - [place] 175 [facility] [address] [place] [address] Yuriy Tsang MD DME Request Social History [...] 9:42 AM EDT Supply order sent to [facility], confirmation received documented in this encounter Plan of Treatment Not on file documented as of this encounter Visit Diagnoses Not on filedocumented in this encounter Care Teams Watershed Engineer Relationship Specialty Start Date End Date Derrick Cain MD PCP - General Internal Medicine 08/25/22 03/13/24 Derrick Cain MD PCP - General Internal Medicine 03/14/24 documented as of this encounter
--- OUTSIDE RECORDS SUMMARY | 2024-10-18 11:40 | XMS_ITS | Encounter Summary ---
Author Organization [facility] Address [address] [place] [address] Care Team Providers Care Hot Strip Mill Inspector Name Role Phone Vini Monica GALLEGOS Unavailable Janis vajayble Derrick Cain MD Primary Care Provider Unava ilable Partha, Pcp Primary Care Provider UnavailDerrick Ramirez MD Primary Care Provider Unava ilable Derrick Cain MD Primary Care Provider Unava ilable Encounter Details Date Type Department Care Team Description 12/15/2019 Orders Only Medicine/Pediatrics - [address] [address] Derrick Cain MD Social History Tobacco Use [...] on filedocumented in this encounter Care Teams Hot Strip Mill Inspector Relationship Specialty Start Date End Date Derrick Cain MD PCP - General Internal Medicine 10/21/18 10/03/20 [facility], Pcp PCP - General 10/04/20 08/24/22 Derrick Cain MD PCP - General Internal Medicine 08/25/22 03/13/24 Derrick Cain MD PCP - General Internal Medicine 03/14/24 Monica Martini DO 06/08/11 documented as of this encounter
--- OUTSIDE RECORDS SUMMARY | 2024-10-18 11:40 | XMS_ITS | Encounter Summary ---
Author Organization [facility] Address [address] [facility] [place] [address] Care Team Providers Care Supervisor Knitting Name Role Phone Monica Martini Unavailable Janis vailable Derrick Cain MD Primary Care Provider Unava ilable [facility], Pcp Primary Care Provider UnavailDerrick Ramirez MD Primary Care Provider Unava ilable Derrick Cain MD Primary Care Provider Unava ilable Encounter Details Date Type Department Care Team Description 04/18/2019 Release of Information Medical Records [address] [place] [address] Abstract, Provider Social History Tobacco Use Types [...] filedocumented in this encounter Care Teams Supervisor Knitting Relationship Specialty Start Date End Date Derrick Cain MD PCP - General Internal Medicine 10/21/18 10/03/20 [facility], Pcp PCP - General 10/04/20 08/24/22 Derrick Cain MD PCP - General Internal Medicine 08/25/22 03/13/24 Derrick Cain MD PCP - General Internal Medicine 03/14/24 Monica Martini DO 06/08/11 documented as of this encounter
--- OUTSIDE RECORDS SUMMARY | 2024-10-18 11:40 | XMS_ITS | Encounter Summary ---
Author Organization [facility] Address [address] [place] [address] Care Team Providers Care Metal Coater Operator Name Role Phone Derrick Cain MD Primary Care Provider Unava ilable Derrick Cain MD Primary Care Provider Unava ilable Reason for Visit * Reason Comments E-prescribe Rx Request Encounter Details Date Type Department Care Team Description 09/10/2022 Refill Gastroenterology - [place] 175 [facility] [address] [place] [address] Prasanth Borges PA-C 175 [facility] [address] [place] [address] E-prescribe Rx Request Social History Tobacco Use [...] on filedocumented in this encounter Care Teams Metal Coater Operator Relationship Specialty Start Date End Date Derrick Cain MD PCP - General Internal Medicine 08/25/22 03/13/24 Derrick Cain MD PCP - General Internal Medicine 03/14/24 documented as of this encounter
--- OUTSIDE RECORDS SUMMARY | 2024-10-18 11:40 | XMS_ITS | Encounter Summary ---
Author Organization [facility] Address [address] [place] [address] Care Team Providers Care Airport Operations Officer Name Role Phone Nasir Mireles Primary Care Provider Unavaila Monica Villela DO Unavailable Janis Derrick Augustin MD Primary Care Provider Unava ilsheila Chavis, Pcp Primary Care Provider Derrick More MD Primary Care Provider Unava ilable Derrick Cain MD Primary Care Provider Unava ilable Encounter Details Date Type Department Care Team Description 07/02/2017 [facility] Medical Records [address] [place] [address] Abstract, Provider Social History Tobacco Use Types [...] on filedocumented in this encounter Care Teams Airport Operations Officer Relationship Specialty Start Date End Date Nasir Mireles PCP - General Internal Medicine 06/08/11 10/20/18 Derrick Cain MD PCP - General Internal Medicine 10/21/18 10/03/20 [facility], Pcp PCP - General 10/04/20 08/24/22 Derrick Cain MD PCP - General Internal Medicine 08/25/22 03/13/24 Derrick Cain MD PCP - General Internal Medicine 03/14/24 Monica Martini DO 06/08/11 documented as of this encounter
--- OUTSIDE RECORDS SUMMARY | 2024-10-18 11:40 | XMS_ITS | Encounter Summary ---
Author Organization [facility] Address [address] [place] [address] Care Team Providers Care Dental Appliance Fixer Name Role Phone Nasir Mireles Primary Care Provider Unavaila Monica Villela DO Unavailable Janis Derrick Augustin MD Primary Care Provider Unava ilsheila Chavis, Pcp Primary Care Provider Derrick More MD Primary Care Provider Unava ilable Derrick Cain MD Primary Care Provider Unava ilable Encounter Details Date Type Department Care Team Description 09/17/2017 [facility] Medical Records [address] [place] [address] Abstract, Provider Social History Tobacco Use Types [...] on filedocumented in this encounter Care Teams Dental Appliance Fixer Relationship Specialty Start Date End Date Nasir Mireles PCP - General Internal Medicine 06/08/11 10/20/18 Derrick Cain MD PCP - General Internal Medicine 10/21/18 10/03/20 [facility], Pcp PCP - General 10/04/20 08/24/22 Derrick Cain MD PCP - General Internal Medicine 08/25/22 03/13/24 Derrick Cain MD PCP - General Internal Medicine 03/14/24 Monica Martini DO 06/08/11 documented as of this encounter
--- OUTSIDE RECORDS SUMMARY | 2024-10-18 11:40 | XMS_ITS | Clinical Summary ---
Author Organization [facility] Address [address] [place] [address] Care Team Providers Care Slate Mixer Name Role Phone Derrick Cain MD Primary [...] 0 Ac tive Calcium Carbonate-Vit D-Min (QC Ehjqyku-Xpryslipa-I inc-D3) 333.4-133 MG-UNIT Tab Take by mouth. [...] sleep apnea mild AHI 8 08/29 Overview: [facility] diagnostic polysomnogram done 08/11/2016; weight [...] barium swallow dur to dysphagia Patient is [employer] 04/29/2019 Morbid obesity 04/29/2019 Breast cancer 04/29/2019 [...] anxiety Daughter panic attacks CAD Father s/p [place] Diabetes Mother Uterine Cancer Mother Depression Son [...] PATIENTS (#2) 2027 03/30/2018, 03/03/2018 Care Teams Slate Mixer Relationship Specialty Start Date End Date Derrick Cain MD PCP - General Internal Medicine 03/14/24
--- OUTSIDE RECORDS SUMMARY | 2024-10-18 11:40 | XMS_ITS | Encounter Summary ---
Author Organization [facility] Address [address] [place] [address] Care Team Providers Care Respiratory Therapy Instructor Name Role Phone Monica Martini DO Unavailable Janis vailable Derrick Cain MD Primary Care Provider Unava ilable Community, Pcp Primary Care Provider Unavailabl e Derrick Cain MD Primary Care Provider Unava ilable Derrick Cain MD Primary Care Provider Unava ilable Encounter Details Date Type Department Care Team Description 04/07/2019 Release of Information Medical Records [address] [place] [address] Abstract, Provider Social History Tobacco Use Types [...] on filedocumented in this encounter Care Teams Respiratory Therapy Instructor Relationship Specialty Start Date End Date Derrick Cain MD PCP - General Internal Medicine 10/21/18 10/03/20 [facility], Pcp PCP - General 10/04/20 08/24/22 Derrick Cain MD PCP - General Internal Medicine 08/25/22 03/13/24 Derrick Cain MD PCP - General Internal Medicine 03/14/24 Monica Martini DO 06/08/11 documented as of this encounter
--- OUTSIDE RECORDS SUMMARY | 2024-10-18 11:40 | XMS_ITS | Encounter Summary ---
Author Organization [facility] Address [address] [place] [address] Care Team Providers Care Customer Accounts Advisor Name Role Phone Monica Martini DO Unavailable Janis vaDerrick Nguyễn MD Primary Care Provider Unava ilable Partha, Pcp Primary Care Provider UnavailDerrick Ramirez MD Primary Care Provider Unava ilable Derrick Cain MD Primary Care Provider Unava ilable Encounter Details Date Type Department Care Team Description 07/21/2019 Mirror Department Supervisor Report Medical Records [address] [place] [address] [facility] Social History Tobacco Use Types Packs/Day [...] on filedocumented in this encounter Care Teams Customer Accounts Advisor Relationship Specialty Start Date End Date Derrick Cain MD PCP - General Internal Medicine 10/21/18 10/03/20 Community, Pcp PCP - General 10/04/20 08/24/22 Derrick Cain MD PCP - General Internal Medicine 08/25/22 03/13/24 Derrick Cain MD PCP - General Internal Medicine 03/14/24 Monica Martini DO 06/08/11 documented as of this encounter
--- OUTSIDE RECORDS SUMMARY | 2024-10-18 11:40 | XMS_ITS | Encounter Summary ---
Author Organization [facility] Address [address] [place] [address] Care Team Providers Care Standards Analyst Name Role Phone Vini Monica GALLEGOS Unavailable Janis vailable Derrick Cain MD Primary Care Provider Unava ilable Partha, Pcp Primary Care Provider UnavailDerrick Ramirez MD Primary Care Provider Unava ilable Derrick Cain MD Primary Care Provider Unava ilable Encounter Details Date Type Department Care Team Description 11/03/2019 Orders Only Medicine/Pediatrics - [address] [phone] Derrick Cain MD Social History Tobacco Use [...] on filedocumented in this encounter Care Teams Standards Analyst Relationship Specialty Start Date End Date Derrick Cain MD PCP - General Internal Medicine 10/21/18 10/03/20 [facility], Pcp PCP - General 10/04/20 08/24/22 Derrick Cain MD PCP - General Internal Medicine 08/25/22 03/13/24 Derrick Cain MD PCP - General Internal Medicine 03/14/24 Monica Martini DO 06/08/11 documented as of this encounter
--- OUTSIDE RECORDS SUMMARY | 2024-10-18 11:40 | XMS_ITS | Encounter Summary ---
Author Organization [facility] Address [address] [place] [address] Care Team Providers Care Bank Reconciliator Name Role Phone Derrick Cain MD Primary Care Provider Unava ilable Derrick Cain MD Primary Care Provider Unava ilable Reason for Visit * Reason Onset Date Comments Follow-up 07/15/2023 Encounter Details Date Type Department Care Team Description 07/15/2023 Telephone Pulmonology - [place] [address] [facility] [address] [place] [phone] Yuriy Tsang MD Follow-up Social History Tobacco [...] on filedocumented in this encounter Care Teams Bank Reconciliator Relationship Specialty Start Date End Date Derrick Cain MD PCP - General Internal Medicine 08/25/22 03/13/24 Derrick Cain MD PCP - General Internal Medicine 03/14/24 documented as of this encounter
--- OUTSIDE RECORDS SUMMARY | 2024-10-18 11:40 | XMS_ITS | Encounter Summary ---
Author Organization [facility] Address [address] [place] [address] Care Team Providers Care Sales Development Director Name Role Phone Derrick Cain MD Primary Care Provider Unava ilable Derrick Cain MD Primary Care Provider Unava ilable Encounter Details Date Type Department Care Team Description 10/14/2022 Burglar Alarm Mechanic Report Medical Records [address] [place] [address] Abstract, Provider Social History Tobacco Use Types [...] on filedocumented in this encounter Care Teams Sales Development Director Relationship Specialty Start Date End Date Derrick Cain MD PCP - General Internal Medicine 08/25/22 03/13/24 Derrick Cain MD PCP - General Internal Medicine 03/14/24 documented as of this encounter
--- OUTSIDE RECORDS SUMMARY | 2024-10-18 11:40 | XMS_ITS | Encounter Summary ---
Author Organization [facility] Address [address] [place] [address] Care Team Providers Care Bankruptcy Assistant Name Role Phone Monica Martini DO Unavailable Janis vaDerrick Nguyễn MD Primary Care Provider Unava ilable Partha, Pcp Primary Care Provider UnavailDerrick Ramirez MD Primary Care Provider Unava ilable Derrick Cain MD Primary Care Provider Unava ilable Encounter Details Date Type Department Care Team Description 06/22/2019 Air Cargo Agent Report Medical Records [address] [place] [address] [facility] Social History Tobacco Use Types Packs/Day [...] on filedocumented in this encounter Care Teams Bankruptcy Assistant Relationship Specialty Start Date End Date Derrick Cain MD PCP - General Internal Medicine 10/21/18 10/03/20 [facility], Pcp PCP - General 10/04/20 08/24/22 Derrick Cain MD PCP - General Internal Medicine 08/25/22 03/13/24 Derrick Cain MD PCP - General Internal Medicine 03/14/24 Monica Martini DO 06/08/11 documented as of this encounter
--- OUTSIDE RECORDS SUMMARY | 2024-10-18 11:40 | XMS_ITS | Encounter Summary ---
Author Organization [facility] Address [address] [place] [address] Care Team Providers Care Engraver Wood Name Role Phone Monica Martini Unavailable Janis vaDerrick Nguyễn MD Primary Care Provider Unava ilable [facility], Pcp Primary Care Provider UnavailDerrick Ramirez MD Primary Care Provider Unava ilable Derrick Cain MD Primary Care Provider Unava ilable Encounter Details Date Type Department Care Team Description 09/03/2020 Telephone Gastroenterology - [place] 175 [facility] [address] [place] [address] Prasanth Borges PA-C 175 [facility] [address] [place] [address] Social History Tobacco Use Types Packs/Day Years [...] that she underwent a swallowing test at [facility] last year that was ordered by her wood room supervisor. Please obtain those records so we may incorporate them into her chart. documented in this encounter Plan of Treatment Not on file documented as of this encounter Visit Diagnoses Not on filedocumented in this encounter Care Teams Engraver Wood Relationship Specialty Start Date End Date Derrick Cain MD PCP - General Internal Medicine 10/21/18 10/03/20 [facility], Pcp PCP - General 10/04/20 08/24/22 Derrick Cain MD PCP - General Internal Medicine 08/25/22 03/13/24 Derrick Cain MD PCP - General Internal Medicine 03/14/24 Monica Martini DO 06/08/11 documented as of this encounter
--- OUTSIDE RECORDS SUMMARY | 2024-10-18 11:40 | XMS_ITS | Encounter Summary ---
Author Organization [facility] Address [address] [place] [address] Care Team Providers Care Chief Deputy Clerk/Bailiff Name Role Phone Nasir Mireles Primary Care Provider Unavaila Monica Villela DO Unavailable Janis Derrick Augustin MD Primary Care Provider Unava ilsheila Chavis, Pcp Primary Care Provider Derrick More MD Primary Care Provider Unava ilable Derrick Cain MD Primary Care Provider Unava ilable Encounter Details Date Type Department Care Team Description 09/17/2017 [facility] Medical Records [address] [place] [address] Abstract, Provider Social History Tobacco Use Types [...] on filedocumented in this encounter Care Teams Chief Deputy Clerk/Bailiff Relationship Specialty Start Date End Date Nasir [...]
== END 2024-10-18 11:17 | disposition home or self-care (01) ==
LOC: HO.HCS 10:31
PROVIDERS: PCP Internal Medicine Sports Medicine; Visit Provider Internal Medicine
DX: I48.0 Paroxysmal atrial fibrillation (principal); I10 Essential (primary) hypertension; E11.65 Type 2 diabetes mellitus with hyperglycemia; Z79.4 Long term (current) use of insulin
CPT/HCPCS: 93010; 99214; G2211

== ENCOUNTER → 2024-10-18 10:30 | Outpatient (BNVA) | payer OTHER, SELFPAY | PROVIDERS: PCP Internal Medicine Sports Medicine; Visit Provider Internal Medicine | DX: I48.0 Paroxysmal atrial fibrillation (principal); I10 Essential (primary) hypertension; E11.65 Type 2 diabetes mellitus with hyperglycemia; Z79.4 Long term (current) use of insulin | CPT/HCPCS: 93005; 99212 ==

== ENCOUNTER 2024-10-19 10:52 | Outpatient (AMB) | payer OTHER, SELFPAY ==
--- NOTE | 2024-10-19 07:35 | A.OFFVIS_ITS ---
Vital Signs 10/19/24 11:18 Height 5 ft 3 in Weight 220 lb 7.396 oz BMI 39.0 Blood Pressure Location Rt brachial Position Sitting Pulse 89 Pulse Source Pulse Oximeter Pulse Oximetry (%) 98 Oxygen Delivery Method Room Air Intake Visit Reasons: DM Intake Note: Patient presents today for a follow-up on Type 2 Diabetes Mellitus: Last Diabetic eye exam was on: DUE Last Podiatry exam was on: Patient does not see a Bed Manager Most recent HbA1c: 8.2%, 10/19/2024 Random Glucose- 176 mg/dL, Today Car Repairer Required: No Accompanied by: Self / Same As Patient Allergies Penicillins [PENICILLINS] Allergy (Unknown, Verified 09/09/24 14:36) RASH canagliflozin [From Invokamet] Adverse Reaction (Verified 09/09/24 14:36) Yeast infection metformin [From Invokamet] Adverse Reaction (Verified 09/09/24 14:36) Yeast infection HPI Comments Details: Patient is a 64-year-old female who presents for follow up for type 2 diabetes. She was last seen 08/17/24. At her prior visit she was switched from Lantus to Tresiba because she was having joint pains on Lantus which resolved with stopping. Hemoglobin A1c 08/17/2024 8.4 %, previous 7.8% 05/13/2024. She was diagnosed with type 2 diabetes approximately 2023: Cpeptide 4.47 JESUS + 38 islet cell antibodies negative Previous medications tried: has not tolerated Invokana (had 1 yeast infection), metformin xr (diarrhea), glipizide caused shakiness, jardiance caused vaginal irritation and polyuria. Lantus caused joint aches Current medications: Mounjaro 15.0 mg weekly Tresiba 30 units daily DM: dx with t2dm around 2019. Freestyle elizabeth sensor 3 average glucose: 196 14 day continuous glucose sensor report reviewed Glucose Management indicator 8 % Time CGM active 48 % TIme in ranges: 13 % very high (above 250) 44 % high (181-250) 43 % in range (70-180] 0 % low (69-55) 0 % very low (below 54) Interpretation of CGMS running 40 points over target with some excursions postprandial denies retinopathy last eye exam: 10/07/2023 Has neuropathy: some numbness and tingling. Last podiatry exam: Recently with Dr. Burch has difficulty trimming nails and multiple calluses has heel spur confirmed by x-ray Has nephropathy 07/19/2024 eGFR>60 02/2024 microalbumin 223 She is on an ARB She is planning to ask her pcp for a referral for memory loss Diet: Tries to balanced but has issues with the appetite despite higher dose Mounjaro. She has been to the weight management center here but had difficulty adhering to diet. Exercise: Limited secondary to back pain but does some light walking -she states everyone in her family has type 1 diabetes including her mother, maternal grandmother and a sibling. Her son has type 2 diabetes. Has had DM education Has fatty liver: seen by a specialist at [facility] in gastroenterolgy Ultrasound with live relastography 2022 1. There is generalized increase in hepatic echotexture, consistent with fatty infiltration or hepatocellular disease. Please correlate clinically. No focal hepatic mass or intrahepatic biliary dilatation is seen. 2. Liver elastography: Measurements are suggestive of compensated advanced chronic liver disease but need further test for confirmation. She has hypothyroidism. On stable dose of levothyroxine. 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 Type 2 diabetes mellitus without complications Obstructive sleep apnea (adult) (pediatric) PAF (paroxysmal atrial fibrillation) Surgical History Hx of partial thyroidectomy S/P lumpectomy, right breast Hx of colonoscopy Family History Father Cardiovascular disease Mother Uterine cancer Social History (Updated 10/18/24 @ 10:47 by Shanita Garcia) Household Members: None Housing: Apartment Are you a primary rn critical care to a significant other at home: No Do you presently have visiting nurse or 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 Absence of acromegalic features. Neck exam reveals nl size thyroid about 15 gms. No thyroid nodules palpable. Heart S1 S2, Reg R/R. No M/R G. Skin exam reveals absence of vitiligo or acanthosis nigricans. Visual exam of foot performed. No ulcerations or open lesions. No inter digit maceration or fissuring. Positive onychomycosis, no callouses. Sensation intact to monofilament exam. Vibratory sensation is normal with 128 Hz tuning fork. Heel pain to palpation Results AMB Hemoglobin A1c AMB Hemoglobin A1c 8.2 % Last Edit by YANDEL Javier on 10/19/24 11:34 Results Reviewed Results Reviewed: Laboratory Last Values Glucose (Clinic) 176 mg/dL (60-115) H 10/19/24 11:24 Hgb A1c (Clinic) 8.2 % (4.0-6.0) H 10/19/24 11:32 Assessment & Plan Assessment & Plan (1) Uncontrolled type 2 diabetes mellitus with hyperglycemia: Code(s): E11.65 - Type 2 diabetes mellitus with hyperglycemia Category: Medical Plan: 64-year-old type 2 diabetic with neuropathy and nephropathy with a GMI of 196. add bolus insulin to her supper meal 6 units of humalog and increase Tresiba 36 units Fattyliver: followed at [facility] The patient had an opportunity to ask questions regarding treatment plan. The patient expressed understanding and agreement with the above treatment plan. The patient is aware they should contact our office by phone for worsening glucose readings or for any low blood sugars which may warrant a change in diabetes medication. Compliance is encouraged with medications and any followup testing/consults which may have been ordered. Orders: Orders Comprehensive Met. Panel Today E11.65 - Type 2 diabetes mellitus with hyperglycemia Lipid Panel Today E11.65 - Type 2 diabetes mellitus with hyperglycemia Microalbumin, Random (w Creat) Today E11.65 - Type 2 diabetes mellitus with hyperglycemia Thyroid Stimulating Hormone Today E11.65 - Type 2 diabetes mellitus with hyperglycemia Free T4 (Free Thyroxine) Today E11.65 - Type 2 diabetes mellitus with hyperglycemia AMB Hemoglobin A1c Today E13.9 - Other specified diabetes mellitus without complications Creatinine Urine Today E11.65 - Type 2 diabetes mellitus with hyperglycemia Medications: New Humalog KwikPen Insulin (insulin lispro) with dinner 6 units (0.06 mL) subcut DAILY 30 days 3 mL 11RF NS Changed From pen needle, diabetic (BD Selena 2nd Gen Pen Needle) Use once a day as directed 100 ea 1RF E11.9 - Type 2 diabetes mellitus without complications To pen needle, diabetic twice daily 100 ea 11RF E11.9 - Type 2 diabetes mellitus without complications From insulin degludec (Tresiba FlexTouch U-200 insulin) 30 units (0.15 mL) subcut BEDTIME 90 days 15 mL 3RF To insulin degludec (Tresiba FlexTouch U-200 insulin) 36 units (0.18 mL) subcut BEDTIME 90 days 21 mL 10RF Refilled pen needle, diabetic twice daily 100 ea 11RF E11.9 - Type 2 diabetes mellitus without complications Discontinued flash glucose scanning reader (FreeStyle Elizabeth 2 [place]) Discontinued Reason: No Longer Medically Relevant As directed 1 ea 0RF Patient Instructions: The patient was counseled to achieve a target A1C of 7% (154 avg). Fasting blood sugars should be 90-130 in the morning and less than 180 two hours after meals. Reviewed the relationship between poor diabetic control and the development of complications Check your feet daily looking for any signs of infection, drainage, redness, ulceration and seek medical attention if this occurs. Break in shoes gradually and do not wear open-toed shoes or walk stocking footed or barefooted. Coding Level of Care Code Est Pt Level 4 (04287) Complex EM visit Add On G2211 Diagnoses Uncontrolled type 2 diabetes mellitus with hyperglycemia E11.65 Time Spent (min) 30 Comment Time spent reviewing labs/provider notes, face to face, chart doc
[2024-10-19 11:18] VITALS: PULSE 89; O2SAT 98; BMI 39.0
[2024-10-19 11:29] LABS: Glucose, Whole Blood 176 mg/dL (60-115)
--- OUTSIDE RECORDS SUMMARY | 2024-10-19 11:57 | XMS_ITS | Encounter Summary ---
Author Organization [facility] Address [address] [place] [address] Care Team Providers Care Oil Heaterman Name Role Phone Derrick Cain MD Primary Care Provider Unava ilable Derrick Cain MD Primary Care Provider Unava ilable Reason for Visit * Reason Onset Date Comments Follow-up 07/15/2023 Encounter Details Date Type Department Care Team Description 07/15/2023 Telephone Pulmonology - [place] 175 [facility] [address] [place] [phone] Yuriy Tsang MD Follow-up Social History Tobacco [...] on filedocumented in this encounter Care Teams Oil Heaterman Relationship Specialty Start Date End Date Derrick Cain MD PCP - General Internal Medicine 08/25/22 03/13/24 Derrick Cain MD PCP - General Internal Medicine 03/14/24 documented as of this encounter
--- OUTSIDE RECORDS SUMMARY | 2024-10-19 11:57 | XMS_ITS | Encounter Summary ---
Author Organization [facility] Address [address] [place] [address] Care Team Providers Care Freight Router Name Role Phone Monica Martini Unavailable Janis vaDerrick Nguyễn MD Primary Care Provider Unava ilable [facility], Pcp Primary Care Provider UnavailDerrick Ramirez MD Primary Care Provider Unava ilable Derrick Cain MD Primary Care Provider Unava ilable Encounter Details Date Type Department Care Team Description 09/03/2020 Telephone Gastroenterology - [place] 175 [facility] [address] [place] [address] Prasanth Borges PA-C 175 [facility] [address] [place] [address] Social History Tobacco Use Types Packs/Day Years [...] that she underwent a swallowing test at [facility] last year that was ordered by her soaker hides. Please obtain those records so we may incorporate them into her chart. documented in this encounter Plan of Treatment Not on file documented as of this encounter Visit Diagnoses Not on filedocumented in this encounter Care Teams Freight Router Relationship Specialty Start Date End Date Derrick Cain MD PCP - General Internal Medicine 10/21/18 10/03/20 [facility], Pcp PCP - General 10/04/20 08/24/22 Derrick Cain MD PCP - General Internal Medicine 08/25/22 03/13/24 Derrick Cain MD PCP - General Internal Medicine 03/14/24 Monica Martini DO 06/08/11 documented as of this encounter
--- OUTSIDE RECORDS SUMMARY | 2024-10-19 11:57 | XMS_ITS | Encounter Summary ---
Author Organization [facility] Address [address] [place] [address] Care Team Providers Care Gravel Hauler Name Role Phone Monica Martini DO Unavailable Janis vaDerrick Nguyễn MD Primary Care Provider Unava ilable Partha, Pcp Primary Care Provider UnavailDerrick Ramirez MD Primary Care Provider Unava ilable Derrick Cain MD Primary Care Provider Unava ilable Encounter Details Date Type Department Care Team Description 12/08/2019 Territory Account Manager Report Medical Records [address] [place] [address] [facility] Social History Tobacco Use Types Packs/Day [...] on filedocumented in this encounter Care Teams Gravel Hauler Relationship Specialty Start Date End Date Derrick Cain MD PCP - General Internal Medicine 10/21/18 10/03/20 [facility], Pcp PCP - General 10/04/20 08/24/22 Derrick Cain MD PCP - General Internal Medicine 08/25/22 03/13/24 Derrick Cain MD PCP - General Internal Medicine 03/14/24 Monica Martini DO 06/08/11 documented as of this encounter
--- OUTSIDE RECORDS SUMMARY | 2024-10-19 11:57 | XMS_ITS | Encounter Summary ---
Author Organization [facility] Address [address] [place] [address] Care Team Providers Care Routeman Name Role Phone Monica Martini Unavailable Janis vaDerrick Nguyễn MD Primary Care Provider Unava ilable [facility], Pcp Primary Care Provider UnavailDerrick Ramirez MD Primary Care Provider Unava ilable Derrick Cain MD Primary Care Provider Unava ilable Reason for Visit * Reason Onset Date Comments Anticoagulation 09/04/2020 EGD 10/09/2020 Dr Conner @ [facility] Encounter Details Date Type Department Care Team Description 09/04/2020 Telephone Gastroenterology - [place] 175 [facility] [address] [place] [address] Nicole Conner MD Anticoagulation (EGD 10/09/2020 Dr Conner @ [facility]) Social History Tobacco Use Types Packs/Day [...] am not aware of recent CVA or CO in past 3 months), should restart med as soon as able to afterwards per discretion of provider performing procedure. Thanks! * Telephone Encounter - Pauline Blair L.P.N. - 09/04/2020 8:43 AM EDT Patient is scheduled for EGD Thursday10/09/[address] Conner @ [facility]. Patient is on Xarelto. Dr Derrick Cain, Please determine if this patient can hold her Xarelto for 2 days prior to her procedure. Please advise. Thanks./dg documented in this encounter Plan of Treatment Not on file documented as of this encounter Visit Diagnoses Not on filedocumented in this encounter Care Teams Routeman Relationship Specialty Start Date End Date Derrick Cain MD PCP - General Internal Medicine 10/21/18 10/03/20 [facility], Pcp PCP - General 10/04/20 08/24/22 Derrick Cain MD PCP - General Internal Medicine 08/25/22 03/13/24 Derrick Cain MD PCP - General Internal Medicine 03/14/24 Monica Martini DO 06/08/11 documented as of this encounter
--- OUTSIDE RECORDS SUMMARY | 2024-10-19 11:57 | XMS_ITS | Encounter Summary ---
Author Organization [facility] Address [address] [place] [address] Care Team Providers Care Rail Car Unloader Name Role Phone Derrick Cain MD Primary Care Provider Unava ilable Derrick Cain MD Primary Care Provider Unava ilable Reason for Visit * Reason Comments E-prescribe Rx Request Encounter Details Date Type Department Care Team Description 09/10/2022 Refill Gastroenterology - [place] 175 [facility] [address] [place] [address] Prasanth Borges PA-C 175 [facility] [address] [place] [address] E-prescribe Rx Request Social History Tobacco Use [...] on filedocumented in this encounter Care Teams Rail Car Unloader Relationship Specialty Start Date End Date Derrick Cain MD PCP - General Internal Medicine 08/25/22 03/13/24 Derrick Cain MD PCP - General Internal Medicine 03/14/24 documented as of this encounter
--- OUTSIDE RECORDS SUMMARY | 2024-10-19 11:57 | XMS_ITS | Encounter Summary ---
Author Organization [facility] Address [address] [place] [address] Care Team Providers Care Blind Escort Name Role Phone Monica Mratini Unavailable Janis vaDerrick Nguyễn MD Primary Care Provider Unava ilsheila [facility], Pcp Primary Care Provider UnavailDerrick Ramirez MD Primary Care Provider Unava ilable Derrick Cain MD Primary Care Provider Unava ilable Encounter Details Date Type Department Care Team Description 06/12/2019 Orders Only Medicine/Pediatrics - [address] [address] Derrick Cain MD Type 2 diabetes mellitus with peripheral neuropathy (HCC) (Primary Dx); Type 2 diabetes mellitus with microalbuminuria, with long-term current use of insulin (HCC) Social History Tobacco Use Types Packs/Day Years [...] as of this encounter Plan of Treatment Scheduled Orders Name Type Priority Associated Diagnoses Orde r Schedule HEMOGLOBIN A1C Lab Routine Type 2 diabetes mellitus with peripheral neuropathy (HCC) Type 2 diabetes mellitus with microalbuminuria, with long-term current use of insulin (HCC) q3 months for 4 Occurrences starting 06/12/2019 until 06/12/2020, 1 completed MICROALBUMIN/CREATININE, URINE Lab Routine Type 2 diabetes mellitus with peripheral neuropathy (HCC) Type 2 diabetes mellitus with microalbuminuria, with long-term current use of insulin (HCC) q3 months for 4 Occurrences starting 06/12/2019 until 06/12/2020, 1 completed COMPREHENSIVE METABOLIC PANEL Lab Routine Type 2 diabetes mellitus with peripheral neuropathy (HCC) Type 2 diabetes mellitus with microalbuminuria, with long-term current use of insulin (HCC) q3 months for 4 Occurrences starting 06/12/2019 until 06/12/2020, 1 completed documented as of this encounter Results * (ABNORMAL) COMPREHENSIVE METABOLIC PANEL (07/12/2019 4:15 PM EST) Pathologist [facility] Blood Urea Nitrogen 27(H) 5 - 25 mg/dL 07/12/2019 7:32 PM EST [facility] CREAT 1.46(H) 0.5 - 1.1 mg/dL 07/12/2019 7:32 PM EST [facility] GLOMERULAR FILTRATION RATE 37 07/12/2019 7:32 PM EST [facility] Comment: If patient is -Polish, multiply result by 1.21 Chronic Kidney Disease: < 60 ml/min/1.73 square meters Kidney Failure: < 15 ml/min/1.73 square meters NA 139 135 - 145 mEq/L 07/12/2019 7:32 PM EST [facility] K 4.4 3.5 - 5.5 mmol/L 07/12/2019 7:32 PM EST [facility] CL 103 96 - 110 mmol/L 07/12/2019 7:32 PM EST [facility] CARBON DIOXIDE (CO2) 26 21 - 32 mmol/L 07/12/2019 7:32 PM EST [facility] ANION GAP 10 3 - 11 07/12/2019 7:32 PM EST [facility] CALCIUM 9.8 8.5 - 10.5 mg/dL 07/12/2019 7:32 PM EST [facility] TOTAL PROTEIN (TP) 7.4 6.0 - 8.0 G/dL 07/12/2019 7:32 PM EST [facility] Albumin 3.9 3.2 - 5.0 G/dL 07/12/2019 7:32 PM EST [facility] BILIRUBIN TOTAL 0.3 0.0 - 1.4 mg/dL 07/12/2019 7:32 PM EST [facility] SGOT 32 10 - 42 U/L 07/12/2019 7:32 PM EST [facility] SGPT 41 10 - 60 U/L 07/12/2019 7:32 PM EST [facility] ALK PHOS 146(H) 42 - 121 U/L 07/12/2019 7:32 PM EST [facility] GLUCOSE 309(H) 70 - 100 mg/dL 07/12/2019 8:09 PM EST [facility] Comment:Reference range appl icable to fasting specimens only 07/12/2019 4:15 PM EST 07/12/2019 4:15 PM EST Derrick Cain MD LAB Performing Organization Address City/[facility]/ZIP Co de Phone Number [facility] * MICROALBUMIN/CREATININE, URINE (07/12/2019 4:15 PM EST) CREATININE, RANDOM URINE 90 mg/dL 07/12/2019 7:29 PM EST [facility] MICROALBUMIN, RANDOM 12.0 0.0 - 29.0 mg/L 07/12/2019 7:36 PM EST [facility] MICROALB/CRE RATIO RANDOM 13.3 0.0 - 30.0 mg/G 07/12/2019 7:36 PM EST [facility] 07/12/2019 4:15 PM EST 07/12/2019 4:15 PM EST Derrick Cain MD LAB Performing Organization Address City/[facility]/ZIP Co de Phone Number [facility] * (ABNORMAL) HEMOGLOBIN A1C (07/12/2019 4:15 PM EST) GLYCATED HEMOGLOBIN A1C 10.2(H) <6.5 % 07/12/2019 9:54 PM EST [facility] ESTIMATED AVERAGE GLUCOSE 246 mg/dL 07/12/2019 9:54 PM EST [facility] 07/12/2019 4:15 PM EST 07/12/2019 4:15 PM EST Derrick Cain MD LAB [facility] documented in this encounter Visit Diagnoses Diagnosis Type 2 diabetes mellitus with peripheral neuropathy (HCC)- Primary Type 2 diabetes mellitus with microalbuminuria, with long-term current use of insulin (HCC) documented in this encounter Care Teams Blind Escort Relationship Specialty Start Date End Date Derrick Cain MD PCP - General Internal Medicine 10/21/18 10/03/20 [facility], [facility] PCP - General 10/04/20 08/24/22 Derrick Cain MD PCP - General Internal Medicine 08/25/22 03/13/24 Derrick Cain MD PCP - General Internal Medicine 03/14/24 Monica Martini DO 06/08/11 documented as of this encounter
--- OUTSIDE RECORDS SUMMARY | 2024-10-19 11:57 | XMS_ITS | Encounter Summary ---
Author Organization [facility] Address [address] [place] [address] Care Team Providers Care Service Dispatcher Name Role Phone Partha, Pcp Primary Care Provider Derrick More MD Primary Care Provider UnaDerrick Calix MD Primary Care Provider Unashi toussaint Encounter Details Date Type Department Care Team Description 10/12/2020 Orders Only Medical Records [address] [place] [address] Nicole Conner MD Social History Tobacco Use [...] on filedocumented in this encounter Care Teams Service Dispatcher Relationship Specialty Start Date End Date Community, Pcp PCP - General 10/04/20 08/24/22 Derrick Cain MD PCP - General Internal Medicine 08/25/22 03/13/24 Derrick Cain MD PCP - General Internal Medicine 03/14/24 documented as of this encounter
--- OUTSIDE RECORDS SUMMARY | 2024-10-19 11:57 | XMS_ITS | Encounter Summary ---
Author Organization [facility] Address [address] [place] [address] Care Team Providers Care Scientific Linguist Name Role Phone Derrick Cain MD Primary Care Provider Unava ilable Derrick Cain MD Primary Care Provider Unava ilable Encounter Details Date Type Department Care Team Description 03/11/2023 Orders Only Medical Records [address] [place] [address] Abstract, Provider Social History Tobacco Use Types [...] on filedocumented in this encounter Care Teams Scientific Linguist Relationship Specialty Start Date End Date Derrick Cain MD PCP - General Internal Medicine 08/25/22 03/13/24 Derrick Cain MD PCP - General Internal Medicine 03/14/24 documented as of this encounter
--- OUTSIDE RECORDS SUMMARY | 2024-10-19 11:57 | XMS_ITS | Clinical Summary ---
Author Organization [facility] Address [address] [place] [address] Phone Care Team Providers Care Television Servicer Name Role Phone Derrick Cain MD Primary Care Provider [phone] Allergies Active Allergy Reactions Criticality Noted Date [...] 10/20/2019 Obstructive sleep apnea 08/30/2019 Overview (04/29/2024): [facility] diagnostic polysomnogram done 08/11/2016; weight 234 pounds; BMI 42; sleep efficiency 67%; REM 14%; AHI 8 overall; 23 hypopneas; PLM's 2; oxygen saturation 93% average and lowest at 78%. 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 Also obtaining barium swallow dur to dysphagia Morbid obesity ([facility] V24, [facility] V28) 2018 Breast cancer ([facility] V24, [facility] V28) 019 Overview (04/29/2024): Surgery x2 Essential hypertension, benign 07/21/2012 Dyslipidemia 07/21/2012 Paroxysmal atrial fibrillation ([facility] V24, [facility] V28) 07/21/2012 Encounters Date Type Department Care Team Description 09/06/2024 10:00 AM EDT Office Visit Orthopedic Surgery - [place] [address] [address] Faisal Burch, DPM Tendonitis, Achilles, left (Primary Dx); Follow-up exam; Dermatophytosis of nail; Pain in toe of left foot; Pain in toe of right foot; Corns and callosities; Type II diabetes mellitus with peripheral circulatory disorder ([facility] V24, [facility] V28); Diabetic mononeuropathy simplex ([facility] V24, [facility] V28); Metatarsalgia of both feet from Last [...] residual neoplasm OTHER SURGICAL HISTORY 03/26/2016 PROCEDURE: [facility] BIOPSY THYROID PERCUTANEOUS CORE NEEDLE; COMMENT: nodule; no report ESOPHAGOGASTRODUODENOSCOPY 10/09/2020 PROCEDURE: [facility] EGD TRANSORAL BIOPSY SINGLE/MULTIPLE; COMMENT: gastropathy, biopsy pending Medical History Medical History Date Comments Essential hypertension, benign 07/21/2012 D X:Essential hypertension, benign Dyslipidemia 07/21/2012 DX:Dyslipidemia Paroxysmal atrial fibrillati on ([facility] V24, [facility] V28) 07/21/2012 DX:Paroxysmal atrial fibril lation (HCC) Breast cancer ([facility] V24, [facility] V28) 04/29/2019 DX:Breast cancer (HCC); COMM ENT: Surgery x2 Depression 04/29/2019 DX:Depression Generalized anxiety disorder 04/29/2019 DX: Generalized anxiety disorder GERD (gastroesophageal reflu x disease) 04/29/2019 DX:GERD (gastroesophageal re flux disease) Gout 04/29/2019 DX:Gout Morbid obesity ([facility] V24, [facility] V28) 04/29/2019 DX:Morbid obesity (HCC) Multinodular goiter 04/29/2019 DX:Multinodu lar goiter Patient is Faith 04/29/2019 DX: Patient is Faith 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 ([facility] V24, [facility] V28) 04/29/2019 DX:Type 2 diabetes mellitus with peripheral neuropathy ([facility]) Diabetic peripheral neuropat hy ([facility] V24, [facility] V28) 05/04/2019 DX:Diabetic peripheral neur opathy ([facility]) Swallowing impaired DX:Swallowin g impaired Atrial fibrillation, transie nt ([facility] V24, [facility] V28) DX:Atrial fibrillation, tra nsient ([facility]) Esophagitis DX:Esophagitis Family History Medical History Relation Name Comments Coronary artery disease Brother 1 Coronary artery disease Brother 2 Coronary artery disease Brother 3 Coronary artery disease Brother 4 Coronary artery disease Brother 5 ADD / ADHD Daughter Other: anxiety Daughter panic attacks Coronary artery disease Father s/p [place] Diabetes Mother Uterine cancer Mother Depression Son [...] Upcoming Encounters Date Type Department Care Team ([facility] st Contact Info) Description 11/21/2024 10:15 AM EDT Office Visit Orthopedic Surgery - [place] [address] [address] Faisal Burch, DPM [address] [place] [address] 03/30/2025 9:45 AM EDT Office Visit Pulmonolgy - [place] [address] [facility] [address] [place] [id number] Mery Ferris, HÉCTOR 175 [facility] [address] [place] [address] Health Maintenance Due Date Last Done Comments [...] Most Recently Relevant to Health Maintenance Insurance [facility] [place] MEDICARE Member Subscriber Plan / Payer (Ef fective 2019-Present) Name:Maisha Gomez Relation to Subscriber:Self Name:Maisha Gomez Payer ID:[id number] Group ID:[id number] Type:Not on file Address: [place] [address] [address] Advance Directives Documents on File Type Date Recorded Patient Procurement Manager Expl anation Health Care Decision (hx) 10/09/2020 HONG SILVESTRE DIRECTIVE Care Teams Television Servicer Relationship Specialty Start Date End Date Derrick Cain MD [address] [place] [id number] PCP - General 10/21/18
--- OUTSIDE RECORDS SUMMARY | 2024-10-19 11:57 | XMS_ITS | Encounter Summary ---
Author Organization [facility] Address [address] [place] [address] Care Team Providers Care Body Work Auto Trimmer Name Role Phone Monica Martini DO Unavailable Janis vailable Derrick Cain MD Primary Care Provider Unava ilable Community, Pcp Primary Care Provider Unavailabl e Derrick Cain MD Primary Care Provider Unava ilable Derrick Cain MD Primary Care Provider Unava ilable Encounter Details Date Type Department Care Team Description 04/07/2019 Release of Information Medical Records [address] [place] [address] Abstract, Provider Social History Tobacco Use Types [...] on filedocumented in this encounter Care Teams Body Work Auto Trimmer Relationship Specialty Start Date End Date Derrick Cain MD PCP - General Internal Medicine 10/21/18 10/03/20 [facility], Pcp PCP - General 10/04/20 08/24/22 Derrick Cain MD PCP - General Internal Medicine 08/25/22 03/13/24 Derrick Cain MD PCP - General Internal Medicine 03/14/24 Monica Martini DO 06/08/11 documented as of this encounter
--- OUTSIDE RECORDS SUMMARY | 2024-10-19 11:57 | XMS_ITS | Encounter Summary ---
Author Organization [facility] Address [address] [place] [address] Care Team Providers Care Cancer Registrar Name Role Phone Vini Monica GALLEGOS Unavailable Janis vajayble Derrick Cain MD Primary Care Provider Unava ilable Partha, Pcp Primary Care Provider UnavailDerrick Ramirez MD Primary Care Provider Unava ilable Derrick Cain MD Primary Care Provider Unava ilable Encounter Details Date Type Department Care Team Description 12/15/2019 Orders Only Medicine/Pediatrics - [address] [address] Derrick Cain MD Social History Tobacco Use [...] on filedocumented in this encounter Care Teams Cancer Registrar Relationship Specialty Start Date End Date Derrick Cain MD PCP - General Internal Medicine 10/21/18 10/03/20 [facility], Pcp PCP - General 10/04/20 08/24/22 Derrick Cain MD PCP - General Internal Medicine 08/25/22 03/13/24 Derrick Cain MD PCP - General Internal Medicine 03/14/24 Monica Martini DO 06/08/11 documented as of this encounter
--- OUTSIDE RECORDS SUMMARY | 2024-10-19 11:57 | XMS_ITS | Data Portability ---
Author Organization [facility], [facility] Address [address] [place] [address] Care Team Providers Care Manipulative Therapy Specialist Name Role Phone MCCORMACKFABIO ALVA Primary Care Provider [phone] Assessment Encounter Date Assessment Date Assessment LastModified by Organization Details LastModified Time 03/31/2024 03/31/2024 64-year-old dekml-crlb-dmqlvk nt female presents today with a 1 [...] satisfaction; surgery to be scheduled with my certified legal secretary specialist. mike Not available 04/15/2024 11:11:25 Plan of Treatment Reminders Order Date Submit Date Provider Last Modified By Organization Details Last Modified Time Details Appointments None record ed. Lab None record ed. Referral None record ed. Procedures None record ed. Surgeries None record ed. Imaging XR, hand, 3 or more view - rm 114 3v hand 024 03/31/20 [facility], [address], [facility] [address], [place], [address], 18:28:43 Medication Orders None record ed. Patient [...] 125 Diabe dipti >125 Not Available [facility] ([facility]) [address] [facility], [place], [address], 05/03/2024 06:05:24 03/31/20 24 03/31/2024 XR, hand, 3 or more view http:/ [email or web address] ?Encry pted=s hAaTro YD8dLq bEUv6g %2BXZw aYqtaq 0bqfl% 2Fg9IQ a4ajBk vP9nXo QUaueC m3YtLR FvZlgJ JJ8mAn HZtai3 2p1768 AC0Kqa H2DU6C vKiQtr MwF INTERFACE [facility] [address], [place], [address], 03/31/2024 09:28:49 03/31/2003/31/2024 XR, hand, 3 or more view http:/ [email or web address] ?Encry pted=s hAaTro YD8dLq bEUv6g %2BXZw aYqtaq 0bqfl% 2Fg9IQ a4ajBk vP9nXo QUaueC m3YtLR FvZlgJ JJ8mAn HZtai3 1q6754 AC0Kqa H2DU6C vKiQtr MwF INTERFACE [facility] [address], [place], [address], 03/31/2024 09:28:51 Result Notes None recorded. Problems Name Problem SNOMED Code Status Onset Date Resolution Date Notes Provider Name and Address Organization Details Recorded Time Mass of hand 364343293 Active 024 Jhonny Elmore PA-C [address], [place], [address] , [facility] 03/31/2024 08:20:51 Problem Notes None recorded. Procedures Surgical History None recorded. Imaging Results Imaging Date Name Status LastModified by Organiz ation Details LastModified Time 03/31/2024 XR, hand, 3 or more view completed INTERFACE [facility] [address], [place], [address], 03/31/2024 09:28:49 03/31/2024 XR, hand, 3 or more view completed INTERFACE [facility] [address], [place], [address], 03/31/2024 09:28:51 Procedure Notes None recorded. Medical Equipment None Reported. Allergies Allergen ID Allergen Name Allergen Category Reaction Reaction Severity Criticality Documentation Date Start Date Code Code System Note Provider Name and Address Organization Details Recorded Time 720326 Product containin g penicilli n (product) medicatio n Not available Not available Not available 04/15/2024 56045 8001 SNOMED ALMITA robertson [facility] 4 09:36:00 084498 Invokamet medicatio n Not available Not available Not available 04/15/2024 03230 51 RxNorm ALMITA FLE[facility] 4 09:36:11 Medications Name Sig Start [...] Available Not Available No t Available FreeStyle [place] Lite kit DIRECTED active Not Available Not [...] Updated DateTime 03/31/2024 160.02 cm 38.4 kg/m2 86025.54 g ANAYELI LOUIS [facility] 03/31/2024 09:21:16 Date Recorded Body height Body mass index (BMI) Body weight Provider Name and Address Organization Details Last Updated DateTime 04/15/2024 160.02 cm 38.3 kg/m2 53557.95 g ALMITA FLEMING [facility] 04/15/2024 09:35:49 Social History None recorded. Functional Status None recorded. Mental Status None recorded. Family History Nothing Reported. Medical History No medical history recorded. Gynecological HistoryNo gynecological history recorded. Obstetrics History GPAL:G 0 P 0 0 0 0 Past Encounters Encounter ID Performer Location Encounter Start Date Encounter Closed Date Diagnosis/Indication Diagnosis SNOMED-CT Code Diagnosis ICD10 Code Diagnosis Note [id number] AVI Nguyen [address] [place] [address] 03/31/2024 09:13:14 04/22/2024 18:28:43 Mass of hand 390059063 R22.31 [id number] MD Christopher Marin [address] [place] [address] 04/15/2024 09:10:38 05/04/2024 08:54:35 Mass of hand 537331880 R22.31 Health Concerns Section Related Observation LastModified by Organization Detai ls LastModified Time None Recorded Concern Status LastModified by Organization Details LastModified Time None Recorded Advance Directives Directive None Recorded Payers Encounter Date Sequence Insurance Name Policy Number Policy Chow Covered Member ID Chow Member ID Guarantor Name 03/31/2024 1 [facility] - DOS ON OR AFTER 2022 - ONE CARE (MEDICARE REPLACEMENT/ADV ANTAGE - HMO) Maishacecy Gomez [id number] [facility] Jason 04/15/2024 1 [facility] - DOS ON OR AFTER 2022 - ONE CARE (MEDICARE REPLACEMENT/ADV ANTAGE - HMO) Maishacecy Gomez [id number] [facility] Notes Date Note Type Note Provider Name and Address Organization Details Recorded Time 03/31/2024 text/html I am seeing this patient under the supervision of Dr. Kearney who was available but who did not see the patient Chief Complaint: New evaluation for right hand pain HPI: 64-year-old sosoh-rwpg-drrnjd nt female presents today with a 1 month history atraumatic onset of a mass located in the palm of her right hand that is mildly painful and slowly enlarging. She has not had any treatment of this yet. No numbness or tingling associated with this. No overlying skin changes noted. Jhonny Elmore PA-C [address], [place], [address], [facility] 03/31/2024 10:39:03 04/15/2024 text/html R hand STM HPI: 64-year-old dfqnd-edrx-vunbtj nt female presents today for follow up of 1 month history atraumatic onset of a mass located in the palm of her right hand that is mildly painful and slowly enlarging. She has not had any treatment of this yet. No numbness or tingling associated with this. No overlying skin changes noted. Francine Hoover MD [address] [place], [place] [address] [address], [place], [address], [facility] 04/15/2024 11:11:37 OBGyn Episode No OBEpisode recorded.
--- OUTSIDE RECORDS SUMMARY | 2024-10-19 11:57 | XMS_ITS | Encounter Summary ---
Author Organization [facility] Address [address] [place] [address] Care Team Providers Care Nursing Staff Development Coordinator Name Role Phone Monica Martini DO Unavailable Janis vailaDerrick Carvalho MD Primary Care Provider Unava ilable Partha, Pcp Primary Care Provider Unavailkaley e Derrick Cain MD Primary Care Provider Unava ilable Derrick Cain MD Primary Care Provider Unava ilable Encounter Details Date Type Department Care Team Description 10/26/2019 Business Liaison Officer Report Medical Records [address] [place] [address] Arben Yang Social History Tobacco Use Types [...] on filedocumented in this encounter Care Teams Nursing Staff Development Coordinator Relationship Specialty Start Date End Date Derrick Cain MD PCP - General Internal Medicine 10/21/18 10/03/20 [facility] [place], Pcp PCP - General 10/04/20 08/24/22 Derrick Cain MD PCP - General Internal Medicine 08/25/22 03/13/24 Derrick Cain MD PCP - General Internal Medicine 03/14/24 Monica Martini DO 06/08/11 documented as of this encounter
--- OUTSIDE RECORDS SUMMARY | 2024-10-19 11:57 | XMS_ITS | Encounter Summary ---
Author Organization [facility] Address [address] [place] [address] Care Team Providers Care Transfusion Aide Name Role Phone Community, Pcp Primary Care Provider Derrick More MD Primary Care Provider Unava ilable Derrick Cain MD Primary Care Provider Unava ilable Encounter Details Date Type Department Care Team Description 11/28/2020 Refill Adult Medicine [address] [address] Community, Pcp Social History Tobacco Use Types [...] on filedocumented in this encounter Care Teams Transfusion Aide Relationship Specialty Start Date End Date Community, Pcp PCP - General 10/04/20 08/24/22 Derrick Cain MD PCP - General Internal Medicine 08/25/22 03/13/24 Derrick Cain MD PCP - General Internal Medicine 03/14/24 documented as of this encounter
--- OUTSIDE RECORDS SUMMARY | 2024-10-19 11:57 | XMS_ITS | Clinical Summary ---
Author Organization [facility] Address [address] [place] [address] Care Team Providers Care Jack Spooler Tender Name Role Phone Derrick Cain MD Primary [...] apply route 2 times daily. 27 Each 11 08/20/2020 Active Alcohol Swabs (ALCOHOL PREP) 70 [...] 0 Ac tive Calcium Carbonate-Vit D-Min (QC Elibksw-Orbwnxqbo-D inc-D3) 333.4-133 MG-UNIT Tab Take by mouth. [...] sleep apnea mild AHI 8 08/29 Overview: [facility] diagnostic polysomnogram done 08/11/2016; weight 234 pounds; BMI 42; sleep efficiency 67%; REM 14%; AHI 8 overall; 23 hypopneas; PLM's 2; oxygen saturation 93% average and lowest at 78%. [facility] treatment polysomnogram 09/02/2016; sleep efficiency 80%; [...] barium swallow dur to dysphagia Patient is [employer]ism 04/29/2019 Morbid obesity 04/29/2019 Breast cancer 04/29/2019 [...] anxiety Daughter panic attacks CAD Father s/p [place] Diabetes Mother Uterine Cancer Mother Depression Son [...] PATIENTS (#2) 2027 03/30/2018, 03/03/2018 Care Teams Jack Spooler Tender Relationship Specialty Start Date End Date Derrick Cain MD PCP - General Internal Medicine 03/14/24
--- OUTSIDE RECORDS SUMMARY | 2024-10-19 11:57 | XMS_ITS | Encounter Summary ---
Author Organization [facility] Address [address] [place] [address] Care Team Providers Care Graphics Production Specialist Name Role Phone Monica Martini Unavailable Janis vailable Derrick Cain MD Primary Care Provider Unava ilable [facility], Pcp Primary Care Provider Unavailkaley e Derrick Cain MD Primary Care Provider Unava ilable Derrick Cain MD Primary Care Provider Unava ilable Reason for Visit * Reason Onset Date Comments Faxed Refill 08/30/2020 Encounter Details Date Type Department Care Team Description 08/30/2020 Refill Medicine/Pediatrics - [address] [phone] Derrick Cain MD Faxed Refill Social History [...] N/A Patients current insurance carrier is: Payor: [employer] [facility] M[facility] / Plan: [facility] / Product Type: HMO [id number] documented in this encounter Plan of Treatment Not on file documented as of this encounter Visit Diagnoses Diagnosis Essential hypertension, benign documented in this encounter Care Teams Graphics Production Specialist Relationship Specialty Start Date End Date Derrick Cain MD PCP - General Internal Medicine 10/21/18 10/03/20 [facility], Pcp PCP - General 10/04/20 08/24/22 Derrick Cain MD PCP - General Internal Medicine 08/25/22 03/13/24 Derrick Cain MD PCP - General Internal Medicine 03/14/24 Monica Martini DO 06/08/11 documented as of this encounter
--- OUTSIDE RECORDS SUMMARY | 2024-10-19 11:57 | XMS_ITS | Encounter Summary ---
Author Organization [facility] Address [address] [place] [address] Care Team Providers Care Assisted Living Manager Name Role Phone Monica Martini DO Unavailable Janis vaDerrick Nguyễn MD Primary Care Provider Unava ilable Partha, Pcp Primary Care Provider UnavailDerrick Ramirez MD Primary Care Provider Unava ilable Derrick Cain MD Primary Care Provider Unava ilable Encounter Details Date Type Department Care Team Description 06/22/2019 Sanitor Report Medical Records [address] [place] [address] [facility] Social History Tobacco Use Types [...] on filedocumented in this encounter Care Teams Assisted Living Manager Relationship Specialty Start Date End Date Derrick Cain MD PCP - General Internal Medicine 10/21/18 10/03/20 Community, Pcp PCP - General 10/04/20 08/24/22 Derrick Cain MD PCP - General Internal Medicine 08/25/22 03/13/24 Derrick Cain MD PCP - General Internal Medicine 03/14/24 Monica Martini DO 06/08/11 documented as of this encounter
--- OUTSIDE RECORDS SUMMARY | 2024-10-19 11:57 | XMS_ITS | Encounter Summary ---
Author Organization [facility] Address [address] [place] [address] Care Team Providers Care Oxygen Furnace Operator Name Role Phone Community, Pcp Primary Care Provider Derrick More MD Primary Care Provider Unava ilable Derrick Cain MD Primary Care Provider Unava ilable Reason for Visit * Reason Comments E-prescribe Rx Request Encounter Details Date Type Department Care Team Description 10/03/2021 Refill Gastroenterology - [place] [address] [facility] [address] [place] [phone] Prasanth Borges PA-C [address] [address] E-prescribe Rx Request Social History Tobacco Use [...] Telephone Encounter - Francoise Bose M.A. - 10/03/2021 9:34 AM EDT Fredi 10/24/2020 documented in this encounter Plan of Treatment Not on file documented as of this encounter Visit Diagnoses Not on filedocumented in this encounter Care Teams Oxygen Furnace Operator Relationship Specialty Start Date End Date Community, Pcp PCP - General 10/04/20 08/24/22 Derrick Cain MD PCP - General Internal Medicine 08/25/22 03/13/24 Derrick Cain MD PCP - General Internal Medicine 03/14/24 documented as of this encounter
--- OUTSIDE RECORDS SUMMARY | 2024-10-19 11:57 | XMS_ITS | Encounter Summary ---
Author Organization [facility] Address [address] [place] [address] Care Team Providers Care Back Feeder Plywood Layup Line Name Role Phone Vini Monica GALLEGOS Unavailable Janis vajayble Derrick aCin MD Primary Care Provider Unava ilable Community, Pcp Primary Care Provider UnavailDerrick Ramirez MD Primary Care Provider Unava ilable Derrick Cain MD Primary Care Provider Unava ilable Encounter Details Date Type Department Care Team Description 05/11/2019 Refill Medicine/Pediatrics - [address] [phone] Derrick Cain MD Social History Tobacco Use [...] on filedocumented in this encounter Care Teams Back Feeder Plywood Layup Line Relationship Specialty Start Date End Date Derrick Cain MD PCP - General Internal Medicine 10/21/18 10/03/20 [facility], Pcp PCP - General 10/04/20 08/24/22 Derrick Cain MD PCP - General Internal Medicine 08/25/22 03/13/24 Derrick Cain MD PCP - General Internal Medicine 03/14/24 Monica Martini DO 06/08/11 documented as of this encounter
== END 2024-10-19 11:51 | disposition home or self-care (01) ==
LOC: HO.ENCR 10:53
PROVIDERS: PCP Internal Medicine Sports Medicine; Visit Provider Nurse Practitioner Adult Health
DX: E11.65 Type 2 diabetes mellitus with hyperglycemia (principal); E13.9 Other specified diabetes mellitus without complications
CPT/HCPCS: 99214; G2211

== ENCOUNTER → 2024-10-19 10:52 | Outpatient (BNVA) | payer OTHER, SELFPAY | PROVIDERS: PCP Internal Medicine Sports Medicine; Visit Provider Nurse Practitioner Adult Health | DX: E11.65 Type 2 diabetes mellitus with hyperglycemia (principal); Z79.4 Long term (current) use of insulin | CPT/HCPCS: 82947; 83036; 99212 ==

== ENCOUNTER 2024-11-03 09:03 | Outpatient (REF) | payer OTHER, SELFPAY ==
[2024-11-03 10:12] LABS: Alanine Aminotransferase 31 U/L (0-31); Albumin Level 4.2 g/dL (3.5-5.0); Alkaline Phosphatase 55 U/L (39-117); Anion Gap 13 (12-20); Aspartate Amino Transferase 26 U/L (5-31); Bilirubin Total 0.4 mg/dL (0.0-1.0); Blood Urea Nitrogen 22 mg/dL (9-16); Calcium 9.2 mg/dL (8.4-10.2); Carbon Dioxide 26 mmol/L (22-29); Chloride 107 mmol/L (96-108); Cholesterol 113 mg/dL (<200); Estimated Glomerular Filt Rate > 60; Glucose Random 203 mg/dL (60-115); HDL Cholesterol 41 mg/dL (>40); LDL Cholesterol Calculated 54 mg/dL (<100); Sodium 142 mmol/L (135-145); Total Protein 7.2 g/dL (6.5-8.0); Triglycerides 90 mg/dL (<150)
[2024-11-03 10:18] LABS: Free T4 (Free Thyroxine) 1.16 ng/dL (0.71-1.85)
[2024-11-03 10:30] LABS: Thyroid Stimulating Hormone 1.55 uIU/mL (0.32-4.0)
[2024-11-03 11:43] LABS: Creatinine Urine 115.19 mg/dL; Microalbum/Creatinine Ratio Ur 26.9 ug/mg cr (<30)
== END 2024-11-03 09:04 | disposition home or self-care (01) ==
LOC: HO.LAB 09:03
PROVIDERS: Internal Medicine; PCP Internal Medicine Sports Medicine; Visit Provider Nurse Practitioner Adult Health
DX: E11.65 Type 2 diabetes mellitus with hyperglycemia (principal)
CPT/HCPCS: 36415; 80053; 80061; 82043; 82570; 84439; 84443

== ENCOUNTER 2024-11-09 10:51 | Outpatient (AMB) | payer OTHER, SELFPAY ==
--- NOTE | 2024-11-09 10:52 | A.OFFVIS_ITS ---
Vital Signs 11/09/24 10:53 Height 5 ft 3 in Weight 223 lb 5.252 oz BMI 39.6 BP 120/62 Blood Pressure Location Lt brachial Pulse 80 Pulse Source Pulse Oximeter Pulse Oximetry (%) 98 Oxygen Delivery Method Room Air Intake Visit Reasons: T2DM Intake Note: Patient presents today for a follow-up on Type 2 Diabetes Mellitus: Last Diabetic eye exam was on: 10/25/2024 Last Podiatry exam was on: 09/06/2024 Most recent HbA1c: 8.2%, 10/19/2024 Random Glucose-241 mg/dL, Today Allergies Penicillins [PENICILLINS] Allergy (Unknown, Verified 11/09/24 10:53) RASH canagliflozin [From Invokamet] Adverse Reaction (Verified 11/09/24 10:53) Yeast infection metformin [From Invokamet] Adverse Reaction (Verified 11/09/24 10:53) Yeast infection HPI Comments Details: Patient is a 64-year-old female who presents for follow up for type 2 diabetes. Hemoglobin A1c 8.2% 10/19/2024 from 08/17/2024 8.4 %, previous 7.8% 05/13/2024. She was diagnosed with type 2 diabetes approximately 2019. 2023: Cpeptide 4.47 JESUS + 38 islet cell antibodies negative Previous medications tried: has not tolerated Invokana (had 1 yeast infection), metformin xr (diarrhea), glipizide caused shakiness, jardiance caused vaginal irritation and polyuria. Lantus caused joint aches Current medications: Mounjaro 15.0 mg weekly Tresiba 36 units daily (increased from 30 last visit) Humalog 6 units with dinner (started last visit) DM: dx with t2dm around 2019. Freestyle emily sensor 3 average glucose: 14 day continuous glucose sensor report reviewed Glucose Management indicator 6.8% from 8 % TIme in ranges: 1 % very high (above 250) 18 % high (181-250) 81% from 43 % in range (70-180] 0 % low (69-55) 0 % very low (below 54) denies retinopathy last eye exam: 10/07/2023 Has neuropathy: some numbness and tingling. Last podiatry exam: Recently with Dr. Burch has difficulty trimming nails and multiple calluses has heel spur confirmed by x-ray. She is getting diabetic shoes Has nephropathy 07/19/2024 eGFR>60 02/2024 microalbumin 223 She is on an ARB She is planning to ask her pcp for a referral for memory loss Diet: Tries to balanced but has issues with the appetite despite higher dose Mounjaro. She has been to the weight management center here but had difficulty adhering to diet. Exercise: Limited secondary to back pain but does some light walking -she states everyone in her family has type 1 diabetes including her mother, maternal grandmother and a sibling. Her son has type 2 diabetes. Has had DM education Has fatty liver: seen by a specialist at [facility] in gastroenterolgy Ultrasound with live relastography 2022 1. There is generalized increase in hepatic echotexture, consistent with fatty infiltration or hepatocellular disease. Please correlate clinically. No focal hepatic mass or intrahepatic biliary dilatation is seen. 2. Liver elastography: Measurements are suggestive of compensated advanced chronic liver disease but need further test for confirmation. She has hypothyroidism. On stable dose of levothyroxine. Last TSH 01/2024 in range PFSH Medical History Fatty liver Uncontrolled type 2 diabetes mellitus with hyperglycemia Hx of breast cancer GERD (gastroesophageal reflux disease) Osteoporosis DJD (degenerative joint disease) Anxiety Depression Insulin dependent type 2 diabetes mellitus Morbid obesity Obesity Postoperative hypothyroidism Disorder of bone, unspecified Vitamin D deficiency Hypercalcemia Multinodular thyroid HLD (hyperlipidemia) HTN (hypertension) T2DM (type 2 diabetes mellitus) Essential hypertension longterm (current) use of insulin Type 2 diabetes mellitus without complications Obstructive sleep apnea (adult) (pediatric) PAF (paroxysmal atrial fibrillation) Surgical History Hx of partial thyroidectomy S/P lumpectomy, right breast Hx of colonoscopy Family History Father Cardiovascular disease Mother Uterine cancer Social History Household Members: None Housing: Apartment Are you a primary respiratory care technician to a significant other at home: No Do you presently have visiting nurse or other home services: Yes ([employer]) Alcohol intake: never Patient Tobacco Use Status: Never used Tobacco service: No Current occupational status: disabled Female Reproductive History Menstrual Age of Menarche: 15 Physical Exam Vital Signs: Last Vital Signs Pulse 80 11/09/24 10:53 BP 120/62 11/09/24 10:53 Pulse Ox 98 11/09/24 10:53 Oxygen Delivery Method Room Air 11/09/24 10:53 BMI result Body Mass Index 39.6 Assessment & Plan Assessment & Plan (1) Uncontrolled type 2 diabetes mellitus with hyperglycemia: Code(s): E11.65 - Type 2 diabetes mellitus with hyperglycemia Category: Medical Plan Interval improvement with the addition of supper time humalog and the increase in tresiba. GMI 6.8% Discussed she could add humalog at lunch since she does still have hyperglycemia following lunch. Says this is very difficult for her schedule Another option would be to increase her tresiba slightly but that can be discussed further at next visit. She is due for A1C mid January so she will book return around then She will call sooner if needed Coding Level of Care Code Est Pt Level 4 (69547) Diagnoses Uncontrolled type 2 diabetes mellitus with hyperglycemia E11.65
[2024-11-09 10:53] VITALS: BP 120/62; PULSE 80; O2SAT 98; BMI 39.6
[2024-11-09 11:07] LABS: Glucose, Whole Blood 241 mg/dL (60-115)
--- OUTSIDE RECORDS SUMMARY | 2024-11-09 11:47 | XMS_ITS | Encounter Summary ---
Author Organization [facility] Address [address] [place] [address] Care Team Providers Care Vice President Sales And Marketing Name Role Phone Monica Martini DO Unavailable Janis vaDerrick Nguyễn MD Primary Care Provider Unava ilable Partha, Pcp Primary Care Provider UnavailDerrick Ramirez MD Primary Care Provider Unava ilable Derrick Cain MD Primary Care Provider Unava ilable Encounter Details Date Type Department Care Team Description 01/30/2020 Assisted Living Coordinator Report Medical Records [address] [place] [address] [facility] Social History Tobacco Use Types Packs/Day [...] on filedocumented in this encounter Care Teams Vice President Sales And Marketing Relationship Specialty Start Date End Date Derrick Cain MD PCP - General Internal Medicine 10/21/18 10/03/20 Community, Pcp PCP - General 10/04/20 08/24/22 Derrick Cain MD PCP - General Internal Medicine 08/25/22 03/13/24 Derrick Cain MD PCP - General Internal Medicine 03/14/24 Monica Martini DO 06/08/11 documented as of this encounter
== END 2024-11-09 11:25 | disposition home or self-care (01) ==
LOC: HO.ENCR 10:52
PROVIDERS: PCP Internal Medicine Sports Medicine; Visit Provider Internal Medicine
DX: E11.65 Type 2 diabetes mellitus with hyperglycemia (principal)

== ENCOUNTER → 2024-11-09 10:51 | Outpatient (BNVA) | payer OTHER, SELFPAY | PROVIDERS: PCP Internal Medicine Sports Medicine; Visit Provider Internal Medicine | DX: E11.65 Type 2 diabetes mellitus with hyperglycemia (principal) | CPT/HCPCS: 82947; 99212 ==

== ENCOUNTER 2025-01-10 13:56 | Outpatient (AMB) | payer OTHER, SELFPAY ==
--- NOTE | 2025-01-10 14:16 | A.OFFVIS_ITS ---
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 Allergies Penicillins (PENICILLINS) Allergy (Unknown, Verified 11/09/24 10:53) RASH canagliflozin (From Invokamet) Adverse Reaction (Verified 11/09/24 10:53) Yeast infection metformin (From Invokamet) Adverse Reaction (Verified 11/09/24 10:53) Yeast infection Medication List - Last Reconciled 01/10/25 by Jay Kinney NP acetaminophen (Tylenol Extra Strength) 500 mg PO Q6H PRN alclometasone 0.05% topical allopurinol 300 mg PO DAILY blood-glucose meter As directed blood-glucose meter (FreeStyle [place] Lite kit) DIRECTED blood-glucose sensor (AXADOStyle Elizabeth 3 Plus Sensor device) Use daily As directed to monitor glucose blood-glucose,logging supervisor,cont (FreeStyle Elizabeth 3 [place]) Use daily As directed to monitor blood glucose calcium carb-D3-mag [id number] 333 mg-200 unit -133 mg-5 mg 1 tab PO DAILY cholecalciferol (vitamin D3) TAKE 1 SOFTGEL ORALLY DAILY [diabetic shoes As directed] diltiazem HCl ER 120 mg PO DAILY famotidine (Pepcid) 20 mg PO DAILY fenofibrate nanocrystallized 145 mg PO DAILY FreeStyle Test (blood sugar diagnostic) 3 TIMES A DAY NS Humalog KwikPen Insulin (insulin lispro) 6 units (0.06 mL) subcut DAILY 30 days NS insulin degludec (Tresiba FlexTouch U-200 insulin) 50 units (0.25 mL) subcut BEDTIME 90 days lancets (FreeStyle Lancets) One Lancet topical 4 times a day; lancets (FreeStyle Lancets) TEST 3 TIMES A DAY DIRECTED levothyroxine 175 mcg PO DAILY lidocaine 5% (Lidoderm) 1 patch topical DAILY PRN MDD remove after 12 hours metoprolol succinate ER 50 mg PO DAILY olmesartan 40 mg PO DAILY omeprazole 20 mg PO DAILY PRN pen needle, diabetic twice daily rivaroxaban (Xarelto) 20 mg PO DAILY rosuvastatin 40 mg PO DAILY thiamine HCl (vitamin B1) 100 mg PO DAILY tirzepatide (Mounjaro) 15 mg (0.5 mL) subcut QWEEK triamcinolone acetonide 0.1% appl topical BID PRN HPI Comments Details: This is a 64-year-old female patient coming in for a follow-up visit status post coronary CTA, accompanied by her daughter. Patient with a history of paroxysmal AFib, hypertension, hyperlipidemia, diabetes, and obesity. Patient reported a recent sibling in the family from cardiac etiology and therefore wanted to be tested. Patient had undergone a coronary CTA given her multiple risk factors. Today, she is here to review the results for this. Patient is continuing to denying any anginal symptoms including exertional chest pain, shortness of breath, palpitations, dizziness, orthopnea, PND, leg edema, presyncope or syncope. Patient is reporting compliance with all of her medications and is denying any signs of bleeding. [facility] Medical History Fatty liver Uncontrolled type 2 diabetes mellitus with hyperglycemia Hx of breast cancer GERD (gastroesophageal reflux disease) Osteoporosis DJD (degenerative joint disease) Anxiety Depression Insulin dependent type 2 diabetes mellitus Morbid obesity Obesity Postoperative hypothyroidism Disorder of bone, unspecified Vitamin D deficiency Hypercalcemia Multinodular thyroid HLD (hyperlipidemia) HTN (hypertension) T2DM (type 2 diabetes mellitus) Essential hypertension senior living (current) use of insulin Type 2 diabetes mellitus without complications Obstructive sleep apnea (adult) (pediatric) PAF (paroxysmal atrial fibrillation) Surgical History Hx of partial thyroidectomy S/P lumpectomy, right breast Hx of colonoscopy Family History Father Cardiovascular disease Mother Uterine cancer Social History Household Members: None Housing: Apartment Are you a primary medicare specialist to a significant other at home: No Do you presently have visiting nurse or other home services: Yes ([employer]) Alcohol intake: never Patient Tobacco Use Status: Never used Tobacco service: No Current occupational status: disabled Female Reproductive History Menstrual Age of Menarche: 15 Review of Systems Const Denies weakness ENT Denies dizziness Card Denies chest pain, Denies chest pain with activity, Denies syncope, Denies rapid heart rate, Denies pedal edema, Denies edema, Denies leg edema, Denies lightheadedness, Denies palpitations, Denies dyspnea, Denies dyspnea on exertion and Denies orthopnea Resp Denies cough, Denies dyspnea and Denies dyspnea on exertion GI Denies hematochezia and Denies change in stool character Musc Denies abnormal gait, Denies muscle cramps, Denies muscle weakness, Denies numbness, Denies radiating pain into limb and Denies tingling Neuro Denies abnormal gait, Denies dizziness, Denies syncope, Denies numbness, Denies tingling and Denies weakness Endo Denies palpitations Physical Exam Vital Signs: Last Vital Signs Pulse 82 01/10/25 14:17 BP 130/68 01/10/25 14:17 BMI result Body Mass Index 39.4 Const General: cooperative, healthy appearing, comfortable and no acute distress Orientation/consciousness: patient oriented x3 HEENT Head: Yes normal to inspection Neck Neck: Yes normal visual inspection, Yes trachea midline and Yes supple Chest Chest palpation & inspection: normal inspection of the chest Resp Effort & Inspection: normal respiratory effort Auscultation: clear to auscultation bilaterally, no crackles, no rales, no rhonchi and no wheezes Cardio Jugular venous distension: no JVD Palpation: normal PMI Rate: regular rate Rhythm: regular rhythm Heart sounds: S1 normal heart sound present, S2 normal heart sound present, no click, no gallops, no murmurs and no rubs Peripheral pulses: Peripheral pulses 2+ throughout GI Inspection: Yes normal to inspection Palpation (GI): Soft to palpation Auscultation: normal bowel sounds Skin General skin exam: no rashes or lesions noted Neuro General: patient oriented x3 Extrem General: Yes normal to inspection, No no pedal edema and No calf tenderness Psych Appearance: grossly normal Mental Status: mental status grossly normal Speech and movement: Normal speech and movement present Assessment & Plan Assessment & Plan (1) CAD (coronary artery disease): Code(s): I25.10 - Atherosclerotic heart disease of [place] coronary artery without angina pectoris Category: Medical Plan: 01/04/2025-patient underwent a coronary CTA that showed significant calcified plaque burden throughout the left main, lad, and proximal to mid circumflex into OM1. Also diffuse calcified plaque in the RCA. Given above findings and significant risk factors, we will proceed with a cardiac catheterization to further assess the coronary arteries and evaluate the extent of ischemic changes. The procedure along with its indications, risks, potential benefits was thoroughly discussed with the patient and her daughter. The patient was informed about the potential need for a stent placement. Both the patient the daughter expresses understanding and agrees to proceed with the planned cardiac catheterization. Most recent LDL at 54, with an goal of LDL less than 70. Continue rosuvastatin therapy. We will follow up after cardiac catheterization. (2) PAF (paroxysmal atrial fibrillation): Code(s): I48.0 - Paroxysmal atrial fibrillation Category: Medical Plan: Heart rate is regular today. Continue Xarelto for full anticoagulation therapy. Continue diltiazem and metoprolol for rate control approach. No reported signs of bleeding. Recent kidney function within normal limits. (3) Essential hypertension: Code(s): I10 - Essential (primary) hypertension Category: Medical Plan: Blood pressure is well-controlled. Continue current regimen. Advised monitoring blood pressures with a goal less than 130/80. (4) HLD (hyperlipidemia): Code(s): E78.5 - Hyperlipidemia, unspecified Category: Medical Qualifiers: Hyperlipidemia type: unspecified Qualified Code(s): E78.5 - Hyperlipidemia, unspecified Plan: As above. (5) Uncontrolled type 2 diabetes mellitus with hyperglycemia: Code(s): E11.65 - Type 2 diabetes mellitus with hyperglycemia Category: Medical Plan: Most recent A1c at 8.2. Continue aggressive diabetes management with an A1c goal less than 7%. Advised heart healthy diet, regular exercise, losing weight, med compliance, and aggressive management of vascular risk factors. Follow up after cardiac catheterization. In the interim, patient will call the office with any concerns or change in symptoms. Advised to seek ER care in case of exertional chest pain not resolved with rest. This note was generated using voice recognition software. While every effort has been made to ensure accuracy and proper communications station manager, there may be occasional errors that could affect the content or meaning of the described symptoms. Orders: Orders Cardiac Cath LT w PCI Today I25.10 - Atherosclerotic heart disease of [place] coronary artery without angina pectoris Prothrombin Time INR Today I25.10 - Atherosclerotic heart disease of [place] coronary artery without angina pectoris Basic Metabolic Panel Today I25.10 - Atherosclerotic heart disease of [place] coronary artery without angina pectoris Complete Blood Count no Diff Today I25.10 - Atherosclerotic heart disease of [place] coronary artery without angina pectoris Coding Level of Care Code Tele Est Pt Level 4 (87030) Complex EM visit Add On G2211 Diagnoses CAD (coronary artery disease) I25.10 PAF (paroxysmal atrial fibrillation) I48.0 Essential hypertension I10 Hyperlipidemia, unspecified hyperlipidemia type E78.5 Hyperlipidemia type: unspecified Uncontrolled type 2 diabetes mellitus with hyperglycemia E11.65 Time Spent (min) 33 Comment Time spent in reviewing the chart, test results, assessment, counseling and documentation.
[2025-01-10 14:17] VITALS: BP 130/68; PULSE 82; BMI 39.4
--- OUTSIDE RECORDS SUMMARY | 2025-01-10 14:40 | XMS_ITS | Clinical Summary ---
Author Organization 175 [facility] Address 175 [place] [address] Phone Care Team Providers Care Ibm Bpm Architect Name Role Phone Derrick Cain MD Primary [...] Obstructive sleep apnea 08/30/2019 Overview (04/29/2024): [facility] diagnostic polysomnogram done 08/11/2016; weight 234 pounds; BMI 42; sleep efficiency 67%; REM 14%; AHI 8 overall; 23 hypopneas; PLM's 2; oxygen saturation 93% average and lowest at 78%. [facility] treatment polysomnogram 09/02/2016; sleep efficiency 80%; [...] (diabetes mellitus), type 2 with renal complications ([facility] V24, [facility] V28) 06/12/2019 De Quervain's tenosynovitis, right 06/03/2019 Diabetic peripheral neuropathy ([facility] V24, [facility] V28) 05/04/2019 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 ([facility] V24, [facility] V28) 04/29/2019 GERD (gastroesophageal reflux disease) 9 Gout 04/29/2019 Generalized anxiety disorder 04/29/2019 Depression 04/29/2019 Multinodular goiter 04/29/2019 Overview (04/29/2024): FNA 05/2019: LLP and RLP, cytology benign for both nodules, needs repeat thyroid u/s 05/2020. Also obtaining barium swallow dur to dysphagia Morbid obesity ([facility] V24, [facility] V28) 2018 Breast cancer ([facility] V24, [facility] V28) 019 Overview (04/29/2024): Surgery x2 Essential hypertension, benign 07/21/2012 Dyslipidemia 07/21/2012 Paroxysmal atrial fibrillation ([facility] V24, [facility] V28) 07/21/2012 Encounters Date Type Department Care Team Description 11/21/2024 10:15 AM EDT Office Visit Orthopedic Surgery - [place] [address] [place] [phone] Faisal Burch, DPM Tendonitis, Achilles, left (Primary Dx); Type II diabetes mellitus with peripheral circulatory disorder ([facility] V24, [facility] V28); Diabetic mononeuropathy simplex ([facility] V24, [facility] V28); Metatarsalgia of both feet; Dermatophytosis of nail; Pain in toe of left foot; Pain in toe of right foot; Corns and callosities from Last 3 Months Immunizations Name Administration [...] residual neoplasm OTHER SURGICAL HISTORY 03/26/2016 PROCEDURE: NH BIOPSY THYROID PERCUTANEOUS CORE NEEDLE; COMMENT: nodule; no report ESOPHAGOGASTRODUODENOSCOPY 10/09/2020 PROCEDURE: [place] EGD TRANSORAL BIOPSY SINGLE/MULTIPLE; COMMENT: gastropathy, biopsy pending Medical History Medical History Date Comments Essential hypertension, benign 07/21/2012 D X:Essential hypertension, benign Dyslipidemia 07/21/2012 DX:Dyslipidemia Paroxysmal atrial fibrillati on ([facility] V24, [facility] V28) 07/21/2012 DX:Paroxysmal atrial fibril lation (HCC) Breast cancer ([facility] V24, [facility] V28) 04/29/2019 DX:Breast cancer (HCC); COMM ENT: Surgery x2 Depression 04/29/2019 DX:Depression Generalized anxiety disorder 04/29/2019 DX: Generalized anxiety disorder GERD (gastroesophageal reflu x disease) 04/29/2019 DX:GERD (gastroesophageal re flux disease) Gout 04/29/2019 DX:Gout Morbid obesity ([facility] V24, [facility] V28) 04/29/2019 DX:Morbid obesity (HCC) Multinodular goiter 04/29/2019 DX:Multinodu lar goiter Patient is Religious 04/29/2019 DX: Patient is Religious 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 ([facility] V24, [facility] V28) 04/29/2019 DX:Type 2 diabetes mellitus with peripheral neuropathy ([facility]) Diabetic peripheral neuropat hy ([facility] V24, [facility] V28) 05/04/2019 DX:Diabetic peripheral neur opathy ([facility]) Swallowing impaired DX:Swallowin g impaired Atrial fibrillation, transie nt ([facility] V24, [facility] V28) DX:Atrial fibrillation, tra nsient ([facility]) Esophagitis DX:Esophagitis Family History Medical History Relation Name Comments Coronary artery disease Brother 1 Coronary artery disease Brother 2 Coronary artery disease Brother 3 Coronary artery disease Brother 4 Coronary artery disease Brother 5 ADD / ADHD Daughter Other: anxiety Daughter panic attacks Coronary artery disease Father s/p [place] Diabetes Mother Uterine cancer Mother Depression Son [...] - - Weight 98.8 kg (217 lb 13 oz) 11/21/2024 10:20 A M EDT Height 160 cm (5' 2.99 ) 11/21/2024 10:20 AM EDT Body Mass Index 38.59 11/21/2024 10:20 AM EDT Plan of Treatment Upcoming Encounters Date Type Department Care Team (Late st Contact Info) Description 02/20/2025 8:45 AM EDT Office Visit Orthopedic Surgery - [place] [address] [phone] Faisal Burch, DPM [address] [address] 03/30/2025 9:45 AM EDT Office Visit Pulmonolgy - [place] 175 [facility] [address] [place] [phone] Mery Ferris, HÉCTOR 175 [facility] [address] [place] [address] Health Maintenance Due Date Last Done Comments Breast Cancer Screening 1962 Diabetes: Annual Foot Exam 1972 Diabetes: Annual Retina Eye Exam 1972 Cervical Cancer Screening: Pap Smear 1983 Diabetes: Annual GFR (Glomerular Filtration Rate) 07/12/2020 07/12/2019 Cholesterol Screening (Lipid Panel) 05/17/2022 Colorectal Cancer Screening: Colonoscopy 05/17/2022 HIV Screening 05/17/2022 Hepatitis C Screening 05/17/2022 Medicare Annual Wellness Visit 05/17/2022 Social Influencers of Health Screening 05/17/2022 Diabetes: Annual Urine Albumin-Creatinine Ratio (uACR) 05/23/2022 07/12/2019 Diabetes: Blood Sugar Control Test (HGBA1C) 05/23/2022 07/12/2019 Hypertension/CHF/CAD Annual BMP Blood Test 05/23/2022 07/12/2019 Pneumococcal Vaccine: 50+ Years (3 of 3 - PPSV23, PCV20 or PCV21) 03/30/2023 03/30/2018, 03/03/2018 Depression Screening 06/08/2024 COVID-19 Vaccine (6 - Pfizer risk 2023- season) 2024 03/28/2024, 11/07/2021, 05/23/2021, Additional history exists Influenza Vaccine (#1) 2025 , 03/19/2023, 03/26/2022, Additional history exists DTaP,Tdap,and Td Vaccines (3 - Td or Tdap) 06/17/2034 06/17/2024, 05/02/2014 Zoster Vaccines Completed 12/26/2022, 09/24/2022 RSV Immunization Adult Patients Completed 07/07/2024 HIB [...] * Urine Albumin Creatinine Ratio (07/12/2019) Pathologist [facility] Urine Albumin Creatinine Ratio Abstracted [facility] Provider HEALTH MAINTENANCE Final Result * Annual BMP Blood Test (07/12/2019) Pathologist [facility] Annual BMP Blood Test Abstracted [facility] Provider HEALTH MAINTENANCE Final Result * (ABNORMAL) Hemoglobin A1c (07/12/2019) Pathologist [facility] Hemoglobin A1C 10.2(A) <=6.5 % Blood Venous blood specimen / Unknown Result [facility] Provider LAB BLOOD ORDERABLES Sharmaine l Result from Last 3 Months or Most Recently Relevant [place] [id number] [facility] MEDICARE Member Subscriber Plan / Payer (Ef fective 2019-Present) Name:FIORDALIZA GOMEZ Relation to Subscriber:Self Name:Fiordaliza Gomez Vanessa Payer ID:[id number] Group ID:[id number] Type:Not on file Address: [address] [place] [id number] Advance Directives Documents on File Type Date Recorded Patient Welcome Center Agent Expl anation Health Care Decision (hx) 10/09/2020 AD SILVESTRE DIRECTIVE Care Teams Ibm Bpm Architect Relationship Specialty Start Date End Date Derrick Cain MD [address] [place] [address] JAMAL GAINES [id number] PCP - General 10/21/18
== END 2025-01-10 14:59 | disposition home or self-care (01) ==
LOC: HO.HCS 13:57
PROVIDERS: PCP Internal Medicine Sports Medicine
DX: I48.0 Paroxysmal atrial fibrillation (principal); I11.9 Hypertensive heart disease without heart failure; I25.10 Atherosclerotic heart disease of native coronary artery without angina pectoris; E78.5 Hyperlipidemia, unspecified; E11.65 Type 2 diabetes mellitus with hyperglycemia
CPT/HCPCS: 99214; G2211

== ENCOUNTER → 2025-01-10 13:56 | Outpatient (BNVA) | payer OTHER, SELFPAY | PROVIDERS: PCP Internal Medicine Sports Medicine | DX: Z71.2 Person consulting for explanation of examination or test findings (principal); I25.10 Atherosclerotic heart disease of native coronary artery without angina pectoris; I48.0 Paroxysmal atrial fibrillation; I10 Essential (primary) hypertension; E78.5 Hyperlipidemia, unspecified; E11.65 Type 2 diabetes mellitus with hyperglycemia | CPT/HCPCS: 99212 ==

== ENCOUNTER 2025-02-22 10:19 | Outpatient (AMB) | payer OTHER, SELFPAY ==
--- OUTSIDE RECORDS SUMMARY | 2025-02-20 08:45 | XMS_ITS | Encounter Summary ---
Author Organization [facility] Address [address] [place] [address] Care Team Providers Care Horse Farm Manager Name Role Phone Derrick Cain MD Primary Care Provider Reason for Visit * Reason Comments DM Foot Care Encounter Details Date Type Department Care Team ([facility] Contact Info) Description 02/20/2025 8:45 AM EDT Office Visit Orthopedic Surgery - [place] [id number] [phone] Faisal Burch DPM [address] [phone] Tendonitis, Achilles, left (Primary Dx); Metatarsalgia of both feet; Type II diabetes mellitus with peripheral circulatory disorder ([facility] V24, [facility] V28); Diabetic mononeuropathy simplex ([facility] V24, [facility] V28); Dermatophytosis of nail; Pain in toe of left foot; Corns and callosities; Pain in toe of right foot Social History Tobacco Use Types Packs/Day Years [...] Progress Notes * Faisal Burch DPM - 02/20/2025 8:45 AM EDT Last PCP visit:Referring MD: Mikel Mccoy MD 10/01/2024 Patient presents here for evaluation of her feet she is type II diabetic expresses numbness burningto anterior feet states she has sharp pain on the back of her left heel is chronic achy throbbing is been going for years states she is wonder if it is related to her gout she states that she has been on medication for gout which has helped states the pain has been more tolerable has been doing better job with supporting shoe gear and wider shoe gear in this area states she has also been supportive heel pain is now 1 or 2 out of 10 of his scale occasionally is a throbbing sharp shooting pain has been on Voltaren gel has been using topical medication reports her nails elongated painful thickened and embedded ROS: GENERAL: Pt denies nausea, fever, vomiting, [...] Essential hypertension, benign Dyslipidemia Paroxysmal atrial fibrillation ([facility] V24, [facility] V28) Type 2 diabetes mellitus with peripheral neuropathy ([facility] V24, [facility] V28) GERD (gastroesophageal reflux disease) Gout Generalized anxiety disorder Depression Multinodular goiter Morbid obesity ([facility] V24, [facility] V28[facility] Breast cancer ([facility] V24, [facility] V28) Diabetic peripheral neuropathy ([facility] V24, [facility] V28) De Quervain's tenosynovitis, right DM (diabetes mellitus), type 2 with renal complications ([facility] V24, [facility] V28) Osteoarthritis of first carpometacarpal (CMC) joint of one hand Obstructive sleep apnea Venous insufficiency of both lower extremities Swallowing impaired Atrial fibrillation, transient ([facility] V24, [facility] V28) Esophagitis SOCIAL HISTORY: Social History Tobacco Use Smoking status: Never Smokeless tobacco: Never Substance Use Topics Alcohol use: Not Currently ACTIVE MEDICATIONS: Outpatient Medications Marked as Taking for the 02/20/25 encounter (Office Visit) with Faisal Paredes DPM Medication Sig Dispense Refill alcohol swabs (Alcohol Prep Pads) pads, medicated 1 Each by Does not apply route 3 times daily. allopurinoL (ZYLOPRIM) 300 mg tablet Take 1 tablet by mouth daily. cholecalciferol (VITAMIN D-3) 50 mcg (2,000 unit) capsule TAKE 1 SOFTGEL ORALLY DAILY diclofenac (VOLTAREN) 1 % topical gel Apply 1 g topically 4 times daily as needed for Other (wrist pain). With food dilTIAZem (TIAZAC) 120 mg 24 hr capsule Take 1 capsule by mouth daily. famotidine (PEPCID) 20 mg tablet TAKE 1 TABLET BY MOUTH TWICE A DAY NEEDED FOR HEARTBURN TAKE ATLEAST ONE DOSE AT BEDTIME fenofibrate (TRICOR) 145 mg tablet Take 145 mg by mouth daily. FreeStyle Lancets 28 gauge lancets TEST 4 TIMES A DAY DIRECTED FreeStyle Test test strip 1 each 4 (four) times a day. Lantus Solostar U-100 Insulin 100 unit/mL (3 mL) injection pen INJECT 10 UNIT (0.1 ML) SUBCUTANEOUSLY EVERY EVENING metoprolol succinate (TOPROL-XL) 50 mg 24 hr tablet Take 1 Tab by mouth daily. Mounjaro 12.5 mg/0.5 mL injection olmesartan (BENICAR) 40 mg tablet Take 1 tablet by mouth daily. omeprazole (PriLOSEC) [address] capsule TAKE 2 CAPSULES DAILY IN MORNING ON EMPTY STOMACH WAIT 30 MINUTES THEN EAT TO ACTIVATE MEDICATION pen needle, diabetic 32 gauge x 5/32 needle Use to inject insulin four times daily rivaroxaban (XARELTO) 20 mg tablet Take 20 mg by mouth daily. rosuvastatin (CRESTOR) 40 mg tablet triamcinolone (KENALOG) 0.1 % cream Apply thin coat of cream to affected area 2- 3 times a day as needed for maximum 2 weeks. Do not use on face vibegron (Gemtesa) 75 mg tablet tablet Take by mouth. ALLERGIES: Allergies Allergen Reactions Empagliflozin Insulin Glargine Other Other Invokamet [canagliflozin-metformin Hcl] Causes Yeast [...] ptosis without acutemuscle or tendon deficits DERMATOLOGICAL: Toenails: Left Toenail(s) 1-5: Crumbling upon debridement, [...] calcaneus IMPRESSION: 1. Tendonitis, Achilles, left 2. Metatarsalgia of both feet 3. Type II diabetes mellitus with peripheral circulatory disorder ([facility] V24, [facility] V28) 4. Diabetic mononeuropathy simplex ([facility] V[facility], [facility] V28) 5. Dermatophytosis of nail 6. Pain in toe of left foot 7. Corns and callosities 8. Pain in toe of right foot PLAN: Pt was seen and examined, history reviewed. Achilles tendinitis to the left discussed and reviewed with Natty's deformity Radiographs of the left foot discussed and reviewed patient in detail continue with Voltaren gel topically as needed for flares will continue with heel lifts and supportive shoe gear as well as crocs I do not recommend surgery at this time discussed with patient surgical options would include excision and resection of bone spur with reattachment Achilles tendon which is a major surgery would recommend holding off on if possible patient states she is willing to wait and has been doing well with topical medication Continue stretching exercises orthotics insoles referral to physical therapy discussed patient declined Discussed with patient regarding proper glucose control, [...] in thickness and length with nail nippers Faisal Burch DPM documented in this encounter Plan of Treatment Upcoming Encounters Date Type Department Care Team (Late st Contact Info) Description 03/30/2025 9:45 AM EDT [facility] 200 [place] [phone] Mery Ferris, HÉCTOR [address] [place] [phone] 04/25/2025 8:30 AM EST Office Visit Orthopedic Surgery [facility] [address] [phone] Faisal Burch DPM [address] [phone] documented as of this encounter Visit Diagnoses Diagnosis Tendonitis, Achilles, left- Primary Metatarsalgia of both feet Type II diabetes mellitus with peripheral circulatory disorder ([facility] V24, [facility] V28) Type II or unspecified type diabetes mellitus with peripheral circulatory disorders, not stated as uncontrolled Diabetic mononeuropathy simplex ([facility] V24, [facility] V28) Type II or unspecified type diabetes mellitus with neurological manifestations, not stated as uncontrolled Dermatophytosis of nail Pain in toe of left foot Pain in soft tissues of limb Corns and callosities Pain in toe of right foot Pain in soft tissues of limb documented in this encounter Care Teams Horse Farm Manager Relationship Specialty Start Date End Date Derrick Cain MD [address] [place] [address] [place] [address] PCP - General 10/21/18 documented as of this encounter
[2025-02-22 10:21] VITALS: BP 168/82; PULSE 86; O2SAT 96; BMI 40.2
--- NOTE | 2025-02-22 10:21 | A.OFFVIS_ITS ---
Vital Signs 02/22/25 10:21 Height 5 ft 3 in Weight 227 lb 1.218 oz BMI 40.2 BP 168/82 H Blood Pressure Location Rt brachial Position Sitting Pulse 86 Pulse Source Pulse Oximeter Pulse Oximetry (%) 96 Oxygen Delivery Method Room Air Intake Visit Reasons: T2DM Intake Note: Patient presents today for a follow-up on Type 2 Diabetes Mellitus: Last Diabetic eye exam was on: 10/2024, [facility] Last Podiatry exam was on: 02/20/2025, DR Burch, at [facility] Most recent HbA1c: 9.0%, 02/22/2025 Random Glucose- 234 mg/dL, Today Sales Specialist Required: No Accompanied by: Self / Same As Patient Allergies Penicillins (PENICILLINS) Allergy (Unknown, Verified 02/22/25 10:26) RASH canagliflozin (From Invokamet) Adverse Reaction (Verified 02/22/25 10:26) Yeast infection metformin (From Invokamet) Adverse Reaction (Verified 02/22/25 10:26) Yeast infection HPI Comments Details: Patient is a 64-year-old female who presents for follow up for type 2 diabetes. Medical history: HTN, hyperlipidemia, postoperative hypothyroid, anxiety depression, insomnia She was diagnosed with type 2 diabetes approximately 2023: Cpeptide 4.47 JESUS + 38 islet cell antibodies negative Hemoglobin A1c 9.0% from 8.2% 10/19/2024 from 08/17/2024 8.4 %, previous 7.8% 05/13/2024. She attributes her worsening control to increased stress and anxiety Current medications: Mounjaro 15.0 mg weekly Tresiba 38 units daily (increased from 30 last visit) Humalog 8 units twice daily Previous medications tried: has not tolerated Invokana (had 1 yeast infection), metformin xr (diarrhea), glipizide caused shakiness, jardiance caused vaginal irritation and polyuria. Lantus caused joint aches Freestyle emily sensor 3 average glucose: 14 day continuous glucose sensor report reviewed Glucose Management indicator 6.8% from 8 % TIme in ranges: 70% high (181-250) 30& (70-180] 0 % low (69-55) 0 % very low (below 54) denies retinopathy last eye exam: 10/2024 Has neuropathy: some numbness and tingling. Last podiatry exam: Recently with Dr. Burch Has nephropathy 07/19/2024 eGFR>60 02/2024 microalbumin 223 She is on an ARB Diet: Tries to balanced but has issues with the appetite despite higher dose Mounjaro. She has been to the weight management center here but had difficulty adhering to diet. Exercise: Limited secondary to back pain but does some light walking -she states everyone in her family has type 1 diabetes including her mother, maternal grandmother and a sibling. Her son has type 2 diabetes. Has had DM education Has fatty liver: seen by a specialist at [facility] in gastroenterolgy Ultrasound with live relastography 2022 1. There is generalized increase in hepatic echotexture, consistent with fatty infiltration or hepatocellular disease. Please correlate clinically. No focal hepatic mass or intrahepatic biliary dilatation is seen. 2. Liver elastography: Measurements are suggestive of compensated advanced chronic liver disease but need further test for confirmation. She has hypothyroidism. On stable dose of levothyroxine. Last TSH 10/2024 in range PFSH Medical History Fatty liver Uncontrolled type 2 diabetes mellitus with hyperglycemia Hx of breast cancer GERD (gastroesophageal reflux disease) Osteoporosis DJD (degenerative joint disease) Anxiety Depression Insulin dependent type 2 diabetes mellitus Morbid obesity Obesity Postoperative hypothyroidism Disorder of bone, unspecified Vitamin D deficiency Hypercalcemia Multinodular thyroid HLD (hyperlipidemia) HTN (hypertension) T2DM (type 2 diabetes mellitus) Essential hypertension correction (current) use of insulin Type 2 diabetes mellitus without complications Obstructive sleep apnea (adult) (pediatric) PAF (paroxysmal atrial fibrillation) Surgical History Hx of partial thyroidectomy S/P lumpectomy, right breast Hx of colonoscopy Family History Father Cardiovascular disease Mother Uterine cancer Social History Household Members: None Housing: Apartment Are you a primary daycare director to a significant other at home: No Do you presently have visiting nurse or other home services: Yes (HVAC TECHNICIAN) Alcohol intake: never Patient Tobacco Use Status: Never used Tobacco service: No Current occupational status: disabled Female Reproductive History Menstrual Age of Menarche: 15 Physical Exam Vital Signs: Last Vital Signs Pulse 86 02/22/25 10:21 BP 168/82 H 02/22/25 10:21 Pulse Ox 96 02/22/25 10:21 Oxygen Delivery Method Room Air 02/22/25 10:21 BMI result Body Mass Index 40.2 Results AMB Hemoglobin A1c AMB Hemoglobin A1c 9.0 % Last Edit by YANDEL Javier on 02/22/25 11:11 Results Reviewed Results Reviewed: Laboratory Last Values Glucose (Clinic) 234 mg/dL (60-115) H 02/22/25 10:35 Hgb A1c (Clinic) 9.0 % (4.0-6.0) H 02/22/25 11:10 Assessment & Plan Assessment & Plan (1) Uncontrolled type 2 diabetes mellitus with hyperglycemia: Code(s): E11.65 - Type 2 diabetes mellitus with hyperglycemia Category: Medical Plan DM, uncontrolled Increase tresiba to 40 for a few days then 44 units. May go up as far as 50 prior to next visit Start actos 30mg daily Continue humalog 8u bid Continue mounjaro 15mg weekly Treat hypoglycemia by rules of 15s Return in 3 months or sooner as needed Orders: Orders AMB Hemoglobin A1c Today E11.65 - Type 2 diabetes mellitus with hyperglycemia Medications: New pioglitazone (Actos) 30 mg PO DAILY 90 tabs 3RF Coding Level of Care Code Est Pt Level 4 (66744) Diagnoses Uncontrolled type 2 diabetes mellitus with hyperglycemia E11.65
[2025-02-22 10:40] LABS: Glucose, Whole Blood 234 mg/dL (60-115)
--- OUTSIDE RECORDS SUMMARY | 2025-02-22 12:34 | XMS_ITS | Clinical Summary ---
Author Organization 175 [facility] Address [address] [place] [address] Phone Care Team Providers Care Oracle Fusion Middleware Developer Name Role Phone Derrick Cain MD Primary Care Provider [phone] Allergies Active Allergy Reactions Criticality Noted Date Comments Empagliflozin 02/20/2025 Insulin Glargine 02/20/2025 Other Other 04/29/2019 Invokamet [canagliflozin-metformin Hcl] Causes [...] Active pen needle, diabetic 32 gauge x needle Use to inject insulin four times [...] (diabetes mellitus), type 2 with renal complications ([facility] V24, [facility] V28) 06/12/2019 De Quervain's tenosynovitis, right 06/03/2019 Diabetic peripheral neuropathy ([facility] V24, [facility] V28) 05/04/2019 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 ([facility] V24, [facility] V28) 04/29/2019 GERD (gastroesophageal reflux disease) 9 Gout 04/29/2019 Generalized anxiety disorder 04/29/2019 Depression 04/29/2019 Multinodular goiter 04/29/2019 Overview (04/29/2024): FNA 05/2019: LLP and RLP, cytology benign for both nodules, needs repeat thyroid u/s 05/2020. Also obtaining barium swallow dur to dysphagia Morbid obesity ([facility] V24, [facility] V28) 2018 Breast cancer ([facility] V24, [facility] V28) 019 Overview (04/29/2024): Surgery x2 Essential hypertension, benign 07/21/2012 Dyslipidemia 07/21/2012 Paroxysmal atrial fibrillation ([facility] V24, [facility] V28) 07/21/2012 Encounters Date Type Department Care Team Description 02/20/2025 8:45 AM EDT Office Visit Orthopedic Surgery - [address] [address] Faisal Burch, DPM Tendonitis, Achilles, left (Primary Dx); Metatarsalgia of both feet; Type II diabetes mellitus with peripheral circulatory disorder ([facility] V24, [facility] V28); Diabetic mononeuropathy simplex ([facility] V24, [facility] V28); Dermatophytosis of nail; Pain in toe of left foot; Corns and callosities; Pain in toe of right foot from Last 3 Months Immunizations Name Administration [...] residual neoplasm OTHER SURGICAL HISTORY 03/26/2016 PROCEDURE: IN BIOPSY THYROID PERCUTANEOUS CORE NEEDLE; COMMENT: nodule; no report ESOPHAGOGASTRODUODENOSCOPY 10/09/2020 PROCEDURE: IN EGD TRANSORAL BIOPSY SINGLE/MULTIPLE; COMMENT: gastropathy, biopsy pending Medical History Medical History Date Comments Essential hypertension, benign 07/21/2012 D X:Essential hypertension, benign Dyslipidemia 07/21/2012 DX:Dyslipidemia Paroxysmal atrial fibrillati on ([facility] V24, [facility] V28) 07/21/2012 DX:Paroxysmal atrial fibril lation (HCC) Breast cancer ([facility] V24, [facility] V28) 04/29/2019 DX:Breast cancer (HCC); COMM ENT: Surgery x2 Depression 04/29/2019 DX:Depression Generalized anxiety disorder 04/29/2019 DX: Generalized anxiety disorder GERD (gastroesophageal reflu x disease) 04/29/2019 DX:GERD (gastroesophageal re flux disease) Gout 04/29/2019 DX:Gout Morbid obesity ([facility] V24, [facility] V28) 04/29/2019 DX:Morbid obesity (HCC) Multinodular goiter 04/29/2019 DX:Multinodu lar goiter Patient is Yazdanism 04/29/2019 DX: Patient is Yazdanism 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 ([facility] V24, [facility] V28) 04/29/2019 DX:Type 2 diabetes mellitus with peripheral neuropathy (HCC) Diabetic peripheral neuropat hy ([facility] V24, [facility] V28) 05/04/2019 DX:Diabetic peripheral neur opathy ([facility]) Swallowing impaired DX:Swallowin g impaired Atrial fibrillation, transie nt ([facility] V24, [facility] V28) DX:Atrial fibrillation, tra nsient ([facility]) Esophagitis DX:Esophagitis Family History Medical History Relation Name Comments Coronary artery disease Brother 1 Coronary artery disease Brother 2 Coronary artery disease Brother 3 Coronary artery disease Brother 4 Coronary artery disease Brother 5 ADD / ADHD Daughter Other: anxiety Daughter panic attacks Coronary artery disease Father s/p [place] Diabetes Mother Uterine cancer Mother Depression Son [...] Description 03/30/2025 9:45 AM EDT Office Visit Pulmonol - [address] [place] [address] Mery Ferris, HÉCTOR [address] [place] [address] 04/25/2025 8:30 AM EST Office Visit Orthopedic Surgery - [place] [address] [address] Faisal Burch, DPM [address] [address] Health Maintenance Due Date Last Done Comments [...] Vaccine (6 - Pfizer risk 2023- season) 2025 03/28/2024, 11/07/2021, 05/23/2021, Additional history exists Influenza [...] * Urine Albumin Creatinine Ratio (07/12/2019) Pathologist [facility] Urine Albumin Creatinine Ratio Abstracted [facility] Provider HEALTH MAINTENANCE Final Result * Annual BMP Blood Test (07/12/2019) Pathologist [facility] Annual BMP Blood Test Abstracted [facility] Provider HEALTH MAINTENANCE Final Result * (ABNORMAL) Hemoglobin A1c (07/12/2019) [facility] Hemoglobin A1C 10.2(A) <=6.5 % Blood Venous blood specimen / Unknown Result [facility] Provider LAB BLOOD ORDERABLES Sharmaine l Result from Last 3 Months or Most Recently Relevant to Health Maintenance Insurance [facility] MEDICARE Member Subscriber Plan / Payer (Ef fective 2019-Present) Name:FIORDALIZA GOMEZ Relation to Subscriber:Self Name:Fiordaliza Gomez Payer ID:[id number] Group ID:[id number] Type:Not on file Address: [address] [place] [address] Advance Directives Documents on File Type Date Recorded Patient Purchasing Manager/Sales Expl anation Health Care Decision (hx) 10/09/2020 AD NIRMALA DIRECTIVE Care Teams Oracle Fusion Middleware Developer Relationship Specialty Start Date End Date Derrick Cain MD [address] [place] [address] [place] [phone] PCP - General 10/21/18
== END 2025-02-22 11:05 | disposition home or self-care (01) ==
LOC: HO.ENCR 10:20
PROVIDERS: PCP Internal Medicine Sports Medicine; Visit Provider Internal Medicine
DX: E11.65 Type 2 diabetes mellitus with hyperglycemia (principal)

== ENCOUNTER → 2025-02-22 10:19 | Outpatient (BNVA) | payer OTHER, SELFPAY | PROVIDERS: PCP Internal Medicine Sports Medicine; Visit Provider Internal Medicine | DX: E11.65 Type 2 diabetes mellitus with hyperglycemia (principal); Z79.4 Long term (current) use of insulin | CPT/HCPCS: 82947; 83036; 99212 ==

== ENCOUNTER 2025-03-06 10:12 | Outpatient (REF) | payer OTHER, SELFPAY ==
[2025-03-06 10:56] LABS: Hematocrit 41.2 % (37.0-47.0); Hemoglobin 13.5 g/dl (12.0-16.0); Mean Corpuscular HGB Conc 32.8 g/dl (31.0-35.0); Mean Corpuscular Hemoglobin 31.0 pg (27.0-33.0); Mean Corpuscular Volume 94.7 fL (80.0-98.0); NRBC Abs Auto 0.000 X10*3/uL (0.0-0.012); NRBC Pct Auto 0.0 /100WBC (0.0-0.2); Platelet Count 221 X10*3/uL (160-400); Red Blood Count 4.35 X10*6/uL (4.20-5.50); White Blood Count 10.7 X10*3/uL (4.8-10.8)
[2025-03-06 10:58] LABS: INTERNATIONAL NORM RATIO 1.0 (0.9-1.1); Prothrombin Time 12.0 SEC (10.9-12.4)
[2025-03-06 11:22] LABS: Anion Gap 11 (12-20); Blood Urea Nitrogen 24 mg/dL (9-16); Calcium 9.1 mg/dL (8.4-10.2); Carbon Dioxide 29 mmol/L (22-29); Chloride 105 mmol/L (96-108); Estimated Glomerular Filt Rate > 60; Potassium 4.1 mmol/L (3.3-5.1); Sodium 141 mmol/L (135-145)
--- OUTSIDE RECORDS SUMMARY | 2025-03-06 11:22 | XMS_ITS | Clinical Summary ---
Author Organization 175 [facility] Address [address] [place] [address] Phone Care Team Providers Care Cloth Neutralizer Name Role Phone Derrick Cain MD Primary [...] sleep apnea 08/30/2019 Overview (04/29/2024): [facility] diagnostic polysomnogram done 08/11/2016; weight 234 pounds; BMI 42; sleep efficiency 67%; REM 14%; AHI 8 overall; 23 hypopneas; PLM's 2; oxygen saturation 93% average and lowest at 78%. [facility] treatment polysomnogram 09/02/2016; sleep efficiency [...] (diabetes mellitus), type 2 with renal complications ([facility] V24, [facility] V28) 06/12/2019 De Quervain's tenosynovitis, right 06/03/2019 Diabetic peripheral neuropathy ([facility] V24, [facility] V28) 05/04/2019 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 ([facility] V24, [facility] V28) 04/29/2019 GERD (gastroesophageal reflux disease) 9 Gout 04/29/2019 Generalized anxiety disorder 04/29/2019 Depression 04/29/2019 Multinodular goiter 04/29/2019 Overview (04/29/2024): FNA 05/2019: LLP and RLP, cytology benign for both nodules, needs repeat thyroid u/s 05/2020. Also obtaining barium swallow dur to dysphagia Morbid obesity ([facility] V24, [facility] V28) 2018 Breast cancer ([facility] V24, [facility] V28) 019 Overview (04/29/2024): Surgery x2 Essential hypertension, benign 07/21/2012 Dyslipidemia 07/21/2012 Paroxysmal atrial fibrillation ([facility] V24, [facility] V28) 07/21/2012 Encounters Date Type Department Care Team Description 02/20/2025 8:45 AM EDT Office Visit Orthopedic Surgery - [address] [address] Faisal Burch, DPM Tendonitis, Achilles, left (Primary Dx); Metatarsalgia of both feet; Type II diabetes mellitus with peripheral circulatory disorder ([facility] V24, [facility] V28); Diabetic mononeuropathy simplex ([facility] V24, [facility] V28); Dermatophytosis of nail; Pain in toe of left foot; Corns and callosities; Pain in toe of right foot from Last 3 Months Immunizations Immunization Administration Dates Next Due Influenza trivalent, 0.5mL, [...] residual neoplasm OTHER SURGICAL HISTORY 03/26/2016 PROCEDURE: LA BIOPSY THYROID PERCUTANEOUS CORE NEEDLE; COMMENT: nodule; no report ESOPHAGOGASTRODUODENOSCOPY 10/09/2020 PROCEDURE: LA EGD TRANSORAL BIOPSY SINGLE/MULTIPLE; COMMENT: gastropathy, biopsy pending Medical History Medical History Date Comments Essential hypertension, benign 07/21/2012 D X:Essential hypertension, benign Dyslipidemia 07/21/2012 DX:Dyslipidemia Paroxysmal atrial fibrillati on ([facility] V24, [facility] V28) 07/21/2012 DX:Paroxysmal atrial fibril lation (HCC) Breast cancer ([facility] V24, [facility] V28) 04/29/2019 DX:Breast cancer (HCC); COMM ENT: Surgery x2 Depression 04/29/2019 DX:Depression Generalized anxiety disorder 04/29/2019 DX: Generalized anxiety disorder GERD (gastroesophageal reflu x disease) 04/29/2019 DX:GERD (gastroesophageal re flux disease) Gout 04/29/2019 DX:Gout Morbid obesity ([facility] V24, [facility] V28) 04/29/2019 DX:Morbid obesity (HCC) Multinodular goiter 04/29/2019 DX:Multinodu lar goiter Patient is Uatsdin 04/29/2019 DX: Patient is Uatsdin 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 ([facility] V24, [facility] V28) 04/29/2019 DX:Type 2 diabetes mellitus with peripheral neuropathy (HCC) Diabetic peripheral neuropat hy ([facility] V24, [facility] V28) 05/04/2019 DX:Diabetic peripheral neur opathy ([facility]) Swallowing impaired DX:Swallowin g impaired Atrial fibrillation, transie nt ([facility] V24, [facility] V28) DX:Atrial fibrillation, tra nsient ([facility]) Esophagitis DX:Esophagitis Family History Medical History Relation Name Comments Coronary artery disease Brother 1 Coronary artery disease Brother 2 Coronary artery disease Brother 3 Coronary artery disease Brother 4 Coronary artery disease Brother 5 ADD / ADHD Daughter Other: anxiety Daughter panic attacks Coronary artery disease Father s/p [place] Diabetes Mother Uterine cancer Mother Depression Son [...] Description 03/30/2025 9:45 AM EDT Office Visit Pulmonology - [address] [place] [address] Mery Ferris, HÉCTOR [address] [place] [address] 04/25/2025 8:30 AM EST Office Visit Orthopedic Surgery - [place] [address] [address] Faisal Burch, DPM [address] [address] Health Maintenance Due Date Last [...] [facility] Urine Albumin Creatinine Ratio Abstracted [facility] Provider HEALTH MAINTENANCE Final Result * Annual BMP Blood Test (07/12/2019) Pathologist [facility] Annual BMP Blood Test Abstracted Result [facility] Provider HEALTH MAINTENANCE Final Result * (ABNORMAL) Hemoglobin A1c (07/12/2019) [facility] Hemoglobin A1C 10.2(A) <=6.5 % Blood Venous blood specimen / Unknown Result [facility] Provider LAB BLOOD ORDERABLES Sharmaine l Result from Last 3 Months or Most Recently Relevant to Health Maintenance Insurance [facility] MEDICARE Member Subscriber Plan / Payer (Ef fective 2019-Present) Name:FIORDALIZA GOMEZ Relation to Subscriber:Self Name:Fiordaliza Gomez Payer ID:[id number] Group ID:[id number] Type:Not on file Address: [address] [place] [address] Advance Directives Documents on File Type Date Recorded Patient Director Of Hotel Expl anation Health Care Decision (hx) 10/09/2020 AD NIRMALA DIRECTIVE Care Teams Cloth Neutralizer Relationship Specialty Start Date End Date Derrick Cain MD [address] [place] [address] JAMAL GAINES [phone] PCP - General 10/21/18
== END 2025-03-06 10:13 | disposition home or self-care (01) ==
LOC: HO.LAB 10:12
PROVIDERS: PCP Internal Medicine Sports Medicine
DX: I25.10 Atherosclerotic heart disease of native coronary artery without angina pectoris (principal)
CPT/HCPCS: 36415; 80048; 85027; 85610

== ENCOUNTER → 2025-03-14 23:59 | Outpatient (BNV) | payer OTHER, SELFPAY | PROVIDERS: PCP Internal Medicine; Visit Provider Internal Medicine Cardiovascular Disease | DX: I25.118 Atherosclerotic heart disease of native coronary artery with other forms of angina pectoris (principal) | CPT/HCPCS: 92928; 92978; 93458; 99152 ==

== ENCOUNTER 2025-03-28 09:16 | Outpatient (REF) | payer OTHER, SELFPAY ==
--- OUTSIDE RECORDS SUMMARY | 2025-03-28 10:12 | XMS_ITS | Data Portability ---
Author Organization [place] - Jhon Mckeon [facility] Surgeons [facility], [facility] Address [address] [place] [address] Care Team Providers Care Vice Provost Name Role Phone MCCORMACKFABIO ALVA Primary Care Provider [phone] Assessment Encounter Date Assessment Date Assessment LastModified by Organization Details LastModified Time 03/31/2024 03/31/2024 64-year-old onsep-wkss-bchqtw nt female presents today with a 1 [...] satisfaction; surgery to be scheduled with my secretary specialist. mike Not available 04/15/2024 11:11:25 Plan of Treatment Reminders Order Date Submit Date Provider Last Modified By Organization Details Last Modified Time Details Appointments None record ed. Lab None record ed. Referral None record ed. Procedures None record ed. Surgeries None record ed. Imaging XR, hand, 3 or more view - rm 114 3v hand 024 03/31/20 cstamand [facility] Office, [address], [place], [address], 18:28:43 Medication Orders None record ed. Patient [...] 125 Diabe dipti >125 Not Available [facility] ([facility]) [address] [facility], [place], [address], 05/03/2024 06:05:24 03/31/20 24 03/31/2024 XR, hand, 3 or more view http:/ [email or web address] ?Encry pted=s hAaTro YD8dLq bEUv6g %2BXZw aYqtaq 0bqfl% 2Fg9IQ a4ajBk vP9nXo QUaueC m3YtLR FvZlgJ JJ8mAn HZtai3 2i0479 AC0Kqa H2DU6C vKiQtr MwF INTERFACE [facility] [address] [facility] [address], [place], [address], 03/31/2024 09:28:49 03/31/20 24 03/31/2024 XR, hand, 3 or more view http:/ [email or web address] ?Encry pted=s hAaTro YD8dLq bEUv6g %2BXZw aYqtaq 0bqfl% 2Fg9IQ a4ajBk vP9nXo QUaueC m3YtLR FvZlgJ JJ8mAn HZtai3 9h4393 AC0Kqa H2DU6C vKiQtr MwF INTERFACE [facility] [address], [place], [address], 03/31/2024 09:28:51 Result Notes Documentation Provider Name and Address Organization Details Recorded Time Xr, Hand, 3 Or More View : [email or web address] Encrypted=rfTjBhkDU9lAewN Uv6g%3GDWffPjcbg7jjpu%2Fg 0BLu2cbZjjE3kNoTSdslVm9Uf LWPfHgdTNO0tUbVOmjl68m080 9JF9BpdI5SP7ZqRmCicVzY Not Available [facility] 03/31/2024 09:28: 50 Xr, Hand, 3 Or More View : [email or web address] Encrypted=acPsJzwTL2jYcaH Uv6g%8XYOnuAwsmx1hwka%2Fg 7YXr7wvFehV4bPzJKbeeCl9Xy TDXlDkiUOS6hUhYSqqx40e892 6KI4VymA2NC2EiNkRtvRrL Not Available [facility] 03/31/2024 09:28: 52 Problems Name Problem SNOMED Code Status Onset Date Resolution Date Notes Provider Name and Address Organization Details Recorded Time Mass of hand 619768962 Active 024 Jhonny Elmore PA-C [address] [facility] [address], [place], [address] , [facility] 03/31/2024 08:20:51 Problem Notes None recorded. Medical Equipment None Reported. Allergies Allergen ID Allergen Name Allergen Category Reaction Reaction Severity Criticality Documentation Date Start Date Code Code System Note Provider Name and Address Organization Details Recorded Time 371178 Product containin g penicilli n (product) medicatio n Not available Not available Not available 04/15/2024 48373 8001 SNOMED ALMITA BERNADETTE robertson [place] - [facility] 09:36:00 204380 Invokamet medicatio n Not available Not available Not available 04/15/2024 52081 51 RxNorm ALMITA BERNADETTE robertson [place] - [facility] 4 09:36:11 Medications Name Sig Start [...] Available Not Available No t Available FreeStyle Mark Lite kit DIRECTED active Not Available Not [...] Updated DateTime 03/31/2024 160.02 cm 38.4 kg/m2 01576.54 g ANAYELI LOUIS [place] [facility] 03/31/2024 09:21:16 Date Recorded Body height Body mass index (BMI) Body weight Provider Name and Address Organization Details Last Updated DateTime 04/15/2024 160.02 cm 38.3 kg/m2 94102.95 g ALMITA FLEMING [facility] 04/15/2024 09:35:49 Social History None recorded. Functional Status None recorded. Mental Status None recorded. Family History Nothing Reported. Medical History No medical history recorded. Gynecological HistoryNo gynecological history recorded. Obstetrics History GPAL:G 0 P 0 0 0 0 Past Encounters Encounter ID Performer Location Encounter Start Date Encounter Closed Date Diagnosis/Indication Diagnosis SNOMED-CT Code Diagnosis ICD10 Code Diagnosis IMO Codes Diagnosis Note [id number] AVI Nguyen [address] [place] [address] 03/31/2024 09:13:14 04/22/2024 18:28:43 Mass of hand 950176916 R22.31 [id number] MD Son Marin [address] [place] [place] [address] 04/15/2024 09:10:38 05/04/2024 08:54:35 Mass of hand 141352603 R22.31 [id number] Health Concerns Section Related Observation LastModified by Organization Detai ls LastModified Time None Recorded Concern Status LastModified by Organization Details LastModified Time None Recorded Advance Directives Directive None Recorded Payers Insurance Date Sequence Insurance Name Policy Number Policy Chow Covered Member ID Chow Member ID Guarantor Name 05/04/2024 1 [facility] - DOS ON OR AFTER 2022 - ONE CARE (MEDICARE REPLACEMENT/ADV ANTAGE - HMO) Maisha Gomez [id number] Maisha Gomez Notes Date Note Type Note Provider Name and Address Organization Details Recorded Time 03/31/2024 text/html ROS as noted in the HPI I am seeing this patient under the supervision of Dr. Kearney who was available but who did not see the patient Chief Complaint: New evaluation for right hand pain HPI: 64-year-old byzqr-sfav-mzvwga nt female presents today with a 1 month history atraumatic onset of a mass located in the palm of her right hand that is mildly painful and slowly enlarging. She has not had any treatment of this yet. No numbness or tingling associated with this. No overlying skin changes noted. Jhonny Elmore PA-C [address], [place], [address], [facility] 03/31/2024 10:39:03 04/15/2024 text/html ROS as noted in the HPI R hand STM HPI: 64-year-old qtpze-dgdg-fmfcil nt female presents today for follow up of 1 month history atraumatic onset of a mass located in the palm of her right hand that is mildly painful and slowly enlarging. She has not had any treatment of this yet. No numbness or tingling associated with this. No overlying skin changes noted. Francine Hoover MD [facility] [address], [place], [address], [facility] 04/15/2024 11:11:37 OBGyn Episode No OBEpisode recorded.
== END 2025-03-28 09:17 | disposition home or self-care (01) ==
LOC: HO.MAMMO 09:16
PROVIDERS: PCP Internal Medicine; Visit Provider Internal Medicine Sports Medicine
DX: Z12.31 Encounter for screening mammogram for malignant neoplasm of breast (principal)
CPT/HCPCS: 77063; 77067

== ENCOUNTER → 2025-03-28 09:30 | Outpatient (BNV) | payer OTHER, SELFPAY | PROVIDERS: PCP Internal Medicine; Visit Provider Internal Medicine | DX: Z12.31 Encounter for screening mammogram for malignant neoplasm of breast (principal) | CPT/HCPCS: 77063; 77067 ==

== ENCOUNTER 2025-03-29 14:04 | Outpatient (AMB) | payer OTHER, SELFPAY ==
[2025-03-29 14:06] VITALS: BP 134/84; PULSE 82; BMI 41.0
--- NOTE | 2025-03-29 14:06 | MHC.OFFVIS ---
Vital Signs 03/29/25 14:06 Height 5 ft 3 in Weight 231 lb 7.766 oz BMI 41.0 BP 134/84 Blood Pressure Location Lt brachial Position Sitting Pulse 82 Intake Visit Reasons: 2 wk s/p cath Intake Note: 2 week follow-up post stent c/o scary feeling in the heart Sports Official Required: No Wild Animal Caretaker: Wild Animal Caretaker Present Accompanied by: Friend Allergies Penicillins (PENICILLINS) Allergy (Unknown, Verified 02/22/25 10:26) RASH canagliflozin (From Invokamet) Adverse Reaction (Verified 02/22/25 10:26) Yeast infection metformin (From Invokamet) Adverse Reaction (Verified 02/22/25 10:26) Yeast infection Medication List - Last Reconciled 03/29/25 by Jay Kinney NP alclometasone 0.05% topical allopurinol 300 mg PO DAILY blood-glucose meter As directed blood-glucose meter (FreeStyle [place] Lite kit) DIRECTED blood-glucose sensor (FreeStyle Elizabeth 3 Plus Sensor device) Use daily As directed to monitor glucose blood-glucose,ring making machine operator,cont (FreeStyle Elizabeth 3 [place]) Use daily As directed to monitor blood glucose calcium carb-D3-mag [id number] 333 mg-200 unit -133 mg-5 mg 1 tab PO DAILY clopidogrel 75 mg PO DAILY [diabetic shoes As directed] diltiazem HCl ER 120 mg PO DAILY fenofibrate nanocrystallized 145 mg PO DAILY FreeStyle Lancets (lancets) One Lancet topical 4 times a day; NS FreeStyle Lancets (lancets) TEST 3 TIMES A DAY DIRECTED NS FreeStyle Test (blood sugar diagnostic) 3 TIMES A DAY NS insulin degludec (Tresiba FlexTouch U-200 insulin) 50 units (0.25 mL) subcut BEDTIME 90 days levothyroxine 175 mcg PO DAILY lidocaine 5% (Lidoderm) 1 patch topical DAILY PRN MDD remove after 12 hours metoprolol succinate ER 50 mg PO DAILY olmesartan 40 mg PO DAILY omeprazole 20 mg PO DAILY PRN pen needle, diabetic twice daily pioglitazone (Actos) 30 mg PO DAILY rivaroxaban (Xarelto) 20 mg PO DAILY rosuvastatin 40 mg PO DAILY thiamine HCl (vitamin B1) 100 mg PO DAILY tirzepatide (Mounjaro) 15 mg (0.5 mL) subcut QWEEK triamcinolone acetonide 0.1% appl topical BID PRN HPI Comments Details: This is a 65-year-old female patient coming in for a follow-up visit status post cardiac catheterization. Patient with a history of paroxysmal AFib, hypertension, hyperlipidemia, diabetes, obesity, and coronary artery disease. Patient previously had reported a sibling in the family from cardiac etiology and therefore underwent a coronary CTA which was abnormal. Patient is now status post cardiac catheterization with Dr. Cornelius on 03/14/2025 and underwent PCI to the RPL. Today, patient is reporting feeling well overall without any symptoms of exertional chest pain, shortness of breath, palpitations, dizziness, orthopnea, PND, leg edema, presyncope or syncope. Patient notes 1 episode of scare to the chest which patient attributes to her anxiety high her denies any pain, palpitations, or shortness of breath associated with this. Patient is reporting compliance with all her medications and is denying any signs of bleeding. 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 Type 2 diabetes mellitus without complications Obstructive sleep apnea (adult) (pediatric) PAF (paroxysmal atrial fibrillation) Surgical History Hx of partial thyroidectomy S/P lumpectomy, right breast Hx of colonoscopy Family History Father Cardiovascular disease Mother Uterine cancer Social History Household Members: None Housing: Apartment Are you a primary medicare coordinator to a significant other at home: No Do you presently have visiting nurse or other home services: Yes (WASTE WATER PLANT OPERATOR) Alcohol intake: never Patient Tobacco Use Status: Never used Tobacco service: No Current occupational status: disabled Female Reproductive History Menstrual Age of Menarche: 15 Review of Systems Const Denies chills, Denies fatigue, Denies fever(s), Denies frequent falls, Denies weakness, Denies weight gain and Denies weight loss ENT Denies dizziness Card Denies chest pain, Denies leg edema, Denies lightheadedness, Denies palpitations, Denies dyspnea, Denies dyspnea on exertion, Denies orthopnea and Denies other (loss of consciousness) Resp Denies cough, Denies dyspnea and Denies dyspnea on exertion GI Denies hematochezia and Denies change in stool character Musc Denies abnormal gait, Denies muscle weakness, Denies numbness, Denies radiating pain into limb and Denies tingling Neuro Denies abnormal gait, Denies dizziness, Denies frequent falls, Denies numbness, Denies tingling and Denies weakness Endo Denies fatigue and Denies palpitations Physical Exam Vital Signs: Last Vital Signs Pulse 82 03/29/25 14:06 BP 134/84 03/29/25 14:06 BMI result Body Mass Index 41.0 Const General: cooperative, healthy appearing, comfortable and no acute distress Orientation/consciousness: patient oriented x3 HEENT Head: Yes normal to inspection Neck Neck: Yes normal visual inspection, Yes trachea midline and Yes supple Chest Chest palpation & inspection: normal inspection of the chest Resp Effort & Inspection: normal respiratory effort Auscultation: clear to auscultation bilaterally, no crackles, no rales, no rhonchi and no wheezes Cardio Jugular venous distension: no JVD Palpation: normal PMI Rate: regular rate Rhythm: regular rhythm Heart sounds: S1 normal heart sound present, S2 normal heart sound present, no click, no gallops, no murmurs and no rubs Peripheral pulses: Peripheral pulses 2+ throughout GI Inspection: Yes normal to inspection Palpation (GI): Soft to palpation Auscultation: normal bowel sounds Skin General skin exam: no rashes or lesions noted Neuro General: patient oriented x3 Extrem General: Yes normal to inspection, No no pedal edema and No calf tenderness Psych Appearance: grossly normal Mental Status: mental status grossly normal Speech and movement: Normal speech and movement present Assessment & Plan Assessment & Plan (1) CAD (coronary artery disease): Code(s): I25.10 - Atherosclerotic heart disease of [place] coronary artery without angina pectoris Category: Medical Plan: 01/04/2025-patient underwent a coronary CTA that showed significant calcified plaque burden throughout the left main, lad, and proximal to mid circumflex into OM1. Also diffuse calcified plaque in the RCA. 03/14/2025-patient underwent cardiac catheterization with Dr. Cornelius at [facility] that showed RPL ostial with 80% stenosis, ostial OM1 with 60% stenosis and mild to moderate disease in the LAD with heavy calcification. Status post PCI to the RPL. Right wrist catheterization site is well healed. Clinically stable and without any anginal symptoms. Continue Plavix therapy for at least 12 months. Continue Xarelto. No reported signs of bleeding. We will update labs in a month. Continue rosuvastatin with an LDL goal less than 70. Most recent LDL at 54. Continue metoprolol, diltiazem, and olmesartan. Referral placed for cardiac rehab. (2) Status post cardiac catheterization: Code(s): Z98.890 - Other specified postprocedural states Category: Surgical Plan: As above. (3) PAF (paroxysmal atrial fibrillation): Code(s): I48.0 - Paroxysmal atrial fibrillation Category: Medical Plan: Heart rate is regular today. Continue Xarelto for full anticoagulation therapy. Continue diltiazem and metoprolol for rate control approach. (4) Essential hypertension: Code(s): I10 - Essential (primary) hypertension Category: Medical Plan: Blood pressure is well-controlled. Continue current regimen. Advised monitoring blood pressures with a goal less than 130/80. (5) HLD (hyperlipidemia): Code(s): E78.5 - Hyperlipidemia, unspecified Category: Medical Qualifiers: Hyperlipidemia type: unspecified Qualified Code(s): E78.5 - Hyperlipidemia, unspecified Plan: As above. (6) Uncontrolled type 2 diabetes mellitus with hyperglycemia: Code(s): E11.65 - Type 2 diabetes mellitus with hyperglycemia Category: Medical Plan: Most recent A1c at 9%. Patient however states that since then her blood sugars has been stable at home. Continue aggressive diabetes management with an A1c goal less than 7%. Advised heart healthy diet, regular exercise, losing weight, med compliance, and aggressive management of vascular risk factors. Follow up in 6 months. In the interim, patient will call the office with any concerns or change in symptoms. This note was generated using voice recognition software. While every effort has been made to ensure accuracy and proper case reviewer, there may be occasional errors that could affect the content or meaning of the described symptoms. Orders: Orders Basic Metabolic Panel Today I25.10 - Atherosclerotic heart disease of [place] coronary artery without angina pectoris Cardiac Rehab Today Z98.61 - Coronary angioplasty status CA echo transthoracic complete 5 Months I48.0 - Paroxysmal atrial fibrillation Complete Blood Count Auto Diff Today I25.10 - Atherosclerotic heart disease of [place] coronary artery without angina pectoris Coding Level of Care Code Est Pt Level 4 (38448) Complex EM visit Add On G2211 Diagnoses CAD (coronary artery disease) I25.10 Status post cardiac catheterization Z98.890 PAF (paroxysmal atrial fibrillation) I48.0 Essential hypertension I10 Hyperlipidemia, unspecified hyperlipidemia type E78.5 Hyperlipidemia type: unspecified Uncontrolled type 2 diabetes mellitus with hyperglycemia E11.65 Time Spent (min) 32 Comment Time spent in reviewing the chart, test results, assessment, counseling and documentation.
--- OUTSIDE RECORDS SUMMARY | 2025-03-29 20:18 | XMS_ITS | Encounter Summary ---
Author Organization [facility] Address [address] [place] [address] Care Team Providers Care Research Worker Encyclopedia Name Role Phone Derrick Cain MD Primary Care Provider Unava ilable Derrick Cain MD Primary Care Provider Unava ilable Reason for Visit * Reason Comments E-prescribe Rx Request Encounter Details Date Type Department Care Team Description 09/10/2022 Refill Gastroenterology - [place] [address] [place] [address] Prasanth Borges PA-C E-prescribe Rx Request Social History Tobacco Use [...] on filedocumented in this encounter Care Teams Research Worker Encyclopedia Relationship Specialty Start Date End Date Derrick Cain MD PCP - General Internal Medicine 08/25/22 03/13/24 Derrick Cain MD PCP - General Internal Medicine 03/14/24 documented as of this encounter
--- OUTSIDE RECORDS SUMMARY | 2025-03-29 20:18 | XMS_ITS | Encounter Summary ---
Author Organization [facility] Address [address] [place] [address] Care Team Providers Care Die Maker Stamping Name Role Phone Monica Martini Unavailable Janis vaDerrick Nguyễn MD Primary Care Provider Unava ilable [facility], Pcp Primary Care Provider UnavailDerrick Ramirez MD Primary Care Provider Unava ilable Derrick Cain MD Primary Care Provider Unava ilable Encounter Details Date Type Department Care Team Description 08/22/2020 Pt. Non Urgent Medic al Question Adult Medicine [address] [address] Derrick Cain MD Social History Tobacco Use [...] be called for an appointment from the manager cosmetics that the doctor referred me to andstill haven't received anything. documented in this encounter Plan of Treatment Not on file documented as of this encounter Visit Diagnoses Not on filedocumented in this encounter Care Teams Die Maker Stamping Relationship Specialty Start Date End Date Derrick Cain MD PCP - General Internal Medicine 10/21/18 10/03/20 [facility], Pcp PCP - General 10/04/20 08/24/22 Derrick Cain MD PCP - General Internal Medicine 08/25/22 03/13/24 Derrick Cain MD PCP - General Internal Medicine 03/14/24 Monica Martini DO 06/08/11 documented as of this encounter
--- OUTSIDE RECORDS SUMMARY | 2025-03-29 20:18 | XMS_ITS | Encounter Summary ---
Author Organization [facility] Address [address] [place] [address] Care Team Providers Care Sap Architect Name Role Phone Nasir Mireles Primary Care Provider Unavaila Monica Villela DO Unavailable Janis Derrick Augustin MD Primary Care Provider Unava ilsheila Chavis, Pcp Primary Care Provider Derrick More MD Primary Care Provider Unava ilable Derrick Cain MD Primary Care Provider Unava ilable Encounter Details Date Type Department Care Team Description 09/17/2017 [facility] Medical Records [address] [place] [address] Abstract, Provider Social History Tobacco Use Types [...] on filedocumented in this encounter Care Teams Sap Architect Relationship Specialty Start Date End Date Nasir Mireles PCP - General Internal Medicine 06/08/11 10/20/18 Derrick Cain MD PCP - General Internal Medicine 10/21/18 10/03/20 [facility], Pcp PCP - General 10/04/20 08/24/22 Derrick Cain MD PCP - General Internal Medicine 08/25/22 03/13/24 Derrick Cain MD PCP - General Internal Medicine 03/14/24 Monica Martini DO 06/08/11 documented as of this encounter
--- OUTSIDE RECORDS SUMMARY | 2025-03-29 20:18 | XMS_ITS | Encounter Summary ---
Author Organization [facility] Address [address] [place] [address] Care Team Providers Care Act English Tutor Name Role Phone Derrick Cain MD Primary Care Provider Unava ilable Derrick Cain MD Primary Care Provider Unava ilable Encounter Details Date Type Department Care Team Description 03/11/2023 Orders Only Medical Records [address] [place] [address] Abstract, Provider Social History Tobacco Use Types [...] on filedocumented in this encounter Care Teams Act English Tutor Relationship Specialty Start Date End Date Derrick Cain MD PCP - General Internal Medicine 08/25/22 03/13/24 Derrick Cain MD PCP - General Internal Medicine 03/14/24 documented as of this encounter
--- OUTSIDE RECORDS SUMMARY | 2025-03-29 20:18 | XMS_ITS | Encounter Summary ---
Author Organization [facility] Address [address] [place] [address] Care Team Providers Care Derrick Builder Name Role Phone Derrick Cain MD Primary Care Provider Unava ilable Derrick Cain MD Primary Care Provider Unava ilable Reason for Visit * Reason Comments E-prescribe Rx Request Encounter Details Date Type Department Care Team Description 08/13/2023 Refill Gastroenterology - [place] [address] [facility] [address] [place] [address] Prasanth Borges PA-C E-prescribe Rx Request Social [...] on filedocumented in this encounter Care Teams Derrick Builder Relationship Specialty Start Date End Date Derrick Cain MD PCP - General Internal Medicine 08/25/22 03/13/24 Derrick Cain MD PCP - General Internal Medicine 03/14/24 documented as of this encounter
--- OUTSIDE RECORDS SUMMARY | 2025-03-29 20:18 | XMS_ITS | Encounter Summary ---
Author Organization [facility] Address [address] [place] [address] Care Team Providers Care Cavalry Scout Name Role Phone Monica Martini Unavailable Janis vaDerrick Nguyễn MD Primary Care Provider Unava ilable [facility], Pcp Primary Care Provider UnavailDerrick Ramirez MD Primary Care Provider Unava ilable Derrick Cain MD Primary Care Provider Unava ilable Encounter Details Date Type Department Care Team Description 09/03/2020 Telephone Gastroenterology - [place] [address] [place] [address] Prasanth Borges PA-C Social History Tobacco Use Types Packs/Day Years [...] that she underwent a swallowing test at [facility] last year that was ordered by her geospatial applications developer. Please obtain those records so we may incorporate them into her chart. documented in this encounter Plan of Treatment Not on file documented as of this encounter Visit Diagnoses Not on filedocumented in this encounter Care Teams Cavalry Scout Relationship Specialty Start Date End Date Derrick Cain MD PCP - General Internal Medicine 10/21/18 10/03/20 [facility] PCP - General 10/04/20 08/24/22 Derrick Cain MD PCP - General Internal Medicine 08/25/22 03/13/24 Derrick Cain MD PCP - General Internal Medicine 03/14/24 Monica Martini DO 06/08/11 documented as of this encounter
--- OUTSIDE RECORDS SUMMARY | 2025-03-29 20:18 | XMS_ITS | Clinical Summary ---
Author Organization 175 [facility] Address [address] [place] [address] Phone Care Team Providers Care Animal Cytologist Name Role Phone Derrick Cain MD Primary Care Provider [phone] Allergies Active Allergy Reactions Criticality Noted Date [...] 10/20/2019 Obstructive sleep apnea 08/30/2019 Overview (04/29/2024): [facility] diagnostic polysomnogram done 08/11/2016; weight 234 pounds; BMI 42; sleep efficiency 67%; REM 14%; AHI 8 overall; 23 hypopneas; PLM's 2; oxygen saturation 93% average and lowest at 78%. [facility] treatment polysomnogram 09/02/2016; sleep efficiency 80%; [...] (diabetes mellitus), type 2 with renal complications ([facility] V24, [facility] V28) 06/12/2019 De Quervain's tenosynovitis, right 06/03/2019 Diabetic peripheral neuropathy ([facility] V24, [facility] V28) 05/04/2019 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 Also obtaining barium swallow dur to dysphagia Morbid obesity ([facility] V24, [facility] V28) 2018 Breast cancer ([facility] V24, [facility] V28) 019 Overview (04/29/2024): Surgery x2 Essential hypertension, benign 07/21/2012 Dyslipidemia 07/21/2012 Paroxysmal atrial fibrillation ([facility] V24, [facility] V28) 07/21/2012 Encounters Date Type Department Care Team Description 02/20/2025 8:45 AM EDT Office Visit Orthopedic Surgery - [address] [phone] Faisal Burch, DPM Tendonitis, Achilles, left (Primary Dx); Metatarsalgia of both feet; Type II diabetes mellitus with peripheral circulatory disorder ([facility] V24, [facility] V28); Diabetic mononeuropathy simplex ([facility] V24, [facility] V28); Dermatophytosis of nail; Pain [...] residual neoplasm OTHER SURGICAL HISTORY 03/26/2016 PROCEDURE: [place] BIOPSY THYROID PERCUTANEOUS CORE NEEDLE; COMMENT: nodule; no report ESOPHAGOGASTRODUODENOSCOPY 10/09/2020 PROCEDURE: [place] EGD TRANSORAL BIOPSY SINGLE/MULTIPLE; COMMENT: gastropathy, biopsy pending Medical History Medical History Date Comments Essential hypertension, benign 07/21/2012 D X:Essential hypertension, benign Dyslipidemia 07/21/2012 DX:Dyslipidemia Paroxysmal atrial fibrillati on ([facility] V24, [facility] V28) 07/21/2012 DX:Paroxysmal atrial fibril lation (HCC) Breast cancer ([facility] V24, [facility] V28) 04/29/2019 DX:Breast cancer (HCC); COMM ENT: Surgery x2 Depression 04/29/2019 DX:Depression Generalized anxiety disorder 04/29/2019 DX: Generalized anxiety disorder GERD (gastroesophageal reflu x disease) 04/29/2019 DX:GERD (gastroesophageal re flux disease) Gout 04/29/2019 DX:Gout Morbid obesity ([facility] V24, [facility] V28) 04/29/2019 DX:Morbid obesity (HCC) Multinodular goiter 04/29/2019 DX:Multinodu lar goiter Patient is Sabianism 04/29/2019 DX: Patient is Sabianism 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 ([facility] V24, [facility] V28) 04/29/2019 DX:Type 2 diabetes mellitus with peripheral neuropathy (HCC) Diabetic peripheral neuropat hy ([facility] V24, [facility] V28) 05/04/2019 DX:Diabetic peripheral neur opathy ([facility]) Swallowing impaired DX:Swallowin g impaired Atrial fibrillation, transie nt ([facility] V24, [facility] V28) DX:Atrial fibrillation, tra nsient ([facility]) Esophagitis DX:Esophagitis Family History Medical History Relation Name Comments Coronary artery disease Brother 1 Coronary artery disease Brother 2 Coronary artery disease Brother 3 Coronary artery disease Brother 4 Coronary artery disease Brother 5 ADD / ADHD Daughter Other: anxiety Daughter panic attacks Coronary artery disease Father s/p [place] Diabetes Mother Uterine cancer Mother Depression Son [...] 9:45 AM EDT Office Visit Pulmonology - [address] [place] [address] Mery Ferris, HÉCTOR [address] [place] [address] 04/25/2025 8:30 AM EST Office Visit Orthopedic Surgery - [place] [address] [address] Faisal Burch, DPM [address] [address] Health Maintenance Due Date Last Done Comments Breast Cancer Screening 1962 Colorectal Cancer Screening: Colonoscopy 1962 Diabetes: Annual Foot Exam 1972 Diabetes: Annual Retina Eye Exam 1972 Cervical Cancer Screening: Pap Smear 1983 Diabetes: Annual GFR (Glomerular Filtration Rate) 07/12/2020 07/12/2019 Cholesterol Screening (Lipid Panel) 05/17/2022 HIV Screening 05/17/2022 Hepatitis C Screening 05/17/2022 Medicare Annual Wellness Visit 05/17/2022 Social Influencers of Health Screening 05/17/2022 Diabetes: Annual Urine Albumin-Creatinine Ratio (uACR) 05/23/2022 07/12/2019 Diabetes: Blood Sugar Control Test (HGBA1C) 05/23/2022 07/12/2019 Hypertension/CHF/CAD Annual BMP Blood Test 05/23/2022 07/12/2019 Pneumococcal Vaccine: 50+ Years (3 of 3 - PCV20 or PCV21) 03/30/2023 03/30/2018, 03/03/2018 Depression Screening 06/08/2024 COVID-19 Vaccine (6 - Pfizer risk season) 2025 03/28/2024, 11/07/2021, 05/23/2021, Additional history [...] * Urine Albumin Creatinine Ratio (07/12/2019) Pathologist [facility] Urine Albumin Creatinine Ratio Abstracted Result [facility] Provider HEALTH MAINTENANCE Final Result * Annual BMP Blood Test (07/12/2019) Pathologist [facility] Annual BMP Blood Test Abstracted Result [facility] Provider HEALTH MAINTENANCE Final Result * (ABNORMAL) Hemoglobin A1c (07/12/2019) [facility] Hemoglobin A1C 10.2(A) <=6.5 % Blood Venous blood specimen / Unknown Result [facility] Provider LAB BLOOD ORDERABLES Sharmaine l Result from Last 3 Months or Most Recently Relevant [id number] [facility] MEDICARE Member Subscriber Plan / Payer (Ef fective 2019-Present) Name:FIORDALIZA GOMEZ Relation to Subscriber:Self Name:Sherry Gomezcecy Mendez Payer ID:[id number] Group ID:[id number] Type:Not on file Address: [address] [place] [id number] Advance Directives Documents on File Type Date Recorded Patient Fur Blender Expl anation Health Care Decision (hx) 10/09/2020 AD SILVESTRE DIRECTIVE Care Teams Animal Cytologist Relationship Specialty Start Date End Date Derrick Cain MD [address] [facility] [place] [address] PCP - General 10/21/18
--- OUTSIDE RECORDS SUMMARY | 2025-03-29 20:18 | XMS_ITS | Encounter Summary ---
Author Organization [facility] Address [address] [place] [address] Care Team Providers Care Educational Psychology Professor Name Role Phone Derrick Cain MD Primary Care Provider Unava ilable Derrick Cain MD Primary Care Provider Unava ilable Encounter Details Date Type Department Care Team Description 07/22/2023 Orders Only Pulmonology - [place] 175 [facility] [address] [place] [address] Yuriy Tsang MD Obstructive sleep apnea mild [...] (pediatric) documented in this encounter Care Teams Educational Psychology Professor Relationship Specialty Start Date End Date Derrick Cain MD PCP - General Internal Medicine 08/25/22 03/13/24 Derrick Cain MD PCP - General Internal Medicine 03/14/24 documented as of this encounter
--- OUTSIDE RECORDS SUMMARY | 2025-03-29 20:18 | XMS_ITS | Encounter Summary ---
Author Organization [facility] Address [address] [place] [address] Care Team Providers Care Cottage Cheese Maker Name Role Phone Nasir Mireles Primary Care Provider Unavaila Monica Villela DO Unavailable Janis Derrick Augustin MD Primary Care Provider Unava ilsheila Chavis, Pcp Primary Care Provider Derrick More MD Primary Care Provider Unava ilable Derrick Cain MD Primary Care Provider Unava ilable Encounter Details Date Type Department Care Team Description 07/02/2017 [facility] Medical Records [address] [place] [address] Abstract, Provider Social History Tobacco Use Types [...] on filedocumented in this encounter Care Teams Cottage Cheese Maker Relationship Specialty Start Date End Date Nasir [...]
--- OUTSIDE RECORDS SUMMARY | 2025-03-29 20:18 | XMS_ITS | Encounter Summary ---
Author Organization [facility] Address [address] [place] [address] Care Team Providers Care Nurse Monitoring Name Role Phone Derrick Cain MD Primary Care Provider Unava ilable Derrick Cain MD Primary Care Provider Unava ilable Reason for Visit * Reason Onset Date Comments Follow-up 07/15/2023 Encounter Details Date Type Department Care Team Description 07/15/2023 Telephone Pulmonology - [place] [address] [facility] [address] [place] [phone] Yuriy Tsang MD Follow-up Social History Tobacco [...] on filedocumented in this encounter Care Teams Nurse Monitoring Relationship Specialty Start Date End Date Derrick Cain MD PCP - General Internal Medicine 08/25/22 03/13/24 Derrick Cain MD PCP - General Internal Medicine 03/14/24 documented as of this encounter
--- OUTSIDE RECORDS SUMMARY | 2025-03-29 20:18 | XMS_ITS | Encounter Summary ---
Author Organization [facility] Address [address] [place] [address] Care Team Providers Care Auditing Control Clerk Name Role Phone Partha, Pcp Primary Care Provider Derrick More MD Primary Care Provider Unava ilable Derrick Cain MD Primary Care Provider Unava ilable Reason for Visit * Reason Onset Date Comments refill request 11/28/2020 Encounter Details Date Type Department Care Team Description 11/28/2020 Telephone Adult Medicine [address] [address] Community, Pcp refill request Social History Tobacco Use Types Packs/Day Years [...] encounter Miscellaneous Notes * Telephone Encounter - Fatimah Ibrahim C.M.A - 11/28/2020 1:14 PM EDT No message attached documented in this encounter Plan of Treatment Not on file documented as of this encounter Visit Diagnoses Not on filedocumented in this encounter Care Teams Auditing Control Clerk Relationship Specialty Start Date End Date Community, Pcp PCP - General 10/04/20 08/24/22 Derrick Cain MD PCP - General Internal Medicine 08/25/22 03/13/24 Derrick Cain MD PCP - General Internal Medicine 03/14/24 documented as of this encounter
--- OUTSIDE RECORDS SUMMARY | 2025-03-29 20:19 | XMS_ITS | Encounter Summary ---
Author Organization [facility] Address [address] [place] [address] Care Team Providers Care Solar Energy Advisor Name Role Phone Vini Monica GALLEGOS Unavailable Janis vajayble Derrick Cain MD Primary Care Provider Unava ilable Community, Pcp Primary Care Provider UnavailDerrick Ramirez MD Primary Care Provider Unava ilable Derrick Cain MD Primary Care Provider Unava ilable Encounter Details Date Type Department Care Team Description 05/11/2019 Refill Medicine/Pediatrics - [address] [address] Derrick Cain MD Social History Tobacco Use [...] on filedocumented in this encounter Care Teams Solar Energy Advisor Relationship Specialty Start Date End Date Derrick Cain MD PCP - General Internal Medicine 10/21/18 10/03/20 [facility], Pcp PCP - General 10/04/20 08/24/22 Derrick Cain MD PCP - General Internal Medicine 08/25/22 03/13/24 Derrick Cain MD PCP - General Internal Medicine 03/14/24 Monica Martini DO 06/08/11 documented as of this encounter
--- OUTSIDE RECORDS SUMMARY | 2025-03-29 20:19 | XMS_ITS | Encounter Summary ---
Author Organization [facility] Address [address] [place] [address] Care Team Providers Care Manager Business Systems Name Role Phone Derrick Cain MD Primary Care Provider Unava ilable Derrick Cain MD Primary Care Provider Unava ilable Reason for Visit * Reason Onset Date Comments DME Request 10/16/2022 Encounter Details Date Type Department Care Team Description 10/16/2022 Telephone Pulmonology - [place] 175 [facility] [address] [place] [address] Yuriy Tsang MD DME Request Social History [...] 10:59 AM EDT Received a fax from [facility]: We have an order for a replacement Cpap through [facility]. We received a message from Tamar from [facility] stating that this patient does [...] study. I made a request to [facility] to withdraw the auth request [...] (pediatric) documented in this encounter Care Teams Manager Business Systems Relationship Specialty Start Date End Date Derrick Cain MD PCP - General Internal Medicine 08/25/22 03/13/24 Derrick Cain MD PCP - General Internal Medicine 03/14/24 documented as of this encounter
--- OUTSIDE RECORDS SUMMARY | 2025-03-29 20:19 | XMS_ITS | Encounter Summary ---
Author Organization [facility] Address [address] [place] [address] Care Team Providers Care Continuous Pickling Line Pickler Name Role Phone Vini Monica GALLEGOS Unavailable Janis vajayble Derrick Cain MD Primary Care Provider Unava ilable Partha, Pcp Primary Care Provider UnavailDerrick Ramirez MD Primary Care Provider Unava ilable Derrick Cain MD Primary Care Provider Unava ilable Encounter Details Date Type Department Care Team Description 12/15/2019 Orders Only Medicine/Pediatrics - [address] [phone] Derrick Cain MD Social History Tobacco Use [...] on filedocumented in this encounter Care Teams Continuous Pickling Line Pickler Relationship Specialty Start Date End Date Derrick Cain MD PCP - General Internal Medicine 10/21/18 10/03/20 [facility], Pcp PCP - General 10/04/20 08/24/22 Derrick Cain MD PCP - General Internal Medicine 08/25/22 03/13/24 Derrick Cain MD PCP - General Internal Medicine 03/14/24 Monica Martini DO 06/08/11 documented as of this encounter
--- OUTSIDE RECORDS SUMMARY | 2025-03-29 20:19 | XMS_ITS | Encounter Summary ---
Author Organization [facility] Address [address] [place] [address] Care Team Providers Care Ebay Reseller Name Role Phone Monica Martini Unavailable Janis vaDerrick Nguyễn MD Primary Care Provider Unava ilsheila [facility], Pcp Primary Care Provider UnavailDerrick Ramirez MD Primary Care Provider Unava ilable Derrick Cain MD Primary Care Provider Unava ilable Encounter Details Date Type Department Care Team Description 06/12/2019 Orders Only Medicine/Pediatrics - [address] [phone] Derrick Cain MD Type 2 diabetes mellitus [...] METABOLIC PANEL (07/12/2019 4:15 PM EST) Pathologist [facility] Blood Urea Nitrogen 27(H) 5 - 25 mg/dL 07/12/2019 7:32 PM EST [facility] CREAT 1.46(H) 0.5 - 1.1 mg/dL 07/12/2019 7:32 PM EST [facility] GLOMERULAR FILTRATION RATE 37 07/12/2019 7:32 PM EST [facility] Comment: If patient is -[place], multiply result by 1.21 Chronic Kidney Disease: [...] Derrick Cain MD LAB Performing Organization Address City/[facility]/ZIP Co de Phone Number [facility] * MICROALBUMIN/CREATININE, URINE (07/12/2019 4:15 PM EST) CREATININE, RANDOM URINE 90 mg/dL 07/12/2019 7:29 PM EST [facility] MICROALBUMIN, RANDOM 12.0 0.0 - 29.0 mg/L 07/12/2019 7:36 PM EST [facility] MICROALB/CRE RATIO RANDOM 13.3 0.0 - 30.0 mg/G 07/12/2019 7:36 PM EST [facility] 07/12/2019 4:15 PM EST 07/12/2019 4:15 PM EST Derrick Cain MD LAB Performing Organization Address City/[facility]/ZIP Co de Phone Number [facility] * (ABNORMAL) HEMOGLOBIN A1C (07/12/2019 4:15 PM EST) GLYCATED HEMOGLOBIN A1C 10.2(H) <6.5 % 07/12/2019 9:54 PM EST [facility] ESTIMATED AVERAGE GLUCOSE 246 mg/dL 07/12/2019 9:54 PM EST [facility] 07/12/2019 4:15 PM EST 07/12/2019 4:15 PM EST Derrick Cain MD LAB [facility] documented in this encounter Visit Diagnoses Diagnosis Type 2 diabetes mellitus with peripheral neuropathy (HCC)- Primary Type 2 diabetes mellitus with microalbuminuria, with long-term current use of insulin (HCC) documented in this encounter Care Teams Ebay Reseller Relationship Specialty Start Date End Date Derirck Cain MD PCP - General Internal Medicine 10/21/18 10/03/20 [facility] PCP - General 10/04/20 08/24/22 Derrick Cain MD PCP - General Internal Medicine 08/25/22 03/13/24 Derrick Cain MD PCP - General Internal Medicine 03/14/24 Monica Martini DO 06/08/11 documented as of this encounter
--- OUTSIDE RECORDS SUMMARY | 2025-03-29 20:19 | XMS_ITS | Encounter Summary ---
Author Organization [facility] Address [address] [place] [address] Care Team Providers Care Automotive Parts Counterperson Name Role Phone Vini Monica GALLEGOS Unavailable Janis vajayble Derrick Cain MD Primary Care Provider Unava ilable Partha, Pcp Primary Care Provider UnavailDerrick Ramirez MD Primary Care Provider Unava ilable Derrick Cain MD Primary Care Provider Unava ilable Encounter Details Date Type Department Care Team Description 11/03/2019 Orders Only Medicine/Pediatrics - [address] [phone] Derrick Cain MD Social History Tobacco Use [...] on filedocumented in this encounter Care Teams Automotive Parts Counterperson Relationship Specialty Start Date End Date Derrick Cain MD PCP - General Internal Medicine 10/21/18 10/03/20 [facility], Pcp PCP - General 10/04/20 08/24/22 Derrick Cain MD PCP - General Internal Medicine 08/25/22 03/13/24 Derrick Cain MD PCP - General Internal Medicine 03/14/24 Monica Martini DO 06/08/11 documented as of this encounter
--- OUTSIDE RECORDS SUMMARY | 2025-03-29 20:19 | XMS_ITS | Encounter Summary ---
Author Organization [facility] Address [address] [place] [address] Care Team Providers Care Treasury Assistant Name Role Phone Monica Martini DO Unavailable Janis vaDerrick Nguyễn MD Primary Care Provider Unava ilable Partha, Pcp Primary Care Provider Unavailkaley e Derrick Cain MD Primary Care Provider Unava ilable Derrick Cain MD Primary Care Provider Unava ilable Encounter Details Date Type Department Care Team Description 10/26/2019 [facility] Medical Records [address] [place] [address] Arben Yang Social History Tobacco Use Types [...] on filedocumented in this encounter Care Teams Treasury Assistant Relationship Specialty Start Date End Date Derrick Cain MD PCP - General Internal Medicine 10/21/18 10/03/20 [facility], Pcp PCP - General 10/04/20 08/24/22 Derrick Cain MD PCP - General Internal Medicine 08/25/22 03/13/24 Derrick Cain MD PCP - General Internal Medicine 03/14/24 Monica Martini DO 06/08/11 documented as of this encounter
--- OUTSIDE RECORDS SUMMARY | 2025-03-29 20:19 | XMS_ITS | Encounter Summary ---
Author Organization [facility] Address [address] [place] [address] Care Team Providers Care Zone Maintenance Technician Name Role Phone Monica Martini DO Unavailable Janis vaDerrick Nguyễn MD Primary Care Provider Unava ilable Partha, Pcp Primary Care Provider UnavailDerrick Ramirez MD Primary Care Provider Unava ilable Derrick Cain MD Primary Care Provider Unava ilable Encounter Details Date Type Department Care Team Description 12/08/2019 Crew Leader Report Medical Records [address] [place] [address] [facility] Social History Tobacco Use Types Packs/Day [...] on filedocumented in this encounter Care Teams Zone Maintenance Technician Relationship Specialty Start Date End Date Derrick Cain MD PCP - General Internal Medicine 10/21/18 10/03/20 Community, Pcp PCP - General 10/04/20 08/24/22 Derrick Cain MD PCP - General Internal Medicine 08/25/22 03/13/24 Derrick Cain MD PCP - General Internal Medicine 03/14/24 Monica Martini DO 06/08/11 documented as of this encounter
--- OUTSIDE RECORDS SUMMARY | 2025-03-29 20:19 | XMS_ITS | Clinical Summary ---
Author Organization [facility] Address [address] [facility] [address] Care Team Providers Care Broadcast News Producer Name Role Phone Derrick Cain MD Primary [...] 0 Ac tive Calcium Carbonate-Vit D-Min (QC Kzrbjgk-Sisoufpmb-G inc-D3) 333.4-133 MG-UNIT Tab Take by mouth. [...] mild AHI 8 08/29 Overview: [facility] diagnostic polysomnogram done 08/11/2016; weight 234 pounds; BMI 42; sleep efficiency 67%; REM 14%; AHI 8 overall; 23 hypopneas; PLM's 2; oxygen saturation 93% average and lowest at 78%. [facility] treatment polysomnogram 09/02/2016; sleep efficiency 80%; [...] barium swallow dur to dysphagia Patient is Restorationism 04/29/2019 Morbid obesity 04/29/2019 Breast cancer 04/29/2019 [...] anxiety Daughter panic attacks CAD Father s/p [place] Diabetes Mother Uterine Cancer Mother Depression Son [...] 81 03/30/2024 10:00 AM EDT Temperature 36.1 C (96.9 F) 03/30/2024 10:00 AM EDT Respiratory Rate 16 03/30/2024 10:0 [...] 03/30/2024, , 08/21/2023, Additional history exists INFLUENZA (#1) 2025 04/16/2020, 03/09, 03/19/2018, Additional history exists PNEUMOCOCCAL VACCINE FOR HIG H RISK PATIENTS (#2) 2027 03/30/2018, 03/03/2018 Care Teams Broadcast News Producer Relationship Specialty Start Date End Date Derrick Cain MD PCP - General Internal Medicine 03/14/24
== END 2025-03-29 14:44 | disposition home or self-care (01) ==
LOC: HO.HCS 14:05
PROVIDERS: PCP Internal Medicine Sports Medicine
DX: I25.10 Atherosclerotic heart disease of native coronary artery without angina pectoris (principal); Z98.890 Other specified postprocedural states; I48.0 Paroxysmal atrial fibrillation; I10 Essential (primary) hypertension; E78.5 Hyperlipidemia, unspecified; E11.65 Type 2 diabetes mellitus with hyperglycemia
CPT/HCPCS: 99214; G2211

== ENCOUNTER → 2025-03-29 14:04 | Outpatient (BNVA) | payer OTHER, SELFPAY | PROVIDERS: PCP Internal Medicine Sports Medicine | DX: I25.10 Atherosclerotic heart disease of native coronary artery without angina pectoris (principal); I48.0 Paroxysmal atrial fibrillation; I10 Essential (primary) hypertension; E78.5 Hyperlipidemia, unspecified; E11.65 Type 2 diabetes mellitus with hyperglycemia; Z98.61 Coronary angioplasty status | CPT/HCPCS: 99212 ==

== ENCOUNTER 2025-05-08 10:00 | Outpatient (RCR) | payer OTHER, SELFPAY | END 2025-05-18 10:29 | disposition home or self-care (01) | LOC: HO.CR 10:00 | PROVIDERS: PCP Internal Medicine Sports Medicine | DX: Z98.61 Coronary angioplasty status (principal); I48.0 Paroxysmal atrial fibrillation; I10 Essential (primary) hypertension | CPT/HCPCS: 93798 ==

== ENCOUNTER 2025-05-24 10:22 | Outpatient (AMB) | payer OTHER, SELFPAY ==
--- NOTE | 2025-05-24 10:26 | A.OFFVIS_ITS ---
Vital Signs 05/24/25 10:28 Height 5 ft 3 in Weight 239 lb 8.136 oz BMI 42.4 BP 120/70 Blood Pressure Location Rt brachial Position Sitting Pulse 95 Pulse Source Pulse Oximeter Pulse Oximetry (%) 96 Oxygen Delivery Method Room Air Intake Visit Reasons: DM Intake Note: Patient presents today for a follow-up on Type 2 Diabetes Mellitus: Last Diabetic eye exam was on: 10/2024, [facility] [place] Last Podiatry exam was on: 02/20/2025, DR Burch, at [facility]. Most recent HbA1c: 6.7% , 05/24/2025 Random Glucose- 95 mg/dL, Today Orthopedic Nurse Required: No Accompanied by: IN HOUSE CRA Allergies Penicillins (PENICILLINS) Allergy (Unknown, Verified 05/24/25 10:27) RASH canagliflozin (From Invokamet) Adverse Reaction (Verified 05/24/25 10:27) Yeast infection metformin (From Invokamet) Adverse Reaction (Verified 05/24/25 10:27) Yeast infection HPI Comments Details: Patient is a 65-year-old female who presents for follow up for type 2 diabetes. Medical history: CAD s/p PCI 03/2025, HTN, hyperlipidemia, postoperative hy pothyroid, anxiety depression, insomnia She was diagnosed with type 2 diabetes approximately 2023: Cpeptide 4.47 JESUS + 38 islet cell antibodies negative Current medications: Mounjaro 15.0 mg weekly Tresiba 42 units-will decrease to 35 units today Humalog 8 units twice daily-stopped Pioglitazone 30mg daily Previous medications tried: has not tolerated Invokana (had 1 yeast infection), metformin xr (diarrhea), glipizide caused shakiness, jardiance caused vaginal irritation and polyuria. Lantus caused joint aches Hemoglobin 6.8% from A1c 9.0% from 8.2% 10/19/2024 from 08/17/2024 8.4 %, previous 7.8% 05/13/2024. Freestyle emily sensor 3 average glucose: 14 day continuous glucose sensor report reviewed Glucose Management indicator 6.5%, TGT 85%, high 13%, low 2% Denies retinopathy last eye exam: 10/2024 Has neuropathy: some numbness and tingling. Last podiatry exam: Recently with Dr. Burch Has nephropathy 07/19/2024 eGFR>60 02/2024 microalbumin 223 She is on an ARB Exercise: Limited secondary to back pain but does some light walking she states everyone in her family has type 1 diabetes including her mother, maternal grandmother and a sibling. Her son has type 2 diabetes. Has had DM education Has fatty liver: seen by a specialist at [facility] in gastroenterolgy Ultrasound with liver elastography 2022 1. There is generalized increase in hepatic echotexture, consistent with fatty infiltration or hepatocellular disease. Please correlate clinically. No focal hepatic mass or intrahepatic biliary dilatation is seen. 2. Liver elastography: Measurements are suggestive of compensated advanced chronic liver disease but need further test for confirmation. She has hypothyroidism. On stable dose of levothyroxine. Last TSH 10/2024 in range PFSH Medical History Fatty liver Uncontrolled type 2 diabetes mellitus with hyperglycemia Hx of breast cancer GERD (gastroesophageal reflux disease) Osteoporosis DJD (degenerative joint disease) Anxiety Depression Insulin dependent type 2 diabetes mellitus Morbid obesity Obesity Postoperative hypothyroidism Disorder of bone, unspecified Vitamin D deficiency Hypercalcemia Multinodular thyroid HLD (hyperlipidemia) HTN (hypertension) T2DM (type 2 diabetes mellitus) Essential hypertension roasterman (current) use of insulin Type 2 diabetes mellitus without complications Obstructive sleep apnea (adult) (pediatric) PAF (paroxysmal atrial fibrillation) Surgical History Hx of partial thyroidectomy S/P lumpectomy, right breast Hx of colonoscopy Family History Father Cardiovascular disease Mother Uterine cancer Social History Household Members: None Housing: Apartment Are you a primary career orientation teacher to a significant other at home: No Do you presently have visiting nurse or other home services: Yes (IN HOUSE CRA) Alcohol intake: never Patient Tobacco Use Status: Never used Tobacco service: No Current occupational status: disabled Female Reproductive History Menstrual Age of Menarche: 15 Physical Exam Vital Signs: Last Vital Signs Pulse 95 05/24/25 10:28 BP 120/70 05/24/25 10:28 Pulse Ox 96 05/24/25 10:28 Oxygen Delivery Method Room Air 05/24/25 10:28 BMI result Body Mass Index 42.4 Results AMB Hemoglobin A1c AMB Hemoglobin A1c 6.7 % Last Edit by YANDEL Javier on 05/24/25 10:45 Results Reviewed Results Reviewed: Laboratory Last Values Glucose (Clinic) 95 mg/dL (60-115) 05/24/25 10:35 Hgb A1c (Clinic) 6.7 % (4.0-6.0) H 05/24/25 10:44 Assessment & Plan Assessment & Plan (1) Type 1.5 diabetes, managed as type 2: Code(s): E13.9 - Other specified diabetes mellitus without complications Category: Medical (2) Postoperative hypothyroidism: Code(s): E89.0 - Postprocedural hypothyroidism Category: Medical Plan Diabetes is now well controlled on current regimen Decrease tresiba to 35 daily. Stay off short acting insulin Continue alfa condon Treat hypoglycemia by rules of 15s Return in 3 months or sooner as needed Orders: Orders AMB Hemoglobin A1c Today E13.9 - Other specified diabetes mellitus without complications Medications: Changed From insulin degludec (Tresiba FlexTouch U-200 insulin) 50 units (0.25 mL) subcut BEDTIME 90 days 22.5 mL 3RF To insulin degludec (Tresiba FlexTouch U-200 insulin) 35 units (0.175 mL) subcut BEDTIME 18 mL 3RF 90 days Coding Level of Care Code Est Pt Level 4 (42344) Diagnoses Type 1.5 diabetes, managed as type 2 E13.9 Postoperative hypothyroidism E89.0
[2025-05-24 10:28] VITALS: BP 120/70; PULSE 95; O2SAT 96; BMI 42.4
[2025-05-24 10:40] LABS: Glucose, Whole Blood 95 mg/dL (60-115)
--- OUTSIDE RECORDS SUMMARY | 2025-05-24 12:47 | XMS_ITS | Clinical Summary ---
Author Organization 175 [facility] Address [address] [place] [address] Phone Care Team Providers Care Flame Gouger Name Role Phone Derrick Cain MD Primary [...] 4 (four) times a day. 4 Active clopidogreL (PLAVIX) 75 mg tablet Take 1 tablet (75 mg total) by mouth 1 (one) time each day. Active pioglitazone (ACTOS) 30 mg tablet Take 1 tablet (30 mg total) by mouth 1 (one) time each day. 5 Active albuterol HFA (Ventolin HFA) 90 mcg/actuation inhalerIndicat ions:Wheezing Inhale 2 puffs by mouth every 6 (six) hours if needed for wheezing. 18 g 1 5 026 Active Active Problems Problem Noted Date Diagnosed [...] Encounters Date Type Department Care Team Description 05/17/2025 Telephone Pulmonology - [address] [place] [address] Mery Ferris NP 04/26/2025 8:26 AM EST - 04/26/2025 11:59 PM EST Hospital Encounter [facility] CT Scan [address] [place] [phone] Lung nodule seen on imaging study Discharge Disposition: Home or Self Care 04/25/2025 8:30 AM EST Office Visit Orthopedic Surgery [facility] [address] [facility] [address] [place] [phone] Faisal Burch, DPM Metatarsalgia of both feet (Primary Dx); Type II diabetes mellitus with peripheral circulatory disorder ([facility] V24, [employer] [facility] [employer] V28); Diabetic mononeuropathy simplex ([employer] [facility] [employer] V24, [employer] [facility] [employer] V28); Dermatophytosis of nail; Pain in toe of left foot; Pain in toe of right foot; Corns and callosities; Tendonitis, Achilles, left 04/03/2025 Telephone Pulmonology [facility] [address] [facility] [address] [place] [phone] Serge [place], [place] 03/30/2025 9:45 AM EDT Office Visit Pulmonology [facility] [address] [facility] [address] [place] [phone] Mery Ferris NP Lung nodule seen on imaging study (Primary Dx); Obstructive sleep apnea; Morbid obesity ([employer] [facility] V24, [employer] V28); Wheezing from Last 3 Months Immunizations Immunization Administration [...] residual neoplasm OTHER SURGICAL HISTORY 03/26/2016 PROCEDURE: AR BIOPSY THYROID PERCUTANEOUS CORE NEEDLE; COMMENT: nodule; no report ESOPHAGOGASTRODUODENOSCOPY 10/09/2020 PROCEDURE: AR EGD TRANSORAL BIOPSY SINGLE/MULTIPLE; COMMENT: gastropathy, biopsy pending Medical History Medical History Date Comments Essential hypertension, benign 07/21/2012 D X:Essential hypertension, benign Dyslipidemia 07/21/2012 DX:Dyslipidemia Paroxysmal atrial fibrillati on ([facility] V24, [facility] V28) 07/21/2012 DX:Paroxysmal atrial fibril lation (HCC) Breast cancer (CMS/[facility] V24, [facility] V28) 04/29/2019 DX:Breast cancer (HCC); COMM ENT: Surgery x2 Depression 04/29/2019 DX:Depression Generalized anxiety disorder 04/29/2019 DX: Generalized anxiety disorder GERD (gastroesophageal reflu x disease) 04/29/2019 DX:GERD (gastroesophageal re flux disease) Gout 04/29/2019 DX:Gout Morbid obesity ([facility] V24, [facility] V28) 04/29/2019 DX:Morbid obesity (HCC) Multinodular goiter 04/29/2019 DX:Multinodu lar goiter Patient is Congregation 04/29/2019 DX: Patient is Congregation 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 ([facility] V24, [facility] V28) 04/29/2019 DX:Type 2 diabetes mellitus with peripheral neuropathy ([facility]) Diabetic peripheral neuropat hy ([facility] V24, [facility] V28) 05/04/2019 DX:Diabetic peripheral neur opathy (HCC) Swallowing impaired DX:Swallowin g impaired Atrial fibrillation, transie nt ([facility] V24, [facility] V28) DX:Atrial fibrillation, tra nsient (HCC) Esophagitis DX:Esophagitis Family History Medical History [...] on file Sexual Orientation Not on file Last Filed Vital Signs Vital Sign Reading Time Taken Comments Blood Pressure 132/70 03/30/2025 9:51 AM EDT Pulse 76 03/30/2025 9:51 AM EDT Temperature 36.4 C (97.5 F) 03/30/2025 9:51 AM EDT Respiratory Rate 18 03/30/2025 9:51 AM EDT Oxygen Saturation 98% 03/30/2025 9:51 AM EDT Inhaled Oxygen Concentration - - Weight 104 kg (230 lb) 03/30/2025 9:51 AM EDT Height 160 cm (5' 3 ) 03/30/2025 9:51 AM EDT Body Mass Index 40.74 03/30/2025 9:51 AM EDT Plan of Treatment Upcoming Encounters Date Type Department Care Team (Late st Contact Info) Description 06/26/2025 9:45 AM EST Office Visit Orthopedic Surgery - [place] [address] [facility] [address] [place] [phone] Faisal Burch, DPM [address] [facility] [address] [place] [phone] 03/30/2026 9:45 AM EDT Office Visit Pulmonology - [place] [address] [facility] [address] [place] [phone] Mery Ferris NP [address] [place] [address] Health Maintenance Due Date Last Done Comments Breast Cancer Screening 1962 Colorectal Cancer Screening: Colonoscopy 1962 Diabetes: Annual Foot Exam 1972 Diabetes: Annual Retina Eye Exam 1972 Hepatitis A Vaccines (1 of 2 - Risk 2-dose series) 1981 Cervical Cancer Screening: Pap Smear 1983 Diabetes: Annual GFR (Glomerular Filtration Rate) 07/12/2020 07/12/2019 Hepatitis B Vaccines (1 of 3 - Risk 3-dose series) 2022 Cholesterol Screening (Lipid Panel) 05/17/2022 HIV Screening 05/17/2022 Hepatitis C Screening 05/17/2022 Medicare Annual Wellness Visit 05/17/2022 Social Influencers of Health Screening 05/17/2022 Diabetes: Annual Urine Albumin-Creatinine Ratio (uACR) 05/23/2022 07/12/2019 Diabetes: Blood Sugar Control Test (HGBA1C) 05/23/2022 07/12/2019 Hypertension/CHF/CAD Annual BMP Blood Test 05/23/2022 07/12/2019 Depression Screening 06/08/2024 COVID-19 Vaccine ( season) 2025 03/28/2024, 11/07/2021, 05/23/2021, Additional history exists DTaP,Tdap,and Td Vaccines (3 - Td or Tdap) 06/17/2034 06/17/2024, 05/02/2014 Zoster Vaccines Completed 12/26/2022, 09/24/2022 RSV Immunization Adult Patients Completed 07/07/2024 Pneumococcal Vaccine: 50+ Years Completed 07/19/2024, 03/30/2018, 03/03/2018 Influenza Vaccine Completed 03/02/2025, , 03/19/2023, Additional history exists HIB Vaccines Aged Out [...] Procedure Name Priority Date/Time Associated Diagnosis Comments CT CHEST WO CONTRAST Routine 04/26/2025 8:36 AM EST Lung nodule seen on imaging study URINE ALBUMIN CREATININE RATIO Routine 07/12/2019 ANNUAL BMP BLOOD TEST Routine 07/12/2019 HEMOGLOBIN A1C Routine 07/12/2019 from Last 3 Months or Most Recently Relevant to Health Maintenance Results * CT Chest wo Contrast (04/26/2025 8:36 AM EST) Anatomical Region Laterality Modality Body Computed Tomogra phy 05/05/2025 9:09 AM EST Impressions 05/05/2025 9:21 AM EST Impression: 1. Persistent subcentimeter solid endobronchial nodule at the origin of the right lower lobe bronchus, with associated occlusion of the superior segmental bronchus, for which direct visualization to be considered. 2. No developing thoracic lymphadenopathy. [employer] [place] ([id number]) -------- FINAL REPORT -------- Dictated By: Genet Aguilera Dictated Date: 05/05/2025 09:09 ET Assigned Physician: Genet Aguilera Reviewed and Electronically Signed By: Genet Aguilera Signed Date: 05/05/2025 09:21 ET Workstation ID: [id number] Transcribed By: Self Edit Transcribed Date: 05/05/2025 09:09 ET Narrative 05/05/2025 9:21 AM EST History: 6 mm endobronchial nodule identified on coronary CT. Personal history of breast carcinoma. Comparison: Coronary CT 01/04/25 ([facility], [place], [place]) Technique: Helical volumetric imaging of the thorax was performed without IV contrast. DLP: 1210.08 mGy/cm Sponge VCT Iterative reconstruction technique Findings: Redemonstrated is an endobronchial nodule at the origin of the right lower lobe bronchus, approximately 7 mm in diameter (measurement less accurate in the absence of IV contrast). The lesion was hyperattenuating on the prior contrast enhanced imaging and is now lower in attenuation without IV contrast, confirming its solid nature. The superior segmental bronchus is occluded. The central airways are otherwise widely patent. Minimal subsegmental atelectasis or scar is seen at the base of the left lower lobe. There are small foci of peripheral mucous plugging in the of the right lower lobe characterized by clusters of tiny peripheral nodules. There are rare homogeneously calcified nodules consistent with healed granulomas. No pleural or pericardial effusions are seen. Mild multichamber cardiomegaly is present. There is severe, three-vessel coronary artery calcification. No thoracic lymphadenopathy is seen. Surgical clips at the base of the neck to the right of the trachea suggests partial thyroidectomy. Lumpectomy sequela are noted in the right breast. A small portion of the upper abdomen included on the lowest images through the thorax is remarkable for severe atherosclerotic calcification at the bilateral renal artery origins, partially imaged. There is flowing hyperostosis along the anterior aspect of the mid and lower thoracic spine, possibly underlying diffuse idiopathic skeletal hyperostosis (DISH). Procedure Note Genet Aguilera MD - 05/05/2025 History: 6 mm endobronchial nodule identified on coronary CT. Personalhistory of breast carcinoma. Comparison: Coronary CT 01/04/25 ([facility], [place], [place]) Technique: Helical volumetric imaging of the thorax was performed withoutIV contrast. DLP: 1210.08 mGy/cm [employer] VCT Iterative reconstruction technique Findings: Redemonstrated is an endobronchial nodule at the origin of the right lowerlobe bronchus, approximately 7 mm in diameter (measurement less accuratein the absence of IV contrast). The lesion was hyperattenuating on theprior contrast enhanced imaging and is now lower in attenuation without IVcontrast, confirming its solid nature. The superior segmental bronchus isoccluded. The central airways are otherwise widely patent. Minimal subsegmental atelectasis or scar is seen at the base of the leftlower lobe. There are small foci of peripheral mucous plugging in the ofthe right lower lobe characterized by clusters of tiny peripheral nodules.There are rare homogeneously calcified nodules consistent with healedgranulomas. No pleural or pericardial effusions are seen. Mild multichamber cardiomegaly is present. There is severe, three-vesselcoronary artery calcification. No thoracic lymphadenopathy is seen. Surgical clips at the base of the neck to the right of the tracheasuggests partial thyroidectomy. Lumpectomy sequela are noted in the right breast. A small portion of the upper abdomen included on the lowest images throughthe thorax is remarkable for severe atherosclerotic calcification at thebilateral renal artery origins, partially imaged. There is flowing hyperostosis along the anterior aspect of the mid andlower thoracic spine, possibly underlying diffuse idiopathic skeletalhyperostosis (DISH). IMPRESSION: Impression: 1. Persistent subcentimeter solid endobronchial nodule at the origin ofthe right lower lobe bronchus, with associated occlusion of the superiorsegmental bronchus, for which direct visualization to be considered. 2. No developing thoracic lymphadenopathy. [employer] [place] ([id number]) -------- FINAL REPORT -------- Dictated By: Genet Aguilera Dictated Date: 05/05/2025 09:09 ET Assigned Physician: Genet Aguilera Reviewed and Electronically Signed By: Genet Aguilera Signed Date: 05/05/2025 09:21 ET Workstation ID: [id number] Transcribed By: Self Edit Transcribed Date: 05/05/2025 09:09 ET Mery Ferris GRANULATOR TENDER IMG CT PROCEDURES Final Result * Urine Albumin Creatinine Ratio (07/12/2019) Pathologist [facility] Urine Albumin Creatinine Ratio Abstracted Result [facility] Historical Provider HEALTH MAINTENANCE Final Result * Annual BMP Blood Test (07/12/2019) Pathologist [facility] Annual BMP Blood Test Abstracted Result [facility] Historical Provider HEALTH MAINTENANCE Final Result * (ABNORMAL) Hemoglobin A1c (07/12/2019) [facility] Hemoglobin A1C 10.2(A) <=6.5 % Blood Venous blood specimen / Unknown Result [facility] Historical Provider LAB BLOOD ORDERABLES Sharmaine l Result from Last 3 Months or Most Recently Relevant to Health Maintenance Insurance [facility] MEDICARE Member Subscriber Plan / Payer (Ef fective 2019-Present) Name:FIORDALIZA GOMEZ Relation to Subscriber:Self Name:Fiordaliza Gomez Vanessa Payer ID:[id number] Group ID:[id number] Type:Not on file Address: [facility] [place] [id number] Advance Directives Documents on File Type Date Recorded 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
--- OUTSIDE RECORDS SUMMARY | 2025-05-24 12:47 | XMS_ITS | Encounter Summary ---
Author Organization [facility] [place] [address] Care Team Providers Care Siderographer Name Role Phone Derrick Cain MD Primary Care Provider Reason for Visit * Reason Onset Date Comments Results 05/17/2025 Encounter Details Date Type Department Care Team ([facility] st Contact Info) Description 05/17/2025 Telephone Pulmonology - [place] [address] [facility] [address] [place] [address] eMry Ferris NP [address] [place] [phone] Social History Tobacco Use Types Packs/Day Years [...] as of this encounter Progress Notes * Madeline Tay MA - 05/17/2025 1:42 PM EST Please review results * Anna Moncada - 05/17/2025 11:02 AM EST Patients day care worker called and asked for Mery to call her with the results of her CT scan. documented in this encounter Plan of Treatment Upcoming Encounters Date Type Department Care Team (Late st Contact Info) Description 06/26/2025 9:45 AM EST Office Visit Orthopedic Surgery - [place] [address] [facility] 250 [place] [address] Faisal Burch DPElias 175 [facility] [address] [place] [phone] 03/30/2026 9:45 AM EDT Office Visit Pulmonology - [place] 175 [facility] 200 [place] [phone] Mery Ferris, HÉCTOR [address] [place] [phone] documented as of this encounter Visit Diagnoses Not on filedocumented in this encounter Care Teams Siderographer Relationship Specialty Start Date End Date Derrick Cain MD [address] [place] [id number] PCP - General 10/21/18 documented as of this encounter
== END 2025-05-24 11:12 | disposition home or self-care (01) ==
LOC: HO.ENCR 10:23
PROVIDERS: PCP Internal Medicine Sports Medicine; Visit Provider Internal Medicine
DX: E13.9 Other specified diabetes mellitus without complications (principal); E89.0 Postprocedural hypothyroidism

== ENCOUNTER → 2025-05-24 10:22 | Outpatient (BNVA) | payer OTHER, SELFPAY | PROVIDERS: PCP Internal Medicine Sports Medicine; Visit Provider Internal Medicine | DX: E13.9 Other specified diabetes mellitus without complications (principal); E89.0 Postprocedural hypothyroidism; Z79.4 Long term (current) use of insulin; Z79.85 Long-term (current) use of injectable non-insulin antidiabetic drugs | CPT/HCPCS: 82947; 83036; 99212 ==